=== PATIENT | male | born 1950 | race Two or more races ===

== ENCOUNTER 2020-01-14 11:13 | Outpatient (REF) | payer MEDICARE, SELFPAY | END 2020-01-14 11:14 | disposition home or self-care (01) | LOC: HO.LAB 11:13 | PROVIDERS: PCP Family Medicine; Visit Provider Internal Medicine | DX: Z20.828 Contact with and (suspected) exposure to other viral communicable diseases (principal) | CPT/HCPCS: C9803; U0003 ==

== ENCOUNTER 2020-06-24 14:46 | Outpatient (REF) | payer MEDICARE, SELFPAY | END 2020-06-24 14:47 | disposition home or self-care (01) | LOC: HO.LAB 14:46 | PROVIDERS: Visit Provider Internal Medicine | DX: Z20.822 Contact with and (suspected) exposure to COVID-19 (principal) | CPT/HCPCS: C9803; U0003; U0005 ==

== ENCOUNTER 2020-12-11 12:27 | Outpatient (REF) | payer MEDICARE, SELFPAY ==
--- NOTE | 2020-12-11 16:00 | MHC.AU.ANR ---
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 Mr. Ailyn Hernandez reports that he's having more difficulty understanding speech and often asks for repetition. He notes difficulties hearing on the phone and the TV. Does patient feel they have a hearing loss?: Yes If Yes, Which Ear?: Both Ears When Was Hearing Difficulty First Noticed?: ~ 1 year ago Has hearing been tested previously?: No Ear History: Bothersome Tinnitus/Ringing/Noises in Ears: Both Ears History of occupational noise exposure?: Yes Medical History: Medical History: Diabetes, High Blood Pressure, Thyroid Disease Medical History (Other): COPD, renal cyst Medication List: See list Otoscopy: Right Ear: Unremarkable Left Ear: Unremarkable Tympanometry: Tympanometry performed due to: To assess integrity of the middle ear system Right Ear: Negative Middle Ear Pressure (Type C) Left Ear: Reduced Middle Ear Compliance (Type As) Hearing Evaluation: Transducer(s) Used: Insert Earphones, Bone Conduction Method: Conventional Audiometry Stimuli Used: Pure Tones Right Ear: Description of Hearing: Moderate sloping to severe sensorineural hearing loss from 250-8000 Hz. Left Ear: Description of Hearing: Moderate to moderately-severe sensorineural hearing loss from 250-8000 Hz. Speech Recognition Threshold (SRT): Method Used: Recorded Lists Stimuli Used: Serbian Trisyllable Words Right Ear: 65 dBHL Left Ear: 65 dBHL Word Discrimination: Method: Recorded Lists Word Lists Used: Lista Bisil?bica (Serbian) Right Ear: 88% at 90 dBHL Left Ear: 84% at 90 dBHL Recommendations: Audiological re-evaluation in one year. Trial with amplification is recommended. Based on degree of hearing loss, binaural amplification use is highly recommended. Briefly discussed hearing aids with Mr. Ailyn Hernandez. He will contact his health insurance company to find out about any hearing aid benefits. He was welcomed to return for a hearing aid consultation if he decides he would like to pursue hearing aids through our clinic. Diagnosis: Primary Diagnosis: H90.3 Bilateral Sensorineural Hearing Loss Secondary Diagnosis: H69.93 Unspecified Eustachian Tube Dysfunction, Bilateral Services Performed: Services Performed: Comprehensive Audiological Evaluation (CPT 30707) Tympanometry (CPT 28070) Signature: Provider: Zion Brown, CCC-A
== END 2020-12-11 12:28 | disposition home or self-care (01) ==
LOC: HO.SH 12:27
PROVIDERS: Visit Provider Family Medicine
DX: H90.3 Sensorineural hearing loss, bilateral (principal); H69.93 Unspecified Eustachian tube disorder, bilateral
CPT/HCPCS: 92557; 92567

== ENCOUNTER → 2021-01-05 13:02 | Outpatient (BNVA) | payer MEDICARE, SELFPAY | PROVIDERS: PCP Family Medicine; Referring Provider Family Medicine; Visit Provider Internal Medicine Cardiovascular Disease | DX: R07.9 Chest pain, unspecified (principal); Z87.891 Personal history of nicotine dependence | CPT/HCPCS: 93005; 99202 ==

== ENCOUNTER 2021-07-12 06:30 | Emergency (ER) | payer OTHER, MEDICAID, SELFPAY ==
--- NOTE | ~2021-07-12 | XR_ITS ---
EXAMINATION: XR CHEST CLINICAL INFORMATION: Chest congestion. COMPARISON: CT chest from 09/14/2018 TECHNIQUE: 2 views of the chest were obtained. FINDINGS: Lungs are well expanded. Chronic linear opacity of focal scar in the lingula. No consolidation or pleural effusion. Cardiac silhouette is normal in size. The hilar contours are normal. Pulmonary vascular pattern is normal. No pulmonary edema. No acute skeletal abnormality. The visualized upper abdomen is normal. XR/XR chest 2V IMPRESSION: No acute pulmonary disease.
--- NOTE | ~2021-07-12 | CT_ITS ---
EXAMINATION: CT CHEST WITHOUT CONTRAST CLINICAL INFORMATION: Difficulty breathing. COMPARISON: Chest radiograph done earlier the same day and CT chest dated 09/14/2018. TECHNIQUE: Multidetector volumetric CT imaging of the chest was done. Axial MIP volume rendering provided. Sagittal and coronal reformatted images were obtained. This CT examination was performed using dose optimization techniques as appropriate, variously including the following: *Automated exposure control *Adjustment of mA and/or kV according to patient size (this includes techniques or standardized protocols for targeted exams where dose is matched to indication/reason for exam; i.e. 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 LUNGS: Linear scarring versus atelectasis redemonstrated within the lingula. Mild dependent atelectasis. No large, confluent airspace consolidation. The central airways are patent. Stable 0.4 cm right lower lobe subpleural nodule (axial image 281/498). The additional previously seen nodule is not appreciated on the current examination due to respiratory motion. No new pulmonary nodule or large mass. MEDIASTINUM: No cardiomegaly. No pericardial effusion. No thoracic aortic dilatation or dissection. No superior mediastinal lymphadenopathy. Unremarkable thyroid. PLEURA: There is no pleural effusion. No pleural mass or thickening. AXILLA: No lymphadenopathy. UPPER ABDOMEN: Stable bilateral renal cysts. Otherwise, the visualized upper abdominal structures are unremarkable. OSSEOUS STRUCTURES: Unremarkable. CT/CT chest wo con IMPRESSION: 1. No new airspace consolidation or evidence of acute cardiopulmonary findings. 2. Stable right lower lobe subpleural pulmonary nodule. No new pulmonary nodule. Given stability since 2019, now continued followup imaging is recommended. Fleischner guidelines were followed.
[2021-07-12 07:00] VITALS: BP 175/93; PULSE 81; RESP 24; TEMP 36.9; O2SAT 96; BMI 32.9
[2021-07-12 07:26] LABS: COVID-19 Test Negative (Negative); IDNOW Serial# 16C4AD1C; Influenza A Negative (Negative); Influenza B2 Negative (Negative)
[2021-07-12 08:22] VITALS: BP 176/85; PULSE 70; RESP 18; O2SAT 96
--- NOTE | 2021-07-12 08:25 | ED_ITS ---
HPI - General Adult General Chief complaint: Upper Respiratory Symptoms Stated complaint: wheezing; asthma Time Seen by Provider: 07/12/21 08:25 Source: patient and family () Mode of arrival: ambulatory Limitations: no limitations History of Present Illness HPI narrative: Patient is a 70 year old male presenting to the emergency department today with increased wheezing and shortness of breath. Patient states that for the last few weeks he has had increased wheezing and coughing. Patient states that he has a history of asthma and COPD but does not have a lung specialist. Patient denies any dizziness, lightheadedness, abdominal pain, nausea, vomiting, fever, chills, blurry vision, double vision, loss of vision, chest pain, back pain, night sweats, pain with urination, increased urinary frequency, increased urinary urgency, blood in his urine or stool, syncope or a near syncopal episode, recent trauma or falls, bowel incontinence, bladder incontinence, bowel retention, bladder retention, or any other complaints at this time. Onset (ago): week(s) Severity: mild Severity scale (1-10): 3 Relieving factors: none Exacerbating factors: none Associated symptoms: cough Treatments prior to arrival: none Related Data Home Medications Medication Instructions Recorded Confirmed aspirin 81 mg tablet,delayed 81 mg PO DAILY 01/05/21 01/05/21 release atorvastatin 40 mg tablet 40 mg PO DAILY 01/05/21 01/05/21 blood sugar diagnostic (SalonBookrTouch #10 ea 01/05/21 01/05/21 Ultra Test) citalopram 40 mg tablet 40 mg PO DAILY 01/05/21 01/05/21 doxazosin 8 mg tablet 8 mg PO DAILY 01/05/21 01/05/21 ergocalciferol (vitamin D2) 1,250 1,250 mcg PO QWEEK 01/05/21 01/05/21 mcg (50,000 unit) capsule lancets 33 gauge (SalonBookrTouch Delica #100 ea 01/05/21 01/05/21 Plus Lancet) levothyroxine 88 mcg tablet 88 mcg PO DAILY 01/05/21 01/05/21 lisinopril 40 mg tablet 40 mg PO BEDTIME 01/05/21 01/05/21 loratadine 10 mg tablet 10 mg PO DAILY 01/05/21 01/05/21 montelukast 10 mg tablet 10 mg PO DAILY 01/05/21 01/05/21 omeprazole 20 mg capsule,delayed 20 mg PO BID 01/05/21 01/05/21 release tamsulosin 0.4 mg capsule 0.4 mg PO DAILY 01/05/21 01/05/21 tiotropium bromide 18 mcg capsule 1 cap INHALATION DAILY 01/05/21 01/05/21 with inhalation device (Spiriva with HandiHaler) trazodone 50 mg tablet 50 mg PO BEDTIME 01/05/21 01/05/21 Previous Rx's Medication Instructions Recorded azithromycin 250 mg tablet See Rx Instructions .ROUTE 07/12/21 .COMPLEX #6 tab prednisone 20 mg tablet 20 mg PO DAILY 12 Days #26 tab 07/12/21 Allergies Allergy/AdvReac Type Severity Reaction Status Date / Time No Known Allergies Allergy Verified 01/05/21 13:54 Review of Systems Constitutional: Constitutional: Reports no additional constitutional complaints, Denies chills, Denies fever(s) and Denies night sweats Eyes: Eyes: Reports no additional eye complaints, Denies blurry vision, Denies change in vision, Denies diplopia, Denies eye discharge, Denies loss of vision and Denies eye pain ENT: Denies dizziness Cardiovascular: Cardiovascular: Reports no additional cardiovascular complaints, Denies chest pain, Denies lightheadedness, Denies Loss of Consciousness and Denies dyspnea Respiratory: Respiratory: Reports no additional respiratory complaints, Reports cough, Denies dyspnea and Reports wheezing Gastrointestinal: Gastrointestinal: Reports no additional gastrointestinal complaints, Denies abdominal pain, Denies melena, Denies hematochezia, Denies change in bowel habits and Denies change in stool character Genitourinary: Genitourinary: Reports no additional male genitourinary complaints, Denies hematuria, Denies oliguria, Denies difficulty urinating, Denies dysuria, Denies urinary frequency, Denies urinary hesitancy, Denies urinary incontinence and Denies urinary urgency Musculoskeletal: Musculoskeletal: Reports no additional musculoskeletal complaints, Denies numbness and Denies tingling Neurologic: Denies dizziness, Denies loss of vision, Denies numbness and Denies tingling Psychiatric: Psychiatric: Reports no additional psychiatric complaints Endocrine: Endocrine: Reports no additional endocrine complaints Hematologic/Lymphatic: Hematologic/Lymphatic: Reports no additional hematologic/lymphatic complaints Allergic/Immunologic: Allergic/Immunologic: Reports no additional allergic/immunologic complaints and Reports wheezing PMFSH Past Medical History Attestation statement: The following information was validated with the patient. Source: old records reviewed Medical History History of stent insertion of renal artery Surgical History History of nasal surgery Family History Family History Mother Diabetes Breast cancer Father Pacemaker HTN (hypertension) CAD (coronary artery disease) Social History Social History Alcohol intake: former Year quit: 2005 Patient Tobacco Use Status: Former Tobacco user Quit Date: 2005 Years Smoked: 40 +/- Advance Directives: Yes Advance Directives Information Provided: Yes Advance Directives on File: No Physical Exam ED Vital Signs: Vital Signs - 24 hr 07/12/21 07:00 07/12/21 08:22 07/12/21 08:44 Temperature 98.4 F Pulse Rate 81 70 76 Respiratory Rate 24 H 18 19 Blood Pressure 175/93 H 176/85 H Pulse Oximetry 96 96 BMI result Body Mass Index 32.9 Const General: cooperative, no acute distress, alert and awake Nutritional Appearance: well nourished Orientation/consciousness: patient oriented x3 Limitations: no limitations HENMT Head: Yes normal to inspection and Yes atraumatic Ears: hearing grossly normal bilaterally and external ears normal General nose exam: Normal external nose present, no nasal discharge noted and no epistaxis Face and sinus: Yes normal facial exam, No abrasion and No laceration Mouth: Normal oral and palatal mucosa present, no drooling and no muffled voice Eyes General: appearance normal, both eyes and all related structures Periorbital: periorbital findings normal Eyelids: Yes eyelids normal Conjunctivae: conjunctivae normal Pupils: Equal, round and reactive pupils present EOM: EOMs intact bilaterally Neck Neck: Yes normal visual inspection, Yes full ROM and Yes no lymphadenopathy Chest Chest palpation & inspection: normal inspection of the chest Resp Effort & Inspection: normal respiratory effort and able to speak in complete sentences Auscultation: wheezes scattered wheezes and throughout Cardio Rate: regular rate Rhythm: regular rhythm GI Inspection: Yes normal to inspection Neuro General: patient oriented x3 and moves all extremities Cranial nerves: Yes Equal, round and reactive pupils present Cognition (Neuro): normal cognition Motor exam (neuro): 5/5 motor strength present throughout Sensory Exam: Normal double simultaneous stimulation for sensation Coordination: [id number] test normal Extrem General: Yes normal to inspection, Yes full ROM and Yes capillary refill normal Psych Appearance: grossly normal Mental Status: mental status grossly normal Affect: normal affect Attitude: cooperative Thought process: Normal thought process present Thought content: Normal thought content present Insight: Good insight present (Psych) Medical Decision Making MDM Narrative Medical decision making narrative: Patient is a 70 year old male presenting to the emergency department today with a cough and wheezing. Patient's physical exam showed diffuse wheezing throughout all lung olivas but was otherwise unremarkable. Patient's blood work showed a slightly elevated lactic acid of 2.2 but was otherwise unremarkable. Patient's EKG was unremarkable. Patient's chest x-ray showed no acute process. Patient's chest CT showed a stable, chronic, lung nodule but was otherwise unremarkable. I explained my physical exam findings as well as all test results to the patient and the patient's . I answered all questions asked by the patient and the patient's . Patient received a duoneb and IV decadron which helped his wheezing significantly. I stressed the importance of the patient taking his medication as prescribed. I stressed the importance of the patient following up with his primary care provider and establishing with a construction trench digger. I stressed the importance of the patient returning to the emergency department immediately if his symptoms were to worsen or if he were to develop any dizziness, shortness of breath, difficulty breathing, chest pain, blurry vision, loss of vision, nausea, vomiting, abdominal pain, fever, chills, back pain, or any other complaints. Patient and the patient's verbalized agreement and unders tanding with this treatment plan and discharge. Differential Diagnosis Differential Diagnosis: COPD exacerbation, asthma exacerbation, wheezing Medical Records Medical records reviewed: Yes I reviewed the patient's medical records. Lab Data Lab results reviewed: Yes I reviewed the patient's lab results. Result diagrams: 07/12/21 09:02 07/12/21 09:02 Labs: Lab Results 07/12/21 07/12/21 07/12/21 Range/Units 07:03 07:03 09:02 WBC 10.5 (4.8-10.8) X10*3/uL RBC 5.14 (4.60-5.80) X10*6/uL Hgb 14.0 (14.0-18.0) g/dl Hct 44.4 (42.0-52.0) % MCV 86.4 (80.0-98.0) fL MCH 27.2 (27.0-33.0) pg MCHC 31.5 (31.0-36.0) g/dl RDW 13.8 (11.0-16.0) % Plt Count 385 (160-400) X10*3/uL MPV 8.7 L (9.4-12.4) fL Immature Gran % (Auto) 0.5 H (0.0-0.4) % Neut % (Auto) 90.7 H (45-73) % Lymph % (Auto) 7.3 L (20-40) % Ogle % (Auto) 1.0 L (2-11) % Eos % (Auto) 0.2 (0-4) % Baso % (Auto) 0.3 (0-2) % Lymph # (Auto) 0.8 L (1.2-4.9) X10*3/uL Ogle # (Auto) 0.1 (0.1-1.2) X10*3/uL Eos # (Auto) 0.0 (0.0-0.4) X10*3/uL Baso # (Auto) 0.0 (0.0-0.2) X10*3/uL Abs Immat Gran (auto) 0.05 H (0.00-0.03) X10*3/uL Absolute Neuts (auto) 9.5 H (2.0-8.3) x10*3/uL Absolute Nucleated RBC 0.000 (0.0-0.012) X10*3/uL Nucleated RBC % (auto) 0.0 (0.0-0.2) /100WBC Smear Tech's Comments VERIFIED ESR (0-15) MM/HR VBG pH (7.32-7.43) VBG pCO2 mmHg VBG pO2 mmHg VBG HCO3 (22-26) mmol/L VBG O2 Saturation % VBG Base Excess mmol/L Sodium (135-145) mmol/L Potassium (3.3-5.1) mmol/L Chloride (96-108) mmol/L Carbon Dioxide (22-29) mmol/L Anion Gap (12-20) BUN (9-16) mg/dL Creatinine (0.5-1.4) mg/dL Estim Creat Clear Calc Estimated GFR Random Glucose (60-115) mg/dL Lactic Acid (0.5-2.0) mmol/L Calcium (8.4-10.2) mg/dL Total Bilirubin (0.0-1.0) mg/dL AST (5-37) U/L ALT (0-40) U/L Alkaline Phosphatase (39-117) U/L Troponin I High Sens (<3.5-35.0) ng/L C-Reactive Protein (< or = 0.50) mg/dL B-Natriuretic Peptide (<100) pg/mL Total Protein (6.5-8.0) g/dL Albumin (3.5-5.0) g/dL COVID-19 (VICKIE) Negative (Negative) COVID-19 Clin Com See Note Influenza Type A (DOMINGA) Negative (Negative) Influenza Type B (DOMINGA) Negative (Negative) Influenza A & B Note See Note 07/12/21 07/12/21 07/12/21 Range/Units 09:02 09:02 09:02 WBC (4.8-10.8) X10*3/uL RBC (4.60-5.80) X10*6/uL Hgb (14.0-18.0) g/dl Hct (42.0-52.0) % MCV (80.0-98.0) fL MCH (27.0-33.0) pg MCHC (31.0-36.0) g/dl RDW (11.0-16.0) % Plt Count (160-400) X10*3/uL MPV (9.4-12.4) fL Immature Gran % (Auto) (0.0-0.4) % Neut % (Auto) (45-73) % Lymph % (Auto) (20-40) % Ogle % (Auto) (2-11) % Eos % (Auto) (0-4) % Baso % (Auto) (0-2) % Lymph # (Auto) (1.2-4.9) X10*3/uL Ogle # (Auto) (0.1-1.2) X10*3/uL Eos # (Auto) (0.0-0.4) X10*3/uL Baso # (Auto) (0.0-0.2) X10*3/uL Abs Immat Gran (auto) (0.00-0.03) X10*3/uL Absolute Neuts (auto) (2.0-8.3) x10*3/uL Absolute Nucleated RBC (0.0-0.012) X10*3/uL Nucleated RBC % (auto) (0.0-0.2) /100WBC Smear Tech's Comments ESR (0-15) MM/HR VBG pH (7.32-7.43) VBG pCO2 mmHg VBG pO2 mmHg VBG HCO3 (22-26) mmol/L VBG O2 Saturation % VBG Base Excess mmol/L Sodium 139 (135-145) mmol/L Potassium 4.6 (3.3-5.1) mmol/L Chloride 105 (96-108) mmol/L Carbon Dioxide 25 (22-29) mmol/L Anion Gap 14 (12-20) BUN 24 H (9-16) mg/dL Creatinine 1.18 (0.5-1.4) mg/dL Estim Creat Clear Calc 51.1 Estimated GFR > 60 Random Glucose 197 H (60-115) mg/dL Lactic Acid 2.2 H* (0.5-2.0) mmol/L Calcium 9.7 (8.4-10.2) mg/dL Total Bilirubin 0.4 (0.0-1.0) mg/dL AST 13 (5-37) U/L ALT 24 (0-40) U/L Alkaline Phosphatase 97 (39-117) U/L Troponin I High Sens < 3.5 (<3.5-35.0) ng/L C-Reactive Protein 0.25 (< or = 0.50) mg/dL B-Natriuretic Peptide 27 (<100) pg/mL Total Protein 7.3 (6.5-8.0) g/dL Albumin 4.1 (3.5-5.0) g/dL COVID-19 (VICKIE) (Negative) COVID-19 Clin Com Influenza Type A (DOMINGA) (Negative) Influenza Type B (DOMINGA) (Negative) Influenza A & B Note 07/12/21 07/12/21 Range/Units 09:02 09:05 WBC (4.8-10.8) X10*3/uL RBC (4.60-5.80) X10*6/uL Hgb (14.0-18.0) g/dl Hct (42.0-52.0) % MCV (80.0-98.0) fL MCH (27.0-33.0) pg MCHC (31.0-36.0) g/dl RDW (11.0-16.0) % Plt Count (160-400) X10*3/uL MPV (9.4-12.4) fL Immature Gran % (Auto) (0.0-0.4) % Neut % (Auto) (45-73) % Lymph % (Auto) (20-40) % Ogle % (Auto) (2-11) % Eos % (Auto) (0-4) % Baso % (Auto) (0-2) % Lymph # (Auto) (1.2-4.9) X10*3/uL Ogle # (Auto) (0.1-1.2) X10*3/uL Eos # (Auto) (0.0-0.4) X10*3/uL Baso # (Auto) (0.0-0.2) X10*3/uL Abs Immat Gran (auto) (0.00-0.03) X10*3/uL Absolute Neuts (auto) (2.0-8.3) x10*3/uL Absolute Nucleated RBC (0.0-0.012) X10*3/uL Nucleated RBC % (auto) (0.0-0.2) /100WBC Smear Tech's Comments ESR 9 (0-15) MM/HR VBG pH 7.38 (7.32-7.43) VBG pCO2 38 mmHg VBG pO2 62 mmHg VBG HCO3 23 (22-26) mmol/L VBG O2 Saturation 87.0 % VBG Base Excess -1.7 mmol/L Sodium (135-145) mmol/L Potassium (3.3-5.1) mmol/L Chloride (96-108) mmol/L Carbon Dioxide (22-29) mmol/L Anion Gap (12-20) BUN (9-16) mg/dL Creatinine (0.5-1.4) mg/dL Estim Creat Clear Calc Estimated GFR Random Glucose (60-115) mg/dL Lactic Acid (0.5-2.0) mmol/L Calcium (8.4-10.2) mg/dL Total Bilirubin (0.0-1.0) mg/dL AST (5-37) U/L ALT (0-40) U/L Alkaline Phosphatase (39-117) U/L Troponin I High Sens (<3.5-35.0) ng/L C-Reactive Protein (< or = 0.50) mg/dL B-Natriuretic Peptide (<100) pg/mL Total Protein (6.5-8.0) g/dL Albumin (3.5-5.0) g/dL COVID-19 (VICKIE) (Negative) COVID-19 Clin Com Influenza Type A (DOMINGA) (Negative) Influenza Type B (DOMINGA) (Negative) Influenza A & B Note Imaging Data Chest x-ray: Attestation: I personally reviewed and interpreted this imaging study as follows: My impression: No acute process. Radiologist's impression: EXAMINATION: XR CHEST CLINICAL INFORMATION: Chest congestion. COMPARISON: CT chest from 09/14/2018 TECHNIQUE: 2 views of the chest were obtained. FINDINGS: Lungs are well expanded. Chronic linear opacity of focal scar in the lingula. No consolidation or pleural effusion. Cardiac silhouette is normal in size. The hilar contours are normal. Pulmonary vascular pattern is normal. No pulmonary edema. No acute skeletal abnormality. The visualized upper abdomen is normal. XR/XR chest 2V IMPRESSION: No acute pulmonary disease. Dictated By: Danilo Riley MD Signed By: Electronically signed by Danilo Riley MD 07/12/[address] scan - chest: Attestation: I personally reviewed and interpreted this imaging study as follows: My impression: No acute process. Radiologist's impression: EXAMINATION: CT CHEST WITHOUT CONTRAST CLINICAL INFORMATION: Difficulty breathing.? COMPARISON: Chest radiograph done earlier the same day and CT chest dated 09/14/2018.? TECHNIQUE: Multidetector volumetric CT imaging of the chest was done. Axial MIP volume rendering provided. Sagittal and coronal reformatted images were obtained.? This CT examination was performed using dose optimization techniques as appropriate, variously including the following: *Automated exposure control *Adjustment of mA and/or kV according to patient size (this includes techniques or standardized protocols for targeted exams where dose is matched to indication/reason for exam; i.e. extremities or head) *Use of iterative reconstruction technique DLP: 289 mGy-cm FINDINGS: VISUAL AND STOCK ASSOCIATE: Unremarkable. LUNGS: Linear scarring versus atelectasis redemonstrated within the lingula. Mild dependent atelectasis. No large, confluent airspace consolidation. The central airways are patent. Stable 0.4 cm right lower lobe subpleural nodule (axial image 281/498). The additional previously seen nodule is not appreciated on the current examination due to respiratory motion. No new pulmonary nodule or large mass.? MEDIASTINUM: No cardiomegaly. No pericardial effusion. No thoracic aortic dilatation or dissection. No superior mediastinal lymphadenopathy. Unremarkable thyroid.? PLEURA: There is no pleural effusion. No pleural mass or thickening.? AXILLA: No lymphadenopathy.? UPPER ABDOMEN: Stable bilateral renal cysts. Otherwise, the visualized upper abdominal structures are unremarkable.? OSSEOUS STRUCTURES: Unremarkable.? CT/CT chest wo con IMPRESSION: 1. No new airspace consolidation or evidence of acute cardiopulmonary findings. ? 2. Stable right lower lobe subpleural pulmonary nodule. No new pulmonary nodule. Given stability since 2019, now continued followup imaging is recommended.? ? Fleischner guidelines were followed. Dictated By: Bhaskar Sarmiento MD Signed By: Electronically signed by Bhaskar Sarmiento MD 07/12/21 1012 ECG Data Attestation: I personally reviewed and interpreted this ECG as follows: Prior ECG tracings: available for review Interpretation: Vent. Rate: 074 BPM ? ? Atrial Rate: 074 BPM P-R Int: 148 ms? QRS Dur: 086 ms QT Int: 424 ms ? ? ? P-R-T Axes: 064 -22 037 degrees QTc Int: 470 ms ? Normal sinus rhythm Possible inferior infarct, age undetermined When compared with ECG of 05-JAN-2021 13:02, No significant change was found Important note: This EKG did not cross over into the computer system and was manually entered here by myself, Marcelle Kelly PA-C. Patient's signed EKG was attached to his paper chart and should be scanned into the system. Discharge Plan Discharge Clinical Impression: Diffuse wheezing, COPD with asthma Patient Disposition: Home, Self-Care Instructions: COPD (Chronic Obstructive Pulmonary Disease) (DC), Wheezing (ED) Additional Instructions: Follow up with your primary care provider. Return to the emergency department immediately if your symptoms worsen or if you develop any dizziness, shortness of breath, difficulty breathing, chest pain, blurry vision, loss of vision, nausea, vomiting, abdominal pain, fever, chills, back pain, or any other complaints. Prescriptions: New azithromycin 250 mg tablet See Rx Instructions .ROUTE .COMPLEX Qty: 6 0RF Rx Instructions: For 250 mg dose pack: take 500 mg today (day 1), then 250 mg for 4 days (days 2-5) prednisone 20 mg tablet 20 mg PO DAILY 12 Days Qty: 26 0RF Rx Instructions: Take 3 tablets by mouth for 5 days THEN; Take 2 tablets by mouth for 4 days THEN; Take 1 tablet by mouth for 3 days No Action loratadine 10 mg tablet 10 mg PO DAILY 0RF omeprazole 20 mg capsule,delayed release(DR/EC) 20 mg PO BID 0RF citalopram 40 mg tablet 40 mg PO DAILY 0RF Spiriva with HandiHaler 18 mcg capsule, w/inhalation device 1 cap inhalation DAILY 0RF lisinopril 40 mg tablet 40 mg PO BEDTIME 0RF doxazosin 8 mg tablet 8 mg PO DAILY 0RF levothyroxine 88 mcg tablet 88 mcg PO DAILY 0RF (DME) OneTouch Ultra Test Strip See Rx Instructions ea Not Applicable DAILY Qty: 10 0RF Rx Instructions: As directed (DME) lancets [OneTouch Delica Plus Lancet] 33 gauge [facility] [place] See Rx Instructions lancet topical DAILY Qty: 100 0RF Rx Instructions: As directed aspirin 81 mg tablet,delayed release (DR/EC) 81 mg PO DAILY 0RF tamsulosin 0.4 mg capsule 0.4 mg PO DAILY 0RF montelukast 10 mg tablet 10 mg PO DAILY 0RF trazodone 50 mg tablet 50 mg PO BEDTIME 0RF ergocalciferol (vitamin D2) 1,250 mcg (50,000 unit) capsule 1,250 mcg PO QWEEK 0RF atorvastatin 40 mg tablet 40 mg PO DAILY 0RF Referrals: [facility] [place]Provider Group] Laura Cohen MD [Primary Care Provider] - Print Language: Faroese
--- NOTE | 2021-07-12 08:33 | ECG_ITS ---
Test Reason : DIFF BREATHING Blood Pressure : / mmHG Vent. Rate : 074 BPM Atrial Rate : 074 BPM P-R Int : 148 ms QRS Dur : 086 ms QT Int : 424 ms P-R-T Axes : 064 -22 037 degrees QTc Int : 470 ms Normal sinus rhythm Normal ECG When compared to the previous EKG of No significant changes seen Referred By: Marcelle Kelly Electronically Signed By:Adam Dasilva
[2021-07-12 08:44] VITALS: PULSE 76; RESP 19; O2SAT 97
[2021-07-12] MEDS: Albuterol/Iprat 2.5/0.5MG 3 ML AMPUL.NEB INHALE (08:44)
[2021-07-12] MEDS: dexAMETHasone sod phosphate 10 MG/ML VIAL IVPUSH (09:07)
[2021-07-12 09:10] LABS: Basophils Percent Auto 0.3 % (0-2); Eosinophils Percent Auto 0.2 % (0-4); Hematocrit 44.4 % (42.0-52.0); Imm Gran Abs Auto 0.05 X10*3/uL (0.00-0.03); Imm Gran Pct Auto 0.5 % (0.0-0.4); Lymphocytes Absolute Auto 0.8 X10*3/uL (1.2-4.9); Lymphocytes Percent Auto 7.3 % (20-40); MANUAL DIFF FLAG SCAN; Mean Corpuscular HGB Conc 31.5 g/dl (31.0-36.0); Mean Corpuscular Hemoglobin 27.2 pg (27.0-33.0); Mean Corpuscular Volume 86.4 fL (80.0-98.0); Mean Platelet Volume 8.7 fL (9.4-12.4); Monocytes Absolute Auto 0.1 X10*3/uL (0.1-1.2); Neutrophils Absolute Auto 9.5 x10*3/uL (2.0-8.3); Neutrophils Percent Auto 90.7 % (45-73); Platelet Count 385 X10*3/uL (160-400); Red Blood Count 5.14 X10*6/uL (4.60-5.80); Red Cell Distribution Width 13.8 % (11.0-16.0); SCAN SMEAR FLAG 1; White Blood Count 10.5 X10*3/uL (4.8-10.8)
[2021-07-12 09:12] LABS: Venous Blood Gas Refer to POC result
[2021-07-12 09:13] LABS: VBG Base Excess -1.7 mmol/L; VBG HCO3 23 mmol/L (22-26); VBG pCO2 38 mmHg; VBG pH 7.38 (7.32-7.43); VBG pO2 62 mmHg
[2021-07-12 09:21] LABS: Lactic Acid 2.2 mmol/L (0.5-2.0)
[2021-07-12 09:25] LABS: Alanine Aminotransferase 24 U/L (0-40); Albumin Level 4.1 g/dL (3.5-5.0); Alkaline Phosphatase 97 U/L (39-117); Anion Gap 14 (12-20); Aspartate Amino Transferase 13 U/L (5-37); Bilirubin Total 0.4 mg/dL (0.0-1.0); Blood Urea Nitrogen 24 mg/dL (9-16); C Reactive Protein 0.25 mg/dL (< or = 0.50); Calcium 9.7 mg/dL (8.4-10.2); Carbon Dioxide 25 mmol/L (22-29); Chloride 105 mmol/L (96-108); Creatinine Clr Calc Pharmacy 51.1; Estimated Glomerular Filt Rate > 60; Glucose Random 197 mg/dL (60-115); Potassium 4.6 mmol/L (3.3-5.1); Sodium 139 mmol/L (135-145); Total Protein 7.3 g/dL (6.5-8.0)
[2021-07-12 09:27] LABS: SLIDE REVIEW VERIFIED
[2021-07-12 09:29] LABS: B Type Natriuretic Peptide 27 pg/mL (<100); Troponin-I High Sensitivity < 3.5 ng/L (<3.5-35.0)
[2021-07-12] MEDS: 0.9 % Sodium Chloride 1,000 ML 200 ML IVCONT (09:54)
[2021-07-12 09:58] LABS: Erythrocyte Sedimentation Rate 9 MM/HR (0-15)
[2021-07-12 11:05] LABS: Reflex Lactate? Lactic Acid Added
== END 2021-07-12 10:58 | disposition home or self-care (01) ==
PROVIDERS: Physician Assistant Medical; Emergency Provider Emergency Medicine; PCP Family Medicine
DX: J44.9 Chronic obstructive pulmonary disease, unspecified (principal); R09.89 Other specified symptoms and signs involving the circulatory and respiratory systems; J45.909 Unspecified asthma, uncomplicated; R05.9 Cough, unspecified; Z20.822 Contact with and (suspected) exposure to COVID-19; Z79.899 Other long term (current) drug therapy; Z87.891 Personal history of nicotine dependence
CPT/HCPCS: 36415; 71046; 71250; 80053; 82803; 83605; 83880; 84484; 85025; 85652; 86140; 87040; 87502; 87635; 93005; 94640; 96361; 96374; 99282; 99284; J1100

== ENCOUNTER → 2021-08-26 14:46 | Outpatient (BNVA) | payer OTHER, SELFPAY | PROVIDERS: PCP Family Medicine; Visit Provider Internal Medicine | DX: J44.9 Chronic obstructive pulmonary disease, unspecified (principal); J30.9 Allergic rhinitis, unspecified; E66.9 Obesity, unspecified; Z68.32 Body mass index [BMI] 32.0-32.9, adult; G47.33 Obstructive sleep apnea (adult) (pediatric); Z79.899 Other long term (current) drug therapy; Z99.89 Dependence on other enabling machines and devices | CPT/HCPCS: 99202 ==

== ENCOUNTER 2021-12-28 14:51 | Outpatient (REF) | payer OTHER, SELFPAY ==
--- NOTE | 2021-12-28 16:58 | PFT_ITS ---
FLOWS: FEV1 74% of predicted at 1.60 L. FVC 72% of predicted at 2.13 L. FEV1 to FVC ratio of 0.75. Bronchodilator testing was not performed. LUNG VOLUMES: The patient was unable to perform lung volume maneuver. Diffusion capacity is normal. IMPRESSION: No obstructive ventilatory defect. Suggestion of underlying restrictive ventilatory defect. The patient was unable to perform lung volume maneuvers. Bronchodilator testing was not performed. MD VALERI Farmer/ERIKA / [phone]
== END 2021-12-28 14:52 | disposition home or self-care (01) ==
LOC: HO.RESP 14:51
PROVIDERS: PCP Internal Medicine Geriatric Medicine; Visit Provider Internal Medicine
DX: J44.9 Chronic obstructive pulmonary disease, unspecified (principal)
CPT/HCPCS: 94010; 94729

== ENCOUNTER → 2021-12-30 14:37 | Outpatient (BNVA) | payer OTHER, SELFPAY | PROVIDERS: PCP Family Medicine; Visit Provider Internal Medicine | DX: J45.909 Unspecified asthma, uncomplicated (principal); G47.33 Obstructive sleep apnea (adult) (pediatric); E66.9 Obesity, unspecified; Z99.89 Dependence on other enabling machines and devices; Z68.33 Body mass index [BMI] 33.0-33.9, adult | CPT/HCPCS: 99212 ==

== ENCOUNTER → 2022-04-14 15:08 | Outpatient (BNVA) | payer OTHER, SELFPAY | PROVIDERS: PCP Family Medicine; Visit Provider Nurse Practitioner Family | DX: G47.33 Obstructive sleep apnea (adult) (pediatric) (principal); R07.9 Chest pain, unspecified; J44.9 Chronic obstructive pulmonary disease, unspecified; J45.909 Unspecified asthma, uncomplicated; E66.9 Obesity, unspecified; Z68.34 Body mass index [BMI] 34.0-34.9, adult; Z99.89 Dependence on other enabling machines and devices | CPT/HCPCS: 99202 ==

== ENCOUNTER → 2022-05-13 15:08 | Outpatient (BNVA) | payer OTHER, SELFPAY | PROVIDERS: PCP Family Medicine; Visit Provider Internal Medicine | DX: J45.909 Unspecified asthma, uncomplicated (principal); G47.33 Obstructive sleep apnea (adult) (pediatric); Z99.89 Dependence on other enabling machines and devices | CPT/HCPCS: 99212 ==

== ENCOUNTER 2022-06-30 12:02 | Outpatient (REF) | payer OTHER, SELFPAY ==
--- NOTE | ~2022-06-30 | XR_ITS ---
Examination: Bilateral knee. Clinical indications: Pain. TECHNIQUE: 4 views each knee. FINDINGS: Right knee: There is severe loss of medial and patellofemoral compartment joint space with moderate periarticular spurring. No loose bodies, bony erosive changes, acute fracture or dislocation seen. There is minimal suprapatellar joint effusion. Left knee: There is severe loss of medial and patellofemoral compartment joint space with periarticular spurring. No loose bodies, bony erosive changes or joint effusion seen. The soft tissues are normal. No joint effusion seen. XR/XR knee LT 4V IMPRESSION: Severe degenerative arthritic changes medial and patellofemoral compartment both knees with periarticular spurring. No visible acute fracture or dislocation seen.
--- NOTE | ~2022-06-30 | XR_ITS ---
Examination: Bilateral knee. Clinical indications: Pain. TECHNIQUE: 4 views each knee. FINDINGS: Right knee: There is severe loss of medial and patellofemoral compartment joint space with moderate periarticular spurring. No loose bodies, bony erosive changes, acute fracture or dislocation seen. There is minimal suprapatellar joint effusion. Left knee: There is severe loss of medial and patellofemoral compartment joint space with periarticular spurring. No loose bodies, bony erosive changes or joint effusion seen. The soft tissues are normal. No joint effusion seen. XR/XR knee RT 4V IMPRESSION: Severe degenerative arthritic changes medial and patellofemoral compartment both knees with periarticular spurring. No visible acute fracture or dislocation seen.
== END 2022-06-30 12:03 | disposition home or self-care (01) ==
LOC: HO.XRAY 12:02
PROVIDERS: PCP Family Medicine; Visit Provider Family Medicine
DX: M25.561 Pain in right knee (principal); M25.562 Pain in left knee
CPT/HCPCS: 73564

== ENCOUNTER 2022-09-16 13:03 | Outpatient (AMB) | payer OTHER, SELFPAY ==
--- NOTE | 2022-09-16 13:31 | MHC.OFFVIS ---
Intake Vital Signs 09/16/22 13:35 Height 5 ft 1 in Weight 185 lb BMI 35.0 Intake Visit Reasons: [employer]-Chronic b/L knee pain Intake Note: Jt 71 yr old male presents today with his son Babatunde for a new patient visit for an evaluation of bilateral knee pain. States he is aware he has O.A in knees and has had an increase of pain in the last few months. States he feels grinding in his knees when he walks, instability and swelling on and off. States he had tried using a knee brace but doesn't relief much pain. At time he feels like his knee will give out with prolong walking. Denies numbness or tingling in toes. He has tried Tylenol and anti-inflammatory medicines which gave him minimal relief. He would like to hold off on surgery for as long as possible. Allergies No Known Allergies Allergy (Verified 09/16/22 13:35) Medication List - Last Reconciled 09/17/22 by Justin Melendez MD albuterol sulfate 90 mcg/actuation 2 puffs PO Q4-6H PRN 30 days aspirin 81 mg PO DAILY atorvastatin 40 mg PO DAILY blood sugar diagnostic ([employer] Ultra Test strips) As directed citalopram 40 mg PO DAILY doxazosin 8 mg PO DAILY ipratropium-albuterol 0.5 mg-3 mg(2.5 mg base)/3 mL mL inhalation Q6H PRN lancets ([employer] Delica Plus Lancet) As directed levothyroxine 100 mcg PO DAILY lisinopril 40 mg PO BEDTIME loratadine 10 mg PO DAILY montelukast 10 mg PO DAILY omeprazole 20 mg PO BID tamsulosin 0.4 mg PO DAILY trazodone 50 mg PO BEDTIME [facility] Medical History Allergic rhinitis Bronchial asthma COPD (chronic obstructive pulmonary disease) History of stent insertion of renal artery Obesity (BMI 30-39.9) SHORTY on CPAP Surgical History History of nasal surgery Family History Mother Diabetes Breast cancer Father Pacemaker HTN (hypertension) CAD (coronary artery disease) Social History Alcohol intake: former Year quit: 2005 Patient Tobacco Use Status: Former Tobacco user Quit Date: 2005 Years Smoked: 40 +/- Physical Exam Vital Signs: BMI result Body Mass Index 35.0 Const Other: Well-nourished well-developed very friendly male awake alert and oriented x3 in no acute distress Extrem Other: Bilateral lower extremity examination shows good capillary refill, no skin lesions noted, normal sensation light touch Bilateral knee examination shows minimal effusions, palpable crepitus with range of motion, pain with range of motion, range of motion from -3 degrees to 115 degrees, no instability Office Procedures Joint Injection/Drain Joint Injection/Drain Primary Site: left knee Prep: site was prepped using aseptic technique Injected: 40 mg of, Kenalog and 1% plain lidocaine Procedure: The patient tolerated the procedure well Coding 88746 - Large joint Procedure code (CPT) selection complete Joint Injection/Drain Joint Injection/Drain Primary Site: right knee Prep: site was prepped using aseptic technique Injected: 40 mg of, Kenalog and 1% plain lidocaine Procedure: The patient tolerated the procedure well Coding 76016 - Large joint Procedure code (CPT) selection complete Results Reviewed Results Reviewed: 09/16/22 13:43 Lidocaine HCl 2 % MPF [Xylocaine 2 % MPF] 5 ml .ROUTE .STK-MED ONE Triamcinolone Acetonide [Kenalog-40] 40 mg .ROUTE .STK-MED ONE X-rays of the patient's bilateral knee show severe joint space narrowing, subchondral sclerosis, osteophyte formation, no acute bony abnormalities Assessment & Plan Assessment & Plan (1) Arthritis of left knee: Code(s): M17.12 - Unilateral primary osteoarthritis, left knee (2) Arthritis of right knee: Code(s): M17.11 - Unilateral primary osteoarthritis, right knee Plan Mr. Ailyn Hernandez presents with bilateral knee pains due to degenerative joint disease. I had a lengthy discussion with the patient and his son regarding the treatment options. The patient wishes to hold off on surgery for as long as possible. I agree with this plan. The risks and benefits of bilateral knee cortisone injections were discussed at length with the patient. The patient wished to proceed. He tolerated the injections well. He will continue with his home exercise program. He will follow up with me on an as-needed basis should his symptoms not plateau at an unacceptable level over the next few months. If he fails continued non operative treatments we will further discuss the risks and benefits of total knee replacement surgery. Feel free to call me at any time should questions regarding his orthopedic management arise. Thank you very much for asking me to see this very friendly gentleman. I spent 22 minutes in reviewing the patient's records and imaging studies, seeing the patient and documenting in the medical record. Orders: Orders AMB Joint Injection/Aspiration 09/16/22 M17.12 - Unilateral primary osteoarthritis, left knee AMB Joint Injection/Aspiration 09/16/22 M17.11 - Unilateral primary osteoarthritis, right knee, M17.12 - Unilateral primary osteoarthritis, left knee Coding Level of Care Code New Pt Level 2 (30039) Diagnoses Arthritis of left knee M17.12 Arthritis of right knee M17.11 CPT Codes Coding - 52444 Large joint: 04280 - Large joint ([id number]) Coding - 78572 Large joint: 78361 - Large joint ([id number])
[2022-09-16 13:35] VITALS: BMI 35.0
== END 2022-09-16 14:02 | disposition home or self-care (01) ==
PROVIDERS: PCP Family Medicine; Visit Provider Orthopaedic Surgery
DX: M17.0 Bilateral primary osteoarthritis of knee (principal)
CPT/HCPCS: 20610; 99202

== ENCOUNTER → 2022-09-16 13:03 | Outpatient (BNVA) | payer OTHER, SELFPAY | PROVIDERS: PCP Family Medicine; Visit Provider Orthopaedic Surgery | DX: M17.12 Unilateral primary osteoarthritis, left knee (principal); M17.11 Unilateral primary osteoarthritis, right knee | CPT/HCPCS: 20610; 99202; J3301 ==

== ENCOUNTER 2022-11-29 15:48 | Outpatient (REF) | payer OTHER, SELFPAY ==
[2022-11-29 18:09] LABS: Free T4 (Free Thyroxine) 0.92 ng/dL (0.71-1.85); Thyroid Stimulating Hormone 6.05 uIU/mL (0.32-4.0)
== END 2022-11-29 15:49 | disposition home or self-care (01) ==
LOC: HO.HHCL 15:48
PROVIDERS: Visit Provider Family Medicine
DX: E03.9 Hypothyroidism, unspecified (principal)
CPT/HCPCS: 36415; 84439; 84443

== ENCOUNTER 2023-01-04 14:01 | Outpatient (AMB) | payer OTHER, SELFPAY ==
--- NOTE | 2023-01-04 14:05 | MHC.OFFVIS ---
Intake Vital Signs 01/04/23 14:08 Height 5 ft 1 in Weight 185 lb BMI 35.0 Intake Visit Reasons: ov- Chronic b/L knee pain Intake Note: Jt a 72 year old male presents today for a follow up of bilateral knee, last injection 09/16/22. Patient reports last injection provided him some relief. He describes his bilateral knee pains as sharp nature. This point his right knee pain is more bothersome than is his left. He denies any fevers or chills. He has done physical therapy exercises which aggravated the. He has also tried Tylenol and anti-inflammatory medicines which gave minimal relief. He would like to hold off on total knee replacement surgery for as long as possible. Allergies No Known Allergies Allergy (Verified 01/04/23 14:18) Medication List - Last Reconciled 01/04/23 by Jusitn Melendez MD albuterol sulfate 90 mcg/actuation 2 puffs PO Q4-6H PRN 30 days aspirin 81 mg PO DAILY atorvastatin 40 mg PO DAILY blood sugar diagnostic ([employer] Ultra Test strips) As directed citalopram 40 mg PO DAILY doxazosin 8 mg PO DAILY ipratropium-albuterol 0.5 mg-3 mg(2.5 mg base)/3 mL mL inhalation Q6H PRN lancets ([employer] Delica Plus Lancet) As directed levothyroxine 100 mcg PO DAILY lisinopril 40 mg PO BEDTIME loratadine 10 mg PO DAILY montelukast 10 mg PO DAILY omeprazole 20 mg PO BID tamsulosin 0.4 mg PO DAILY trazodone 50 mg PO BEDTIME PFSH Medical History Allergic rhinitis Bronchial asthma COPD (chronic obstructive pulmonary disease) History of stent insertion of renal artery Obesity (BMI 30-39.9) SHORTY on CPAP Surgical History History of nasal surgery Family History Mother Diabetes Breast cancer Father Pacemaker HTN (hypertension) CAD (coronary artery disease) Alcohol intake: former Year quit: 2005 Patient Tobacco Use Status: Former Tobacco user Quit Date: 2005 Years Smoked: 40 +/- Physical Exam Vital Signs: BMI result Body Mass Index 35.0 Const Other: Well-nourished well-developed very friendly male awake alert and oriented x3 in no acute distress Extrem Other: Bilateral lower extremity examination shows good capillary refill, no skin lesions noted, normal sensation light touch Bilateral knee examination shows minimal effusions, palpable crepitus with range of motion, pain with range of motion, range of motion from -3 degrees to 115 degrees, no instability Office Procedures Joint Injection/Drain Joint Injection/Drain Primary Site: right knee Prep: site was prepped using aseptic technique Injected: 40 mg of, Kenalog and 1% plain lidocaine Procedure: The patient tolerated the procedure well Coding 55058 - Large joint Procedure code (CPT) selection complete Joint Injection/Drain Joint Injection/Drain Primary Site: left knee Prep: site was prepped using aseptic technique Injected: 40 mg of, Kenalog and 1% plain lidocaine Procedure: The patient tolerated the procedure well Coding 37460 - Large joint Procedure code (CPT) selection complete Results Reviewed Results Reviewed: X-rays of the patient's bilateral knees show joint space narrowing, subchondral sclerosis, no acute bony abnormalities with Assessment & Plan Assessment & Plan (1) Arthritis of left knee: Code(s): M17.12 - Unilateral primary osteoarthritis, left knee Plan: Mr. Ailyn Hernandez presents with bilateral knee pains due to degenerative joint disease. I had a lengthy discussion with the patient regarding the treatment options. He wishes to hold off on total knee replacement surgery for as long as possible. I agree with this plan. The risks and benefits of bilateral knee cortisone injections were discussed at length with the patient. The patient wished to proceed. He tolerated the injections well. He will continue with his home exercise program. He will follow up with me on an as-needed basis should his symptoms not plateau at an unacceptable level over the next few months. If he fails continued non operative treatments we will further discuss the risks and benefits of right total knee replacement surgery. Feel free to call me at any time should questions regarding his orthopedic management arise. I spent 22 minutes in reviewing the patient's records and imaging studies, seeing the patient and documenting in the medical record. (2) Arthritis of right knee: Code(s): M17.11 - Unilateral primary osteoarthritis, right knee Orders: Orders AMB Joint Injection/Aspiration Today M17.12 - Unilateral primary osteoarthritis, left knee AMB Joint Injection/Aspiration Today M17.11 - Unilateral primary osteoarthritis, right knee Coding Level of Care Code Est Pt Level 2 (61109) Diagnoses Arthritis of left knee M17.12 Arthritis of right knee M17.11 CPT Codes Coding - 45929 Large joint: 90248 - Large joint ([id number]) Coding - 07334 Large joint: 92470 - Large joint ([id number])
[2023-01-04 14:08] VITALS: BMI 35.0
== END 2023-01-04 14:34 | disposition home or self-care (01) ==
PROVIDERS: PCP Family Medicine; Visit Provider Orthopaedic Surgery
DX: M17.0 Bilateral primary osteoarthritis of knee (principal)
CPT/HCPCS: 20610; 99213

== ENCOUNTER → 2023-01-04 14:01 | Outpatient (BNVA) | payer OTHER, SELFPAY | PROVIDERS: PCP Family Medicine; Visit Provider Orthopaedic Surgery | DX: M17.12 Unilateral primary osteoarthritis, left knee (principal); M17.11 Unilateral primary osteoarthritis, right knee | CPT/HCPCS: 20610; 99212; J3301 ==

== ENCOUNTER 2023-04-26 14:49 | Outpatient (AMB) | payer OTHER, SELFPAY ==
[2023-04-26 14:53] VITALS: BMI 35.0
--- NOTE | 2023-04-26 14:53 | A.OFFVIS_ITS ---
Intake Vital Signs 04/26/23 14:53 Height 5 ft 1 in Weight 185 lb BMI 35.0 Intake Visit Reasons: ov- Chronic b/L knee pain Intake Note: Jt is a 72 year old male who presents with bilateral knee pain. He reports he had bilateral knee injections on 01/04/2023 and they gave him good relief. He would like to repeat the bilateral knee injections. He has done physical therapy exercises which aggravated his pain. He has also tried Tylenol and anti-inflammatory medicines which gave him minimal relief. He wishes to hold off on surgery for as long as possible. Allergies No Known Allergies Allergy (Verified 04/26/23 14:54) Medication List - Last Reconciled 04/27/23 by Justin Melendez MD albuterol sulfate 90 mcg/actuation 2 puffs PO Q4-6H PRN 30 days aspirin 81 mg PO DAILY atorvastatin 40 mg PO DAILY blood sugar diagnostic ([employer] Ultra Test strips) As directed citalopram 40 mg PO DAILY doxazosin 8 mg PO DAILY ipratropium-albuterol 0.5 mg-3 mg(2.5 mg base)/3 mL mL inhalation Q6H PRN lancets ([employer] Delica Plus Lancet) As directed levothyroxine 100 mcg PO DAILY lisinopril 40 mg PO BEDTIME loratadine 10 mg PO DAILY montelukast 10 mg PO DAILY omeprazole 20 mg PO BID tamsulosin 0.4 mg PO DAILY trazodone 50 mg PO BEDTIME PFSH Medical History Bronchial asthma COPD (chronic obstructive pulmonary disease) Allergic rhinitis SHORTY on CPAP Obesity (BMI 30-39.9) History of stent insertion of renal artery Surgical History History of nasal surgery Family History Mother Diabetes Breast cancer Father Pacemaker HTN (hypertension) CAD (coronary artery disease) Social History Alcohol intake: former Year quit: 2005 Patient Tobacco Use Status: Former Tobacco user Quit Date: 2005 Years Smoked: 40 +/- Physical Exam Vital Signs: BMI result Body Mass Index 35.0 Const Other: Well-nourished well-developed very friendly male awake alert and oriented x3 in no acute distress Extrem Other: Bilateral lower extremity examination shows good capillary refill, no skin lesions noted, normal sensation light touch Bilateral knee examination shows minimal effusions, palpable crepitus with range of motion, pain with range of motion, no instability Office Procedures Joint Injection/Drain Joint Injection/Drain Primary Site: left knee Prep: site was prepped using aseptic technique Injected: 40 mg of, DepoMedrol and 1% plain lidocaine Procedure: The patient tolerated the procedure well Coding 34397 - Large joint Procedure code (CPT) selection complete Joint Injection/Drain Joint Injection/Drain Primary Site: right knee Prep: site was prepped using aseptic technique Injected: 40 mg of, DepoMedrol and 1% plain lidocaine Procedure: The patient tolerated the procedure well Coding 87917 - Large joint Procedure code (CPT) selection complete Results Reviewed Results Reviewed: X-rays of the patient's bilateral knee show joint space narrowing, subchondral sclerosis, no acute bony abnormalities Assessment & Plan Assessment & Plan (1) Arthritis of left knee: Code(s): M17.12 - Unilateral primary osteoarthritis, left knee (2) Arthritis of right knee: Code(s): M17.11 - Unilateral primary osteoarthritis, right knee Plan Mr. Ailyn Hernandez presents with bilateral knee pains due to degenerative joint disease. I had a lengthy discussion with the patient regarding the treatment options. The patient wishes to hold off on surgery for as long as possible. I agree with this plan. The risks and benefits of bilateral knee cortisone injections were discussed at length with the patient. The patient wished to proceed with the injections. He tolerated the injections well. Will continue with his home exercise program. He will follow up with me on an as-needed basis should his symptoms not plateau at an unacceptable level over the next few months. Feel free to call me at any time should questions regarding his orthopedic management arise. I spent 22 minutes in reviewing the patient's records and imaging studies, seeing the patient and documenting in the medical record. Orders: Orders AMB Joint Injection/Aspiration 04/26/23 M17.12 - Unilateral primary osteoarthritis, left knee AMB Joint Injection/Aspiration 04/26/23 M17.11 - Unilateral primary osteoarthritis, right knee Coding Level of Care Code Est Pt Level 2 (49688) Diagnoses Arthritis of left knee M17.12 Arthritis of right knee M17.11 CPT Codes Coding - Large joint: 32614 - Large joint ([id number]) Coding - 75978 Large joint: 03395 - Large joint ([id number])
== END 2023-04-26 15:13 | disposition home or self-care (01) ==
PROVIDERS: PCP Family Medicine; Visit Provider Orthopaedic Surgery
DX: M17.0 Bilateral primary osteoarthritis of knee (principal)
CPT/HCPCS: 20610; 99213

== ENCOUNTER → 2023-04-26 14:49 | Outpatient (BNVA) | payer OTHER, SELFPAY | PROVIDERS: PCP Family Medicine; Visit Provider Orthopaedic Surgery | DX: M17.0 Bilateral primary osteoarthritis of knee (principal) | CPT/HCPCS: 20610; 99212; J1020 ==

== ENCOUNTER 2023-05-29 20:18 | Inpatient (IN) | payer OTHER, SELFPAY ==
--- NOTE | 2023-05-29 | ECG_ITS ---
Test Reason : cp Blood Pressure : / mmHG Vent. 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
--- NOTE | ~2023-05-29 | XR_ITS ---
EXAMINATION: XR CHEST CLINICAL INFORMATION: Dyspnea. COMPARISON: Chest radiograph dated 07/12/2021. TECHNIQUE: Frontal view of the chest was obtained. FINDINGS: The trachea is in normal anatomic position. Heart size remains normal. There is no consolidation in either lung. No pleural effusion or pneumothorax. No acute osseous abnormality. XR/XR chest 1V IMPRESSION: Stable appearance of the heart and lungs. No acute disease.
[2023-05-29 20:30] VITALS: BP 175/73; PULSE 91; RESP 22; TEMP 36.7; O2SAT 96; BMI 34.0
[2023-05-29 20:37] LABS: MANUAL DIFF FLAG NO
[2023-05-29 20:40] LABS: Basophils Percent Auto 0.1 % (0-2); Eosinophils Percent Auto 0.1 % (0-4); Hematocrit 43.5 % (42.0-52.0); Hemoglobin 14.3 g/dl (14.0-18.0); Imm Gran Abs Auto 0.11 X10*3/uL (0.00-0.03); Imm Gran Pct Auto 1.3 % (0.0-0.4); Lymphocytes Absolute Auto 0.7 X10*3/uL (1.2-4.9); Lymphocytes Percent Auto 8.5 % (20-40); Mean Corpuscular HGB Conc 32.9 g/dl (31.0-36.0); Mean Corpuscular Hemoglobin 28.3 pg (27.0-33.0); Mean Corpuscular Volume 86.1 fL (80.0-98.0); Mean Platelet Volume 9.1 fL (9.4-12.4); Monocytes Absolute Auto 0.1 X10*3/uL (0.1-1.2); Monocytes Percent Auto 1.3 % (2-11); Neutrophils Absolute Auto 7.6 x10*3/uL (2.0-8.3); Neutrophils Percent Auto 88.7 % (45-73); Platelet Count 332 X10*3/uL (160-400); Red Blood Count 5.05 X10*6/uL (4.60-5.80); Red Cell Distribution Width 13.2 % (11.0-16.0); White Blood Count 8.6 X10*3/uL (4.8-10.8)
--- NOTE | 2023-05-29 20:47 | ED_ITS ---
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 The patient states that he has a cough which is productive of thick, clear phlegm. He complains of left-sided chest pain which she describes as sharp pain which is worse with breathing and coughing. Disease feeling dizzy and lightheaded. He feels short of breath at rest and with exertion. He denied fever but did have chills arthralgias. He was seen by his PCP on 05/23/2023 (6 days prior to evaluation) and was treated with the Zithromax Z-Kevin and prednisone 40 mg once a day x5 days, he states that despite taking his medications he has not feeling better and actually feels worse. His family was concerned that he looked short of breath and brought him to the emergency department for evaluation. Related Data Home Medications ?Medication ?Instructions ?Recorded ?Confirmed aspirin 81 mg tablet,delayed 81 mg PO DAILY 01/05/21 04/27/23 release atorvastatin 40 mg tablet 40 mg PO DAILY 01/05/21 04/27/23 blood sugar diagnostic ([facility] #10 ea 01/05/21 04/27/23 Ultra Test strips) citalopram 40 mg tablet 40 mg PO DAILY 01/05/21 04/27/23 doxazosin 8 mg tablet 8 mg PO DAILY 01/05/21 04/27/23 [facility] 01/05/21 04/27/23 Plus Lancet) lisinopril 40 mg tablet 40 mg PO BEDTIME 01/05/21 04/27/23 loratadine 10 mg tablet 10 mg PO DAILY 01/05/21 04/27/23 montelukast 10 mg tablet 10 mg PO DAILY 01/05/21 04/27/23 omeprazole 20 mg capsule,delayed 20 mg PO BID 01/05/21 04/27/23 release tamsulosin 0.4 mg capsule 0.4 mg PO DAILY 01/05/21 04/27/23 trazodone 50 mg tablet 50 mg PO BEDTIME 01/05/21 04/27/23 ipratropium 0.5 mg-albuterol 3 mg ml inhalation Q6H PRN dyspnea 05/13/22 04/27/23 (2.5 mg base)/3 mL nebulization soln levothyroxine 88 mcg tablet 100 mcg PO DAILY 05/13/22 04/27/23 Previous Rx's ?Medication ?Instructions ?Recorded albuterol sulfate 90 mcg/actuation 2 puff PO Q4-6H PRN shortness of 05/13/22 aerosol inhaler breath or wheezing 30 days #8.5 grams Allergies Allergy/AdvReac Type Severity Reaction Status Date / Time No Known Allergies Allergy Verified 05/29/23 20:43 Review of Systems 2 Review of Systems: Yes all other systems are reviewed and are negative [facility] Past Medical History [facility] Narrative: Social history: He is and his who and sent her here in the emergency department with him. He is a former smoker but states he stop smoking 30 years prior. He denies alcohol or drug use. Medical History Bronchial asthma COPD (chronic obstructive pulmonary disease) Allergic rhinitis SHORTY on CPAP Obesity (BMI 30-39.9) History of stent insertion of renal artery Surgical History History of nasal surgery Family History Family History Mother Diabetes Breast cancer Father Pacemaker HTN (hypertension) CAD (coronary artery disease) Social History Social History Alcohol intake: former Year quit: 2005 Patient Tobacco Use Status: Former Tobacco user Quit Date: 2005 Years Smoked: 40 +/- Smoked in Last 30 Days: No Use of substances other than those prescribed or required for medical reasons: No Advance Directives: No Advance Directives Information Provided: No Physical Exam 2 Vital Signs: Vital Signs: Last Vital Signs Temp 97.3 F 05/29/23 22:45 Pulse 88 05/29/23 22:45 Resp 20 05/29/23 22:45 BP 125/60 05/29/23 22:45 Pulse Ox 96 05/29/23 22:45 O2 Del Method Nasal Cannula 05/29/23 22:45 O2 Flow Rate 2 05/29/23 22:45 BMI result Body Mass Index 34.0 175/73 and elevated respiratory rate of 22, otherwise unremarkable. Exam: General: Awake, alert, appears dyspneic and tachypneic Head: Normocephalic, atraumatic EENT: PERRL, Lids normal, sclera normal, conjunctiva normal, nose normal , ears normal, throat without erythema or exudates Neck: Supple, no adenopathy Lung: Diffuse rhonchi and wheezing, breath sounds symmetric bilaterally, rales at the left base greater than the right base Chest: symmetric movement, nontender Heart: regular rate and rhythm, normal S1, S2 no murmurs or rubs Abdomen: soft, non-tender, nondistended, normal bowel sounds Back: no vertebral tenderness, no CVAT Extremities: no deformities, moves all extremities symmetrically Neuro: Awake, alert, oriented, normal speech, cranial nerves intact, moves all extremities symmetrically Psych: Pleasant, cooperative Medications Administered Discontinued Medications Generic Name Dose Route Start Last Admin Trade Name Freq PRN Reason Stop Dose Admin Albuterol Sulfate 7.5 mg/ 10 mg 05/29/23 21:03 05/29/23 21:08 Albuterol Sulfate 2.5 mg INHALE 05/29/23 21:04 10 mg ONCE ONE Administration Piperacillin Sod/Tazobactam 100 mls @ 200 mls/hr 05/29/23 21:01 05/29/23 21:29 Sod 4.5 gm/ Sodium Chloride IV 05/29/23 21:30 200 mls/hr ONCE ONE Administration Methylprednisolone Sodium Succinate 125 mg 05/29/23 21:01 05/29/23 21:29 Methylprednisolone Sod Succ 125 Mg/2 Ml Vial IVPUSH 05/29/23 21:02 125 mg ONCE ONE Administration Medical Decision Making Medical Decision Making MDM Narrative: 72-year-old male with history of COPD, select asleep apnea, osteoarthritis who presents emergency department for evaluation of the days of productive cough, shortness of breath, dyspnea on exertion, left-sided pleuritic chest pain and goals. Patient was seen 8 days prior by his PCP and started on Zithromax Z-Kevin and prednisone 40 mg once a day for 5 days. Symptoms have not improved enough gotten worse therefore his family brought him to the emergency department for evaluation. Elevated blood pressure of 175/73 elevated respiratory rate of 22 with an O2 saturation of 96% on room air. Patient did drop to 88 was of oxygen via nasal cannula. Lung exam revealed diffuse rhonchi and wheezing with rales at the bases right greater than left. 21:09 Differential diagnosis: ?Includes but is not limited to exacerbation of chronic lung disease, pneumonia, acute bronchitis, congestive heart failure, myocardial infarction, myocardial Following evaluation was ordered: CBC, CMP, BNP, troponin, blood cultures x2, lactic acid, COVID-19, influenza, RSV Patient was initially treated with the following: Solu-Medrol 125 mg IV, albuterol nebulizer 10 mg, Zosyn 4.5 g IV Course: 23:05 WBC normal 8600 with a left shift of 88 neutrophils. Glucose elevated 256. Bicarb low 19. Lactic acid elevated 2.4. Troponin was below. BNP was 50 hospital. Patient's influenza, RSV and COVID were negative. On my interpretation the patient's chest x-ray I believe he has a right lower lobe infiltrate compared to his previous x-ray Patient did get improvement after the above albuterol treatment. Given his chronic lung disease and his pneumonia for further management. I did discuss the patient's presentation over tiger text with the covering hospitalist, Dr. Godoy. Admission/Observation Consideration of admission/observation: Escalation of care including admission/observation considered Consult Healthcare Provider Management of the patient was discussed with: Hospitalist Lab Data [facility] Lab Attestation statement: I reviewed the patient's lab results. 05/29/23 20:33 05/29/23 20:33 Labs: Lab Results 05/29/23 05/29/23 Range/Units 20:33 21:20 WBC 8.6 (4.8-10.8) X10*3/uL RBC 5.05 (4.60-5.80) X10*6/uL Hgb 14.3 (14.0-18.0) g/dl Hct 43.5 (42.0-52.0) % MCV 86.1 (80.0-98.0) fL MCH 28.3 (27.0-33.0) pg MCHC 32.9 (31.0-36.0) g/dl RDW 13.2 (11.0-16.0) % Plt Count 332 (160-400) X10*3/uL MPV 9.1 L (9.4-12.4) fL Immature Gran % (Auto) 1.3 H (0.0-0.4) % Neut % (Auto) 88.7 H (45-73) % Lymph % (Auto) 8.5 L (20-40) % [place] % (Auto) 1.3 L (2-11) % Eos % (Auto) 0.1 (0-4) % Baso % (Auto) 0.1 (0-2) % Lymph # (Auto) 0.7 L (1.2-4.9) X10*3/uL [place] # (Auto) 0.1 (0.1-1.2) X10*3/uL Eos # (Auto) 0.0 (0.0-0.4) X10*3/uL Baso # (Auto) 0.0 (0.0-0.2) X10*3/uL Abs Immat Gran (auto) 0.11 H (0.00-0.03) X10*3/uL Absolute Neuts (auto) 7.6 (2.0-8.3) x10*3/uL Absolute Nucleated RBC 0.000 (0.0-0.012) X10*3/uL Nucleated RBC % (auto) 0.0 (0.0-0.2) /100WBC Sodium 137 (135-145) mmol/L Potassium 4.1 (3.3-5.1) mmol/L Chloride 107 (96-108) mmol/L Carbon Dioxide 19 L (22-29) mmol/L Anion Gap 15 (12-20) BUN 19 H (9-16) mg/dL Creatinine 0.91 (0.5-1.4) mg/dL Estim Creat Clear Calc 65.4 Estimated GFR > 60 Random Glucose 256 H (60-115) mg/dL Lactic Acid 2.4 H* (0.5-2.0) mmol/L Calcium 8.9 D (8.4-10.2) mg/dL Total Bilirubin 0.2 (0.0-1.0) mg/dL AST 15 (5-37) U/L ALT 30 (0-40) U/L Alkaline Phosphatase 91 (39-117) U/L Troponin I High Sens < 2.7 (<3.5-35.0) ng/L B-Natriuretic Peptide Cancelled 50 Total Protein 7.2 (6.5-8.0) g/dL Albumin 4.0 (3.5-5.0) g/dL Influenza Type A (PCR) NEGATIVE (Negative) Influenza Type B (PCR) NEGATIVE (Negative) RSV RNA Qual (PCR) NEGATIVE (Negative) SARS-CoV-2 RNA (RT-PCR) NEGATIVE (Negative) Independent Interpretation I performed an independent interpretation of an: EKG and Plain X-Ray Interpretation: My interpretation of the patient's one-view chest x-ray is as follows: Right lower lobe infiltrate, new compared to chest x-ray on 07/12/2021 My independent interpretation patient's 12 lead EKG done at 20:24 hours is as follows: Normal sinus rhythm with a rate of 90, normal MA interval, QRS duration QTC interval, no ST segment elevation, no ST segment depression, no T- wave abnormalities. Critical Care Time Critical Care Time Critical Care Time: Yes Total Critical Care Time: 40 Attestation: Critical Care: The patient was critically ill with a high probability of imminent or life threatening deterioration. I spent greater than 30 minutes of discontinuous time evaluating the patient,delivering critical care at the bedside, discussing and evaluating pertinent data with consultants. Critical care time does not include time spent performing separately billable procedures or teaching. Total time spent performing critical care was 40 minutes. Discharge Plan Discharge Patient Disposition: Admitted As Inpatient Prescriptions: No Action loratadine 10 mg tablet 10 mg PO DAILY omeprazole 20 mg capsule,delayed release(DR/EC) 20 mg PO BID citalopram 40 mg tablet 40 mg PO DAILY lisinopril 40 mg tablet 40 mg PO BEDTIME doxazosin 8 mg tablet 8 mg PO DAILY (DME) OneTouch Ultra Test Strip See Rx Instructions Not Applicable DAILY Qty: 10 Rx Instructions: As directed (DME) lancets [OneTouch Delica Plus Lancet] 33 gauge misc See Rx Instructions topical DAILY Qty: 100 Rx Instructions: As directed aspirin 81 mg tablet,delayed release (DR/EC) 81 mg PO DAILY tamsulosin 0.4 mg capsule 0.4 mg PO DAILY montelukast 10 mg tablet 10 mg PO DAILY trazodone 50 mg tablet 50 mg PO BEDTIME atorvastatin 40 mg tablet 40 mg PO DAILY levothyroxine 88 mcg tablet 100 mcg PO DAILY ipratropium-albuterol 0.5 mg-3 mg(2.5 mg base)/3 mL solution for nebulization inhalation Q6H PRN (Reason: dyspnea) albuterol sulfate 90 mcg/actuation HFA aerosol inhaler 2 puff PO Q4-6H PRN (Reason: shortness of breath or wheezing) 30 Days Qty: 8.5 4RF Print Language: [place]
--- NOTE | 2023-05-29 20:47 | PC.NURSE ---
this rn assumed care of pt, pt a&ox4, respirations even and unlabored, knitting tester at bedside. pt reporting x1 week of SOB, cough and phlegm, pt reports chest pain when coughing. pt reports hx of copd/asthma. pt lung sounds noted to be wheezing bilaterally. pt normal sinus on tele 90-93bpm, pt 96-98% on room air. 20G placed in left ac.
[2023-05-29 21:00] LABS: Alanine Aminotransferase 30 U/L (0-40); Alkaline Phosphatase 91 U/L (39-117); Anion Gap 15 (12-20); Aspartate Amino Transferase 15 U/L (5-37); Bilirubin Total 0.2 mg/dL (0.0-1.0); Blood Urea Nitrogen 19 mg/dL (9-16); Calcium 8.9 mg/dL (8.4-10.2); Carbon Dioxide 19 mmol/L (22-29); Chloride 107 mmol/L (96-108); Creatinine Clr Calc Pharmacy 65.4; Estimated Glomerular Filt Rate > 60; Glucose Random 256 mg/dL (60-115); Potassium 4.1 mmol/L (3.3-5.1); Sodium 137 mmol/L (135-145); Total Protein 7.2 g/dL (6.5-8.0)
[2023-05-29] MEDS: Albuterol Sulfate 7.5 MG, Albuterol Sulfate (0.083%) 2.5 MG 10 MG INHALE (21:08)
[2023-05-29 21:17] LABS: Troponin-I High Sensitivity < 2.7 ng/L (<3.5-35.0)
[2023-05-29] MEDS: methylPREDNISolone Sod Succ 125 MG/2 ML VIAL IVPUSH (21:29)
[2023-05-29] MEDS: Piperacillin Sodium/Tazobactam 4.5 GM in 0.9 % Sodium Chloride 100 ML IV (21:29)
[2023-05-29 21:46] LABS: B Type Natriuretic Peptide 50 pg/mL (<100)
[2023-05-29 21:58] LABS: Lactic Acid 2.4 mmol/L (0.5-2.0)
[2023-05-29 22:03] LABS: Influenza A PCR NEGATIVE (Negative); Influenza B PCR NEGATIVE (Negative); Resp Syncy Virus RNA Qual PCR NEGATIVE (Negative); SARS COV2 PCR INHOUSE NEGATIVE (Negative)
[2023-05-29 22:45] VITALS: BP 125/60; PULSE 88; RESP 20; TEMP 36.3; O2SAT 96
[2023-05-29 23:24] LABS: Reflex Lactate? Lactic Acid Added
[2023-05-30] VITALS (9 sets, daily range): BP systolic 106–159; BP diastolic 52–82; PULSE 71–101; RESP 14–20; TEMP 36.1–36.5; O2SAT 94–100; BMI 34.0
[2023-05-30 00:05] LABS: ~Lactic Acid-LAB USE ONLY 3.4 mmol/L (0.5-2.0)
--- NOTE | 2023-05-30 00:06 | PC.NURSE ---
critical lactic acid result received, notified.
--- NOTE | 2023-05-30 00:16 | PM.IMHP ---
History of Present Illness Date of Service: 05/30/23 Chief Complaint: Dyspnea This is a 72-year-old male with pertinent history of COPD not on home oxygen, mood disorder, hypothyroidism, SHORTY on CPAP, essential hypertension, BPH, mixed hyperlipidemia who presents to the emergency department for evaluation of dyspnea. Patient states his symptoms started about a week prior to presentation. He went to his PCP's office about 5 days ago and was ordered p.o. azithromycin and p.o. steroids. Patient denies any improvement in symptoms with p.o. medications. He continues to have dyspnea which is worse with exertion. Also has been having wheezing and nonproductive cough. No fever, chills, chest discomfort, palpitations, abdominal pain, nausea, vomiting, changes in urinary or bowel habits. Denies orthopnea or paroxysmal nocturnal dyspnea In the emergency department, patient requiring 2 L supplemental oxygen and continued to have wheezing despite multiple DuoNeb treatments. Review of Systems Constitutional: Constitutional: Reports no additional constitutional complaints Cardiovascular: Cardiovascular: Reports dyspnea on exertion Respiratory: Respiratory: Reports cough, Reports dyspnea on exertion and Reports wheezing Gastrointestinal: Gastrointestinal: Reports no additional gastrointestinal complaints Genitourinary: Genitourinary: Reports no additional male genitourinary complaints Allergic/Immunologic: Allergic/Immunologic: Reports wheezing COUNTS INCLUDE 234 BEDS AT THE [facility] Medical History Bronchial asthma COPD (chronic obstructive pulmonary disease) Allergic rhinitis SHORTY on CPAP Obesity (BMI 30-39.9) History of stent insertion of renal artery Family History Mother Diabetes Breast cancer Father Pacemaker HTN (hypertension) CAD (coronary artery disease) Surgical History History of nasal surgery Social History Alcohol intake: former Year quit: 2005 Patient Tobacco Use Status: Former Tobacco user Quit Date: 2005 Years Smoked: 40 +/- Smoked in Last 30 Days: No Use of substances other than those prescribed or required for medical reasons: No Advance Directives: No Advance Directives Information Provided: No Meds Allergies Allergy/AdvReac Type Severity Reaction Status Date / Time No Known Allergies Allergy Verified 05/29/23 20:43 Home Medications ?Medication ?Instructions ?Recorded ?Confirmed ?Last Taken ?Type aspirin 81 mg tablet,delayed 81 mg PO DAILY 01/05/21 04/27/23 Unknown History release atorvastatin 40 mg tablet 40 mg PO DAILY 01/05/21 04/27/23 Unknown History blood sugar diagnostic ([facility] #10 ea 01/05/21 04/27/23 Unknown History Ultra Test strips) citalopram 40 mg tablet 40 mg PO DAILY 01/05/21 04/27/23 Unknown History doxazosin 8 mg tablet 8 mg PO DAILY 01/05/21 04/27/23 Unknown History lancets 33 gauge (One[facility] #100 ea 01/05/21 04/27/23 Unknown History Plus Lancet) lisinopril 40 mg tablet 40 mg PO BEDTIME 01/05/21 04/27/23 Unknown History loratadine 10 mg tablet 10 mg PO DAILY 01/05/21 04/27/23 Unknown History montelukast 10 mg tablet 10 mg PO DAILY 01/05/21 04/27/23 Unknown History omeprazole 20 mg capsule,delayed 20 mg PO BID 01/05/21 04/27/23 Unknown History release tamsulosin 0.4 mg capsule 0.4 mg PO DAILY 01/05/21 04/27/23 Unknown History trazodone 50 mg tablet 50 mg PO BEDTIME 01/05/21 04/27/23 Unknown History ipratropium 0.5 mg-albuterol 3 mg ml inhalation Q6H PRN dyspnea 05/13/22 04/27/23 Unknown History (2.5 mg base)/3 mL nebulization soln levothyroxine 88 mcg tablet 100 mcg PO DAILY 05/13/22 04/27/23 Unknown History Physical Exam Vital Signs and Narrative: Vital Signs: Last Vital Signs Temp 97.3 F 05/29/23 22:45 Pulse 88 05/29/23 22:45 Resp 20 05/29/23 22:45 BP 125/60 05/29/23 22:45 Pulse Ox 96 05/29/23 22:45 O2 Del Method Nasal Cannula 05/29/23 22:45 O2 Flow Rate 2 05/29/23 22:45 BMI result Body Mass Index 34.0 Elderly male lying in bed in mild distress on supplemental oxygen Neck supple, no JVD Regular rate and rhythm, S1-S2 heard Bilateral wheezing present Abdomen soft nontender, no guarding, no rigidity Patient is awake, alert and oriented to self, place, time and person ; no focal motor deficit Psych: Normal mood No pedal edema Results Labs 05/29/23 20:33 05/29/23 20:33 Labs: Laboratory Results - last 24 hr 05/29/23 05/29/23 05/29/23 20:33 21:20 23:40 MCV 86.1 MCH 28.3 MCHC 32.9 RDW 13.2 Plt Count 332 MPV 9.1 L Immature Gran % (Auto) 1.3 H Neut % (Auto) 88.7 H Lymph % (Auto) 8.5 L [place] % (Auto) 1.3 L Eos % (Auto) 0.1 Baso % (Auto) 0.1 Lymph # (Auto) 0.7 L [place] # (Auto) 0.1 Eos # (Auto) 0.0 Baso # (Auto) 0.0 Abs Immat Gran (auto) 0.11 H Absolute Neuts (auto) 7.6 Absolute Nucleated RBC 0.000 Nucleated RBC % (auto) 0.0 Anion Gap 15 Estim Creat Clear Calc 65.4 Estimated GFR > 60 Random Glucose 256 H Lactic Acid 2.4 H* Lactic Acid F/U @ 2Hr 3.4 H* Calcium 8.9 D Total Bilirubin 0.2 AST 15 ALT 30 Alkaline Phosphatase 91 Troponin I High Sens < 2.7 B-Natriuretic Peptide Cancelled 50 Total Protein 7.2 Albumin 4.0 Influenza Type A (PCR) NEGATIVE Influenza Type B (PCR) NEGATIVE RSV RNA Qual (PCR) NEGATIVE SARS-CoV-2 RNA (RT-PCR) NEGATIVE Imaging Radiologist's Impressions: Impressions Chest X-Ray 05/29/23 20:53 IMPRESSION: Stable appearance of the heart and lungs. No acute disease. Assessment and Plan (1) Hypoxia: Status: Acute (2) COPD (chronic obstructive pulmonary disease): Status: Acute Plan This is a 72-year-old male with pertinent history of COPD not on home oxygen, mood disorder, hypothyroidism, SHORTY on CPAP, essential hypertension, BPH, mixed hyperlipidemia who presents to the emergency department for evaluation of dyspnea. #. Acute hypoxemic respiratory failure due to acute exacerbation of COPD: Will admit patient with supplemental oxygen. Initiating IV steroids. Scheduled and p.r.nHelen Tolentino. Continue home inhaler. Also initiating IV doxycycline #. Acute lactic acidosis due to hypoxia and albuterol use #. Hyperglycemia: Due to steroid use. Obtain A1c #. Mood disorder: Continue home mood stabilizers #. SHORTY: Continue CPAP at bedtime #. Essential hypertension: Continue home antihypertensives #. BPH: On Flomax #. Mixed hyperlipidemia: On high-intensity statin Med rec pending DVT prophylaxis: Lovenox Full code Admit as inpatient and will require two night minimum hospital stay for supplemental oxygen, IV steroids (as above), which is not possible in a lesser acute setting. Quality Stroke Does the patient have a stroke diagnosis?: No VTE Prior VTE?: No VTE Risk Level:: Medical - moderate - high VTE Device Contraindication: Treatment Not Indicated VTE Drug Contraindication: N/A - Med Ordered
[2023-05-30] MEDS: Doxycycline Hyclate 100 MG in 0.9 % Sodium Chloride 250 ML 166.67 MG IV ×3 (00:38→21:06)
[2023-05-30] MEDS: Enoxaparin Sodium 40 MG/0.4 ML SYRINGE SUBCUT ×2 (00:39→19:42)
[2023-05-30 01:42] LABS: Reflex Lactate? 2 Y
[2023-05-30 02:11] LABS: ~Lactic Acid-LAB USE ONLY 3.9 mmol/L (0.5-2.0)
[2023-05-30 05:55] LABS: MANUAL DIFF FLAG NO
[2023-05-30 06:01] LABS: Basophils Percent Auto 0.1 % (0-2); Hematocrit 42.9 % (42.0-52.0); Hemoglobin 13.9 g/dl (14.0-18.0); Imm Gran Abs Auto 0.12 X10*3/uL (0.00-0.03); Imm Gran Pct Auto 1.4 % (0.0-0.4); Lymphocytes Absolute Auto 0.9 X10*3/uL (1.2-4.9); Lymphocytes Percent Auto 10.5 % (20-40); Mean Corpuscular HGB Conc 32.4 g/dl (31.0-36.0); Mean Corpuscular Hemoglobin 28.6 pg (27.0-33.0); Mean Corpuscular Volume 88.3 fL (80.0-98.0); Mean Platelet Volume 9.2 fL (9.4-12.4); Monocytes Absolute Auto 0.1 X10*3/uL (0.1-1.2); Monocytes Percent Auto 0.6 % (2-11); Neutrophils Absolute Auto 7.3 x10*3/uL (2.0-8.3); Neutrophils Percent Auto 87.4 % (45-73); Platelet Count 302 X10*3/uL (160-400); Red Blood Count 4.86 X10*6/uL (4.60-5.80); Red Cell Distribution Width 13.3 % (11.0-16.0); White Blood Count 8.4 X10*3/uL (4.8-10.8)
[2023-05-30 06:19] LABS: Anion Gap 13 (12-20); Blood Urea Nitrogen 20 mg/dL (9-16); Calcium 8.9 mg/dL (8.4-10.2); Carbon Dioxide 22 mmol/L (22-29); Chloride 105 mmol/L (96-108); Creatinine Clr Calc Pharmacy 57.8; Estimated Glomerular Filt Rate > 60; Glucose Random 240 mg/dL (60-115); Potassium 4.1 mmol/L (3.3-5.1); Sodium 136 mmol/L (135-145)
[2023-05-30 07:22] LABS: Estimated Average Glucose 148 mg/dL; Hemoglobin A1c % 6.8 % (<6.0)
[2023-05-30] MEDS: Albuterol/Iprat 2.5/0.5MG 3 ML AMPUL.NEB INHALE ×5 (07:30→23:14)
[2023-05-30] MEDS: 0.9 % Sodium Chloride 500 ML IV (08:52)
[2023-05-30] MEDS: 0.9 % Sodium Chloride Flush 3 ML SYRINGE IVFLUSH ×3 (08:53→23:43)
[2023-05-30] MEDS: methylPREDNISolone Sod Succ 40 MG/ML VIAL IVPUSH ×2 (09:46→19:43)
--- NOTE | 2023-05-30 10:48 | PHA.MEDREC ---
Pharmacy Consult ? Medication Reconciliation Pharmacy has completed the medication reconciliation. PT HAD LIST FROM PHARMACY AND IS MED BOX PATIENT.
--- NOTE | 2023-05-30 12:00 | P.PNIM_ITS ---
Subjective Subjective Date of Service: 05/30/23 Interval History: Patient continues to have wheezing and dyspnea. States minimal improvement since admission. Is on 2 L supplemental oxygen Cardiovascular Cardiovascular: Reports dyspnea Respiratory Respiratory: Reports cough, Reports dyspnea and Reports wheezing Allergic/Immunologic Allergic/Immunologic: Reports wheezing Physical Exam 2 Vital Signs: Vital Signs: Last Vital Signs Temp 97.0 F 05/30/23 10:46 Pulse 101 H 05/30/23 11:40 Resp 18 05/30/23 11:40 BP 145/68 H 05/30/23 10:46 Pulse Ox 98 05/30/23 10:46 O2 Del Method Room Air 05/30/23 10:46 O2 Flow Rate 3 05/30/23 00:44 BMI result Body Mass Index 34.0 Elderly male lying in bed in mild distress on supplemental oxygen Neck supple, no JVD Regular rate and rhythm, S1-S2 heard Bilateral wheezing present Abdomen soft nontender, no guarding, no rigidity Patient is awake, alert and oriented to self, place, time and person ; no focal motor deficit Psych: Normal mood No pedal edema Objective Data Active Medications Acetaminophen (Acetaminophen 325 Mg Tablet) 650 mg PO Q6H PRN PRN Reason: Pain, Mild (Pain Scale 1-3) Albuterol/Ipratropium (Albuterol/Iprat 2.5/0.5mg 3 Ml Ampul.Neb) 3 ml INHALE RQ4H WHILE AWAKE [facility] Last Admin: 05/30/23 11:38 Dose: 3 ml Documented By: SUSY Albuterol/Ipratropium (Albuterol/Iprat 2.5/0.5mg 3 Ml Ampul.Neb) 3 ml INHALE Q4H PRN PRN Reason: Wheezing Amlodipine Besylate (Amlodipine Besylate 5 Mg Tablet) 5 mg PO DAILY [facility]; Protocol Aspirin (Aspirin Enteric Coated 81 Mg Tablet.) 81 mg PO DAILY [facility] Atorvastatin Calcium (Atorvastatin Calcium 40 Mg Tablet) 40 mg PO BEDTIME [facility] Celecoxib (Celecoxib 200 Mg Capsule) 200 mg PO Q12H [facility] Doxazosin Mesylate (Doxazosin Mesylate 2 Mg Tablet) 8 mg PO BEDTIME [facility]; Protocol Enoxaparin Sodium (Enoxaparin Sodium 40 Mg/0.4 Ml Syringe) 40 mg SUBCUT BEDTIME [facility] Last Admin: 05/30/23 00:39 Dose: 40 mg Documented By: HELLEN Escitalopram Oxalate (Escitalopram Oxalate 20 Mg Tablet) 20 mg PO DAILY [facility] Fluticasone/Vilanterol (Fluticasone/Vilanterol 200/25 Blst.W.Dev) 1 puff INHALE RDAILY [facility] Doxycycline Hyclate 100 mg/ (Sodium Chloride) 250 mls @ 166.67 mls/hr IV BID [facility] Last Infusion: 05/30/23 11:35 Dose: Infused Documented By: COTEMA Levothyroxine Sodium (Levothyroxine Sodium 125 Mcg Tablet) 125 mcg PO DAILY@0600 [facility] Lisinopril (Lisinopril 40 Mg Tablet) 40 mg PO BEDTIME [facility]; Protocol Loratadine (Loratadine 10 Mg Tablet) 10 mg PO DAILY@1200 [facility] Melatonin (Melatonin 3 Mg Tablet) 6 mg PO BEDTIME PRN PRN Reason: Insomnia Methylprednisolone Sodium Succinate (Methylprednisolone Sod Succ 40 Mg/Ml Vial) 40 mg IVPUSH Q12H [facility] Last Admin: 05/30/23 09:46 Dose: 40 mg Documented By: CHUCK Montelukast Sodium (Montelukast Sodium 10 Mg Tablet) 10 mg PO BEDTIME [facility] Omeprazole (Omeprazole 20 Mg Capsule.Dr) 20 mg PO BID@0630,1630 [facility] Ondansetron HCl (Ondansetron Hcl 4 Mg/2 Ml Vial) 4 mg IVPUSH Q8H PRN PRN Reason: Nausea and Vomiting Sodium Chloride (0.9 % Sodium Chloride Flush 3 Ml Syringe) 3 ml IVFLUSH QSHIFT [facility] Last Admin: 05/30/23 08:53 Dose: 3 ml Documented By: CHUCK Tamsulosin HCl (Tamsulosin Hcl 0.4 Mg Capsule) 0.4 mg PO BEDTIME [facility] Tiotropium [place] (Tiotropium [place] 2.5 Mcg 1 Puff/2.5 Mcg Mist.Inhal) 2 puff INHALE RDAILY [facility] Trazodone HCl (Trazodone Hcl 50 Mg Tablet) 50 mg PO BEDTIME [facility] Labs 05/30/23 05:03 05/30/23 05:03 Labs: Laboratory Results - last 24 hr 05/29/23 05/29/23 05/29/23 20:33 21:20 23:40 MCV 86.1 MCH 28.3 MCHC 32.9 RDW 13.2 Plt Count 332 MPV 9.1 L Immature Gran % (Auto) 1.3 H Neut % (Auto) 88.7 H Lymph % (Auto) 8.5 L [place] % (Auto) 1.3 L Eos % (Auto) 0.1 Baso % (Auto) 0.1 Lymph # (Auto) 0.7 L [place] # (Auto) 0.1 Eos # (Auto) 0.0 Baso # (Auto) 0.0 Abs Immat Gran (auto) 0.11 H Absolute Neuts (auto) 7.6 Absolute Nucleated RBC 0.000 Nucleated RBC % (auto) 0.0 Anion Gap 15 Estim Creat Clear Calc 65.4 Estimated GFR > 60 Random Glucose 256 H Estimat Average Glucose Hemoglobin A1c % Lactic Acid 2.4 H* Lactic Acid F/U @ 2Hr 3.4 H* Lactic Acid F/U @ 4Hr Calcium 8.9 D Total Bilirubin 0.2 AST 15 ALT 30 Alkaline Phosphatase 91 Troponin I High Sens < 2.7 B-Natriuretic Peptide Cancelled 50 Total Protein 7.2 Albumin 4.0 Influenza Type A (PCR) NEGATIVE Influenza Type B (PCR) NEGATIVE RSV RNA Qual (PCR) NEGATIVE SARS-CoV-2 RNA (RT-PCR) NEGATIVE 05/30/23 05/30/23 01:48 05:03 MCV 88.3 MCH 28.6 MCHC 32.4 RDW 13.3 Plt Count 302 MPV 9.2 L Immature Gran % (Auto) 1.4 H Neut % (Auto) 87.4 H Lymph % (Auto) 10.5 L [place] % (Auto) 0.6 L Eos % (Auto) 0.0 Baso % (Auto) 0.1 Lymph # (Auto) 0.9 L [place] # (Auto) 0.1 Eos # (Auto) 0.0 Baso # (Auto) 0.0 Abs Immat Gran (auto) 0.12 H Absolute Neuts (auto) 7.3 Absolute Nucleated RBC 0.000 Nucleated RBC % (auto) 0.0 Anion Gap 13 Estim Creat Clear Calc 57.8 Estimated GFR > 60 Random Glucose 240 H Estimat Average Glucose 148 Hemoglobin A1c % 6.8 H Lactic Acid Lactic Acid F/U @ 2Hr Lactic Acid F/U @ 4Hr 3.9 H* Calcium 8.9 Total Bilirubin AST ALT Alkaline Phosphatase Troponin I High Sens B-Natriuretic Peptide Total Protein Albumin Influenza Type A (PCR) Influenza Type B (PCR) RSV RNA Qual (PCR) SARS-CoV-2 RNA (RT-PCR) Assessment and Plan (1) Hypoxia: Status: Acute (2) COPD (chronic obstructive pulmonary disease): Status: Acute Plan This is a 72-year-old male with pertinent history of COPD not on home oxygen, mood disorder, hypothyroidism, SHORTY on CPAP, essential hypertension, BPH, mixed hyperlipidemia who presents to the emergency department for evaluation of dyspnea. #. Acute hypoxemic respiratory failure due to acute exacerbation of COPD: Will admit patient with supplemental oxygen. Initiating IV steroids. Scheduled and p.r.n. DuoNebs. Continue home inhaler. Also initiating IV doxycycline #. Acute lactic acidosis due to hypoxia and albuterol use. Hold metformin #. [id number]-hybomzrww diabetes mellitus: Initiating Accu-Cheks with sliding scale insulin #. Mood disorder: Continue home citalopram #. SHORTY: Continue CPAP at bedtime #. Essential hypertension: Continue home lisinopril #. BPH: On Flomax #. Mixed hyperlipidemia: On high-intensity statin DVT prophylaxis: Lovenox Full code Admit as inpatient and will require two night minimum hospital stay for supplemental oxygen, IV steroids (as above), which is not possible in a lesser acute setting. Quality Stroke Does the patient have a stroke diagnosis?: No VTE Prior VTE?: No VTE Risk Level:: Medical - moderate - high VTE Device Contraindication: Treatment Not Indicated VTE Drug Contraindication: N/A - Med Ordered
[2023-05-30] MEDS: amLODIPine Besylate 5 MG TABLET PO (12:09)
[2023-05-30] MEDS: Omeprazole 20 MG CAPSULE.DR PO ×2 (12:09→17:01)
[2023-05-30] MEDS: Aspirin Enteric Coated 81 MG TABLET.DR PO (12:09)
[2023-05-30] MEDS: Levothyroxine Sodium 125 MCG TABLET PO (12:10)
[2023-05-30] MEDS: Loratadine 10 MG TABLET PO (12:10)
[2023-05-30] MEDS: Celecoxib 200 MG CAPSULE PO ×2 (12:10→23:43)
[2023-05-30 16:25] LABS: Glucose, Whole Blood 238 mg/dL (60-115)
[2023-05-30] MEDS: Insulin Lispro 100 UNIT/ML 3 ML VIAL SUBCUT ×2 (17:01→21:07)
[2023-05-30] MEDS: Doxazosin Mesylate 2 MG TABLET 8 MG PO (19:42)
[2023-05-30] MEDS: lisinopriL 40 MG TABLET PO (19:42)
[2023-05-30] MEDS: traZODone HCL 50 MG TABLET PO (19:42)
[2023-05-30] MEDS: Tamsulosin HCL 0.4 MG CAPSULE PO (19:42)
[2023-05-30] MEDS: Montelukast Sodium 10 MG TABLET PO (19:42)
[2023-05-30] MEDS: Atorvastatin Calcium 40 MG TABLET PO (19:42)
--- NOTE | 2023-05-30 19:56 | PC.RT ---
Pt refuses CPAP, wears O2 instead at home, does not wear CPAP
[2023-05-30 20:14] LABS: Glucose, Whole Blood 190 mg/dL (60-115)
[2023-05-31] VITALS (10 sets, daily range): BP systolic 118–133; BP diastolic 56–68; PULSE 71–107; RESP 16–20; TEMP 36.2–36.7; O2SAT 95–98
[2023-05-31] MEDS: Omeprazole 20 MG CAPSULE.DR PO ×2 (05:42→16:31)
[2023-05-31] MEDS: Levothyroxine Sodium 125 MCG TABLET PO (05:42)
[2023-05-31 05:54] LABS: MANUAL DIFF FLAG NO
[2023-05-31 06:13] LABS: Basophils Percent Auto 0.2 % (0-2); Hematocrit 40.3 % (42.0-52.0); Imm Gran Abs Auto 0.24 X10*3/uL (0.00-0.03); Imm Gran Pct Auto 1.7 % (0.0-0.4); Lymphocytes Absolute Auto 1.8 X10*3/uL (1.2-4.9); Lymphocytes Percent Auto 12.3 % (20-40); Mean Corpuscular HGB Conc 32.3 g/dl (31.0-36.0); Mean Corpuscular Hemoglobin 28.7 pg (27.0-33.0); Mean Platelet Volume 9.2 fL (9.4-12.4); Monocytes Absolute Auto 0.6 X10*3/uL (0.1-1.2); Monocytes Percent Auto 4.2 % (2-11); Neutrophils Absolute Auto 11.7 x10*3/uL (2.0-8.3); Neutrophils Percent Auto 81.6 % (45-73); Platelet Count 301 X10*3/uL (160-400); Red Blood Count 4.53 X10*6/uL (4.60-5.80); Red Cell Distribution Width 13.5 % (11.0-16.0); White Blood Count 14.4 X10*3/uL (4.8-10.8)
[2023-05-31 06:23] LABS: Anion Gap 12 (12-20); Blood Urea Nitrogen 28 mg/dL (9-16); Calcium 9.2 mg/dL (8.4-10.2); Carbon Dioxide 23 mmol/L (22-29); Chloride 107 mmol/L (96-108); Creatinine Clr Calc Pharmacy 39.7; Estimated Glomerular Filt Rate 46; Glucose Random 166 mg/dL (60-115); Potassium 4.1 mmol/L (3.3-5.1); Sodium 138 mmol/L (135-145)
[2023-05-31 07:56] LABS: Glucose, Whole Blood 155 mg/dL (60-115)
[2023-05-31] MEDS: Albuterol/Iprat 2.5/0.5MG 3 ML AMPUL.NEB INHALE ×4 (08:25→20:02)
[2023-05-31] MEDS: Tiotropium Bromide 2.5 mcg 1 PUFF/2.5 MCG MIST.INHAL 2 PUFF INHALE (08:25)
[2023-05-31] MEDS: Fluticasone/Vilanterol 200/25 BLST.W.DEV 1 PUFF INHALE (08:25)
[2023-05-31] MEDS: Aspirin Enteric Coated 81 MG TABLET.DR PO (09:00)
[2023-05-31] MEDS: Doxycycline Hyclate 100 MG in 0.9 % Sodium Chloride 250 ML 166.67 MG IV (09:01)
[2023-05-31] MEDS: methylPREDNISolone Sod Succ 40 MG/ML VIAL IVPUSH ×2 (09:01→23:52)
[2023-05-31] MEDS: amLODIPine Besylate 5 MG TABLET PO (09:01)
[2023-05-31] MEDS: Escitalopram Oxalate 20 MG TABLET PO (09:01)
[2023-05-31] MEDS: Insulin Lispro 100 UNIT/ML 3 ML VIAL SUBCUT ×4 (09:02→23:53)
[2023-05-31] MEDS: 0.9 % Sodium Chloride Flush 3 ML SYRINGE IVFLUSH ×3 (09:02→23:56)
[2023-05-31] MEDS: 0.9 % Sodium Chloride 500 ML IV (10:35)
--- NOTE | 2023-05-31 10:39 | P.PNIM_ITS ---
Subjective Subjective Date of Service: 05/31/23 Interval History: Patient continues to have wheezing and dyspnea. No significant nursing events overnight Constitutional Constitutional: Reports no additional constitutional complaints Cardiovascular Cardiovascular: Reports dyspnea and Reports dyspnea on exertion Respiratory Respiratory: Reports cough, Reports dyspnea, Reports dyspnea on exertion and Reports wheezing Gastrointestinal Gastrointestinal: Reports no additional gastrointestinal complaints Genitourinary Genitourinary: Reports no additional male genitourinary complaints Allergic/Immunologic Allergic/Immunologic: Reports wheezing Physical Exam 2 Vital Signs: Vital Signs: Last Vital Signs Temp 98.1 F 05/31/23 07:50 Pulse 71 05/31/23 08:28 Resp 18 05/31/23 08:28 BP 131/66 05/31/23 07:50 Pulse Ox 97 05/31/23 07:50 O2 Del Method Room Air 05/31/23 07:50 O2 Flow Rate 3 05/30/23 00:44 BMI result Body Mass Index 34.0 Elderly male lying in bed in mild distress on supplemental oxygen Neck supple, no JVD Regular rate and rhythm, S1-S2 heard Bilateral wheezing present Abdomen soft nontender, no guarding, no rigidity Patient is awake, alert and oriented to self, place, time and person ; no focal motor deficit Psych: Normal mood No pedal edema Objective Data Active Medications Acetaminophen (Acetaminophen 325 Mg Tablet) 650 mg PO Q6H PRN PRN Reason: Pain, Mild (Pain Scale 1-3) Albuterol/Ipratropium (Albuterol/Iprat 2.5/0.5mg 3 Ml Ampul.Neb) 3 ml INHALE RQ4H WHILE AWAKE [facility] Last Admin: 05/31/23 08:25 Dose: 3 ml Documented By: SUSY Albuterol/Ipratropium (Albuterol/Iprat 2.5/0.5mg 3 Ml Ampul.Neb) 3 ml INHALE Q4H PRN PRN Reason: Wheezing Last Admin: 05/30/23 23:14 Dose: 3 ml Documented By: SRINI Amlodipine Besylate (Amlodipine Besylate 5 Mg Tablet) 5 mg PO DAILY [facility]; Protocol Last Admin: 05/31/23 09:01 Dose: 5 mg Documented By: NEO Aspirin (Aspirin Enteric Coated 81 Mg Tablet.) 81 mg PO DAILY [facility] Last Admin: 05/31/23 09:00 Dose: 81 mg Documented By: NEO Atorvastatin Calcium (Atorvastatin Calcium 40 Mg Tablet) 40 mg PO BEDTIME [facility] Last Admin: 05/30/23 19:42 Dose: 40 mg Documented By: XIOMY Doxazosin Mesylate (Doxazosin Mesylate 2 Mg Tablet) 8 mg PO BEDTIME [facility]; Protocol Last Admin: 05/30/23 19:42 Dose: 8 mg Documented By: XIOMY Enoxaparin Sodium (Enoxaparin Sodium 40 Mg/0.4 Ml Syringe) 40 mg SUBCUT BEDTIME [facility] Last Admin: 05/30/23 19:42 Dose: 40 mg Documented By: XIOMY Escitalopram Oxalate (Escitalopram Oxalate 20 Mg Tablet) 20 mg PO DAILY [facility] Last Admin: 05/31/23 09:01 Dose: 20 mg Documented By: NEO Fluticasone/Vilanterol (Fluticasone/Vilanterol 200/25 Blst.W.Dev) 1 puff INHALE RDAILY [facility] Last Admin: 05/31/23 08:25 Dose: 1 puff Documented By: SUSY Glucose (Glucose Gel 15 Gm Gel..Gram.) 15 gm PO Q15M PRN; Protocol PRN Reason: per Hypoglycemia Standing Ord. Doxycycline Hyclate 100 mg/ (Sodium Chloride) 250 mls @ 166.67 mls/hr IV BID [facility] Last Infusion: 05/31/23 10:33 Dose: Infused Documented By: NEO Dextrose (D10) 250 mls @ 750 mls/hr IV Q15M PRN; Protocol PRN Reason: per Hypoglycemia Standing Ord. Insulin Human Lispro (Insulin Lispro 100 Unit/Ml 3 Ml Vial) 0 unit SUBCUT QIDACHS [facility]; Protocol Last Admin: 05/31/23 09:02 Dose: 2 unit Documented By: NEO Levothyroxine Sodium (Levothyroxine Sodium 125 Mcg Tablet) 125 mcg PO DAILY@0600 [facility] Last Admin: 05/31/23 05:42 Dose: 125 mcg Documented By: ANTOIC Loratadine (Loratadine 10 Mg Tablet) 10 mg PO DAILY@1200 [facility] Last Admin: 05/30/23 12:10 Dose: 10 mg Documented By: DANIEL Melatonin (Melatonin 3 Mg Tablet) 6 mg PO BEDTIME PRN PRN Reason: Insomnia Methylprednisolone Sodium Succinate (Methylprednisolone Sod Succ 40 Mg/Ml Vial) 40 mg IVPUSH Q12H [facility] Last Admin: 05/31/23 09:01 Dose: 40 mg Documented By: NEO Montelukast Sodium (Montelukast Sodium 10 Mg Tablet) 10 mg PO BEDTIME [facility] Last Admin: 05/30/23 19:42 Dose: 10 mg Documented By: XIOMY Omeprazole (Omeprazole 20 Mg Capsule.Dr) 20 mg PO BID@0630,1630 [facility] Last Admin: 05/31/23 05:42 Dose: 20 mg Documented By: ANTOIC Ondansetron HCl (Ondansetron Hcl 4 Mg/2 Ml Vial) 4 mg IVPUSH Q8H PRN PRN Reason: Nausea and Vomiting Sodium Chloride (0.9 % Sodium Chloride Flush 3 Ml Syringe) 3 ml IVFLUSH QSHIFT [facility] Last Admin: 05/31/23 09:02 Dose: 3 ml Documented By: NEO Tamsulosin HCl (Tamsulosin Hcl 0.4 Mg Capsule) 0.4 mg PO BEDTIME [facility] Last Admin: 05/30/23 19:42 Dose: 0.4 mg Documented By: XIOMY Tiotropium [place] (Tiotropium [place] 2.5 Mcg 1 Puff/2.5 Mcg Mist.Inhal) 2 puff INHALE RDAILY [facility] Last Admin: 05/31/23 08:25 Dose: 2 puff Documented By: SUSY Trazodone HCl (Trazodone Hcl 50 Mg Tablet) 50 mg PO BEDTIME [facility] Last Admin: 05/30/23 19:42 Dose: 50 mg Documented By: XIOMY Labs 05/31/23 05:44 05/31/23 05:44 Labs: Laboratory Results - last 24 hr 05/30/23 05/30/23 05/31/23 16:21 20:10 05:44 MCV 89.0 MCH 28.7 MCHC 32.3 RDW 13.5 Plt Count 301 MPV 9.2 L Immature Gran % (Auto) 1.7 H Neut % (Auto) 81.6 H Lymph % (Auto) 12.3 L [place] % (Auto) 4.2 Eos % (Auto) 0.0 Baso % (Auto) 0.2 Lymph # (Auto) 1.8 [place] # (Auto) 0.6 Eos # (Auto) 0.0 Baso # (Auto) 0.0 Abs Immat Gran (auto) 0.24 H Absolute Neuts (auto) 11.7 H Absolute Nucleated RBC 0.000 Nucleated RBC % (auto) 0.0 Anion Gap 12 Estim Creat Clear Calc 39.7 Estimated GFR 46 POC Glucose 238 H 190 H Random Glucose 166 H Calcium 9.2 05/31/23 07:49 MCV MCH MCHC RDW Plt Count MPV Immature Gran % (Auto) Neut % (Auto) Lymph % (Auto) [place] % (Auto) Eos % (Auto) Baso % (Auto) Lymph # (Auto) [place] # (Auto) Eos # (Auto) Baso # (Auto) Abs Immat Gran (auto) Absolute Neuts (auto) Absolute Nucleated RBC Nucleated RBC % (auto) Anion Gap Estim Creat Clear Calc Estimated GFR POC Glucose 155 H Random Glucose Calcium Microbiology Microbiology Results: Microbiology 05/29/23 21:20 Blood Culture - Preliminary Blood - Venous No growth after 24 hours. 05/29/23 21:20 Blood Culture - Preliminary Blood - Venous No growth after 24 hours. Assessment and Plan (1) ALECIA (acute kidney injury): Status: Acute (2) COPD (chronic obstructive pulmonary disease): Status: Acute Plan This is a 72-year-old male with pertinent history of COPD not on home oxygen, mood disorder, hypothyroidism, SHORTY on CPAP, essential hypertension, BPH, mixed hyperlipidemia who presents to the emergency department for evaluation of dyspnea. #. Acute hypoxemic respiratory failure due to acute exacerbation of COPD: Resolved. Off oxygen. Continue IV steroids. Scheduled and p.r.n. DuoNebs. Continue home inhaler. On IV doxycycline #. ALECIA Stage I, non oliguric: Hold NSAIDs and lisinopril. Resuscitating with fluids. Repeat in am. UA pending #. Acute lactic acidosis due to hypoxia and albuterol use. Hold metformin #. Lho-[id number] diabetes mellitus: Initiating Accu-Cheks with sliding scale insulin #. Mood disorder: Continue home citalopram #. SHORTY: Continue CPAP at bedtime #. Essential hypertension: Continue home lisinopril #. BPH: On Flomax #. Mixed hyperlipidemia: On high-intensity statin DVT prophylaxis: Lovenox Full code Reason for continued hospitalization: ALECAI with monitoring of kidney function. IV steroids, scheduled DuoNebs for COPD exacerbation Quality Stroke Does the patient have a stroke diagnosis?: No VTE Prior VTE?: No VTE Risk Level:: Medical - moderate - high VTE Device Contraindication: Treatment Not Indicated VTE Drug Contraindication: N/A - Med Ordered
[2023-05-31 11:28] LABS: Glucose, Whole Blood 174 mg/dL (60-115)
[2023-05-31] MEDS: Loratadine 10 MG TABLET PO (11:38)
[2023-05-31 12:08] LABS: Appearance Urine Clear; Color Urine Yellow; Glucose Urine UA Negative (Negative); Leukocyte Esterase Urine Negative (Negative); Nitrite Urine Negative (Negative); PH 5.5 (5.0-9.0); Urine Blood Negative (Negative); Urine Ketones Negative (Negative); Urine Protein Negative (Neg-Trace)
[2023-05-31 12:16] LABS: Bacteria Urine None Seen (None Seen); Hyaline Casts Urine 0-2 /LPF (0-2); RBC Urine 0-2 /HPF (0-2); Squamous Epithelial Cell Urine 0-2 /HPF (0-2); WBC Urine 0-5 /HPF (0-5)
--- NOTE | 2023-05-31 12:59 | MHC.CM.PN ---
IMM 05/31/23 via a quality systems manager. 75yrs admitted Dyspnea. Patient uses a walker. 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 He states that he does not use a CPAP or home oxygen. 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 Patient will arrange for transportation home. Patient experience officer met with patient today.
[2023-05-31] MEDS: hydrOXYzine HCL 25 MG TABLET PO (14:55)
--- NOTE | 2023-05-31 16:03 | PC.NURSE ---
Pt became agitated, got dressed and removed IV, Pt wanted to leave AMA. Doctor Walt at bedside with steam and power supervisor Lina and educated on the importance of staying another day, pt agreed along with and daughter at bedside. Pt agreeable to stay until tomorrow. IV restarted, pt medicated with hydroxyzoine see APR. Pt resting calmly in chair, will continue to monitor.
[2023-05-31 16:20] LABS: Glucose, Whole Blood 231 mg/dL (60-115)
[2023-05-31 20:18] LABS: Glucose, Whole Blood 225 mg/dL (60-115)
[2023-05-31] MEDS: traZODone HCL 50 MG TABLET PO (23:51)
[2023-05-31] MEDS: Zolpidem Tartrate 5 MG TABLET PO (23:52)
[2023-05-31] MEDS: Tamsulosin HCL 0.4 MG CAPSULE PO (23:52)
[2023-05-31] MEDS: Atorvastatin Calcium 40 MG TABLET PO (23:52)
[2023-05-31] MEDS: Montelukast Sodium 10 MG TABLET PO (23:52)
[2023-05-31] MEDS: Doxazosin Mesylate 2 MG TABLET 8 MG PO (23:54)
[2023-05-31] MEDS: Enoxaparin Sodium 40 MG/0.4 ML SYRINGE SUBCUT (23:54)
[2023-06-01] MEDS: Doxycycline Hyclate 100 MG in 0.9 % Sodium Chloride 250 ML 166.67 MG IV ×2 (00:02→08:28)
[2023-06-01 03:19] VITALS: BP 142/67; PULSE 88; RESP 18; TEMP 36.1; O2SAT 96
--- NOTE | 2023-06-01 05:54 | PC.RT ---
Patient refused CPAP tonight as well as last night. Pt is on Room Air with no current distress w/ SPO2 above 95%.
[2023-06-01] MEDS: Omeprazole 20 MG CAPSULE.DR PO (06:03)
[2023-06-01] MEDS: Levothyroxine Sodium 125 MCG TABLET PO (06:03)
[2023-06-01 06:27] LABS: MANUAL DIFF FLAG NO
[2023-06-01 06:44] LABS: Basophils Percent Auto 0.3 % (0-2); Hematocrit 40.7 % (42.0-52.0); Hemoglobin 13.1 g/dl (14.0-18.0); Imm Gran Abs Auto 0.56 X10*3/uL (0.00-0.03); Imm Gran Pct Auto 4.7 % (0.0-0.4); Lymphocytes Absolute Auto 0.8 X10*3/uL (1.2-4.9); Mean Corpuscular HGB Conc 32.2 g/dl (31.0-36.0); Mean Corpuscular Hemoglobin 28.6 pg (27.0-33.0); Mean Corpuscular Volume 88.9 fL (80.0-98.0); Mean Platelet Volume 9.2 fL (9.4-12.4); Monocytes Absolute Auto 0.2 X10*3/uL (0.1-1.2); Monocytes Percent Auto 1.5 % (2-11); Neutrophils Absolute Auto 10.2 x10*3/uL (2.0-8.3); Neutrophils Percent Auto 86.5 % (45-73); Platelet Count 293 X10*3/uL (160-400); Red Blood Count 4.58 X10*6/uL (4.60-5.80); Red Cell Distribution Width 13.6 % (11.0-16.0); White Blood Count 11.9 X10*3/uL (4.8-10.8)
[2023-06-01 06:50] LABS: Anion Gap 13 (12-20); Blood Urea Nitrogen 25 mg/dL (9-16); Calcium 9.1 mg/dL (8.4-10.2); Carbon Dioxide 23 mmol/L (22-29); Chloride 108 mmol/L (96-108); Estimated Glomerular Filt Rate > 60; Glucose Random 183 mg/dL (60-115); Potassium 4.5 mmol/L (3.3-5.1); Sodium 139 mmol/L (135-145)
[2023-06-01 06:59] LABS: B Type Natriuretic Peptide 82 pg/mL (<100)
[2023-06-01 07:04] VITALS: BP 144/66; PULSE 89; RESP 14; TEMP 36; O2SAT 96
[2023-06-01 07:21] LABS: Glucose, Whole Blood 202 mg/dL (60-115)
[2023-06-01] MEDS: 0.9 % Sodium Chloride Flush 3 ML SYRINGE IVFLUSH (08:26)
[2023-06-01] MEDS: Insulin Lispro 100 UNIT/ML 3 ML VIAL SUBCUT ×2 (08:26→11:59)
[2023-06-01 08:27] VITALS: BP 146/72
[2023-06-01] MEDS: amLODIPine Besylate 5 MG TABLET PO (08:27)
[2023-06-01] MEDS: Escitalopram Oxalate 20 MG TABLET PO (08:27)
[2023-06-01] MEDS: Aspirin Enteric Coated 81 MG TABLET.DR PO (08:27)
[2023-06-01] MEDS: methylPREDNISolone Sod Succ 40 MG/ML VIAL IVPUSH (08:29)
[2023-06-01] MEDS: guaiFENesin DM 200/20/10 ML 10 ML SYRUP PO (08:35)
[2023-06-01 11:37] LABS: Glucose, Whole Blood 191 mg/dL (60-115)
[2023-06-01 11:47] VITALS: PULSE 89; RESP 14; O2SAT 95
[2023-06-01] MEDS: Albuterol/Iprat 2.5/0.5MG 3 ML AMPUL.NEB INHALE (11:47)
[2023-06-01] MEDS: Loratadine 10 MG TABLET PO (11:59)
--- NOTE | 2023-06-01 12:12 | PM.DS ---
DS: Providers Provider Date of Service: 06/01/23 Date of admission: 05/30/23 00:13 Date of discharge: 06/01/23 Primary care physician: Laura Cohen MD DS: Diagnosis Discharge Diagnosis (1) ALECIA (acute kidney injury): Status: Acute (2) COPD (chronic obstructive pulmonary disease): Status: Acute DS: Summary Hospital Course Hospital Course: 72-year-old male with pertinent history of COPD not on home oxygen, mood disorder, hypothyroidism, SHORTY on CPAP, essential hypertension, BPH, mixed hyperlipidemia who presents to the emergency department for evaluation of dyspnea. Patient states his symptoms started about a week prior to presentation. He went to his PCP's office about 5 days ago and was ordered p.o. azithromycin and p.o. steroids. Patient denies any improvement in symptoms with p.o. medications. He continues to have dyspnea which is worse with exertion. Also has been having wheezing and nonproductive cough. No fever, chills, chest discomfort, palpitations, abdominal pain, nausea, vomiting, changes in urinary or bowel habits. Denies orthopnea or paroxysmal nocturnal dyspnea Hospital course Patient admitted to the hospital and started on IV doxycycline as well as steroid pulse dosing. Over the course of the next 48 hours, the patient improved to the point where he can ambulate without significant shortness of breath. At the present time he is medically acceptable to be discharged to complete oral course of doxycycline and prednisone taper. VNA to visit him to monitor his oxygen levels Time Attestation Discharge Coordination Time (in mins): 35 Quality: Safe Use of Opioids Does Pt have an Active Cancer Diagnosis on the Problem List?: No Quality: Stroke Does the patient have a stroke diagnosis?: No Physical Exam Vital Signs: Vital Signs: Last Vital Signs Temp 96.8 F 06/01/23 07:04 Pulse 89 06/01/23 11:47 Resp 14 06/01/23 11:47 BP 146/72 H 06/01/23 08:27 Pulse Ox 96 06/01/23 07:04 O2 Del Method Room Air 06/01/23 07:04 O2 Flow Rate 3 05/30/23 00:44 BMI result Body Mass Index 34.0 Const: Other: Awake alert no acute distress Resp: Other: Clear to auscultation bilaterally no rales rhonchi or wheezes Cardio: Other: No S4; positive S1-S2; no S3 murmurs rubs or gallops GI: Other: Soft nontender nondistended normoactive bowel sounds Extrem: Other: No edema bilaterally DS: Data Data Completed and Pending Labs on day of discharge: Laboratory Results - last 24 hr 05/31/23 05/31/23 05/31/23 11:46 16:16 20:10 WBC RBC Hgb Hct MCV MCH MCHC RDW Plt Count MPV Immature Gran % (Auto) Neut % (Auto) Lymph % (Auto) [place] % (Auto) Eos % (Auto) Baso % (Auto) Lymph # (Auto) [place] # (Auto) Eos # (Auto) Baso # (Auto) Abs Immat Gran (auto) Absolute Neuts (auto) Absolute Nucleated RBC Nucleated RBC % (auto) Sodium Potassium Chloride Carbon Dioxide Anion Gap BUN Creatinine Estim Creat Clear Calc Estimated GFR POC Glucose 231 H 225 H Random Glucose Calcium B-Natriuretic Peptide Urine RBC 0-2 Urine WBC 0-5 Ur Squamous Epith Cells 0-2 Urine Bacteria None Seen Hyaline Casts 0-2 06/01/23 06/01/23 06/01/23 05:55 07:07 11:24 WBC 11.9 H RBC 4.58 L Hgb 13.1 L Hct 40.7 L MCV 88.9 MCH 28.6 MCHC 32.2 RDW 13.6 Plt Count 293 MPV 9.2 L Immature Gran % (Auto) 4.7 H Neut % (Auto) 86.5 H Lymph % (Auto) 7.0 L [place] % (Auto) 1.5 L Eos % (Auto) 0.0 Baso % (Auto) 0.3 Lymph # (Auto) 0.8 L [place] # (Auto) 0.2 Eos # (Auto) 0.0 Baso # (Auto) 0.0 Abs Immat Gran (auto) 0.56 H Absolute Neuts (auto) 10.2 H Absolute Nucleated RBC 0.000 Nucleated RBC % (auto) 0.0 Sodium 139 Potassium 4.5 Chloride 108 Carbon Dioxide 23 Anion Gap 13 BUN 25 H Creatinine 0.96 Estim Creat Clear Calc 62.0 Estimated GFR > 60 POC Glucose 202 H 191 H Random Glucose 183 H Calcium 9.1 B-Natriuretic Peptide 82 Urine RBC Urine WBC Ur Squamous Epith Cells Urine Bacteria Hyaline Casts Preliminary micro results at discharge 05/29/23 21:20 Blood Culture - Preliminary Blood - Venous No growth after 48 hours. 05/29/23 21:20 Blood Culture - Preliminary Blood - Venous No growth after 48 hours. Discharge Plan Discharge Anticipated Discharge Date/Time: 06/01/23 12:06 Patient Disposition: Home Health Service Discharge Diagnosis: COPD exacerbation Referrals: Laura Cohen MD [Primary Care Provider] - 1 Week Discharge Medications: New doxycycline hyclate 100 mg tablet 100 mg PO BID Qty: 14 0RF prednisone 20 mg tablet See Rx Instructions .Route .COMPLEX Qty: 18 0RF Rx Instructions: 20 mg orally; 3 tabs daily for 3 days, 2 tabs daily for 3 days, 1 tab daily for 3 days Continued prednisone 20 mg tablet 20 mg PO BID Rx Instructions: TREATMENT IS TO FINISH ON 05/31/23 metformin 500 mg tablet extended release 24 hr 500 mg PO DAILY@1700 Incruse Ellipta 62.5 mcg/actuation blister with device 1 inh INHALATION DAILY budesonide-formoterol 160-4.5 mcg/actuation HFA aerosol inhaler 1 puff INHALATION BID Rx Instructions: RINSE MOUTH AFTER USING celecoxib 200 mg capsule 200 mg PO Q12H levothyroxine 125 mcg tablet 125 mcg PO DAILY@0600 amlodipine 5 mg tablet 5 mg PO DAILY acetaminophen 500 mg Tablet 1,000 mg PO Q8H PRN (Reason: Pain (Scale Score 1-3)) loratadine 10 mg tablet 10 mg PO DAILY@1200 omeprazole 20 mg capsule,delayed release(DR/EC) 20 mg PO BID@0630,1630 citalopram 40 mg tablet 40 mg PO DAILY lisinopril 40 mg tablet 40 mg PO BEDTIME doxazosin 8 mg tablet 8 mg PO BEDTIME (DME) OneTouch Ultra Test Strip See Rx Instructions Not Applicable DAILY Qty: 10 Rx Instructions: As directed (DME) lancets [OneTouch Delica Plus Lancet] 33 gauge misc See Rx Instructions topical DAILY Qty: 100 Rx Instructions: As directed aspirin 81 mg tablet,delayed release (DR/EC) 81 mg PO DAILY tamsulosin 0.4 mg capsule 0.4 mg PO BEDTIME montelukast 10 mg tablet 10 mg PO BEDTIME trazodone 50 mg tablet 50 mg PO BEDTIME atorvastatin 40 mg tablet 40 mg PO BEDTIME albuterol sulfate 90 mcg/actuation HFA aerosol inhaler 2 puff PO Q4-6H PRN (Reason: shortness of breath or wheezing) 30 Days Qty: 8.5 4RF Discontinued azithromycin 250 mg Tablet 250 mg PO DAILY Rx Instructions: TREATMENT TO FINISH ON 05/31/23 Discharge Orders: Discharge Order (Routine); Ordered 06/01/23 Ordered By: Brad Pineda Diet: Advance to usual diet Activity on Discharge: As tolerated Stand Alone Forms: Patient Portal Discharge page Print Language: Korean Care Plan Goals: Complete course of doxycycline 100 mg twice daily for 7 days. Prednisone taper as ordered Health Concerns: Follow-up with your PCP next available Plan of Treatment: [facility]NA will follow-up to monitor your oxygen levels at home Assessment: See discharge summary
--- NOTE | 2023-06-01 12:25 | MHC.CM.PN ---
DP: PT HAS BEEN MEDICALLY CLEARED FOR DC HOME WITH NEW [facility] , FIRST CHOICE FOR HC. FAMILY WILL TRANSPORT.
--- NOTE | 2023-06-02 14:11 | W.MHC.F2F ---
Service Date Service Date: 06/02/23 Encounter Date of encounter: 06/01/23 Encounter: Acute hospitalization Reasons for Services Signs and symptoms assessed: Assess respiratory status and O2 saturation Reason for penitentiary: medication management and other (Oxygen saturation) Homebound: Leaving the home is medically contraindicated at this time without the asist of a device and/or another person due th the listed conditions above and below. Reason homebound: unsteady gait / fall risk and shortness of breath at rest Certification: Based on the above findings, I certify that this patient is confined to the home and needs intermittent penitentiary care, physical therapy and/or speech therapy, or continues to need occupational therapy. The patient is under my care, and I have initiated the establishment of the plan of care. The patient will be followed by a physician who will periodically review the plan of care. Time Spent With Patient Time: Total time managing care of this patient today ____ minutes.
== END 2023-06-01 14:09 | disposition home health service (06) | DRG 190 ==
LOC: HO.ED 23:20 → HO.EDOVER 05-30 00:23 → HO.S3 05-30 07:43
PROVIDERS: Admitting Provider Student in an Organized Health Care Education/Training Program; Emergency Provider Emergency Medicine Emergency Medical Services; PCP Family Medicine; Visit Provider Hospitalist
DX: J44.1 Chronic obstructive pulmonary disease with (acute) exacerbation (principal); J96.01 Acute respiratory failure with hypoxia; E87.21 Acute metabolic acidosis; N17.9 Acute kidney failure, unspecified; E11.65 Type 2 diabetes mellitus with hyperglycemia; G47.33 Obstructive sleep apnea (adult) (pediatric); E78.2 Mixed hyperlipidemia; E03.9 Hypothyroidism, unspecified; I10 Essential (primary) hypertension; N40.0 Benign prostatic hyperplasia without lower urinary tract symptoms; F39 Unspecified mood [affective] disorder; E66.9 Obesity, unspecified; Z68.34 Body mass index [BMI] 34.0-34.9, adult; Z20.822 Contact with and (suspected) exposure to COVID-19; Z79.52 Long term (current) use of systemic steroids; Z79.82 Long term (current) use of aspirin; Z79.890 Hormone replacement therapy; Z79.84 Long term (current) use of oral hypoglycemic drugs; Z79.899 Other long term (current) drug therapy
CPT/HCPCS: 0241U; 36415; 71045; 80048; 80053; 81001; 82947; 83036; 83605; 83880; 84484; 85025; 87040; 93005; 99285; J1650; J2543; J2919; J2920; J2930

== ENCOUNTER → 2023-05-29 20:24 | Outpatient (BNV) | payer OTHER, SELFPAY | PROVIDERS: Admitting Provider Student in an Organized Health Care Education/Training Program; Emergency Provider Emergency Medicine Emergency Medical Services; PCP Family Medicine; Visit Provider Internal Medicine | DX: R07.9 Chest pain, unspecified (principal) | CPT/HCPCS: 93010 ==

== ENCOUNTER → 2023-05-30 00:13 | Outpatient (BNV) | payer OTHER, SELFPAY | PROVIDERS: Admitting Provider Student in an Organized Health Care Education/Training Program; Emergency Provider Emergency Medicine Emergency Medical Services; PCP Family Medicine; Visit Provider Student in an Organized Health Care Education/Training Program | DX: J44.9 Chronic obstructive pulmonary disease, unspecified (principal) | CPT/HCPCS: 99222; 99233; 99239; G0180 ==

== ENCOUNTER 2023-06-10 16:21 | Outpatient (REF) | payer OTHER, SELFPAY ==
[2023-06-10 18:39] LABS: Free T4 (Free Thyroxine) 1.23 ng/dL (0.71-1.85); TSH reflex Free T4 1.18 uIU/mL (0.32-4.0)
== END 2023-06-10 16:22 | disposition home or self-care (01) ==
LOC: HO.HHCL 16:21
PROVIDERS: Visit Provider Family Medicine
DX: E03.9 Hypothyroidism, unspecified (principal)
CPT/HCPCS: 36415; 84439; 84443

== ENCOUNTER 2023-06-14 01:05 | Emergency (ER) | payer OTHER, SELFPAY ==
--- NOTE | ~2023-06-14 | XR_ITS ---
EXAMINATION: XR CHEST CLINICAL INFORMATION: Cough COMPARISON: 05/29/2023 TECHNIQUE: 2 views of the chest were obtained. FINDINGS: Redemonstrated left hemidiaphragm elevation. No focal consolidation is seen bilaterally. Minimal bibasilar atelectasis is suspected. No evidence of pneumothorax, pleural effusion, or pulmonary edema. The cardiomediastinal silhouette is stable. No acute osseous findings are seen. XR/XR chest 2V IMPRESSION: Minimal bibasilar atelectasis without additional acute findings.
[2023-06-14 01:16] VITALS: BP 156/77; PULSE 74; RESP 19; TEMP 37.1; O2SAT 97; BMI 33.7
--- NOTE | 2023-06-14 01:54 | ED.URI ---
HPI - URI/Sore Throat General Chief Complaint: Upper Respiratory Symptoms Stated Complaint: Cough/Congested Time Seen by Provider: 06/14/23 01:53 Source: patient and old records reviewed Mode of arrival: ambulatory Limitations: no limitations History of Present Illness HPI Narrative: 72 yo male with PMH of bronchitis, arthritis, HTN, hypothyroidism here with c/o asthma symptoms cough and wheezing difficulty sleeping mucous production for 1 week MD elicited complaint: cough Pertinent past history: asthma Onset (ago): week(s) (1) Consistency: intermittent Severity: moderate Description of mucous: clear Able to tolerate fluids by mouth: Yes Exacerbating factors: other (coughing, sleeping) Relieving factors: nothing Associated symptoms: cough and shortness of breath Treatments prior to arrival: none Related Data Home Medications ?Medication ?Instructions ?Recorded ?Confirmed aspirin 81 mg tablet,delayed 81 mg PO DAILY 01/05/21 05/30/23 release atorvastatin 40 mg tablet 40 mg PO BEDTIME 01/05/21 05/30/23 [facility] 01/05/21 05/30/23 Ultra Test strips) citalopram 40 mg tablet 40 mg PO DAILY 01/05/21 05/30/23 doxazosin 8 mg tablet 8 mg PO BEDTIME 01/05/21 05/30/23 lancets 33 gauge [facility] 01/05/21 05/30/23 Plus Lancet) lisinopril 40 mg tablet 40 mg PO BEDTIME 01/05/21 05/30/23 loratadine 10 mg tablet 10 mg PO DAILY@1200 01/05/21 05/30/23 montelukast 10 mg tablet 10 mg PO BEDTIME 01/05/21 05/30/23 omeprazole 20 mg capsule,delayed 20 mg PO BID@0630,1630 01/05/21 05/30/23 release tamsulosin 0.4 mg capsule 0.4 mg PO BEDTIME 01/05/21 05/30/23 trazodone 50 mg tablet 50 mg PO BEDTIME 01/05/21 05/30/23 acetaminophen 500 mg tablet 1,000 mg PO Q8H PRN Pain (Scale 05/30/23 05/30/23 Score 1-3) amlodipine 5 mg tablet 5 mg PO DAILY 05/30/23 05/30/23 budesonide-formoterol HFA 160 1 puff inhalation BID 05/30/23 05/30/23 mcg-4.5 mcg/actuation aerosol inhaler celecoxib 200 mg capsule 200 mg PO Q12H pain 05/30/23 05/30/23 levothyroxine 125 mcg tablet 125 mcg PO DAILY@0600 05/30/23 05/30/23 metformin 500 mg tablet,extended 500 mg PO DAILY@1700 05/30/23 05/30/23 release 24 hr prednisone 20 mg tablet 20 mg PO BID 05/30/23 05/30/23 umeclidinium 62.5 mcg/actuation 1 inh inhalation DAILY 05/30/23 05/30/23 blister powder for inhalation (Incruse Ellipta) Previous Rx's ?Medication ?Instructions ?Recorded albuterol sulfate 90 mcg/actuation 2 puff PO Q4-6H PRN shortness of 05/13/22 aerosol inhaler breath or wheezing 30 days #8.5 grams doxycycline hyclate 100 mg tablet 100 mg PO BID #14 tabs 06/01/23 prednisone 20 mg tablet See Rx Instructions .Route 06/01/23 .COMPLEX #18 tabs azithromycin 250 mg tablet See Rx Instructions PO .COMPLEX #6 06/14/23 tabs prednisone 20 mg tablet 40 mg (2 x 20 mg) PO DAILY 5 days 06/14/23 #10 tabs Allergies Allergy/AdvReac Type Severity Reaction Status Date / Time No Known Allergies Allergy Verified 06/14/23 01:19 Review of Systems Review of Systems: Constitutional : No Fever, No Chills ENT/Mouth : No Hoarseness, No sore throat, No Rhinorrhea Eyes: No Redness, No Discharge, No Vision Changes Cardiovascular : No Chest Pain, positive SOB, positive Dyspnea on Exertion, No Edema Respiratory : positive Cough, pos Sputum, positive Wheezing, Gastrointestinal : No Nausea, No Vomiting, No Diarrhea, No abdominal Pain Genitourinary : No Dysuria, No Hematuria Musculoskeletal : No joint pain, No Myalgias Skin : No rash Neuro : No Weakness, No Numbness, No Headache Psych : No anxiety, depression Heme/Lymph: No Bruising, No Bleeding Endocrine : No Polyuria, No Polydipsia All other systems reviewed and are negative PMFSH Past Medical History Attestation statement: The following information was validated with the patient. Source: old records reviewed Medical History Chronic lung disease Bronchial asthma COPD (chronic obstructive pulmonary disease) Allergic rhinitis SHORTY on CPAP Obesity (BMI 30-39.9) History of stent insertion of renal artery Surgical History History of nasal surgery Family History Family History Mother Diabetes Breast cancer Father Pacemaker HTN (hypertension) CAD (coronary artery disease) Social History Social History Household Members: None Housing: Apartment Do you presently have visiting nurse or other home services: No Alcohol intake: former Year quit: 2005 Patient Tobacco Use Status: Never used Tobacco Years Smoked: 40 +/- Advance Directives: No Advance Directives Information Provided: Yes Do you have a plan to hurt others: No Plan service: No Physical Exam Vital Signs: Vital Signs: Last Vital Signs Temp 98.0 F 06/14/23 02:44 Pulse 73 06/14/23 03:02 Resp 8 L 06/14/23 03:02 BP 127/66 06/14/23 02:44 Pulse Ox 98 06/14/23 02:44 O2 Del Method Room Air 06/14/23 02:44 BMI result Body Mass Index 33.7 Appearance: Alert. Oriented X3. No acute distress. Eyes: Pupils equal, round and reactive to light. ENT: Pharynx normal. Neck: Normal inspection. Neck supple. CVS: Normal heart rate and rhythm. Pulses normal. Respiratory: No respiratory distress. Breath sounds rhonchi and wheezes noted Abdomen: Soft and nontender. Skin: Skin warm and dry. Normal skin color. Normal skin turgor. Extremities: No lower extremity edema. No calf ttp Neuro: Oriented X 3. No motor deficit. No sensory deficit. Medications Administered Discontinued Medications Generic Name Dose Route Start Last Admin Trade Name Freq PRN Reason Stop Dose Admin Albuterol Sulfate 7.5 mg/ 10 mg 06/14/23 02:38 06/14/23 03:00 Albuterol Sulfate 2.5 mg INHALE 06/14/23 02:39 10 mg ONCE ONE Administration Prednisone 40 mg 06/14/23 02:29 06/14/23 03:16 Prednisone 20 Mg Tablet PO 06/14/23 02:30 40 mg ONCE ONE Administration Medical Decision Making Medical Decision Making [facility] Narrative: 72 yo male with PMH of bronchitis, arthritis, HTN, hypothyroidism here with c/o cough, wheezing difficulty sleeping at this time swab, CXR nebs and steroids ordered. He is not hypoxic has no chest pain and no leg edema. Differential Diagnosis Differential Diagnoses: The differential diagnosis associated with the presentation includes asthma, URI, bronchitis Admission/Observation Consideration of admission/observation: Escalation of care including admission/observation considered no hypoxia walking around without issue stable for DC Lab Data [facility] Lab Attestation statement: I reviewed the patient's lab results. Labs: Lab Results 06/14/23 Range/Units 01:59 Influenza Type A (PCR) NEGATIVE (Negative) Influenza Type B (PCR) NEGATIVE (Negative) RSV RNA Qual (PCR) NEGATIVE (Negative) SARS-CoV-2 RNA (RT-PCR) NEGATIVE (Negative) Independent Interpretation I performed an independent interpretation of an: Plain X-Ray (no pneumonia) Radiology Impression Discussion of test interpretation with radiology: I have reviewed the radiologist's reading. External Record Review External record reviewed: Inpatient record Prescription Management I considered prescription management with: Antibiotic and Other Discharge Plan Discharge Clinical Impression: Bronchitis Patient Disposition: Home, Self-Care Instructions: Acute Bronchitis (ED) Additional Instructions: return for worsening symptoms, difficulty breathing or any other concerns. Prescriptions: New azithromycin 250 mg tablet See Rx Instructions .ROUTE .COMPLEX Qty: 6 0RF Rx Instructions: For 250 mg dose pack: take 500 mg today (day 1), then 250 mg for 4 days (days 2-5) prednisone 20 mg tablet 40 mg PO DAILY 5 Days Qty: 10 0RF No Action prednisone 20 mg tablet 20 mg PO BID Rx Instructions: TREATMENT IS TO FINISH ON 05/31/23 metformin 500 mg tablet extended release 24 hr 500 mg PO DAILY@1700 Incruse Ellipta 62.5 mcg/actuation blister with device 1 inh INHALATION DAILY budesonide-formoterol 160-4.5 mcg/actuation HFA aerosol inhaler 1 puff INHALATION BID Rx Instructions: RINSE MOUTH AFTER USING celecoxib 200 mg capsule 200 mg PO Q12H levothyroxine 125 mcg tablet 125 mcg PO DAILY@0600 amlodipine 5 mg tablet 5 mg PO DAILY acetaminophen 500 mg Tablet 1,000 mg PO Q8H PRN (Reason: Pain (Scale Score 1-3)) doxycycline hyclate 100 mg tablet 100 mg PO BID Qty: 14 0RF prednisone 20 mg tablet See Rx Instructions .Route .COMPLEX Qty: 18 0RF Rx Instructions: 20 mg orally; 3 tabs daily for 3 days, 2 tabs daily for 3 days, 1 tab daily for 3 days loratadine 10 mg tablet 10 mg PO DAILY@1200 omeprazole 20 mg capsule,delayed release(DR/EC) 20 mg PO BID@0630,1630 citalopram 40 mg tablet 40 mg PO DAILY lisinopril 40 mg tablet 40 mg PO BEDTIME doxazosin 8 mg tablet 8 mg PO BEDTIME (DME) OneTouch Ultra Test Strip See Rx Instructions Not Applicable DAILY Qty: 10 Rx Instructions: As directed (DME) lancets [OneTouch Delica Plus Lancet] 33 gauge misc See Rx Instructions topical DAILY Qty: 100 Rx Instructions: As directed aspirin 81 mg tablet,delayed release (DR/EC) 81 mg PO DAILY tamsulosin 0.4 mg capsule 0.4 mg PO BEDTIME montelukast 10 mg tablet 10 mg PO BEDTIME trazodone 50 mg tablet 50 mg PO BEDTIME atorvastatin 40 mg tablet 40 mg PO BEDTIME albuterol sulfate 90 mcg/actuation HFA aerosol inhaler 2 puff PO Q4-6H PRN (Reason: shortness of breath or wheezing) 30 Days Qty: 8.5 4RF Print Language: [place] African
[2023-06-14 02:44] VITALS: BP 127/66; PULSE 78; RESP 20; TEMP 36.7; O2SAT 98
[2023-06-14 02:52] LABS: Influenza A PCR NEGATIVE (Negative); Influenza B PCR NEGATIVE (Negative); Resp Syncy Virus RNA Qual PCR NEGATIVE (Negative); SARS COV2 PCR INHOUSE NEGATIVE (Negative)
[2023-06-14] MEDS: Albuterol Sulfate 7.5 MG, Albuterol Sulfate (0.083%) 2.5 MG 10 MG INHALE (03:00)
[2023-06-14 03:02] VITALS: PULSE 73; RESP 8; O2SAT 97
--- NOTE | 2023-06-14 03:12 | PC.NURSE ---
assumed care of pt at 0230. PT continuing nebu treatment. at bedside.
[2023-06-14] MEDS: predniSONE 20 MG TABLET 40 MG PO (03:16)
[2023-06-14 04:34] VITALS: BP 144/82; PULSE 97; RESP 18; TEMP 37.1; O2SAT 95
[2023-06-14 04:36] VITALS: O2SAT 95
== END 2023-06-14 04:38 | disposition home or self-care (01) ==
PROVIDERS: Emergency Provider Emergency Medicine; PCP Family Medicine
DX: J40 Bronchitis, not specified as acute or chronic (principal); I10 Essential (primary) hypertension; Z03.818 Encounter for observation for suspected exposure to other biological agents ruled out
CPT/HCPCS: 0241U; 71046; 94640; 99284; 99285

== ENCOUNTER 2023-06-24 12:26 | Outpatient (REF) | payer OTHER, SELFPAY ==
[2023-06-24 13:57] LABS: Anion Gap 13 (12-20); Blood Urea Nitrogen 13 mg/dL (9-16); Calcium 9.3 mg/dL (8.4-10.2); Carbon Dioxide 25 mmol/L (22-29); Chloride 106 mmol/L (96-108); Estimated Glomerular Filt Rate > 60; Glucose Random 176 mg/dL (60-115); Sodium 140 mmol/L (135-145)
== END 2023-06-24 12:27 | disposition home or self-care (01) ==
LOC: HO.HHCL 12:26
PROVIDERS: Visit Provider Nurse Practitioner Family
DX: J44.1 Chronic obstructive pulmonary disease with (acute) exacerbation (principal)
CPT/HCPCS: 36415; 80048

== ENCOUNTER 2023-08-31 11:27 | Outpatient (REF) | payer OTHER, SELFPAY ==
[2023-08-31 13:42] LABS: Alanine Aminotransferase 21 U/L (0-40); Albumin Level 4.1 g/dL (3.5-5.0); Alkaline Phosphatase 95 U/L (39-117); Anion Gap 14 (12-20); Aspartate Amino Transferase 14 U/L (5-37); Bilirubin Total 0.4 mg/dL (0.0-1.0); Blood Urea Nitrogen 17 mg/dL (9-16); Calcium 9.5 mg/dL (8.4-10.2); Carbon Dioxide 26 mmol/L (22-29); Chloride 103 mmol/L (96-108); Cholesterol 176 mg/dL (<200); Estimated Glomerular Filt Rate > 60; Glucose Random 100 mg/dL (60-115); HDL Cholesterol 41 mg/dL (>40); LDL Cholesterol Calculated 115 mg/dL (<100); Potassium 3.7 mmol/L (3.3-5.1); Sodium 139 mmol/L (135-145); Triglycerides 100 mg/dL (<150)
[2023-08-31 13:49] LABS: Reflex LDLD? No
[2023-08-31 14:00] LABS: TSH reflex Free T4 7.62 uIU/mL (0.32-4.0)
[2023-08-31 14:17] LABS: Folate 13.6 ng/mL (> or = 4.0); Vitamin B12 278 pg/mL (200-900)
[2023-08-31 14:41] LABS: Creatinine Urine 93.53 mg/dL; Microalbum/Creatinine Ratio Ur 8.5 ug/mg cr (<30)
[2023-08-31 15:02] LABS: Free T4 (Free Thyroxine) 0.76 ng/dL (0.71-1.85)
== END 2023-08-31 11:28 | disposition home or self-care (01) ==
LOC: HO.HHCL 11:27
PROVIDERS: Visit Provider Family Medicine
DX: E11.9 Type 2 diabetes mellitus without complications (principal); E03.9 Hypothyroidism, unspecified
CPT/HCPCS: 36415; 80053; 80061; 82043; 82570; 82607; 82746; 84439; 84443

== ENCOUNTER 2023-10-25 15:25 | Outpatient (AMB) | payer OTHER, SELFPAY ==
[2023-10-25 15:35] VITALS: BP 140/70; PULSE 74; O2SAT 95; BMI 32.9
--- NOTE | 2023-10-25 15:35 | A.OFFVIS_ITS ---
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: No Allergies No Known Allergies Allergy (Verified 10/25/23 15:42) Medication List - Last Reconciled 10/25/23 by Jaquelin Miguel MD acetaminophen 1,000 mg PO Q8H PRN albuterol sulfate 90 mcg/actuation 2 puffs PO Q4-6H PRN 30 days amlodipine 5 mg PO DAILY aspirin 81 mg PO DAILY atorvastatin 40 mg PO BEDTIME blood sugar diagnostic ([employer] Ultra Test strips) As directed budesonide-formoterol 160-4.5 mcg/actuation 1 puff inhalation BID celecoxib 200 mg PO Q12H citalopram 40 mg PO DAILY doxazosin 8 mg PO BEDTIME lancets ([employer] Delica Plus Lancet) As directed levothyroxine 125 mcg PO DAILY@0600 lisinopril 40 mg PO BEDTIME loratadine 10 mg PO DAILY@1200 metformin ER 500 mg PO DAILY@1700 montelukast 10 mg PO BEDTIME omeprazole 20 mg PO BID@0630,1630 tamsulosin 0.4 mg PO BEDTIME trazodone 50 mg PO BEDTIME umeclidinium 62.5 mcg/actuation (Incruse Ellipta) 1 inh inhalation DAILY Do you need a note to return to daycare/school/sports/work: No HPI HPI COPD: Details: This 72 years old Japanese-speaking, very pleasant gentleman comes for follow- up,. After 6 months He has not been able to use the CPAP. Because every time he puts the mask on he keeps on waking during the night. He is doing well without the mask and claims that he is sleeping okay. He is here today for follow-up mainly for his COPD. Claims that he is doing well, using Symbicort 160-4.5 2 puffs b.i.d., this is what he uses regularly. He does have Incruse Ellipta but he does not like the taste show has not been using it. He has Ventolin on hand and uses it only once in a while for acute episodes of wheezing. He claims that his breathing is fairly stable at this time. Denies getting short of breath when he walks around in the house or short distances out of the house . [facility] Medical History Chronic lung disease Bronchial asthma COPD (chronic obstructive pulmonary disease) Allergic rhinitis SHORTY on CPAP Obesity (BMI 30-39.9) History of stent insertion of renal artery Surgical History History of nasal surgery Family History Mother Diabetes Breast cancer Father Pacemaker HTN (hypertension) CAD (coronary artery disease) Social History Household Members: None Housing: Apartment Do you presently have visiting nurse or other home services: No Alcohol intake: former Year quit: 2005 Patient Tobacco Use Status: Never used Tobacco Years Smoked: 40 +/- service: No Review of Systems Const All systems reviewed & are unremarkable except as noted in HPI and below Eyes Reports no additional complaints ENT Reports no additional complaints Card Denies chest pain, Denies irregular heart rhythm and Denies leg edema Resp Reports as per HPI GI Reports heartburn (GERD symptoms being treated with omeprazole) Reports no additional complaints Musc Reports no additional complaints Skin/Breast Reports system reviewed and no additional complaints, except as documented Neuro Reports no additional complaints Psych Reports depression (Controlled with med) Steve/Lymph Reports no additional complaints Aller/Immun Reports no additional complaints Physical Exam Vital Signs: Last Vital Signs Pulse 74 10/25/23 15:35 BP 140/70 H 10/25/23 15:35 Pulse Ox 95 10/25/23 15:35 Oxygen Delivery Method Room Air 10/25/23 15:35 BMI result Body Mass Index 32.9 Const General: healthy appearing (Except for being overweight), comfortable, no acute distress, alert and awake Orientation/consciousness: patient oriented x3 HEENT Head: Yes normal to inspection General nose exam: No nasal polyps present and No nasal discharge present Face and sinus: Yes sinuses nontender Mouth: oropharynx normal (Narrow and crowded, Mallampati class 4) Throat: Yes posterior oropharynx normal Eyes General: appearance normal, both eyes and all related structures Neck Neck: Yes normal visual inspection, Yes no lymphadenopathy, Yes trachea midline, Yes no JVD and Yes other (Neck size 17 in) Thyroid: Thyroid normal Chest Chest palpation & inspection: normal inspection of the chest, normal palpation of entire chest wall and no tenderness Resp Other: Percussion note resonant, breath sounds are distant especially over the basilar areas. No wheezes or rhonchi are heard. Cardio Palpation: normal PMI Rate: regular rate Rhythm: regular rhythm Heart sounds: no gallops and no murmurs Peripheral pulses: Peripheral pulses 2+ throughout GI Palpation (GI): Soft to palpation, nontender, No hepatosplenomegaly present, no masses and Other GI palpation findings present (Abdomen moderately obese and protuberant) Auscultation: normal bowel sounds Back/Spine/Pelvis Thoracic/Lumbar Spine: thoracic and lumbar spine normal to inspection Skin General skin exam: no rashes or lesions noted Neuro General: patient oriented x3 and no focal motor deficits Cranial nerves: Yes CN's II-XII intact bilaterally Extrem General: Yes normal to inspection, Yes no clubbing, cyanosis or edema and Yes no calf tenderness Psych Appearance: grossly normal and well kempt Speech and movement: Normal speech and movement present Assessment & Plan Assessment & Plan (1) Bronchial asthma: Comment: His pulmonary function test does not indicate presence of COPD, I think he has bronchial asthma or reactive airways. On his last visit I had advised him to use albuterol p.r.n.. No need to use long-acting or maintenance inhalers. However he has continue to use Symbicort 160-4.5 2 puffs b.i.d.. And uses Ventolin 2 puffs Q 4-6 hours only as needed. Code(s): J45.909 - Unspecified asthma, uncomplicated Category: Medical Plan: I advised him to use Symbicort 2 puffs b.i.d. and if his symptoms are under control he may go to only once a day. DOES NOT NEED TO USE INCRUSE ELLIPTA. USE ALBUTEROL HFA 2 PUFFS Q 6 HOURS ONLY P.R.N.. (2) Allergic rhinitis: Comment: Has chronic symptoms of nasal congestion and postnasal discharge which are controlled with, Montelukast 10 mg daily Claritin 10 mg once a day p.r.n. Code(s): J30.9 - Allergic rhinitis, unspecified Category: Medical Plan: CONTINUE MONTELUKAST 10 MG DAILY. USE LORATADINE 10 MG ONCE A DAY P.R.N. REVISIT Q 6 MONTHS. (3) SHORTY on CPAP: Comment: Known case of obstructive sleep apnea since 2008. He had been a regular user of CPAP. But has not been using it since last year. He claims that if he puts on the CPAP mask nasal or full face, he just can not go to sleep. Now without the mask he is sleeping fairly well and denies any issues with the sleep. Code(s): G47.33 - Obstructive sleep apnea (adult) (pediatric); Z99.89 - Dependence on other enabling machines and devices Category: Medical Plan: Advise that he should focus more on losing weight. Try to sleep in lateral position. Coding Level of Care Code Est Pt Level 3 (57272) Diagnoses Bronchial asthma J45.909 Allergic rhinitis J30.9 SHORTY on CPAP G47.33; Z99.89
== END 2023-10-25 15:48 | disposition home or self-care (01) ==
PROVIDERS: PCP Family Medicine; Visit Provider Internal Medicine
DX: J45.909 Unspecified asthma, uncomplicated (principal); J30.9 Allergic rhinitis, unspecified; G47.33 Obstructive sleep apnea (adult) (pediatric); Z99.89 Dependence on other enabling machines and devices
CPT/HCPCS: 99213

== ENCOUNTER → 2023-10-25 15:25 | Outpatient (BNVA) | payer OTHER, SELFPAY | PROVIDERS: PCP Family Medicine; Visit Provider Internal Medicine | DX: J45.909 Unspecified asthma, uncomplicated (principal); G47.33 Obstructive sleep apnea (adult) (pediatric); Z99.89 Dependence on other enabling machines and devices | CPT/HCPCS: 99212 ==

== ENCOUNTER 2024-01-16 15:19 | Outpatient (REF) | payer OTHER, SELFPAY ==
--- NOTE | ~2024-01-16 | XR_ITS ---
EXAMINATION: XR CHEST CLINICAL INFORMATION: COVID x 1w, wheezing/cough, rule out pneumonia. COMPARISON: 06/14/2023 chest x-ray. TECHNIQUE: 2 views of the chest were obtained. FINDINGS: Lung volumes are low. No gross pneumothorax. Heart size normal. Stable cardiomediastinal silhouette. Approximately 3.5 cm crescentic mass-like opacity in the right retrocardiac region, possibly related to vasculature, hernia, mass or other etiology. CT scan of the chest recommended for further evaluation. Persistent asymmetric elevation of the left lung base. Degenerative changes in the thoracic spine. No significant pleural effusions. XR/XR chest 2V IMPRESSION: Approximately 3.5 cm crescentic mass-like opacity in the right retrocardiac region, possibly related to vasculature, hernia, mass or other etiology. CT scan of the chest recommended for further evaluation. This study was presented today January 17, 2024 for interpretation. Stat results provided at this time as requested by referring provider. Electronically signed by: Ann-Marie Chen MD 01/17/2024 09:13 AM ESTELLA FLORES
== END 2024-01-16 15:20 | disposition home or self-care (01) ==
LOC: HO.HHCX 15:19
PROVIDERS: Visit Provider Internal Medicine
DX: U07.1 COVID-19 (principal); J40 Bronchitis, not specified as acute or chronic
CPT/HCPCS: 71046

== ENCOUNTER 2024-04-16 15:21 | Outpatient (AMB) | payer OTHER, SELFPAY ==
[2024-04-16 15:35] VITALS: BP 122/72; PULSE 67; O2SAT 98; BMI 32.3
--- NOTE | 2024-04-16 15:35 | A.OFFVIS_ITS ---
Vital Signs 04/16/24 15:35 Height 5 ft 1 in Weight 171 lb BMI 32.3 BP 122/72 Blood Pressure Location Lt brachial Position Sitting Pulse 67 Pulse Source Pulse Oximeter Pulse Oximetry (%) 98 Oxygen Delivery Method Room Air Intake Visit Reasons: COPD Intake Note: pt is here for follow up and states he is doing okay, but states his blood pressure is going up, he feels warm sensation in his nose. Linoleum Layer Helper Required: No Allergies No Known Allergies Allergy (Verified 04/16/24 16:03) Medication List - Last Reconciled 04/16/24 by Jaquelin Miguel MD acetaminophen 1,000 mg PO Q8H PRN albuterol sulfate 90 mcg/actuation 2 puffs PO Q4-6H PRN 30 days amlodipine 5 mg PO DAILY aspirin 81 mg PO DAILY atorvastatin 40 mg PO BEDTIME blood sugar diagnostic ([employer] Ultra Test strips) As directed budesonide-formoterol 160-4.5 mcg/actuation 1 puff inhalation BID celecoxib 200 mg PO Q12H citalopram 40 mg PO DAILY doxazosin 8 mg PO BEDTIME lancets ([employer] Delica Plus Lancet) As directed levothyroxine 125 mcg PO DAILY@0600 lisinopril 40 mg PO BEDTIME loratadine 10 mg PO DAILY@1200 metformin ER 500 mg PO DAILY@1700 omeprazole 20 mg PO BID@0630,1630 tamsulosin 0.4 mg PO BEDTIME trazodone 50 mg PO BEDTIME Do you need a note to return to daycare/school/sports/work: No HPI HPI COPD: Details: THIS 73 YEARS OLD 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 SINCE LAST VISIT HE HAS BEEN RELATIVELY STABLE. HE DOES NOT HAVE ANY ACUTE EXACERBATIONS OF BRONCHIAL ASTHMA. .NASAL ALLERGY SEEMS TO BE UNDER CONTROL HE STILL HAS DIFFICULTY IN SLEEPING BECAUSE OF HIS SLEEP APNEA AND HE COULD NOT USE THE CPAP. HE HAS LOST ABOUT 10 LB OF WEIGHT. THIS MAY BE DUE TO ADJUSTMENT OF HIS DOES OF LEVOTHYROXINE. [facility] Medical History (Updated 04/16/24 @ 16:27 by Jaquelin Miguel MD) SHORTY (obstructive sleep apnea) Chronic lung disease Bronchial asthma COPD (chronic obstructive pulmonary disease) Allergic rhinitis SHORTY on CPAP Obesity (BMI 30-39.9) History of stent insertion of renal artery Surgical History History of nasal surgery Family History Mother Diabetes Breast cancer Father Pacemaker HTN (hypertension) CAD (coronary artery disease) Social History Household Members: None Housing: Apartment Do you presently have visiting nurse or other home services: No Alcohol intake: former Year quit: 2005 Patient Tobacco Use Status: Never used Tobacco Years Smoked: 40 +/- service: No Review of Systems Const All systems reviewed & are unremarkable except as noted in HPI and below Eyes Reports no additional complaints ENT Reports no additional complaints Card Denies chest pain, Denies irregular heart rhythm and Denies leg edema Resp Reports as per HPI GI Reports heartburn (GERD symptoms being treated with omeprazole) Reports no additional complaints Musc Reports no additional complaints Skin/Breast Reports system reviewed and no additional complaints, except as documented Neuro Reports no additional complaints Psych Reports depression (Controlled with med) Steve/Lymph Reports no additional complaints Aller/Immun Reports no additional complaints Physical Exam Vital Signs: Last Vital Signs Pulse 67 04/16/24 15:35 BP 122/72 04/16/24 15:35 Pulse Ox 98 04/16/24 15:35 Oxygen Delivery Method Room Air 04/16/24 15:35 BMI result Body Mass Index 32.3 Const General: healthy appearing (Except for being overweight), comfortable, no acute distress, alert and awake Orientation/consciousness: patient oriented x3 HEENT Head: Yes normal to inspection General nose exam: No nasal polyps present and No nasal discharge present Face and sinus: Yes sinuses nontender Mouth: oropharynx normal (Narrow and crowded, Mallampati class 4) Throat: Yes posterior oropharynx normal Eyes General: appearance normal, both eyes and all related structures Neck Neck: Yes normal visual inspection, Yes no lymphadenopathy, Yes trachea midline, Yes no JVD and Yes other (Neck size 17 in) Thyroid: Thyroid normal Chest Chest palpation & inspection: normal inspection of the chest, normal palpation of entire chest wall and no tenderness Resp Other: Percussion note resonant, breath sounds are distant especially over the basilar areas. No wheezes or rhonchi are heard. Cardio Palpation: normal PMI Rate: regular rate Rhythm: regular rhythm Heart sounds: no gallops and no murmurs Peripheral pulses: Peripheral pulses 2+ throughout GI Palpation (GI): Soft to palpation, nontender, No hepatosplenomegaly present, no masses and Other GI palpation findings present (Abdomen moderately obese and protuberant) Auscultation: normal bowel sounds Back/Spine/Pelvis Thoracic/Lumbar Spine: thoracic and lumbar spine normal to inspection Skin General skin exam: no rashes or lesions noted Neuro General: patient oriented x3 and no focal motor deficits Cranial nerves: Yes CN's II-XII intact bilaterally Extrem General: Yes normal to inspection, Yes no clubbing, cyanosis or edema and Yes no calf tenderness Psych Appearance: grossly normal and well kempt Speech and movement: Normal speech and movement present Assessment & Plan Assessment & Plan (1) Bronchial asthma: Comment: His pulmonary function test does not indicate presence of COPD, I think he has bronchial asthma or reactive airways. He has continue to use Symbicort 160-4.5 2 puffs b.i.d.. And uses Ventolin 2 puffs Q 4-6 hours only as needed. Code(s): J45.909 - Unspecified asthma, uncomplicated Category: Medical Plan: HE IS DOING WELL AND LUNGS ARE CLEAR. ADVISED TO CONTINUE THE ABOVE, I HAD ADVISED HIM TO USE SYMBICORT ONLY MAYBE ONCE A DAY BUT HE FEELS SOMEWHAT DEPENDENT ON THIS . AND CONTINUES B.I.D. (2) SHORTY (obstructive sleep apnea): Comment: PATIENT DOES HAVE PAST HISTORY OF SLEEP APNEA. HE COULD NOT USE THE CPAP. WAS ADVISED TO LOSE WEIGHT AND TRY TO SLEEP ON THE SIDE. HE HAS LOST ABOUT 10 LB OF WEIGHT. Code(s): G47.33 - Obstructive sleep apnea (adult) (pediatric) Category: Medical Plan: AGAIN STRESS THAT HE SHOULD KEEP ON LOSING WEIGHT. SLEEP IN LATERAL POSITION (3) Obesity (BMI 30-39.9): Comment: Patient is moderately obese and is encouraged to lose some weight. I told him that by next visit I expect him to lose 10-15 lb of weight. Code(s): E66.9 - Obesity, unspecified Category: Medical Plan: ABOVE Coding Level of Care Code Est Pt Level 3 (08396) Diagnoses Bronchial asthma J45.909 SHORTY (obstructive sleep apnea) G47.33 Obesity (BMI 30-39.9) E66.9
--- OUTSIDE RECORDS SUMMARY | 2024-04-16 18:15 | XMS_ITS | Encounter Summary ---
Author Organization [employer] Address [address] [facility] [address] [place] [address] Care Team Providers Care Cell Tower Climber Name Role Phone Laura Cohen MD Primary Care Provider [phone] Anthony Shen PharmD Unavailable [phone] Encounter Details Date Type Department Care Team (Late st Contact Info) Description 07/20/2022 Orders Only [facility] [address] [place], [place] [phone] Laura Cohen MD [address] [place], [place] [phone] Chronic pain of both knees (Primary Dx); Primary osteoarthritis of both knees Social History Tobacco Use Types Packs/Day Years Used Date Smoking Tobacco: Former Cigarettes Passive Smoke Exposure: Never Smokeless Tobacco: Never Depression Answer Date Recorded Patient Health Questionnaire-2 Score 0 02/25/2022 Sex and Gender Information Value Date Recorded Sex Assigned at Male 12/14/2021 10:16 AM EDT Legal Sex Male 10:16 AM EDT Gender Identity Male 12/14/2021 10:16 AM EDT Sexual Orientation Straight 12/14/2021 10 :16 AM EDT documented as of this encounter Plan of Treatment Not on file documented as of this encounter Visit Diagnoses Diagnosis Chronic pain of both knees- Primary Primary osteoarthritis of both knees documented in this encounter Care Teams Cell Tower Climber Relationship Specialty Start Date End Date Laura Cohen MD [address] [place], [place] [phone] PCP - General Family Medicine 02/14/18 Anthony Shen, PharmD [address] [place] [address] Pharmacist Internal Medicine 11/08/22 documented as of this encounter
--- OUTSIDE RECORDS SUMMARY | 2024-04-16 18:15 | XMS_ITS | Data Portability ---
Author Organization [employer] Address [address] [place] [address] Care Team Providers Care Hedis Analyst Name Role Phone [facility] Referring Provider Assessment Encounter Date Assessment Date Assessment LastModified by Organization Details LastModified Time 08/11/2022 08/11/2022 I have reviewed and agree with the assessment and plan as documented by the station attendant. I provided real-time medical direction for this encounter and was immediately available to provide additional phone-based assistance as needed. 71M, known for HTN, COPD, with 2 weeks of intermittent chest pain. Pt states he last had symptoms 2 days ago, left sided, non radiating, associated with shortness of breath, 8/10 stabbing. Pt was scheduled to see PCP today but missed appointment. BP 148/78, HR 90, RR 20, 98% RA , lung sounds clear. Overall patients symptoms are extremely concerning for acute cardiac event. Recommend patient be evaluated in ED for symptoms. paysola Not available 08/11/2022 15:05:20 Plan of Treatment Reminders Order Date Submit Date Provider Last Modified By Organization Details Last Modified Time Details Appointments None record ed. Lab None record ed. Referral None record ed. Procedures None record ed. Surgeries None record ed. Imaging None record ed. Medication Orders None record ed. Patient TargetsNo targets recorded. Patient InstructionsNo instructions recorded. Reason for Referral None Reported. Medical Equipment None Reported. Medications Name Sig Start Date Stop Date Status Note LastModified by Organization Details LastModified Time medbox status USE DIRECTED active Not Available Not Available No t Available atorvastatin 40 mg tablet TAKE 1 TABLET BY MOUTH EVERY EVENING active Not Available Not Available No t Available ipratropium 0.5 mg-albuterol 3 mg (2.5 mg base)/3 mL nebulization soln USE 1 AMPULE USING A NEBULIZER EVERY 6 HOURS NEEDED FOR DIFFICULTY BREATHING active Not Available Not Available No t Available citalopram 40 mg tablet TAKE 1 TABLET BY MOUTH EVERYDAY AT NOON active Not Available Not Available No t Available trazodone 50 mg tablet TAKE 1 TABLET BY MOUTH AT BEDTIME active Not Available Not Available No t Available aspirin 81 mg tablet,delay ed release TAKE 1 TABLET BY MOUTH EVERY EVENING active Not Available Not Available No t Available acetaminophe n 500 mg tablet TAKE 2 TABLETS BY MOUTH EVERY 8 HOURS NEEDED FOR PAIN (LEVE- MODERATE) active Not Available Not Available No t Available levothyroxin e 100 mcg tablet TAKE 1 TABLET BY MOUTH EVERY MORNING active Not Available Not Available No t Available doxazosin 8 mg tablet TAKE 1 TABLET BY MOUTH AT BEDTIME active Not Available Not Available No t Available tamsulosin 0.4 mg capsule TAKE 1 CAPSULE BY MOUTH EVERY EVENING active Not Available Not Available No t Available OneTouch Ultra Test strips TEST BLOOD SUGAR THREE TIMES DAILY active Not Available Not Available Not Available omeprazole 20 mg capsule,madeline yed release TAKE 1 CAPSULE BY MOUTH TWICE DAILY AT NOON AND IN THE EVENING active Not Available Not Available Not Available montelukast 10 mg tablet TAKE 1 TABLET BY MOUTH EVERY EVENING active Not Available Not Available No t Available albuterol sulfate HFA 90 mcg/actuatio n aerosol inhaler INHALE 2 PUFFS BY MOUTH EVERY 4 TO 6 HOURS NEEDED SHORTNESS OF BREATH OR FOR WHEEZING active Not Available Not Available No t Available lisinopril 40 mg tablet TAKE 1 TABLET BY MOUTH AT BEDTIME active Not Available Not Available No t Available loratadine 10 mg tablet TAKE 1 TABLET BY MOUTH EVERYDAY AT NOON active Not Available Not Available No t Available Alcohol Prep Pads USE TO TEST BLOOD SUGAR THREE TIMES DAILY DIRECTED active Not Available Not Available No t Available Symbicort 160 mcg-4.5 mcg/actuatio n HFA aerosol inhaler INHALE 1 PUFF BY MOUTH TWICE DAILY IN THE MORNING AND IN THE EVENING RINSE MOUTH AFTER USING. active Not Available Not Available No t Available Incruse Ellipta 62.5 mcg/actuatio n powder for inhalation INHALE 1 PUFF EVERY DAY AT THE SAME TIME active Not Available Not Available No t Available OneTouch Delica Plus Lancet 33 gauge TEST BLOOD SUGAR THREE TIMES DAILY active Not Available Not Available Not Available Vitals Date Recorded Respiratory rate Heart rate Body temperature Oxygen saturation Oxygen saturation in Arterial blood by Pulse oximetry Systolic blood pressure Diastolic blood pressure Provider Name and Address Organization Details Last Updated DateTime 3 20 /min 90 /min 98.3 [degF] 98 % 98 % 147 mm[Hg] 79 mm[Hg] Not Available [employer] - production 3 15:48:36 Social History None recorded. Functional Status None recorded. Mental Status None recorded. Family History Nothing Reported. Medical History No medical history recorded. Past Encounters Encounter ID Performer Location Encounter Start Date Encounter Closed Date Diagnosis/Indication Diagnosis SNOMED-CT Code Diagnosis ICD10 Code Diagnosis Note [id number] Elle Ocampo MD Main - [address] [address] 08/11/2022 15:00:03 08/12/2022 11:25:04 Chest pain 82151520 R07.9 Health Concerns Section Related Observation LastModified by Organization Detai ls LastModified Time None Recorded Concern Status LastModified by Organization Details LastModified Time None Recorded Advance Directives Directive None Recorded Payers Encounter Date Sequence Insurance Name Policy Number Policy Rojas Covered Member ID Rojas Member ID Guarantor Name 08/11/2022 1 [facility] - DOS ON OR AFTER 2022 - DUAL ELIGIBLE - [facility] OPTIONS AND ONE CARE (MEDICARE REPLACEMENT/ADV ANTAGE - HMO) Jt Hernandez [id number] Jt Hernandez Notes Date Note Type Note Provider Name and Address Organization Details Recorded Time 08/11/2022 text/html HPI: Patient with history of Asthma, HTN, DM,GERD. Has been triaged for complaints of non radiating chest discomfort. No arm or jaw pain. Patient unsure of GERD . Has declined previous dispositions. Cancelled appt. today per Son Babatunde (HIPPA +) that he had a bad night and is very tired . Spoke with Son only. Son reports no pain or nausea this morning and agrees for home visit for evaluation. Patient contacted on three way call. Sleeping. Agrees to home evaluation later today. .................. .................. .................. .................. .................. .................. .................. ............... CRC Nursing Assessment: Comments: CRC RN did not require any additional information to process this visit. .................. .................. .................. .................. .................. .................. .................. ............... Assembler Crimper Note From Amado Ortiz: [facility] dispatched to location for PT with chest pain. U/A to location PT 71 y.o. male found ambulatory presents awake CAOx4 with pink/warm/dry skin speaking full sentences. PT is [place] speaking only son is on scene to translate. Son translates that PT has been experiencing intermittent chest pains for approx 3 weeks acute onset described as left sided feels like stabbing 8/10 pain non radiating. Son states that PT sometimes experiences SOB with the chest pain. Per son translating PT is not currently experiencing the pain PT last experienced the pain two days ago. Per son PT was supposed to have an appointment with PCP this morning but PT did not sleep well and skipped the appointment. [facility] contacted and verbal report of PT present illness given. [facility] recommends PT be seen at ER for symptoms. PT agrees to go to [facility] ER via his Son driving him. [facility] clears scene. *All times are approximate* .................. .................. .................. .................. .................. .................. .................. ............... Disposition: Fulfilled Elle Ocampo MD [address] [place] [address],[address], [place], [address], JOHNNY GATES 08/18/2022 16:50:49
--- OUTSIDE RECORDS SUMMARY | 2024-04-16 18:15 | XMS_ITS | Encounter Summary ---
Author Organization [employer] Address [address] [facility] [address] [place] [address] Care Team Providers Care Cord Tire Builder Name Role Phone Laura Cohen MD Primary Care Provider [phone] Anthony Shen PharmD Unavailable [phone] Reason for Visit * Reason Onset Date Comments Med Refill 08/20/2022 Encounter Details Date Type Department Care Team (Late st Contact Info) Description 08/20/2022 Telephone [facility] [address] [place], [place] [phone] Laura Cohen MD [address] [place], [place] [phone] Med Refill Social History Tobacco Use Types Packs/Day Years [...] Orientation Straight 12/14/2021 10 :16 AM EDT COVID-19 Exposure Response Date Recorded In the last 10 days, have yo u been in contact with someone who was confirmed or suspected to have Coronavirus/COVID-19? No / Unsure 08/16/2022 12:58 PM EDT documented as of this encounter Miscellaneous Notes * Telephone Encounter - Elizabeth Zaman LPN - 08/20/2022 3:51 PM EDT Medication was given for short term. * Telephone Encounter - Heidi Rivas - 08/20/2022 3:43 PM EDT Tc from pt requesting medication refill on predniSONE 20 mg tablet documented in this encounter Plan of Treatment Not on file documented as of this encounter Visit Diagnoses Not on filedocumented in this encounter Care Teams Cord Tire Builder Relationship Specialty Start Date End Date Laura Cohen MD [address] [place] [address] PCP - General Family Medicine 02/14/18 Anthony Shen PharmD [address] [place] [address] Pharmacist Internal Medicine 11/08/22 documented as of this encounter
--- OUTSIDE RECORDS SUMMARY | 2024-04-16 18:15 | XMS_ITS | Encounter Summary ---
Author Organization [employer] Address [address] [place] [address] Care Team Providers Care Head Transfer Clerk Name Role Phone Laura Cohen MD Primary Care Provider [phone] Anthony Shen PharmD Unavailable [phone] Encounter Details Date Type Department Care Team (Late st Contact Info) Description 09/01/2023 Orders Only [facility] [address] [place], [place] [phone] Laura Cohen MD [address] [place], [place] [phone] Acquired hypothyroidism (Primary Dx); Dyslipidemia Social History Tobacco Use Types Packs/Day Years Used Date Smoking Tobacco: Former Cigarettes Passive Smoke Exposure: Never Smokeless Tobacco: Never Housing Stability Answer Date Recorded What is your housing situation today? I have gwyn vicki 06/02/[address] you li ve. Do you have problems with any of the following? None of the above 06/02/2023 Food Insecurity Answer Date Recorded Within the past 12 months, y ou worried that your food would run out before you got money to buy more: Never True 06/02/2023 Within the past 12 months,th e food you bought just didn't last and you didn't have enough money to get more: Never True Transportation Answer Date Recorded In the past 12 months, has l ack of transportation kept you from medical appts, meetings, work or from getting things needed for daily living? No 06/02/2023 Utilities Answer Date Recorded In the past 12 months, has t he electric, gas, oil or water [employer] threatened to shut off services in your home? No 06/02/2023 Depression Answer Date Recorded Patient Health Questionnaire-2 Score 0 02/25/2022 Sex and Gender Information Value Date Recorded Sex Assigned at Male 12/14/2021 10:16 AM EDT Legal Sex Male 10:16 AM EDT Gender Identity Male 12/14/2021 10:16 AM EDT Sexual Orientation Straight 12/14/2021 10 :16 AM EDT documented as of this encounter Plan of Treatment Scheduled Orders Name Type Priority Associated Diagnoses Orde r Schedule Lipid Panel with Reflex to Direct LDL Lab Routine Dyslipidemia Expected: 10/02/2023 (Approximate), Expires: 08/31/2024 TSH with Reflex to Free T4 Lab Routine Acquired hypothyroidism Expected: 10/02/2023 (Approximate), Expires: 08/31/2024 Hepatic Function Panel Lab Routine Dyslipidemia Expected: 10/02/2023 (Approximate), Expires: 08/31/2024 documented as of this encounter Goals Goal Patient Goal Type Associated Problems Recent Progress Patient-Stated? Author Blood Pressure < 140/90 Blood Pressure 160/81( 025 3:47 PM EST) No Anthony Shen, Gypsy documented as of this encounter Visit Diagnoses Diagnosis Acquired hypothyroidism- Primary Unspecified hypothyroidism Dyslipidemia Other and unspecified hyperlipidemia documented in this encounter Care Teams Head Transfer Clerk Relationship Specialty Start Date End Date Laura Cohen MD [address] [place] [address] PCP - General Family Medicine 02/14/18 Anthony Shen, PharmD [address] [place] [address] Pharmacist Internal Medicine 11/08/22 documented as of this encounter
--- OUTSIDE RECORDS SUMMARY | 2024-04-16 18:15 | XMS_ITS | Encounter Summary ---
Author Organization [employer] Address [address] [place] [address] [address] [place] [address] Care Team Providers Care Barrel Washer Machine Name Role Phone Laura Cohen MD Primary Care Provider [phone] Anthony Shen PharmD Unavailable [phone] Encounter Details Date Type Department Care Team (Late st Contact Info) Description 04/09/2022 Telephone [facility] [address] [place], [place] [phone] Laura Cohen MD [address] [place] [address] Social History Tobacco Use Types Packs/Day Years Used Date Smoking Tobacco: Never Passive Smoke Exposure: Never Smokeless Tobacco: Never [...] on filedocumented in this encounter Care Teams Barrel Washer Machine Relationship Specialty Start Date End Date Laura Cohen MD [address] [place] [phone] PCP - General Family Medicine 02/14/18 Anthony Shen, PharmD [address] [place] [address], [place] [address] Pharmacist Internal Medicine 11/08/22 documented as of this encounter
--- OUTSIDE RECORDS SUMMARY | 2024-04-16 18:15 | XMS_ITS | Clinical Summary ---
Author Organization [employer] Address [address] [facility] [address] [place] [address] Care Team Providers Care Senior Telecommunications Engineer Name Role Phone Laura Cohen MD Primary Care Provider [phone] Anthony Shen PharmD Unavailable [phone] Allergies No known active allergies Medications Alcohol Swabs (Alcohol Prep) 70 % pads USE TO TEST BLOOD SUGAR THREE TIMES DAILY DIRECTED 022 Active acetaminophen (Tylenol Extra Strength) 500 MG tablet Take 2 tablets (1,000 mg) by mouth every 8 (eight) hours if needed for mild pain or moderate pain. 60 tablet 023 Active albuterol (2.5 MG/3ML) 0.083% nebulizer solution INHALE 1 AMPULE USING A NEBULIZER EVERY 4 HOURS NEEDED DIFFICULTY BREATHING. NO MORE THAN 4 DOSES DAILY. 90 mL 1 023 Active tamsulosin (Flomax) 0.4 MG 24 hr capsuleIndication s:Benign prostatic hyperplasia, unspecified whether lower urinary tract symptoms present TAKE 1 CAPSULE BY MOUTH EVERY EVENING 90 capsule 3 024 Active traZODone (Desyrel) 50 MG tabletIndications :Chronic depression TAKE 1 TABLET BY MOUTH AT BEDTIME 90 tablet 3 024 Active OneTouch Ultra Test test strip TEST BLOOD SUGAR THREE TIMES DAILY 100 strip 11 024 Active lisinopril 40 MG tablet TAKE 1 TABLET BY MOUTH AT BEDTIME 90 tablet 3 024 Active montelukast (Singulair) 10 MG tablet TAKE 1 TABLET BY MOUTH EVERY EVENING 90 tablet 3 05/29/2 024 Active Aspirin Adult Low Strength 81 MG EC tablet TAKE 1 TABLET BY MOUTH EVERY EVENING 90 tablet 3 Active budesonide-formot funmi (Symbicort) 160-4.5 MCG/ACT inhalerIndication s:COPD exacerbation (CMS/HCC) INHALE 1 PUFF BY MOUTH TWICE DAILY IN THE MORNING AND IN THE EVENING RINSE MOUTH AFTER USING. 18 g 3 Active Incruse Ellipta 62.5 MCG/ACT aerosol powder INHALE 1 PUFF BY MOUTH EVERY MORNING AT THE SAME TIME 1 each Active furosemide (Lasix) 20 MG tablet Take 1 tablet (20 mg) by mouth Once per day. 30 tablet 2024 Active levothyroxine (Synthroid, Levoxyl) 137 MCG tabletIndications :Acquired hypothyroidism Take 137 mcg by mouth before breakfast. 30 tablet 2024 Active atorvastatin (Lipitor) 80 MG tabletIndications :Lipid screening Take 1 tablet (80 mg) by mouth Once per day. 30 tablet 2024 Active metFORMIN XR (Glucophage-XR) 500 MG 24 hr tablet TAKE 1 TABLET BY MOUTH EVERY EVENING WITH DINNER. DO NOT BREAK, CRUSH, DISSOLVE OR CHEW 90 tablet 3 Active doxazosin (Cardura) 8 MG tablet TAKE 1 TABLET BY MOUTH AT BEDTIME 30 tablet Active amLODIPine (Norvasc) 5 MG tablet TAKE 1 TABLET BY MOUTH EVERYDAY AT NOON 90 tablet 3 Active Ventolin HFA 108 (90 Base) MCG/ACT inhalerIndication s:Chronic obstructive pulmonary disease, unspecified COPD type (CMS/HCC) INHALE 2 PUFFS BY MOUTH EVERY 4 HOURS NEEDED FOR WHEEZING OR SHORTNESS OF BREATH NO MORE THAN 4 PUFFS DAILY 18 g 1 Active citalopram (CeleXA) 40 MG tablet TAKE 1 TABLET BY MOUTH EVERYDAY AT NOON 90 tablet Active loratadine (Claritin) 10 MG tablet TAKE 1 TABLET BY MOUTH EVERYDAY AT NOON 90 tablet Active omeprazole (PriLOSEC) [address] capsule TAKE 1 CAPSULE BY MOUTH TWICE DAILY AT NOON AND IN THE EVENING 180 capsule 024 Active Lancets (OneTouch Delica Plus [id number]) miscIndications:T ype 2 diabetes mellitus without complication, without long-term current use of insulin ([facility]) TEST BLOOD SUGAR THREE TIMES DAILY 100 each 11 025 Active Diclofenac Sodium 1 % gel Apply to affected areas once or twice daily as needed for pain 150 g 3 023 2024 Discontinued(M ed list cleanup (will not trigger notification to Pharmacy)) levothyroxine (Synthroid) 125 MCG tablet Take 1 tablet (125 mcg) by mouth before breakfast. 90 tablet 3 023 2024 Discontinued ipratropium-albut funmi (Duo-Neb) 0.5-2.5 mg/3 mL nebulizer solutionIndicatio ns:Chronic obstructive pulmonary disease, unspecified COPD type ([facility]) INHALE 1 AMPULE USING A NEBULIZER EVERY 6 HOURS NEEDED FOR DIFFICULTY BREATHING 180 mL 023 2024 Discontinued(M ed list cleanup (will not trigger notification to Pharmacy)) celecoxib (CeleBREX) 200 MG capsule TAKE 1 CAPSULE BY MOUTH EVERY DAY NEEDED FOR PAIN. MAY TAKE ADDITIONAL CAPSULE IN 12 HOURS NEEDED 60 capsule 1 024 2024 Discontinued(M ed list cleanup (will not trigger notification to Pharmacy)) LORazepam (Ativan) 0.5 MG tabletIndications :Panic Take 1 tablet (0.5 mg) by mouth if needed at bedtime for anxiety for up to 5 doses. 5 tablet 024 2024 Discontinued(M ed list cleanup (will not trigger notification to Pharmacy)) melatonin 5 MG tabletIndications :Primary insomnia Take 1 tablet by oral route every evening 2-3 hours before bed 90 tablet 024 2024 Discontinued(M ed list cleanup (will not trigger notification to Pharmacy)) azithromycin (Zithromax) 250 MG tablet Take 2 tabs PO daily x 1d then 1 tab PO daily on D2 to D5 6 tablet 024 2024 Discontinued(M ed list cleanup (will not trigger notification to Pharmacy)) guaiFENesin (Mucinex) 600 MG 12 hr tabletIndications :COPD exacerbation (CMS/HCC) Take 2 tablets (1,200 mg) by mouth 2 times daily. Do not crush, chew, or split. 120 tablet 11 025 2024 Discontinued(M ed list cleanup (will not trigger notification to Pharmacy)) Active Problems Problem Noted Date Diagnosed Date Bronchitis 01/16/2024 Assessment & Plan (01/16/2024 4:53 PM EST): Complication from Covid Rx z-pack + Medrol pack Continue albuterol inh q4h prn Get CXR to ro pneumonia Will call back in 2d for status check Lower extremity edema 06/10/2023 Assessment & Plan (07/10/2023 2:08 PM EDT): Responding to elevation, encouraged daily weights, Resume lisinopril Panic 06/10/2023 Assessment & Plan (07/10/2023 2:08 PM EDT): Pt reports insomnia with breathlessness and panic feeling , reports trazodone no longer effective, reviewed option of temporary ativan in setting of prednisone but this is not to become a daily medication, Rtc in 2 weeks Sensorineural hearing loss (SNHL) of both ears 0 08/16/2022 Assessment & Plan (11/29/2022 6:19 PM EDT): - He has hearing aids Assessment & Plan (08/16/2022 1:45 PM EDT): Patient is waiting for new hearing aids Asthma 05/24/2022 Assessment & Plan (08/30/2023 5:09 PM EDT): Following with Photographer [employer] Picture, last seen 05/03/22 -Photographer Motion Picture impression: pt has asthma only and not COPD. -Advised to continue Albuterol -no need for any other inhalers -recommended to contact pulmonology office for next appointment Assessment & Plan (11/29/2022 6:10 PM EDT): Following with Photographer [employer], last seen 05/03/22 -Photographer Motion Picture impression: pt has asthma only and not COPD. -Advised to continue Albuterol -no need for any other inhalers Assessment & Plan (08/16/2022 1:10 PM EDT): Following with Photographer [employer], last seen 05/03/22 -Photographer Motion Picture impression: pt has asthma only and not COPD. -Advised to continue Albuterol -no need for any other inhalers Assessment & Plan (05/24/2022 2:10 PM EDT): Following with Photographer [employer], last seen 05/03/22 -Photographer Motion Picture impression: pt has asthma only and not COPD. -Advised to continue Albuterol -no need for any other inhalers Macular drusen, left 05/06/2022 BPH (benign prostatic hyperplasia) 02/28/2022 Assessment & Plan (08/30/2023 8:20 AM EDT): - previously evaluated by urologist, last seen in 2019 - continue Flomax Assessment & Plan (06/07/2022 5:56 AM EDT): - previously evaluated by urologist, last seen in 2019 - continue Flomax Assessment & Plan (02/28/2022 7:31 AM EST): - previously evaluated by urologist, last seen in 2019 - continue Flomax GERD (gastroesophageal reflux disease) Assessment & Plan (11/29/2022 6:12 PM EDT): - continue omeprazole - consider changing to prn then off Assessment & Plan (02/28/2022 7:32 AM EST): - continue omeprazole Chronic pain of both knees 02/25/2022 Assessment & Plan (08/30/2023 8:21 AM EDT): - 06/30/22 X-ray showed severe degenerative arthritic changes medial and patellofemoral compartment both knees with periarticular spurring. - Seen by orthopedist on 09/16/22, received steroid injection which was effective. However, pt's glycemic and BP control have worsened - Upcoming appt with orthopedist in Dec 2022, and anticipating another steroid injection. - Intensify management of DM and HTN Assessment & Plan (11/29/2022 6:14 PM EDT): - 06/30/22 X-ray showed severe degenerative arthritic changes medial and patellofemoral compartment both knees with periarticular spurring. - Seen by orthopedist on 09/16/22, received steroid injection which was effective. However, pt's glycemic and BP control have worsened - Upcoming appt with orthopedist in Dec 2022, and anticipating another steroid injection. - Intensify management of DM and HTN Assessment & Plan (08/16/2022 1:44 PM EDT): 06/30/22 X-ray showed severe degenerative arthritic changes medial and patellofemoral compartment both knees with periarticular spurring. Referred to orthopedist. -Pt has an appointment on 09/10/22 with the Orthopedist. -Tylenol is ineffective; will prescribe Diclofenac Gel ; if his labs show normal renal function will prescribe Celebrex, if renal function is abnormal, will prescribe Tramadol -follow-up in 3 months Assessment & Plan (06/07/2022 5:57 AM EDT): - advised to complete X-ray - continue APAP prn - recommended PT, but pt is hesitant Assessment & Plan (02/28/2022 7:28 AM EST): - advised to complete X-ray - continue APAP prn - recommended PT, but pt is hesitant Cyst of left kidney 02/16/2018 Insomnia 02/16/2018 Assessment & Plan (06/24/2023 1:16 PM EDT): Sleep hygiene advise done I will start him on melatonin 5mg at bed time f/u with PCP Complex renal cyst 02/08/2018 Shoulder pain 01/30/2018 Chronic depression 06/16/2015 Assessment & Plan (08/30/2023 8:22 AM EDT): - continue citalopram and trazodone Assessment & Plan (11/29/2022 6:20 PM EDT): - continue citalopram and trazodone Assessment & Plan (02/28/2022 7:32 AM EST): - continue citalopram and trazodone Allergic rhinitis 06/07/2012 Assessment & Plan (08/16/2022 1:09 PM EDT): - continue montelukast and loratadine Assessment & Plan (06/07/2022 5:57 AM EDT): - continue montelukast and loratadine Assessment & Plan (02/28/2022 7:30 AM EST): - continue montelukast and loratadine Diabetes mellitus, type 2 12/22/2011 Assessment & Plan (08/30/2023 4:26 PM EDT): - A1C 6.7% on 08/30/23 - Continue working on lifestyle modifications - Start metformin ER 500 mg once daily - Treatment Hx: Tried metformin in 2009, unable to tolerate and pt declined pharmacological treatment. Pt lost weight and was able to maintain good glycemic control since then until now. DM Maintenance: - Last eye exam: 04/22/22, no diabetic retinopathy. Severe cataract. Scheduled for surgery for cataract removal. - Last foot exam: 08/30/23 - Last microalbumin test: 08/16/22 UACR 5 - Last lipid profile 08/16/22 TC 198; TG 260; hdl 36; LDL 122 - Last dental exam: ? Follow-up in 3-4 mo or sooner prn Assessment & Plan (06/24/2023 1:21 PM EDT): F/u with PCP Assessment & Plan (11/29/2022 6:18 PM EDT): - A1C 6.9% on 11/29/22, increased from 6.5%, trending up, received steroid injection to b/l knees in Sep 2022 - Continue working on lifestyle modifications - Start metformin ER 500 mg once daily - Treatment Hx: Tried metformin in 2009, unable to tolerate and pt declined pharmacological treatment. Pt lost weight and was able to maintain good glycemic control since then until now. DM Maintenance: - Last eye exam: 04/22/22, no diabetic retinopathy. Severe cataract. Scheduled for surgery for cataract removal. - Last foot exam: 02/25/22 - Last microalbumin test: 08/16/22 UACR 5 - Last lipid profile 08/16/22 TC 198; TG 260; hdl 36; LDL 122 - Last dental exam: ? Follow-up in 3-4 mo or sooner prn Assessment & Plan (08/17/2022 12:15 PM EDT): - A1C 6.5%, slight increase from 6.2% 02/25/22 - Continue working on lifestyle modifications - Treatment Hx: Tried metformin in 2009, unable to tolerate and pt declined pharmacological treatment. Pt lost weight and was able to maintain good glycemic control since then. DM Maintenance: - Last eye exam: 04/22/22, no diabetic retinopathy. Severe cataract. Scheduled for surgery for cataract removal. - Last foot exam: 02/25/22 - Last microalbumin test: 07/24/19 UACR 3 - Last FLP: 08/25/21 TC 198; TG 162; HDL 40; LDL 130 - Last dental exam: ? Follow-up in 4-6 mo or sooner prn Assessment & Plan (05/24/2022 2:06 PM EDT): - A1C 6.2% 02/25/22 stable - Continue working on lifestyle modifications - Treatment Hx: Tried metformin in 2009, unable to tolerate and pt declined pharmacological treatment. Pt lost weight and was able to maintain good glycemic control since then. DM Maintenance: - Last eye exam: 04/22/22, no diabetic retinopathy. Severe cataract. Scheduled for surgery for cataract removal. - Last foot exam: 02/25/22 - Last microalbumin test: 07/24/19 UACR 3 - Last FLP: 08/25/21 TC 198; TG 162; HDL 40; LDL 130 - Last dental exam: ? Follow-up in 4-6 mo or sooner prn Assessment & Plan (02/28/2022 7:33 AM EST): - A1C 6.2% 02/25/22 stable - Continue working on lifestyle modifications - Treatment Hx: Tried metformin in 2009, unable to tolerate and pt declined pharmacological treatment. Pt lost weight and was able to maintain good glycemic control since then. DM Maintenance: - Last eye exam: June 2017. No diabetic retinopathy. Pt missed another eye appt. Emphasized the importance of keeping appt. Will refer to [facility] Eye care. - Last foot exam: 02/25/22 - Last microalbumin test: 07/24/19 UACR 3 - Last FLP: 08/25/21 TC 198; TG 162; HDL 40; LDL 130 - Last dental exam: ? Follow-up in 4-6 mo or sooner prn Hypertension 12/22/2011 Assessment & Plan (08/30/2023 5:10 PM EDT): -Goal BP < 140/90 (or 150/90 since his DM has been diet-controlled) per JNC-8 and < 130/80 per ACC/AHA guideline (Treatment threshold >= 130 ) - BP not at goal today - Encourage self-monitoring BP. - Continue working on lifestyle modifications. - Start furosemide 20 mg daily - Continue lisinopril 40 mg daily. - Continue doxazosin to 8 mg daily. - Continue Amlodipine to 5 mg daily - Improve adherence to CPAP. Or optimize Tx SHORTY in other modalities. - Upcoming appointment with [facility] - Follow up in 3-4 mo, sooner if any problem arises Assessment & Plan (06/24/2023 1:21 PM EDT): Not controlled I advise low Na diet and to take his medications every day RTC 2 week with nurse and then 6 weeks with PCP if BP not at goal plan is to increase amlodipine to 10mg Assessment & Plan (07/10/2023 2:07 PM EDT): Above goal today, Resume lisinopril Trend renal function Future bmp ordered Assessment & Plan (11/29/2022 6:11 PM EDT): -Goal BP < 140/90 (or 150/90 since his DM has been diet-controlled) per JNC-8 and < 130/80 per ACC/AHA guideline (Treatment threshold >= 130 ) - BP not at goal today - Encourage self-monitoring BP. - Continue working on lifestyle modifications. - Continue lisinopril 40 mg daily. - Continue doxazosin to 8 mg daily. - Increase Amlodipine to 5 mg daily - Improve adherence to CPAP. Or optimize Tx SHORTY in other modalities. - Upcoming appointment with [facility] clinic - Follow up in 3-4 mo, sooner if any problem arises Assessment & Plan (08/16/2022 1:46 PM EDT): -Goal BP < 140/90 (or 150/90 since his DM has been diet-controlled) per JNC-8 and < 130/80 per ACC/AHA guideline (Treatment threshold >= 130 ) - BP not at goal today - Encourage self-monitoring BP. - Continue working on lifestyle modifications. - Continue lisinopril 40 mg daily. - Continue doxazosin to 8 mg daily. - Add Amlodipine 2.5 mg daily - Improve adherence to CPAP. Or optimize Tx SHORTY in other modalities. - pt was advised to contact [facility] to complete stress test. - Upcoming appointment with [facility] clinic - Follow up in 3-4 mo, sooner if any problem arises Assessment & Plan (05/24/2022 2:02 PM EDT): -Goal BP < 140/90 (or 150/90 since his DM has been diet-controlled) per JNC-8 and < 130/80 per ACC/AHA guideline (Treatment threshold >= 130 ) - BP not at goal today - Encourage self-monitoring BP. - Continue working on lifestyle modifications. - Continue lisinopril 40 mg daily. - Continue doxazosin to 8 mg daily. - Improve adherence to CPAP. Or optimize Tx SHORTY in other modalities. - pt was advised to contact his [facility] to complete stress test. - Refer to [facility] - Follow up in 3-6 mo, sooner if any problem arises Assessment & Plan (02/28/2022 7:16 AM EST): -Goal BP < 140/90 (or 150/90 since his DM has been diet-controlled) per JNC-8 and < 130/80 per ACC/AHA guideline (Treatment threshold >= 130 ) - BP not at goal today - Encourage self-monitoring BP. - Continue working on lifestyle modifications. - Continue lisinopril 40 mg daily. - Continue doxazosin to 8 mg daily. - Improve adherence to CPAP. Or optimize Tx SHORTY in other modalities. - pt was advised to contact his [facility] to complete stress test. - Refer to [facility] - Follow up in 3-6 mo, sooner if any problem arises Obesity 12/22/2011 Assessment & Plan (08/16/2022 1:10 PM EDT): - SHORTY, HTN, DM2 - continue working on lifestyle modifications Assessment & Plan (02/28/2022 7:29 AM EST): - SHORTY, HTN, DM2 - continue working on lifestyle modifications Obstructive sleep apnea syndrome 12/22/2011 Assessment & Plan (08/30/2023 8:19 AM EDT): - seen by business process associate, Dr. Miguel, last seen on 05/13/22. - Still not using CPAP and specialist suggested a nasal pillow so pt can use it at home. - His current CPAP mask may have been uncomfortable/suffocating him and he did not use it. - pt was recommended to discuss with business process associate and CPAP supplier in regards to mask - discussed about the importance of CPAP adherence for his cardiopumonary condition Assessment & Plan (11/29/2022 5:23 PM EDT): - seen by business process associate, Dr. Miguel, last seen on 05/13/22. - Still not using CPAP and specialist suggested a nasal pillow so pt can use it at home. - His current CPAP mask may have been uncomfortable/suffocating him and he did not use it. - pt was recommended to discuss with business process associate and CPAP supplier in regards to mask - discussed about the importance of CPAP adherence for his cardiopumonary condition Assessment & Plan (08/16/2022 1:10 PM EDT): - seen by business process associate, Dr. Miguel, last seen on 05/13/22. Still not using CPAP and specialist suggested a nasal pillow so pt can use it at home. -His current CPAP mask may have been uncomfortable/suffocating him and he did not use it. -Photographer Motion Picture impression states not COPD but only asthma. -Advised to continue Albuterol and no need for any other inhalers. Assessment & Plan (05/24/2022 2:08 PM EDT): - seen by business process associate, Dr. Miguel, last seen on 05/13/22. Still not using CPAP and specialist suggested a nasal pillow so pt can use it at home. -His current CPAP mask may have been uncomfortable/suffocating him and he did not use it. -Photographer Motion Picture impression states not COPD but only asthma. -Advised to continue Albuterol and no need for any other inhalers. Assessment & Plan (02/28/2022 7:35 AM EST): - seen by business process associate, Dr. Miguel - pt was supposed to exchange his CPAP machine to a new one, but prefers nasal cannula to CPAP - will refer to sleep medicine specialist if his nasal canula is adequate for treating SHORTY and nocturnal hypoxemia Dyslipidemia 10/01/2011 Assessment & Plan (08/30/2023 8:22 AM EDT): - Current medication: atorvastatin 40 mg qhs - Last lipid profile: 08/16/22 TC 198; TG 260; hdl 36; LDL 122 - According to ACC/AHA guideline, high-intensity statin therapy is recommended. Consider incrasing to 80 mg qhs. - Continue working on lifestyle modificcations. Assessment & Plan (11/29/2022 6:20 PM EDT): - Current medication: atorvastatin 40 mg qhs - Last lipid profile: 08/16/22 TC 198; TG 260; hdl 36; LDL 122 - According to ACC/AHA guideline, high-intensity statin therapy is recommended. Consider incrasing to 80 mg qhs. - Continue working on lifestyle modificcations. Assessment & Plan (08/16/2022 1:09 PM EDT): - Current medication: atorvastatin 40 mg qhs - Last lipid profile: 08/25/21 TC 198; TG 162; HDL 40; LDL 130 - According to ACC/AHA guideline, high-intensity statin therapy is recommended. Consider incrasing to 80 mg qhs. - Continue working on lifestyle modificcations. Assessment & Plan (02/28/2022 7:21 AM EST): - Current medication: atorvastatin 40 mg qhs - Last lipid profile: 08/25/21 TC 198; TG 162; HDL 40; LDL 130 - According to ACC/AHA guideline, high-intensity statin therapy is recommended. Consider incrasing to 80 mg qhs. - Continue working on lifestyle modificcations. Hypothyroidism 10/01/2011 Assessment & Plan (08/30/2023 8:21 AM EDT): - Current replacement: levothyroxine 112 mcg daily, increased due to subtherapeutic TSH on 08/16/22 - 08/16/22 TSH 10.75 - Recheck thyroid function test Assessment & Plan (11/29/2022 6:21 PM EDT): - Current replacement: levothyroxine 112 mcg daily, increased due to subtherapeutic TSH on 08/16/22 - 08/16/22 TSH 10.75 - Recheck thyroid function test Assessment & Plan (06/07/2022 5:57 AM EDT): - Current replacement: levothyroxine 88 mcg daily, increased due to subtherapeutic TSH on 08/25/21 - 08/25/21 TSH 11.39 - Will check thyroid fxn test - Adjust replacement dose accordingly Assessment & Plan (02/28/2022 7:23 AM EST): - Current replacement: levothyroxine 88 mcg daily, increased due to subtherapeutic TSH on 08/25/21 - 08/25/21 TSH 11.39 - Will check thyroid fxn test - Adjust replacement dose accordingly Resolved Problems Problem Noted Date Diagnosed Date Resolved Date COVID-19 01/16/2024 03/18/2024 Assessment & Plan (01/16/2024 4:52 PM EST): Patient is out of the window period for Paxlovid, he's clinically stable, seems to have bronchitis now. Can be out of isolation now, wearing a mask until 01/18 if sxs are resolved without other meds for at least 24h. Counseled to let close contacts within the past week, know about dx so they can be tested if needed. Rest (sleep at least 8 hours a night). Wash hands frequently Hydrate with plenty of water. Use saline nose drops Take Acetaminophen or Ibuprofen as Prn fever or discomfort Gargle with salt water and use throat sprays/lozenges prn Use heated, humidified air or take hot showers. Get CXR and labs today, will callback in 2d for status check and lab results. Generalized edema 06/10/2023 06/10/2023 Right upper quadrant pain 01/30/2018 COPD exacerbation 10/01/2011 08/30/2023 Assessment & Plan (06/24/2023 1:19 PM EDT): Now resolved C/w current medication regimen Assessment & Plan (07/10/2023 2:06 PM EDT): Resume symbicort, rinse mouth after usage, rtc in 2 weeks sooner prn Report any increased sob, sputum production or wheezing Assessment & Plan (02/28/2022 7:12 AM EST): - following with Dr. Miguel, business process associate, last seen on 12/30/21. - Last COPD exacerbation in June 2021. Treated with azithromycin and prednisone in ED. Extended prednisone due to persistent symptoms. - Current maintenance medications: Symbicort; Incurse,and Singulair - Rescue medication: albuterol HFA prn and nebulizer prn - 05/22/18 PFT mild restrictive pulmonary disorder. No obstructive airway d/o. - Dr. Miguel suggests pt to keep using bronchodilator as needed only - Pt is still having dyspnea, which may be due to inadequate treatment for SHORTY - Smoking > 30+ pack year, Quit smoking 20 years ago - Chest CT 09/14/18. Pulmonary nodules - largest 4 mm. Low-risk no follow-up. High risk optional f/u in 1 yr. Currently at low risk. Encounters Date Type Department Care Team Description 03/15/[address] [id number] Shonda Rivas MA chart prep 03/14/[address] [address] Laura Cohen MD Type 2 diabetes mellitus without complication, without long-term current use of insulin ([facility]) 02/27/2024 4:00 PM EST Office Visit [facility] [facility] [address] [address] Nely Hartley MD COPD exacerbation ([facility]) (Primary Dx) 02/17/2024 Orders Only [address] [address] Laura Cohen MD Dyspnea, unspecified type (Primary Dx); Abnormal CXR 02/14/2024 Telephone [facility] [address] [place] [address] [address] CHEST ORDER 01/19/2024 Telephone [facility] [address] [address] Angelica Cornejo RN Follow-up 01/19/2024 Telephone [facility] [address] [address] Angelica Cornejo RN Follow-up 01/18/[address] [address] Pamela Maloney RN Results 01/18/2024 Orders Only [address] [address] Laura Cohen MD Mass, chest (Primary Dx); Abnormal chest x-ray; Acquired hypothyroidism; Primary hypertension from Last 3 Months Immunizations Name Administration Dates Next Due Hep B, adult 11/27/2013,05/07/2013,02/05/2013 Influenza injectable quadriv alent IIV4 with preservative 11/03/2017 Influenza injectable quadriv alent preservative free 12/16/2015,11/15/2014 Influenza, IIV3, injectable 11/27/2013,0 10/12/2010,11/26/2009,10/23,11/29/2007 Influenza, Split (incl. rasta fied surface antigen) 10/30/2012,11/04/2011 Moderna Covid-19 Vaccine 12+ 01/26/2021,07/10/19 21,06/11/2020 Pneumococcal Conjugate PCV 13 01/21/2015 Pneumococcal Conjugate PCV 20 11/03/2022 Pneumococcal Polysaccharide PPSV23 02/05/2013, TD (adult), 2 Lf tetanus tox oid, preservative free, adsorbed 02/18/2010,09/21/1999 Tdap 10/30/2012 Zoster, Recombinant 11/03/2022 Zoster, live 01/21/2015 Family History Medical History Relation Name Comments Diabetes Father Cancer Mother Diabetes Mother Diabetes Sister Stroke Sister Relation Name Status Comments Father Mother Sister Social History Tobacco Use Types Packs/Day Years Used Date Smoking Tobacco: Former Cigarettes Passive Smoke Exposure: Never Smokeless Tobacco: Never Tobacco Cessation:Counseling Given: Not Answered Housing Stability Answer Date Recorded What is your housing situation today? I have gwyn cohen 06/02/[address] you li [...] t he electric, gas, oil or water company threatened to shut off services in your home? No 06/02/2023 Depression Answer Date Recorded Patient Health Questionnaire-2 Score 0 02/25/2022 Sex and Gender Information Value Date Recorded Sex Assigned at Male 12/14/2021 10:16 AM EDT Legal Sex Male 10:16 AM EDT Gender Identity Male 12/14/2021 10:16 AM EDT Sexual Orientation Straight 12/14/2021 10 :16 AM EDT Last Filed Vital Signs Vital Sign Reading Time Taken Comments Blood Pressure 160/81 02/27/2024 3:47 PM EST Pulse 74 02/27/2024 3:47 PM EST Temperature 37.2 ??C (99 ??F) 02/27/2024 3:47 PM EST Respiratory Rate 18 02/27/2024 3:47 PM EST Oxygen Saturation 95% 02/27/2024 3:47 PM EST Inhaled Oxygen Concentration - - Weight 80.6 kg (177 lb 12.8 oz) 02/27/2024 3:47 PM EST Height 154.9 cm (5' 1 ) 02/27/2024 3:47 PM EST Body Mass Index 33.6 02/27/2024 3:47 PM EST Plan of Treatment Health Maintenance Due Date Last Done Comments CT Colonography 1949 FIT DNA/Cologuard 1949 FIT 1949 FOBT 1950 Sigmoidoscopy 1949 Alcohol/Substance Use Screening 1961 RSV Patients and Patients Aged 60 years or older (1 - Risk 60-74 years 1-dose series) 2009 DTaP/Tdap/Td Vaccines (2 - Td or Tdap) 10/30/2022 10/30/2012, 02/18/2010, 09/21/1999 Zoster Vaccines (3 of 3) 12/29/2022 11/03/2022, 1209/2014 Depression Screening 02/25/2023 02/25/2022, 02/25/19 23 Diabetes: Foot Exam 02/25/2023 02/25/2022, 02/25/2022, 02/25/2022, Additional history exists COVID-19 Vaccine ( season) 2023 01/26/2021, 07/09/2020, 06/11/2020 Influenza Vaccine (#1) 2023 8, 12/16/2015, 11/15/2014, Additional history exists Diabetes: Hemoglobin A1C 03/01/2024 024, 06/10/2023, 08/16/2022, Additional history exists Eye Exam 04/22/2024 04/22/2022, 03/0 10/2022, 04/22/2022, Additional history exists SDOH Screening 06/01/2024 06/02/2023 Diabetes: Urine Protein Screening 08/30/2024 08/31/2023, 08/16/2022, 08/25/2021, Additional history exists Lipid Panel 08/30/2024 08/31/2023, 07/0 04/2022, 08/25/2021, Additional history exists Tobacco Screening 02/26/2025 02/27/2024 Colonoscopy 09/29/2028 09/29/2018 Colorectal Cancer Screening 09/29/2028 Hepatitis B Vaccines Completed 11/27/2013, 05/07/2013, 02/05/2013 Hepatitis C Screening Completed 11/02/2018 Pneumococcal Vaccine: 50+ Years Completed 11/03/2022, 01/21/2015, 02/05/2013, Additional history exists HIB Vaccines Aged Out No longer eligi ble based on patient's age to complete this topic HPV Vaccines Aged Out No longer eligi ble based on patient's age to complete this topic Hepatitis A Vaccines Aged Out No long er eligible based on patient's age to complete this topic IPV Vaccines Aged Out No longer eligi ble based on patient's age to complete this topic Meningococcal Vaccine Aged Out No mike valarie eligible based on patient's age to complete this topic RSV under 20 months Aged Out No longe r eligible based on patient's age to complete this topic Rotavirus Vaccines Aged Out No longer eligible based on patient's age to complete this topic Goals Goal Patient Goal Type Associated Problems Recent Progress Patient-Stated? Author Blood Pressure < 140/90 Blood Pressure 160/81( 025 3:47 PM EST) No Anthony Shen, ShelliD Procedures Procedure Name Priority Date/Time Associated Diagnosis Comments POCT INFLUENZA B (ID NOW RAPID MOLECULAR) Routine 02/27/2024 4:04 PM EST COPD exacerbation (CMS/HCC) POCT INFLUENZA A (ID NOW RAPID MOLECULAR) Routine 02/27/2024 4:04 PM EST COPD exacerbation (CMS/HCC) POCT COVID-19 AG MERCADO ID NOW Routine 02/27/2024 4:04 PM EST COPD exacerbation (CMS/HCC) ALBUMIN, RANDOM URINE W/CREATININE Routine 08/31/2023 11:35 AM EDT Type 2 diabetes mellitus without complication, without long-term current use of insulin (CMS/HCC) LIPID PANEL WITH REFLEX TO DIRECT LDL Routine 08/31/2023 11:30 AM EDT Type 2 diabetes mellitus without complication, without long-term current use of insulin (CMS/HCC) POCT GLYCATED HEMOGLOBIN, TOTAL Routine 08/30/2023 3:51 PM EDT Type 2 diabetes mellitus without complication, without long-term current use of insulin (CMS/HCC) HEPATITIS C ANTIBODY (EXTERNAL RESULTS ONLY) Routine 11/02/2018 5:19 AM EDT HM COLONOSCOPY Routine 09/29/2018 from Last 3 Months or Most Recently Relevant to Health Maintenance Results * POCT Rapid Influenza B MERCADO ID NOW (02/27/2024 4:04 PM EST) [facility] Influenza B Negative Negative, Indeterminate [facility] Swab 02/27/2024 4:04 PM EST us Nely Hartley MD POINT OF CARE TEST ENTER/ED IT ORDERABLES Final Result [facility] [address] [place] [phone] * POCT Rapid Influenza A MERCADO ID NOW (02/27/2024 4:04 PM EST) [facility] Influenza A Negative Negative, Indeterminate [facility] Swab 02/27/2024 4:04 PM EST us Nely Hartley MD POINT OF CARE TEST ENTER/ED IT ORDERABLES Final Result Performing Organization Address [facility] [[email or web address]] Co de Phone Number [facility] [address] [place] [phone] * POCT Rapid Covid-19 MERCADO ID NOW (02/27/2024 4:04 PM EST) Coronavirus Antigen PCR Negative Negative, Indeterminate, None Detected, Invalid, Specimen unsatisfactory for evaluation, Weakly Positive [facility] Swab 02/27/2024 4:04 PM EST us Nely Hartley MD POINT OF CARE TEST ENTER/ED IT ORDERABLES Final Result Performing Organization Address [facility] Phone Number [facility] [address] [place] [phone] * Albumin, Random Urine W/Creatinine (08/31/2023 11:35 AM EDT) Creatinine, Urine 93.53 mg/dL [facility] Microalbumin Urine 8.0 mg/L [facility] Microalbum Creatinine Ratio Ur 8.5 <30 ug/mg cr [facility] Comment:Albumin/Creatinine R atio Reference Ranges: Normal: < 30 ug/mg creatinine Microalbuminuria: 30 - 300 ug/mg creatinineClinical Albuminuria: > 300 ug/mg creatinine Urine 08/31/2023 11:3 5 AM EDT 08/31/2023 1:15 PM EDT us Laura Cohen MD LAB URINE ORDERABLES Final Resul t Performing Organization Address [facility] [[email or web address]] Co de Phone Number [facility] [address] [place] [phone] * (ABNORMAL) Lipid Panel with Reflex to Direct LDL (08/31/2023 11:30 AM EDT) Triglycerides 100 <150 mg/dL [facility] Comment:Desirable Triglyceri de: less than 150 mg/dLBorderline High Triglyceride 150-199 mg/dLHigh Triglyceride: 200-499 mg/dLVery High Triglyceride: greater than or equal to 5OO mg/dL Cholesterol 176 <200 mg/dL [facility] Comment:Desirable Cholestero l: less than 200 mg/dLBorderline High Cholesterol: 200-239 mg/dLHigh Cholesterol: greater than 239 mg/dL LDL Cholesterol Calculated 115(H) <100 mg/dL [facility] Comment:Desirable LDL: less than 100 mg/dLNear Optimal/Above Optimal LDL: 110- 129 mg/dLBorderline High LDL: 130-159 mg/dLHigh LDL: 160-189 mg/dLVery High LDL: greater than or equal to 190 mg/dL HDL Cholesterol 41 >40 mg/dL [facility] Comment:Desirable HDL: great er than 40 mg/dL Note: This HDL assay may give artificially low results in patients with liver disease. Blood 08/31/2023 11:3 0 AM EDT 08/31/2023 12:51 PM EDT Laura Cohen MD LAB BLOOD ORDERABLES Final Resul t [facility] [address] [place] [phone] * (ABNORMAL) POCT HGB A1C (08/30/2023 3:51 PM EDT) Hemoglobin A1C 6.7(A) 4.0 - 6.0 % QC Media Lot # [id number] 1 Lot# Expiration Date [id number] Blood 08/30/2023 3:51 PM EDT Laura Cohen MD POINT OF CARE TEST ENTER/EDIT OR DERABLES Final Result * Hepatitis C Antibody (11/02/2018 5:19 AM EDT) Hepatitis C Antibody Nonreactive Blood 11/02/2018 5:19 AM EDT Historical Provider POINT OF CARE TEST ENTER/ EDIT ORDERABLES Final Result * Hm Colonoscopy (09/29/2018) Colonoscopy Normal Normal 09/29/2018 Historical Provider HEALTH MAINTENANCE Edited Result - Final from Last 3 Months or Most Recently Relevant to Health Maintenance Insurance [facility] Care Teams Senior Telecommunications Engineer Relationship Specialty Start Date End Date Laura Cohen MD [address] [place] [address] PCP - General Family Medicine 02/14/18 Anthony Shen, PharmD [address] [place] [phone] Pharmacist Internal Medicine 11/08/22
--- OUTSIDE RECORDS SUMMARY | 2024-04-16 18:15 | XMS_ITS | Encounter Summary ---
Author Organization [employer] [facility] Address [address] [place] [address] 7t [place] [address] Care Team Providers Care Warehouse Helper Name Role Phone Laura Cohen MD Primary Care Provider [phone] Anthony Shen PharmD Unavailable [phone] Encounter Details Date Type Department Care Team (Late st Contact Info) Description 02/02/2022 Orders Only [facility] [address] [place], [place] [phone] Leanna Gordon LPN Social History Tobacco Use Types Packs/Day Years Used Date Smoking Tobacco: Never Assessed Sex and Gender Information Value Date Recorded Sex Assigned at Male 12/14/2021 10:16 AM EDT Legal Sex Male 10:16 AM EDT Gender Identity Male 12/14/2021 10:16 AM EDT Sexual Orientation Straight 12/14/2021 10 :16 AM EDT documented as of this encounter Plan of Treatment Not on file documented as of this encounter Visit Diagnoses Not on filedocumented in this encounter Care Teams Warehouse Helper Relationship Specialty Start Date End Date Laura Cohen MD [address] [place], [place] [phone] PCP - General Family Medicine 02/14/18 Anthony Shen, PharmD [address] [place], [place] [phone] Pharmacist Internal Medicine 11/08/22 documented as of this encounter
--- OUTSIDE RECORDS SUMMARY | 2024-04-16 18:15 | XMS_ITS | Encounter Summary ---
Author Organization [employer] Address [address] [place] [address] 7t [place] [address] Care Team Providers Care Generator Man Name Role Phone Laura Cohen MD Primary Care Provider [phone] Anthony Shen PharmD Unavailable [phone] Reason for Referral * Imaging (Urgent) - Closed Specialty Diagnoses / Procedures Referred By Contac t Referred To Contact Radiology Diagnoses Dyspnea, unspecified type Abnormal CXR Procedures CT CHEST W CONTRAST Laura Cohen MD [address] [place] [address] Phone: tel: fax: [address] Phone: tel: fax: Referral ID Status Reason Start Date Expiration Date Visits Re quested Visits Authorized [id number] Closed 02/17/2024 02/16/2025 1 1 Encounter Details Date Type Department Care Team (Late st Contact Info) Description 02/17/2024 Orders Only [facility] [address] [place], [place] [phone] Laura Cohen MD [address] [place], [place] [phone] Dyspnea, unspecified type (Primary Dx); Abnormal CXR Social History Tobacco Use Types Packs/Day Years [...] Type Priority Associated Diagnoses Orde r Schedule CT CHEST W CONTRAST Imaging Urgent Dyspnea, unspecified type Abnormal CXR Expected: 02/17/2024, Expires: 02/16/2025 documented as of this encounter Goals Goal Patient Goal Type Associated Problems Recent Progress Patient-Stated? Author Blood Pressure < 140/90 Blood Pressure 160/81( 025 3:47 PM EST) No Anthony Shen, Gypsy documented as of this encounter Visit Diagnoses Diagnosis Dyspnea, unspecified type- Primary Abnormal CXR Nonspecific (abnormal) findings on radiological and other examination of lung field documented in this encounter Care Teams Generator Man Relationship Specialty Start Date End Date Laura Cohen MD [address] [place] [phone] PCP - General Family Medicine 02/14/18 Anthony Shen, PharmD [address] [place] [address] Pharmacist Internal Medicine 11/08/22 documented as of this encounter
--- OUTSIDE RECORDS SUMMARY | 2024-04-16 18:15 | XMS_ITS | Encounter Summary ---
Author Organization [employer] Address [address] [facility] 7t [place] [address] Care Team Providers Care Steel Die Press Set Up Operator Name Role Phone Laura Cohen MD Primary Care Provider [phone] Anthony Shen PharmD Unavailable [phone] Reason for Referral * Imaging (Routine) - Canceled Specialty Diagnoses / Procedures Referred By Contac t Referred To Contact Radiology Diagnoses Mass, chest Abnormal chest x-ray Procedures CT Chest w/o Contrast Laura Cohen MD [address] [place] [address] Phone: tel: fax: [address] Phone: tel: fax: Referral ID Status Reason Start Date Expiration Date V isits Requested Visits Authorized [id number] Canceled 01/18/2024 01/17/2025 1 1 Encounter Details Date Type Department Care Team (Late st Contact Info) Description 01/18/2024 Orders Only [facility] [address] [place] [address] [phone] Laura Cohen MD [address] [place] [address] [phone] Mass, chest (Primary Dx); Abnormal chest x-ray; Acquired hypothyroidism; Primary hypertension Social History Tobacco Use Types Packs/Day Years [...] Priority Associated Diagnoses Orde r Schedule CT Chest w/o Contrast Imaging Routine Mass, chest Abnormal chest x-ray Expected: 01/18/2024, Expires: 01/17/2025 Comprehensive Metabolic Panel Lab Routine Primary hypertension Expected: 01/18/2024 (Approximate), Expires: 01/17/2025 TSH with Reflex to Free T4 Lab Routine Acquired hypothyroidism Expected: 01/18/2024 (Approximate), Expires: 01/17/2025 Albumin, Random Urine W/Creatinine Lab Routine Primary hypertension Expected: 01/18/2024 (Approximate), Expires: 01/17/2025 documented as of this encounter Goals Goal Patient Goal Type Associated Problems Recent Progress Patient-Stated? Author Blood Pressure < 140/90 Blood Pressure 160/81( 025 3:47 PM EST) No Anthony Shen, PharmD documented as of this encounter Visit Diagnoses Diagnosis Mass, chest- Primary Swelling, mass, or lump in chest Abnormal chest x-ray Nonspecific (abnormal) findings on radiological and other examination of lung field Acquired hypothyroidism Unspecified hypothyroidism Primary hypertension Unspecified essential hypertension documented in this encounter Care Teams Steel Die Press Set Up Operator Relationship Specialty Start Date End Date Laura Cohen MD [address] [place] [address] PCP - General Family Medicine 02/14/18 Anthony Shen, ShelliD [address] [place] [address] Pharmacist Internal Medicine 11/08/22 documented as of this encounter
--- OUTSIDE RECORDS SUMMARY | 2024-04-16 18:15 | XMS_ITS | Encounter Summary ---
Author Organization [facility] Address [address] [facility] [address] 7[address] [place] [address] Care Team Providers Care Mold Designer Name Role Phone Laura Cohen MD Primary Care Provider [phone] Anthony Shne PharmD Unavailable [phone] Encounter Details Date Type Department Care Team ([facility] st Contact Info) Description 11/30/2022 Orders Only [facility] [address] [place], [place] [phone] Laura Cohen MD [address] [place], [place] [phone] Acquired hypothyroidism (Primary Dx) Social History Tobacco Use Types Packs/Day Years Used Date Smoking Tobacco: Former Cigarettes Passive Smoke Exposure: Never Smokeless Tobacco: Never Housing Stability Answer Date Recorded What is your housing situation today? I have gwyn cohen 11/28/[address] you li ve. Do you have problems with any of the following? None of the above 11/28/2022 Food Insecurity Answer Date Recorded Within the past 12 months, y ou worried that your food would run out before you got money to buy more: Never True 11/28/2022 Within the past 12 months,th e food you bought just didn't last and you didn't have enough money to get more: Never True Transportation Answer Date Recorded In the past 12 months, has l ack of transportation kept you from medical appts, meetings, work or from getting things needed for daily living? No 11/28/2022 Utilities Answer Date Recorded In the past 12 months, has t he [employer], oil or water company threatened to shut off services in your home? No 11/28/2022 Depression Answer Date Recorded Patient Health Questionnaire-2 [...] Type Priority Associated Diagnoses Orde r Schedule TSH Lab Routine Acquired hypothyroidism Expected: 01/11/2023, Expires: 12/01/2023 T4, Free Lab Routine Acquired hypothyroidism Expected: 01/11/2023, Expires: 12/01/2023 documented as of this encounter Goals Goal Patient Goal Type Associated Problems Recent Progress Patient-Stated? Author Blood Pressure < 140/90 Blood Pressure 160/81( 025 3:47 PM EST) No Anthony Shen, PharmAngela documented as of this encounter Visit Diagnoses Diagnosis Acquired hypothyroidism- Primary Unspecified hypothyroidism documented in this encounter Care Teams Mold Designer Relationship Specialty Start Date End Date Laura Cohen MD [address] [place] [address] PCP - General Family Medicine 02/14/18 Anthony Shen, PharmD [address] [place] [address] Pharmacist Internal Medicine 11/08/22 documented as of this encounter
--- OUTSIDE RECORDS SUMMARY | 2024-04-16 18:15 | XMS_ITS | Encounter Summary ---
Author Organization [employer] Address [address] [facility] [address] 7[address] [place] [address] Care Team Providers Care Chuck Splitter Name Role Phone Laura Cohen MD Primary Care Provider [phone] Anthony Shen PharmD Unavailable [phone] Reason for Visit * Reason Onset Date Comments Error 06/02/2023 Encounter Details Date Type Department Care Team (Late st Contact Info) Description 06/02/2023 Telephone [facility] [address] [place] [address] Laura Cohen MD [address] [place], [place] [phone] Error Social History Tobacco Use Types Packs/Day Years Used Date Smoking Tobacco: Former Cigarettes Passive Smoke Exposure: Never Smokeless Tobacco: Never Housing Stability Answer Date Recorded What is your housing situation today? I have gwynfarooq cohen 06/02/[address] you [...] on file documented as of this encounter Goals Goal Patient Goal Type Associated Problems Recent Progress Patient-Stated? Author Blood Pressure < 140/90 Blood Pressure 160/81( 025 3:47 PM EST) No Anthony Shen, PharmAngela documented as of this encounter Visit Diagnoses Not on filedocumented in this encounter Care Teams Chuck Splitter Relationship Specialty Start Date End Date Laura Cohen MD [address] [place] [address] PCP - General Family Medicine 02/14/18 Anthony Shen, PharmD [address] [place] [address] Pharmacist Internal Medicine 11/08/22 documented as of this encounter
--- OUTSIDE RECORDS SUMMARY | 2024-04-16 18:15 | XMS_ITS | Encounter Summary ---
Author Organization [employer] [facility] Address [address] [place] [address] 7t [place] [address] Care Team Providers Care Audiovisual Lead Technician Name Role Phone Laura Cohen MD Primary Care Provider [phone] Anthony Shen PharmD Unavailable [phone] Reason for Visit * Reason Comments Med Refill Encounter Details Date Type Department Care Team (Late st Contact Info) Description 11/09/2022 Refill [facility] [address] [place] [address] Lucien Moise MD [address] [place] [address] Social History Tobacco Use Types Packs/Day Years [...] on filedocumented in this encounter Care Teams Audiovisual Lead Technician Relationship Specialty Start Date End Date Laura Cohen MD [address] [place] [address] PCP - General Family Medicine 02/14/18 Anthony Shen, PharmD [address] [place] [phone] Pharmacist Internal Medicine 11/08/22 documented as of this encounter
--- OUTSIDE RECORDS SUMMARY | 2024-04-16 18:15 | XMS_ITS | Encounter Summary ---
Author Organization [employer] Address [address] [facility] 7t [place] [address] Care Team Providers Care Oil Well Shooter Name Role Phone Laura Cohen MD Primary Care Provider Anthony Shen PharmD Unavailable [phone] Encounter Details Date Type Department Care Team (Late st Contact Info) Description 04/26/2022 Telephone [facility] [address] [place], [place] [phone] Laura Cohen MD [address] [place] [address] Social History Tobacco Use Types Packs/Day Years [...] suspected to have Coronavirus/COVID-19? No / Unsure 04/22/2022 1:18 PM EST documented as of this encounter Plan of Treatment Not on file documented as of this encounter Visit Diagnoses Not on filedocumented in this encounter Care Teams Oil Well Shooter Relationship Specialty Start Date End Date Laura Cohen MD [address] [place] [phone] PCP - General Family Medicine 02/14/18 Anthony Shen, ShelliD [address] [place] [address] Pharmacist Internal Medicine 11/08/22 documented as of this encounter
--- OUTSIDE RECORDS SUMMARY | 2024-04-16 18:15 | XMS_ITS | Encounter Summary ---
Author Organization [employer] Address [address] [facility] 7t [place] [address] Care Team Providers Care Almond Sorter Name Role Phone Laura Cohen MD Primary Care Provider [phone] Anthony Shen PharmD Unavailable [phone] Reason for Visit * Reason Comments Med Refill Encounter Details Date Type Department Care Team ([facility] st Contact Info) Description 10/03/2023 Refill [facility] [address] [place], [place] [phone] Laura Cohen MD [address] [place], [place] [phone] Social History Tobacco Use Types Packs/Day Years [...] on filedocumented in this encounter Care Teams Almond Sorter Relationship Specialty Start Date End Date Laura Cohen MD [address] [place] [address] PCP - General Family Medicine 02/14/18 Anthony Shen, PharmD [address] [place] [address] Pharmacist Internal Medicine 11/08/22 documented as of this encounter
--- OUTSIDE RECORDS SUMMARY | 2024-04-16 18:15 | XMS_ITS | Encounter Summary ---
Author Organization [employer] Address [address] [facility] 7t [place] [address] Care Team Providers Care Contour Grinder Name Role Phone Laura Cohen MD Primary Care Provider [phone] Anthony Shen PharmD Unavailable [phone] Encounter Details Date Type Department Care Team (Late st Contact Info) Description 03/21/2022 Orders Only [facility] MEDICINE [address] [place] [address] Laura Cohen MD [address] [place], [place] [phone] Bilateral sensorineural hearing loss (Primary Dx) Social History Tobacco Use Types [...] suspected to have Coronavirus/COVID-19? No / Unsure 02/25/2022 10:12 AM EST documented as of this encounter Plan of Treatment Not on file documented as of this encounter Visit Diagnoses Diagnosis Bilateral sensorineural hearing loss- Primary Sensorineural hearing loss, bilateral documented in this encounter Care Teams Contour Grinder Relationship Specialty Start Date End Date Laura Cohen MD [address] [place] [address] PCP - General Family Medicine 02/14/18 Anthony Shen, ShelliD [address] [place] [address] Pharmacist Internal Medicine 11/08/22 documented as of this encounter
== END 2024-04-16 16:02 | disposition home or self-care (01) ==
PROVIDERS: PCP Family Medicine; Visit Provider Internal Medicine
DX: J45.909 Unspecified asthma, uncomplicated (principal); G47.33 Obstructive sleep apnea (adult) (pediatric); E66.9 Obesity, unspecified
CPT/HCPCS: 99213

== ENCOUNTER → 2024-04-16 15:21 | Outpatient (BNVA) | payer OTHER, SELFPAY | PROVIDERS: PCP Family Medicine; Visit Provider Internal Medicine | DX: J45.909 Unspecified asthma, uncomplicated (principal); E66.9 Obesity, unspecified; G47.33 Obstructive sleep apnea (adult) (pediatric); Z68.32 Body mass index [BMI] 32.0-32.9, adult | CPT/HCPCS: 99212 ==

== ENCOUNTER 2024-04-17 14:28 | Outpatient (AMB) | payer OTHER, SELFPAY ==
--- NOTE | 2024-04-17 14:34 | A.OFFVIS_ITS ---
Vital Signs 04/17/24 14:45 Height 5 ft 1 in Weight 171 lb BMI 32.3 Intake Visit Reasons: Bilateral knee pains Intake Note: Jt is a 73 year old male who presents with complaints of progressively worsening bilateral knee pains. He describes his pains as sharp in nature. He has had cortisone injections in the past which gave him minimal relief. He has not had a viscosupplementation injection. He has failed the last 3 months of conservative treatment. He has tried Tylenol, anti-inflammatory medicines and topical creams. At this point his bilateral knee pains are interfering with his activities of daily living and his ability to sleep well through the night. 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: No Allergies No Known Allergies Allergy (Verified 04/17/24 14:45) Medication List - Last Reconciled 04/17/24 by Justin Melendez MD acetaminophen 1,000 mg PO Q8H PRN albuterol sulfate 90 mcg/actuation 2 puffs PO Q4-6H PRN 30 days amlodipine 5 mg PO DAILY aspirin 81 mg PO DAILY atorvastatin 40 mg PO BEDTIME blood sugar diagnostic (Mindshapesuch Ultra Test strips) As directed budesonide-formoterol 160-4.5 mcg/actuation 1 puff inhalation BID celecoxib 200 mg PO Q12H citalopram 40 mg PO DAILY doxazosin 8 mg PO BEDTIME lancets (ProductivTouch Delica Plus Lancet) As directed levothyroxine 125 mcg PO DAILY@0600 lisinopril 40 mg PO BEDTIME loratadine 10 mg PO DAILY@1200 metformin ER 500 mg PO DAILY@1700 omeprazole 20 mg PO BID@0630,1630 tamsulosin 0.4 mg PO BEDTIME trazodone 50 mg PO BEDTIME [facility] Medical History (Updated 04/17/24 @ 16:30 by Justin Melendez MD) SHORTY (obstructive sleep apnea) Chronic lung disease Bronchial asthma COPD (chronic obstructive pulmonary disease) Allergic rhinitis SHORTY on CPAP Obesity (BMI 30-39.9) History of stent insertion of renal artery Surgical History History of nasal surgery Family History Mother Diabetes Breast cancer Father Pacemaker HTN (hypertension) CAD (coronary artery disease) Social History Household Members: None Housing: Apartment Do you presently have visiting nurse or other home services: No Alcohol intake: former Year quit: 2005 Patient Tobacco Use Status: Never used Tobacco Years Smoked: 40 +/- service: No Physical Exam Vital Signs: BMI result Body Mass Index 32.3 Const Other: Well-nourished well-developed very friendly male awake alert and oriented x3 in no acute distress Extrem Other: Bilateral lower extremity examination shows good capillary refill, no skin lesions noted, normal sensation light touch Bilateral knee examination shows minimal effusions, palpable crepitus with range of motion, pain with range of motion, no instability Office Procedures AMB Joint Injection/Aspiration Joint Injection/Aspiration Primary Site: left knee Prep: site was prepped using aseptic technique Injected: 40 mg of, DepoMedrol and 1% plain lidocaine Procedure: The patient tolerated the procedure well Coding 79124 - Large joint Procedure code (CPT) selection complete AMB Joint Injection/Aspiration Joint Injection/Aspiration Primary Site: right knee Prep: site was prepped using aseptic technique Injected: 40 mg of, DepoMedrol and 1% plain lidocaine Procedure: The patient tolerated the procedure well Coding 69493 - Large joint Procedure code (CPT) selection complete Results Reviewed Results Reviewed: X-rays of the patient's bilateral knees taken previously show joint space narrowing, subchondral sclerosis, no acute bony abnormalities Assessment & Plan Assessment & Plan (1) Osteoarthritis of left knee: Code(s): M17.12 - Unilateral primary osteoarthritis, left knee Category: Medical (2) Osteoarthritis of right knee: Code(s): M17.11 - Unilateral primary osteoarthritis, right knee Category: Medical Plan Mr. Ailyn Hernandez presents with bilateral knee pains due to osteoarthritis. The risks and benefits of bilateral knee cortisone injections were discussed at length with the patient. The patient wished to proceed. He tolerated the injections well. He will continue with his home exercise program. I will see whether or not the patient's insurance company will cover a viscosupplementation injection, such as Durolane, for both of his knees. I will see him back in 3 months' time. Feel free to call me at any time should questions regarding his orthopedic management arise. I spent 21 minutes in reviewing the patient's records and imaging studies, seeing the patient and documenting in the medical record. Orders: Orders AMB Joint Injection/Aspiration Today M17.12 - Unilateral primary osteoarthritis, left knee AMB Joint Injection/Aspiration Today M17.11 - Unilateral primary osteoarthritis, right knee Coding Level of Care Code Est Pt Level 3 (06142) Complex EM visit Add On G2211 Diagnoses Osteoarthritis of left knee M17.12 Osteoarthritis of right knee M17.11 CPT Codes Coding - 59499 Large joint: 66405 - Large joint ([id number]) Coding - 13063 Large joint: 36547 - Large joint ([id number])
[2024-04-17 14:45] VITALS: BMI 32.3
--- OUTSIDE RECORDS SUMMARY | 2024-04-17 18:18 | XMS_ITS | Encounter Summary ---
Author Organization [employer] Address 75 [facility] 7t [place] [address] Care Team Providers Care Spring Coverer Name Role Phone Laura Cohen MD Primary Care Provider [phone] Anthony Shen PharmD Unavailable [phone] Encounter Details Date Type Department Care Team (Late st Contact Info) Description 07/20/2022 Orders Only [facility] MEDICINE [address] [place], [place] [phone] Laura Cohen MD [address] [place], [place] [phone] Chronic pain of both knees (Primary Dx); [...] knees documented in this encounter Care Teams Spring Coverer Relationship Specialty Start Date End Date Laura Cohen MD [address] [place], [place] [phone] PCP - General Family Medicine 02/14/18 Anthony Shen, PharmD [address] [place] [address] Pharmacist Internal Medicine 11/08/22 documented as of this encounter
--- OUTSIDE RECORDS SUMMARY | 2024-04-17 18:18 | XMS_ITS | Encounter Summary ---
Author Organization [employer] Address 75 [facility] 7t [place] [address] Care Team Providers Care Motion Picture Photographer Name Role Phone Laura Cohen MD Primary Care Provider [phone] Anthony Shen PharmD Unavailable [phone] Reason for Visit * Reason Comments Med Refill Encounter Details Date Type Department Care Team ([facility] st Contact Info) Description 10/03/2023 Refill [facility] MEDICINE [address] [place], [place] [phone] Laura Cohen MD [address] [place], [place] [phone] Social History Tobacco Use Types Packs/Day Years [...] on filedocumented in this encounter Care Teams Motion Picture Photographer Relationship Specialty Start Date End Date Laura Cohen MD [address] [place] [address] PCP - General Family Medicine 02/14/18 Anthony Shen, PharmD [address] [place] [address] Pharmacist Internal Medicine 11/08/22 documented as of this encounter
--- OUTSIDE RECORDS SUMMARY | 2024-04-17 18:18 | XMS_ITS | Data Portability ---
Author Organization [employer] Address [address] [place] [address] Care Team Providers Care Barrel Lathe Operator Inside Name Role Phone [facility] Referring Provider Assessment Encounter Date Assessment Date Assessment LastModified by Organization Details LastModified Time 08/11/2022 08/11/2022 I have reviewed and agree with the assessment and plan as documented by the high school teacher. I provided real-time medical direction for this [...] SNOMED-CT Code Diagnosis ICD10 Code Diagnosis Note [id number] Elle Ocampo MD Main - [address] [address] 08/11/2022 15:00:03 08/12/2022 11:25:04 Chest pain [id number] R07.9 Health Concerns Section Related Observation LastModified by Organization Detai ls LastModified Time None Recorded Concern Status LastModified by Organization Details LastModified Time None Recorded Advance Directives Directive None Recorded Payers Encounter Date Sequence Insurance Name Policy Number Policy Rojas Covered Member ID Rojas Member ID Guarantor Name 08/11/2022 1 [facility] - DOS ON OR AFTER 2022 - DUAL ELIGIBLE - FPC OPTIONS AND ONE CARE (MEDICARE REPLACEMENT/ADV ANTAGE - HMO) Jt Hernandez [id number] Jt Hernandez Notes Date Note Type Note [...] .................. .................. .................. .................. .................. .................. ............... Production Coordinator Note From Amado Ortiz: [facility] dispatched to location for PT with chest pain. U/A to location PT 71 y.o. male found ambulatory presents awake CAOx4 with pink/warm/dry skin speaking full sentences. PT is [place] speaking only son is on scene to [...] not sleep well and skipped the appointment. [facility] contacted and verbal report of PT present illness given. [facility] recommends PT be seen at ER for symptoms. PT agrees to go to [facility] ER via his Son driving him. [facility] clears scene. *All times are approximate* .................. .................. .................. .................. .................. .................. .................. ............... Disposition: Fulfilled Elle Ocampo MD [address] [place] [address],[address], [place], [address], JOHNNY GATES 08/18/2022 16:50:49
--- OUTSIDE RECORDS SUMMARY | 2024-04-17 18:18 | XMS_ITS | Encounter Summary ---
Author Organization [employer] Address [address] 7t [place] [address] Care Team Providers Care Director Revenue Name Role Phone Laura Cohen MD Primary Care Provider [phone] Anthony Shen PharmD Unavailable [phone] Encounter Details Date Type Department Care Team ([facility] st Contact Info) Description 11/30/[address] [facility] MEDICINE [address] [place], [place] [phone] Laura Cohen MD [address] [place], [place] [phone] Acquired hypothyroidism (Primary Dx) Social History Tobacco [...] the past 12 months, has t he [employer], [employer], oil or water company threatened to shut [...] hypothyroidism documented in this encounter Care Teams Director Revenue Relationship Specialty Start Date End Date Laura Cohen MD [address] [place] [address] PCP - General Family Medicine 02/14/18 Anthony Shen, PharmD [address] [place] [address] Pharmacist Internal Medicine 11/08/22 documented as of this encounter
--- OUTSIDE RECORDS SUMMARY | 2024-04-17 18:18 | XMS_ITS | Encounter Summary ---
Author Organization [employer] Address 75 [facility] 7t [place] [address] Care Team Providers Care Pharmacovigilance Specialist Name Role Phone Laura Cohen MD Primary Care Provider [phone] Anthony Shen PharmD Unavailable [phone] Reason for Referral * Imaging (Routine) - Canceled Specialty Diagnoses / Procedures Referred By Contac t Referred To Contact Radiology Diagnoses Mass, chest Abnormal chest x-ray Procedures CT Chest w/o Contrast Laura Cohen MD [address] [place] [address] Phone: tel: fax: [address] Phone: tel: fax: Referral ID Status Reason Start Date Expiration Date V isits Requested Visits Authorized [id number] Canceled 01/18/2024 01/17/2025 1 1 Encounter Details Date Type Department Care Team (Late st Contact Info) Description 01/18/2024 Orders Only [facility] MEDICINE [address] [place] [address] [phone] Laura Cohen MD [address] [place] [phone] Mass, chest (Primary Dx); Abnormal chest x-ray; [...] hypertension documented in this encounter Care Teams Pharmacovigilance Specialist Relationship Specialty Start Date End Date Laura Cohen MD [address] [place] [address] PCP - General Family Medicine 02/14/18 Anthony Shen, ShelliD [address] [place] [address] Pharmacist Internal Medicine 11/08/22 documented as of this encounter
--- OUTSIDE RECORDS SUMMARY | 2024-04-17 18:18 | XMS_ITS | Encounter Summary ---
Author Organization [employer] Address [address] 7t [place] [address] Care Team Providers Care Svp Digital Sales Food & Cooking Name Role Phone Laura Cohen MD Primary Care Provider Anthony Shen PharmD Unavailable [phone] Encounter Details Date Type Department Care Team (Late st Contact Info) Description 09/01/2023 Orders Only [facility] MEDICINE 230 [place], [place] [phone] Laura Cohen MD [address] [place], [place] [phone] Acquired hypothyroidism (Primary Dx); Dyslipidemia Social History [...] t he electric, gas, oil or water [employer] threatened to shut off services in your [...] hyperlipidemia documented in this encounter Care Teams Svp Digital Sales Food & Cooking Relationship Specialty Start Date End Date Laura Cohen MD [address] [place] [address] PCP - General Family Medicine 02/14/18 Anthony Shen, PharmD [address] [place] [address] Pharmacist Internal Medicine 11/08/22 documented as of this encounter
--- OUTSIDE RECORDS SUMMARY | 2024-04-17 18:18 | XMS_ITS | Encounter Summary ---
Author Organization [employer] Address 75 [facility] 7t [place] [address] Care Team Providers Care Solderer Dipper Name Role Phone Laura Cohen MD Primary Care Provider [phone] Anthony Shen PharmD Unavailable [phone] Encounter Details Date Type Department Care Team (Late st Contact Info) Description 03/21/2022 Orders Only [facility] MEDICINE [address] [place] [address] Laura Cohen MD 230 [place], [place] [phone] Bilateral sensorineural hearing loss (Primary Dx) Social [...] bilateral documented in this encounter Care Teams Solderer Dipper Relationship Specialty Start Date End Date Laura Cohen MD [address] [place] [address] PCP - General Family Medicine 02/14/18 Anthony Shen, ShelliD [address] [place] [address] Pharmacist Internal Medicine 11/08/22 documented as of this encounter
--- OUTSIDE RECORDS SUMMARY | 2024-04-17 18:18 | XMS_ITS | Encounter Summary ---
Author Organization [employer] [facility] Address [address] [place] [address] 7t [place] [address] Care Team Providers Care Mining Engineering Technologist Name Role Phone Laura Cohen MD Primary Care Provider [phone] Anthony Shen PharmD Unavailable [phone] Encounter Details Date Type Department Care Team (Late st Contact Info) Description 02/02/2022 Orders Only [facility] [address] [place], [place] [phone] Leanna Gordon LPN Social History Tobacco Use [...] on filedocumented in this encounter Care Teams Mining Engineering Technologist Relationship Specialty Start Date End Date Laura Cohen MD [address] [place], [place] [phone] PCP - General Family Medicine 02/14/18 Anthony Shen, PharmD [address] [place], [place] [phone] Pharmacist Internal Medicine 11/08/22 documented as of this encounter
--- OUTSIDE RECORDS SUMMARY | 2024-04-17 18:18 | XMS_ITS | Encounter Summary ---
Author Organization [employer] Address 75 [facility] 7t [place] [address] Care Team Providers Care Brass Burnisher Name Role Phone Laura Cohen MD Primary Care Provider [phone] Anthony Shen PharmD Unavailable [phone] Encounter Details Date Type Department Care Team (Late st Contact Info) Description 04/26/2022 Telephone [facility] MEDICINE [address] [place], [place] [phone] Laura Cohen MD [address] [place] [address] Social History Tobacco Use Types Packs/Day Years [...] on filedocumented in this encounter Care Teams Brass Burnisher Relationship Specialty Start Date End Date Laura Cohen MD [address] [place] [address] PCP - General Family Medicine 02/14/18 Anthony Shen, ShelliD [address] [place] [address] Pharmacist Internal Medicine 11/08/22 documented as of this encounter
--- OUTSIDE RECORDS SUMMARY | 2024-04-17 18:18 | XMS_ITS | Encounter Summary ---
Author Organization [employer] Address [address] [place] [address] 7t [place] [address] Care Team Providers Care Sr. Payroll Processor Name Role Phone Laura Cohen MD Primary Care Provider [phone] Anthony Shen PharmD Unavailable [phone] Reason for Referral * Imaging (Urgent) - Closed Specialty Diagnoses / Procedures Referred By Contac t Referred To Contact Radiology Diagnoses Dyspnea, unspecified type Abnormal CXR Procedures CT CHEST W CONTRAST Laura Cohen MD [address] [place] [address] Phone: tel: fax: [address] Phone: tel: fax: Referral ID Status Reason Start Date Expiration Date Visits Re quested Visits Authorized [id number] Closed 02/17/2024 02/16/2025 1 1 Encounter Details Date Type Department Care Team (Late st Contact Info) Description 02/17/2024 Orders Only [facility] MEDICINE 230 [place], [place] [phone] Laura Cohen MD [address] [place], [place] [phone] Dyspnea, unspecified type (Primary Dx); Abnormal CXR [...] field documented in this encounter Care Teams Sr. Payroll Processor Relationship Specialty Start Date End Date Laura Cohen MD [address] [place] [address] PCP - General Family Medicine 02/14/18 Anthony Shen, PharmD [address] [place] [address] Pharmacist Internal Medicine 11/08/22 documented as of this encounter
--- OUTSIDE RECORDS SUMMARY | 2024-04-17 18:18 | XMS_ITS | Encounter Summary ---
Author Organization [employer] Address 75 [facility] 7t [place] [address] Care Team Providers Care Folder Gluer Operator Name Role Phone Laura Cohen MD Primary Care Provider [phone] Anthony Shen PharmD Unavailable [phone] Reason for Visit * Reason Onset Date Comments Med Refill 08/20/2022 Encounter Details Date Type Department Care Team (Late st Contact Info) Description 08/20/2022 Telephone [facility] MEDICINE 230 [place], [place] [phone] Laura Cohen MD [address] [place], [place] [phone] Med Refill Social History Tobacco Use Types [...] on filedocumented in this encounter Care Teams Folder Gluer Operator Relationship Specialty Start Date End Date Laura Cohen MD [address] [place] [address] PCP - General Family Medicine 02/14/18 Anthony Shen PharmD [address] [place] [address] Pharmacist Internal Medicine 11/08/22 documented as of this encounter
--- OUTSIDE RECORDS SUMMARY | 2024-04-17 18:18 | XMS_ITS | Encounter Summary ---
Author Organization [employer] Address [address] [facility] [address] 7t [place] [address] Care Team Providers Care Beef Cattle Farm Manager Name Role Phone Laura Cohen MD Primary Care Provider [phone] Anthony Shen PharmD Unavailable [phone] Reason for Visit * Reason Onset Date Comments Error 06/02/2023 Encounter Details Date Type Department Care Team (Late st Contact Info) Description 06/02/2023 Telephone [facility] MEDICINE [address] [place] [address] Laura Cohen MD [address] [place], [place] [phone] Error Social History Tobacco Use Types Packs/Day [...] on filedocumented in this encounter Care Teams Beef Cattle Farm Manager Relationship Specialty Start Date End Date Laura Cohen MD [address] [place] [address] PCP - General Family Medicine 02/14/18 Anthony Shen, PharmD [address] [place] [address] Pharmacist Internal Medicine 11/08/22 documented as of this encounter
--- OUTSIDE RECORDS SUMMARY | 2024-04-17 18:18 | XMS_ITS | Encounter Summary ---
Author Organization [employer] [facility] Address [address] [place] [address] 7t [place] [address] Care Team Providers Care Derrick Man Name Role Phone Laura Cohen MD Primary Care Provider [phone] Anthony Shen PharmD Unavailable [phone] Reason for Visit * Reason Comments Med Refill Encounter Details Date Type Department Care Team (Late st Contact Info) Description 11/09/2022 Refill [facility] MEDICINE 230 [place] [address] Lucien Moise MD [address] [place] [address] Social History Tobacco Use Types Packs/Day Years [...] on filedocumented in this encounter Care Teams Derrick Man Relationship Specialty Start Date End Date Laura Cohen MD [address] [place] [address] PCP - General Family Medicine 02/14/18 Atnhony Shen, PharmD [address] [place] [address] Pharmacist Internal Medicine 11/08/22 documented as of this encounter
--- OUTSIDE RECORDS SUMMARY | 2024-04-17 18:18 | XMS_ITS | Clinical Summary ---
Author Organization [employer] Address [address] [facility] [address] [place] [address] Care Team Providers Care Flaking Roll Operator Name Role Phone Laura Cohen MD Primary Care Provider [phone] Anthony Shen PharmD Unavailable [phone] Allergies No known active allergies Medications Alcohol [...] capsule 024 Active Lancets (OneTouch Delica Plus Njsatd59L) miscIndications:T ype 2 diabetes mellitus without complication, without long-term current use of insulin ([facility]) TEST BLOOD SUGAR THREE TIMES DAILY 100 [...] ns:Chronic obstructive pulmonary disease, unspecified COPD type ([facility]) INHALE 1 AMPULE USING A NEBULIZER EVERY [...] Plan (08/30/2023 5:09 PM EDT): Following with [employer], last seen 05/03/22 -[employer] impression: pt has asthma only and not COPD. -Advised to continue Albuterol -no need for any other inhalers -recommended to contact pulmonology office for next appointment Assessment & Plan (11/29/2022 6:10 PM EDT): Following with [employer], last seen 05/03/22 -[employer] impression: pt has asthma only and not COPD. -Advised to continue Albuterol -no need for any other inhalers Assessment & Plan (08/16/2022 1:10 PM EDT): Following with [employer], last seen 05/03/22 -[employer] impression: pt has asthma only and not COPD. -Advised to continue Albuterol -no need for any other inhalers Assessment & Plan (05/24/2022 2:10 PM EDT): Following with [employer], last seen 05/03/22 -[employer] impression: pt has asthma only and not [...] importance of keeping appt. Will refer to [facility] care. - Last foot exam: 02/25/22 [...] in other modalities. - Upcoming appointment with [facility] clinic - Follow up in 3-4 mo, [...] - pt was advised to contact his ride operator to complete stress test. - Upcoming appointment with [facility] clinic - Follow up in 3-4 mo, [...] - pt was advised to contact his ride operator to complete stress test. - Refer to [...] - pt was advised to contact his ride operator to complete stress test. - Refer to [...] (08/30/2023 8:19 AM EDT): - seen by calculation reviewer, Dr. Miguel, last seen on 05/13/22. - Still not using CPAP and specialist suggested a nasal pillow so pt can use it at home. - His current CPAP mask may have been uncomfortable/suffocating him and he did not use it. - pt was recommended to discuss with calculation reviewer and CPAP supplier in regards to mask - discussed about the importance of CPAP adherence for his cardiopumonary condition Assessment & Plan (11/29/2022 5:23 PM EDT): - seen by calculation reviewer, Dr. Miguel, last seen on 05/13/22. - Still not using CPAP and specialist suggested a nasal pillow so pt can use it at home. - His current CPAP mask may have been uncomfortable/suffocating him and he did not use it. - pt was recommended to discuss with calculation reviewer and CPAP supplier in regards to mask - discussed about the importance of CPAP adherence for his cardiopumonary condition Assessment & Plan (08/16/2022 1:10 PM EDT): - seen by calculation reviewer, Dr. Miguel, last seen on 05/13/22. Still not using CPAP and specialist suggested a nasal pillow so pt can use it at home. -His current CPAP mask may have been uncomfortable/suffocating him and he did not use it. -[employer] impression states not COPD but only asthma. -Advised to continue Albuterol and no need for any other inhalers. Assessment & Plan (05/24/2022 2:08 PM EDT): - seen by calculation reviewer, Dr. Miguel, last seen on 05/13/22. Still not using CPAP and specialist suggested a nasal pillow so pt can use it at home. -His current CPAP mask may have been uncomfortable/suffocating him and he did not use it. -[employer] impression states not COPD but only asthma. -Advised to continue Albuterol and no need for any other inhalers. Assessment & Plan (02/28/2022 7:35 AM EST): - seen by calculation reviewer, Dr. Miguel - pt was supposed to [...] AM EST): - following with Dr. Miguel, calculation reviewer, last seen on 12/30/21. - Last COPD [...] Type Department Care Team Description 03/15/[address] [address] Shonda Rivas [place] chart prep 03/14/[address] [address] Laura Cohen MD Type 2 diabetes mellitus without complication, without long-term current use of insulin ([facility]) 02/27/2024 4:00 PM EST Office Visit [facility] [address] [address] Nely Hartley MD COPD exacerbation ([facility]) (Primary Dx) 02/17/2024 Orders Only [address] [address] Laura Cohen MD Dyspnea, unspecified type (Primary Dx); Abnormal CXR 02/14/2024 Telephone [facility] [address] [place] [address] [phone] CHEST ORDER 01/19/2024 Telephone [facility] [address] [address] Angelica Cornejo RN Follow-up 01/19/2024 Telephone [facility]ALK[facility] [address] [address] Angelica Cornejo RN Follow-up 01/18/[address] [address] Pamela Maloney RN Results 01/18/2024 Orders Only [address] [address] Laura Cohen MD Mass, chest (Primary Dx); [...] MERCADO ID NOW (02/27/2024 4:04 PM EST) [facility] Influenza B Negative Negative, Indeterminate [facility] Swab 02/27/2024 4:04 PM EST us Nely Hartley MD POINT OF CARE TEST ENTER/ED IT ORDERABLES Final Result [facility] [address] [place] [phone] * POCT Rapid Influenza A MERCADO ID NOW (02/27/2024 4:04 PM EST) [facility] Influenza A Negative Negative, Indeterminate [facility] Swab 02/27/2024 4:04 PM EST us Nely Hartley MD POINT OF CARE TEST ENTER/ED IT ORDERABLES Final Result Performing Organization Address [facility] Co de Phone Number [facility] [address] [place] [phone] * POCT Rapid Covid-19 MERCADO ID NOW (02/27/2024 4:04 PM EST) Coronavirus Antigen PCR Negative Negative, Indeterminate, None Detected, Invalid, Specimen unsatisfactory for evaluation, Weakly Positive [facility] Swab 02/27/2024 4:04 PM EST us Nely Hartley MD POINT OF CARE TEST ENTER/ED IT ORDERABLES Final Result Performing Organization Address [facility] Phone Number [facility] [address] [place] [phone] * Albumin, Random Urine W/Creatinine (08/31/2023 11:35 AM EDT) Creatinine, Urine 93.53 mg/dL [facility] Microalbumin Urine 8.0 mg/L [facility] Microalbum Creatinine Ratio Ur 8.5 <30 ug/mg cr [facility] Comment:Albumin/Creatinine R atio Reference Ranges: Normal: < 30 ug/mg creatinine Microalbuminuria: 30 - 300 ug/mg creatinineClinical Albuminuria: > 300 ug/mg creatinine Urine 08/31/2023 11:3 5 AM EDT 08/31/2023 1:15 PM EDT us Laura Cohen MD LAB URINE ORDERABLES Final Resul t Performing Organization Address [facility] Co de Phone Number [facility] [address] [place] [phone] * (ABNORMAL) Lipid Panel with Reflex to Direct LDL (08/31/2023 11:30 AM EDT) Triglycerides 100 <150 mg/dL [facility] Comment:Desirable Triglyceri de: less than 150 mg/dLBorderline High Triglyceride 150-199 mg/dLHigh Triglyceride: 200-499 mg/dLVery High Triglyceride: greater than or equal to 5OO mg/dL Cholesterol 176 <200 mg/dL [facility] Comment:Desirable Cholestero l: less than 200 mg/dLBorderline High Cholesterol: 200-239 mg/dLHigh Cholesterol: greater than 239 mg/dL LDL Cholesterol Calculated 115(H) <100 mg/dL [facility] Comment:Desirable LDL: less than 100 mg/dLNear Optimal/Above Optimal LDL: 110- 129 mg/dLBorderline High LDL: 130-159 mg/dLHigh LDL: 160-189 mg/dLVery High LDL: greater than or equal to 190 mg/dL HDL Cholesterol 41 >40 mg/dL [facility] Comment:Desirable HDL: great er than 40 mg/dL Note: This HDL assay may give artificially low results in patients with liver disease. Blood 08/31/2023 11:3 0 AM EDT 08/31/2023 12:51 PM EDT Laura Cohen MD LAB BLOOD ORDERABLES Final Resul t [facility] [address] [place] [address] [phone] * (ABNORMAL) POCT HGB A1C (08/30/2023 [...] Most Recently Relevant to Health Maintenance Insurance [facility] Care Teams Flaking Roll Operator Relationship Specialty Start Date End Date Laura Cohen MD [address] [place] [address] PCP - General Family Medicine 02/14/18 Anthony Shen, PharmD [address] [place] [phone] Pharmacist Internal Medicine 11/08/22
--- OUTSIDE RECORDS SUMMARY | 2024-04-17 18:18 | XMS_ITS | Encounter Summary ---
Author Organization [employer] Address [address] [place] [address] 7t [place] [address] Care Team Providers Care Guidance Counselor Name Role Phone Laura Cohen MD Primary Care Provider [phone] Anthony Shen PharmD Unavailable [phone] Encounter Details Date Type Department Care Team (Late st Contact Info) Description 04/09/2022 Telephone [facility] [address] [place], [place] [phone] Laura Cohen MD [address] [place] [address] Social History Tobacco Use Types Packs/Day Years [...] on filedocumented in this encounter Care Teams Guidance Counselor Relationship Specialty Start Date End Date Laura Cohen MD [address] [place] [address] [phone] PCP - General Family Medicine 02/14/18 Anthony Shen, PharmD [address] [place] [address], [place] [address] Pharmacist Internal Medicine 11/08/22 documented as of this encounter
== END 2024-04-17 15:06 | disposition home or self-care (01) ==
PROVIDERS: PCP Family Medicine; Visit Provider Orthopaedic Surgery
DX: M17.0 Bilateral primary osteoarthritis of knee (principal)
CPT/HCPCS: 20610; 99213

== ENCOUNTER → 2024-04-17 14:28 | Outpatient (BNVA) | payer OTHER, SELFPAY | PROVIDERS: PCP Family Medicine; Visit Provider Orthopaedic Surgery | DX: M17.0 Bilateral primary osteoarthritis of knee (principal) | CPT/HCPCS: 20610; 99212; J1010; J2003 ==

== ENCOUNTER 2024-08-14 14:12 | Outpatient (AMB) | payer OTHER, SELFPAY ==
[2024-08-14 14:26] VITALS: BMI 32.3
--- NOTE | 2024-08-14 14:26 | A.OFFVIS_ITS ---
Vital Signs 08/14/24 14:26 Height 5 ft 1 in Weight 171 lb BMI 32.3 Intake Visit Reasons: Inj-B/L knee Durolane Intake Note: Jt is a 73 year old male who presents today for bilateral knee Durolane injections. The patient describes his knee pains as sharp in nature. He has had cortisone injections which gave him minimal relief. He wishes to hold off on surgery for as long as possible. He has tried Tylenol and anti-inflammatory medicines which gave him minimal relief. Color Printer Operator Services: Color Printer Operator Present (Tamara ([phone])) Allergies No Known Allergies Allergy (Verified 08/14/24 14:31) Medication List - Last Reconciled 08/14/24 by Justin Melendez MD acetaminophen 1,000 mg PO Q8H PRN albuterol sulfate 90 mcg/actuation 2 puffs PO Q4-6H PRN 30 days amlodipine 5 mg PO DAILY aspirin 81 mg PO DAILY atorvastatin 40 mg PO BEDTIME blood sugar diagnostic ([employer] Ultra Test strips) As directed budesonide-formoterol 160-4.5 mcg/actuation 1 puff inhalation BID celecoxib 200 mg PO Q12H citalopram 40 mg PO DAILY doxazosin 8 mg PO BEDTIME lancets (in3DepthTouch Delica Plus Lancet) As directed levothyroxine 125 mcg PO DAILY@0600 lisinopril 40 mg PO BEDTIME loratadine 10 mg PO DAILY@1200 metformin ER 500 mg PO DAILY@1700 omeprazole 20 mg PO BID@0630,1630 tamsulosin 0.4 mg PO BEDTIME trazodone 50 mg PO BEDTIME PFSH Medical History (Updated 04/17/24 @ 16:30 by Justin Melendez MD) SHORTY (obstructive sleep apnea) Chronic lung disease Bronchial asthma COPD (chronic obstructive pulmonary disease) Allergic rhinitis SHORTY on CPAP Obesity (BMI 30-39.9) History of stent insertion of renal artery Surgical History History of nasal surgery Family History Mother Diabetes Breast cancer Father Pacemaker HTN (hypertension) CAD (coronary artery disease) Social History Household Members: None Housing: Apartment Do you presently have visiting nurse or other home services: No Alcohol intake: former Year quit: 2006 Patient Tobacco Use Status: Never used Tobacco Years Smoked: 40 +/- service: No Physical Exam Vital Signs: BMI result Body Mass Index 32.3 Const Other: Well-nourished well-developed very friendly male awake alert and oriented x3 in no acute distress Extrem Other: Bilateral lower extremity examination shows good capillary refill, no skin lesions noted, normal sensation light touch Bilateral knee examination shows minimal effusions, palpable crepitus with range of motion, pain with range of motion, no instability Office Procedures AMB Joint Injection/Aspiration Joint Injection/Aspiration Primary Site: left knee Prep: site was prepped using aseptic technique Injected: 60 mg of (Durolane viscosupplementation) and 1% plain lidocaine Procedure: The patient tolerated the procedure well Coding 72371 - Large joint Procedure code (CPT) selection complete AMB Joint Injection/Aspiration Joint Injection/Aspiration Primary Site: right knee Prep: site was prepped using aseptic technique Injected: 60 mg of (Durolane viscosupplementation) and 1% plain lidocaine Coding 53633 - Large joint Procedure code (CPT) selection complete Results Reviewed Results Reviewed: X-rays of the patient's bilateral knee show joint space narrowing, subchondral sclerosis, no acute bony abnormalities Assessment & Plan Assessment & Plan (1) Osteoarthritis of left knee: Code(s): M17.12 - Unilateral primary osteoarthritis, left knee Category: Medical (2) Osteoarthritis of right knee: Code(s): M17.11 - Unilateral primary osteoarthritis, right knee Category: Medical Plan Mr. Ailyn Hernandez presents with bilateral knee pains due to osteoarthritis. The risks and benefits of bilateral knee Durolane viscosupplementation injections were discussed at length with the patient. The patient wished to proceed. He tolerated the injections well. He will continue with his home exercise program. He will contact me prior to his follow-up appointment in 3 months should any questions or concerns arise. Feel free to call me at any time should questions regarding his orthopedic management arise. I spent 21 minutes in reviewing the patient's records and imaging studies, seeing the patient and documenting in the medical record. Orders: Orders AMB Joint Injection/Aspiration 08/14/24 M17.11 - Unilateral primary osteoarthritis, right knee AMB Joint Injection/Aspiration 08/14/24 M17.12 - Unilateral primary osteoarthritis, left knee Coding Level of Care Code Est Pt Level 3 (16431) Complex EM visit Add On G2211 Diagnoses Osteoarthritis of left knee M17.12 Osteoarthritis of right knee M17.11 CPT Codes Coding - 28099 Large joint: 79043 - Large joint ([id number]) Coding - 12805 Large joint: 52161 - Large joint ([id number])
--- OUTSIDE RECORDS SUMMARY | 2024-08-14 15:24 | XMS_ITS | Patient Health Record ---
Author Organization [facility] [facility] Address [address] [place] [address] Care Team Providers Care Education Manager Name Role Phone Tavo Pedroza Unavailable [phone] Reason For Referral No Information Plan Of Treatment No Information
--- OUTSIDE RECORDS SUMMARY | 2024-08-14 15:24 | XMS_ITS | Encounter Summary ---
Author Organization [employer] Address [address] [facility] 7t [place] [address] Care Team Providers Care Dirt Contractor Name Role Phone Laura Cohen MD Primary Care Provider [phone] Anthony Shen PharmD Unavailable [phone] Encounter Details Date Type Department Care Team (Late st Contact Info) Description 02/02/2022 Orders Only [facility] [address] [place] [address] Leanna Gordon LPN Social History Tobacco Use Types Packs/Day Years Used Date Smoking Tobacco: Never Assessed Sex and Gender Information Value Date Recorded Sex Assigned at Male 12/14/2021 10:16 AM EDT Legal Sex Male 10:16 AM EDT Gender Identity Male 12/14/2021 10:16 AM EDT Sexual Orientation Straight 12/14/2021 10 :16 AM EDT documented as of this encounter Plan of Treatment Upcoming Encounters Date Type Department Care Team (Late st Contact Info) Description 09/17/2024 11:30 AM EDT Office Visit [facility] [address] [place] [address] Laura Cohen MD [address] [place], [place] [phone] documented as of this encounter Visit Diagnoses Not on filedocumented in this encounter Care Teams Dirt Contractor Relationship Specialty Start Date End Date Laura Cohen MD [address] [place], [place] [phone] PCP - General Family Medicine 02/14/18 Anthony Shen, PharmD [address] [place] [address] Pharmacist Internal Medicine 11/08/22 documented as of this encounter
--- OUTSIDE RECORDS SUMMARY | 2024-08-14 15:24 | XMS_ITS | Data Portability ---
Author Organization [email or web address] [facility] Address [address] [place] [address] Care Team Providers Care Director Translational Name Role Phone [facility] Referring Provider Assessment Encounter Date Assessment Date Assessment LastModified by Organization Details LastModified Time 08/11/2022 08/11/2022 I have reviewed and agree with the assessment and plan as documented by the abrasive grader helper. I provided real-time medical direction for this [...] SNOMED-CT Code Diagnosis ICD10 Code Diagnosis Note [phone] Elle Ocampo MD Main - [facility] [address] [place] [phone] 08/11/2022 15:00:03 08/12/2022 11:25:04 Chest pain [id number] R07.9 Health Concerns Section Related Observation LastModified by Organization Detai ls LastModified Time None Recorded Concern Status LastModified by Organization Details LastModified Time None Recorded Advance Directives Directive None Recorded Payers Insurance Date Sequence Insurance Name Policy Number Policy Rojas Covered Member ID Rojas Member ID Guarantor Name 06/04/2023 1 [facility] - DOS ON OR AFTER 2022 - DUAL ELIGIBLE - PRISON OPTIONS AND ONE CARE (MEDICARE REPLACEMENT/ADV ANTAGE - HMO) Jt Hernandez [id number] Jt Hernandez Notes Date Note Type Note [...] .................. .................. .................. .................. .................. .................. ............... Senior Mobile Application Developer Note From Amado Ortiz: [facility] dispatched to location for PT with chest pain. U/A to location PT 71 y.o. male found ambulatory presents awake CAOx4 with pink/warm/dry skin speaking full sentences. PT is Latvian speaking only son is on scene to [...] not sleep well and skipped the appointment. [facility] contacted and verbal report of PT present illness given. [facility] recommends PT be seen at ER for symptoms. PT agrees to go to [facility] ER via his Son driving him. [facility] clears scene. *All times are approximate* .................. .................. .................. .................. .................. .................. .................. ............... Disposition: Fulfilled Elle Ocampo MD [address] [place] [address],[address], [place], [phone], JOHNNY GATES 08/18/2022 16:50:49
== END 2024-08-14 14:57 | disposition home or self-care (01) ==
LOC: HO.HOS 14:12
PROVIDERS: PCP Family Medicine; Visit Provider Orthopaedic Surgery
DX: M17.0 Bilateral primary osteoarthritis of knee (principal)
CPT/HCPCS: 20610

== ENCOUNTER → 2024-08-14 14:12 | Outpatient (BNVA) | payer OTHER, SELFPAY | PROVIDERS: PCP Family Medicine; Visit Provider Orthopaedic Surgery | DX: M17.0 Bilateral primary osteoarthritis of knee (principal); G47.33 Obstructive sleep apnea (adult) (pediatric); J44.9 Chronic obstructive pulmonary disease, unspecified; E66.9 Obesity, unspecified; Z79.82 Long term (current) use of aspirin; Z79.51 Long term (current) use of inhaled steroids; Z79.890 Hormone replacement therapy; Z79.84 Long term (current) use of oral hypoglycemic drugs | CPT/HCPCS: 20610; J2003; J7318 ==

== ENCOUNTER 2024-09-18 10:19 | Outpatient (REF) | payer OTHER, SELFPAY ==
--- OUTSIDE RECORDS SUMMARY | 2024-09-18 10:56 | XMS_ITS | Encounter Summary ---
Author Organization [employer] Address [address] [facility] [address] [place] [address] Care Team Providers Care Stand Up Comedian Name Role Phone Laura Cohen MD Primary Care Provider [phone] Anthony Shen PharmD Unavailable [phone] Encounter Details Date Type Department Care Team (Late st Contact Info) Description 02/02/2022 Orders Only [facility] [address] [place] [address] Leanna Gordon LPN Social History Tobacco Use [...] Care Team (Late st Contact Info) Description 10/01/2024 2:30 PM EDT Clinical Support [facility] [address] [place] [address] documented as of this encounter Visit Diagnoses Not on filedocumented in this encounter Care Teams Stand Up Comedian Relationship Specialty Start Date End Date Laura Cohen MD [address] [place] [address] PCP - General Family Medicine 02/14/18 Anthony Shen, PharmD [address] [place] [phone] Pharmacist Internal Medicine 11/08/22 documented as of this encounter
--- OUTSIDE RECORDS SUMMARY | 2024-09-18 10:57 | XMS_ITS | Patient Health Record ---
Author Organization [facility] Address [address] [place] [address] Care Team Providers Care Rn Building Name Role Phone Tavo Pedroza Unavailable [phone] Reason For Referral No Information Plan Of Treatment No Information
[2024-09-18 11:16] LABS: MANUAL DIFF FLAG NO
[2024-09-18 11:31] LABS: Hematocrit 45.1 % (42.0-52.0); Hemoglobin 14.9 g/dl (14.0-18.0); Imm Gran Abs Auto 0.05 X10*3/uL (0.00-0.03); Imm Gran Pct Auto 0.6 % (0.0-0.4); Lymphocytes Absolute Auto 1.6 X10*3/uL (1.2-4.9); Mean Corpuscular HGB Conc 33.0 g/dl (31.0-36.0); Mean Corpuscular Hemoglobin 28.6 pg (27.0-33.0); Mean Corpuscular Volume 86.6 fL (80.0-98.0); NRBC Abs Auto 0.000 X10*3/uL (0.0-0.012); NRBC Pct Auto 0.0 /100WBC (0.0-0.2); Platelet Count 357 X10*3/uL (160-400); Red Blood Count 5.21 X10*6/uL (4.60-5.80); White Blood Count 8.9 X10*3/uL (4.8-10.8)
[2024-09-18 11:58] LABS: Alanine Aminotransferase 18 U/L (0-40); Albumin Level 4.5 g/dL (3.5-5.0); Alkaline Phosphatase 107 U/L (39-117); Anion Gap 8 (12-20); Aspartate Amino Transferase 21 U/L (5-37); Blood Urea Nitrogen 14 mg/dL (9-16); Calcium 9.4 mg/dL (8.4-10.2); Carbon Dioxide 27 mmol/L (22-29); Chloride 105 mmol/L (96-108); Cholesterol 189 mg/dL (<200); Estimated Glomerular Filt Rate > 60; HDL Cholesterol 41 mg/dL (>40); Potassium 4.1 mmol/L (3.3-5.1); Sodium 136 mmol/L (135-145); Total Protein 7.4 g/dL (6.5-8.0); Triglycerides 103 mg/dL (<150)
[2024-09-18 12:45] LABS: Microalbum/Creatinine Ratio Ur 9.3 ug/mg cr (<30)
[2024-09-18 13:44] LABS: Free T4 (Free Thyroxine) 0.98 ng/dL (0.71-1.85)
[2024-09-18 14:16] LABS: Reflex LDLD? No
== END 2024-09-18 10:20 | disposition home or self-care (01) ==
LOC: HO.HHCL 10:19
PROVIDERS: Internal Medicine; PCP Family Medicine; Visit Provider Family Medicine
DX: E11.9 Type 2 diabetes mellitus without complications (principal); J40 Bronchitis, not specified as acute or chronic; E78.5 Hyperlipidemia, unspecified; I10 Essential (primary) hypertension; E03.9 Hypothyroidism, unspecified
CPT/HCPCS: 36415; 80053; 80061; 82043; 82248; 82570; 84439; 84443; 85025

== ENCOUNTER 2024-11-20 13:23 | Outpatient (AMB) | payer OTHER, SELFPAY ==
--- NOTE | 2024-11-20 13:29 | MHC.OFFVIS ---
Vital Signs 11/20/24 13:32 Height 5 ft 1 in Weight 171 lb BMI 32.3 Intake Visit Reasons: Bilateral knee pain Intake Note: Jt is a 73 year old male who presents with complaints of bilateral knee pains. He describes his pains as sharp in nature. He has had viscosupplementation injections which gave him very good relief. He has also had cortisone injections which gave him mild relief. He wishes to hold off on total knee replacement surgery for as long as possible. He has done physical therapy which aggravated his pain. He has also tried Tylenol and anti-inflammatory medicines which gave him minimal relief. At this point his bilateral knee pains are interfering with his activities of daily living and his ability to sleep well through the night. Occupational Therapy Specialist Required: Yes Occupational Therapy Specialist Services: Occupational Therapy Specialist Present Occupational Therapy Specialist Name: Jessica [phone] Allergies No Known Allergies Allergy (Verified 11/20/24 13:33) Medication List - Last Reconciled 11/20/24 by Justin Melendez MD acetaminophen 1,000 mg PO Q8H PRN albuterol sulfate 90 mcg/actuation 2 puffs PO Q4-6H PRN 30 days amlodipine 5 mg PO DAILY aspirin 81 mg PO DAILY atorvastatin 40 mg PO BEDTIME blood sugar diagnostic ([employer] Ultra Test strips) As directed budesonide-formoterol 160-4.5 mcg/actuation 1 puff inhalation BID celecoxib 200 mg PO Q12H citalopram 40 mg PO DAILY doxazosin 8 mg PO BEDTIME lancets (OneTouch Delica Plus Lancet) As directed levothyroxine 125 mcg PO DAILY@0600 lisinopril 40 mg PO BEDTIME loratadine 10 mg PO DAILY@1200 metformin ER 500 mg PO DAILY@1700 omeprazole 20 mg PO BID@0630,1630 tamsulosin 0.4 mg PO BEDTIME trazodone 50 mg PO BEDTIME [facility] Medical History (Updated 04/17/24 @ 16:30 by Justin Melendez MD) SHORTY (obstructive sleep apnea) Chronic lung disease Bronchial asthma COPD (chronic obstructive pulmonary disease) Allergic rhinitis SHORTY on CPAP Obesity (BMI 30-39.9) History of stent insertion of renal artery Surgical History History of nasal surgery Family History Mother Diabetes Breast cancer Father Pacemaker HTN (hypertension) CAD (coronary artery disease) Social History Household Members: None Housing: Apartment Do you presently have visiting nurse or other home services: No Alcohol intake: former Year quit: 2005 Patient Tobacco Use Status: Never used Tobacco Years Smoked: 40 +/- service: No Physical Exam Vital Signs: BMI result Body Mass Index 32.3 Const Other: Well-nourished well-developed very friendly male awake alert and oriented x3 in no acute distress Extrem Other: Bilateral knee examination shows minimal effusions, palpable crepitus with range of motion, pain with range of motion, no instability Office Procedures AMB Joint Injection/Aspiration Joint Injection/Aspiration Primary Site: right knee Prep: site was prepped using aseptic technique Injected: 40 mg of, DepoMedrol and 1% plain lidocaine Procedure: The patient tolerated the procedure well Coding 03299 - Large joint Procedure code (CPT) selection complete AMB Joint Injection/Aspiration Joint Injection/Aspiration Primary Site: left knee Prep: site was prepped using aseptic technique Injected: 40 mg of, DepoMedrol and 1% plain lidocaine Procedure: The patient tolerated the procedure well Coding 09482 - Large joint Procedure code (CPT) selection complete Results Reviewed Results Reviewed: X-rays of the patient's bilateral knees taken previously show joint space narrowing, subchondral sclerosis, no acute bony abnormalities Assessment & Plan Assessment & Plan (1) Osteoarthritis of left knee: Code(s): M17.12 - Unilateral primary osteoarthritis, left knee Category: Medical (2) Osteoarthritis of right knee: Code(s): M17.11 - Unilateral primary osteoarthritis, right knee Category: Medical (3) Pain in both knees: Code(s): M25.561 - Pain in right knee; M25.562 - Pain in left knee Plan Jt presents with bilateral knee pains due to osteoarthritis. The risks and benefits of bilateral knee cortisone injections were discussed at length with the patient. The patient wished to proceed. He tolerated the injections well. If he does not get lasting relief from the cortisone injection therapy I will see if the patient's insurance company will cover another viscosupplementation injection, such as Durolane, for both of his knees. I will see him back at that time. Feel free to call me at any time should questions regarding his orthopedic management arise. I spent 20 minutes in reviewing the patient's records and imaging studies, seeing the patient and documenting in the medical record. Orders: Orders AMB Joint Injection/Aspiration Today M17.11 - Unilateral primary osteoarthritis, right knee AMB Joint Injection/Aspiration Today M17.12 - Unilateral primary osteoarthritis, left knee Coding Level of Care Code Est Pt Level 3 (61589) Complex EM visit Add On G2211 Diagnoses Osteoarthritis of left knee M17.12 Osteoarthritis of right knee M17.11 Pain in both knees M25.561; M25.562 CPT Codes Coding - 91168 Large joint: 18518 - Large joint ([id number]) Coding - 84787 Large joint: 02801 - Large joint ([id number])
[2024-11-20 13:32] VITALS: BMI 32.3
--- OUTSIDE RECORDS SUMMARY | 2024-11-20 16:26 | XMS_ITS | Encounter Summary ---
Author Organization [employer] Address [address] [place] [address] Care Team Providers Care Car Repairer Pullman Name Role Phone Laura Cohen MD Primary Care Provider [phone] Anthony Shen PharmD Unavailable [phone] Encounter Details Date Type Department Care Team ([facility] st Contact Info) Description 09/01/2023 Orders Only [facility] [address] [place], [place] [phone] Laura Cohen MD [address] [place], [place] [phone] Acquired hypothyroidism (Primary Dx); Dyslipidemia Social History [...] the past 12 months, has t he [employer], gas, oil or water company threatened to [...] Care Team (Late st Contact Info) Description 12/18/2024 3:15 PM EST Office Visit [facility] [address] [place] [address] Laura Cohen MD [address] [place] [address] 01/21/2025 2:30 PM EST Office Visit [facility] [address] [place] [address] Daniella Marie, OD [address] [place] [address] documented as of this encounter Goals Goal Patient Goal Type Associated Problems Recent Progress Patient-Stated? Author Blood Pressure < 140/90 Blood Pressure 134/78( 025 2:32 PM EDT) No Anthony Shen, Gypsy documented as of this encounter Procedures Procedure Name Priority Date/Time Associated Diagnosis Comments TSH W/REFLEX TO FT4 Routine 09/18/2024 10:24 AM EDT Acquired hypothyroidism LIPID PANEL WITH REFLEX TO DIRECT LDL Routine 09/18/2024 10:24 AM EDT Dyslipidemia HEPATIC FUNCTION PANEL Routine 09/18/2024 10:24 AM EDT Dyslipidemia documented in this encounter Results * Hepatic Function Panel (09/18/2024 10:24 AM EDT) Bilirubin, Direct 0.2 0.0 - 0.5 mg/dL [facility] Blood Venous blood specimen / Unknown 09/18/2024 10:24 AM EDT 09/18/2024 11:13 AM EDT Laura Cohen MD LAB BLOOD ORDERABLES Final Resul t Performing Organization Address [facility] Co de Phone Number [facility] [address] [place] [phone] * (ABNORMAL) TSH with Reflex to Free T4 (09/18/2024 10:24 AM EDT) TSH reflex Free T4 7.54(H) 0.32 - 4.0 uIU/mL [facility] Blood 09/18/2024 10:2 4 AM EDT 09/18/2024 11:13 AM EDT us Laura Cohen MD LAB BLOOD ORDERABLES Final Resul t Performing Organization Address [facility] Co de Phone Number [facility] [address] [place] [phone] * (ABNORMAL) Lipid Panel with Reflex to Direct LDL (09/18/2024 10:24 AM EDT) Triglycerides 103 <150 mg/dL [facility] Comment:Desirable Triglyceri de: less than 150 mg/dLBorderline High Triglyceride 150-199 mg/dLHigh Triglyceride: 200-499 mg/dLVery High Triglyceride: greater than or equal to 5OO mg/dL Cholesterol 189 <200 mg/dL [facility] Comment:Desirable Cholestero l: less than 200 mg/dLBorderline High Cholesterol: 200-239 mg/dLHigh Cholesterol: greater than 239 mg/dL LDL Cholesterol Calculated 128(H) <100 mg/dL [facility] Comment:Desirable LDL: less than 100 mg/dLNear Optimal/Above Optimal LDL: 110- 129 mg/dLBorderline High LDL: 130-159 mg/dLHigh LDL: 160-189 mg/dLVery High LDL: greater than or equal to 190 mg/dL HDL Cholesterol 41 >40 mg/dL [facility] Comment:Desirable HDL: great er than 40 mg/dL Note: This HDL assay may give artificially low results in patients with liver disease. Blood 09/18/2024 10:2 4 AM EDT 09/18/2024 11:13 AM EDT us Laura Cohen MD LAB BLOOD ORDERABLES Final Resul t [facility] [address] [place] [phone] documented in this encounter Visit Diagnoses Diagnosis Acquired hypothyroidism- Primary Unspecified hypothyroidism Dyslipidemia Other and unspecified hyperlipidemia documented in this encounter Care Teams Car Repairer Pullman Relationship Specialty Start Date End Date Laura Cohen MD [address] [place] [phone] PCP - General Family Medicine 02/14/18 Anthony Shen, PharmD [address] [place] [phone] Pharmacist Internal Medicine 11/08/22 documented as of this encounter
--- OUTSIDE RECORDS SUMMARY | 2024-11-20 16:26 | XMS_ITS | Encounter Summary ---
Author Organization [employer] Address [address] [place] [address] Care Team Providers Care Cougar Hunter Name Role Phone Laura Cohen MD Primary Care Provider [phone] Anthony Shen PharmD Unavailable [phone] Reason for Visit * Reason Onset Date Comments Med Refill 08/20/2022 Encounter Details Date Type Department Care Team (Late st Contact Info) Description 08/20/2022 Telephone [facility] [address] [place] [address] aLura Cohen MD [address] [place], [place] [phone] Med Refill Social History Tobacco Use Types [...] short term. * Telephone Encounter - Heidi Rob - 08/20/2022 3:43 PM EDT Tc from pt requesting medication refill on predniSONE 20 mg tablet documented in this encounter Plan of Treatment Upcoming Encounters Date Type Department Care Team (Late st Contact Info) Description 12/18/2024 3:15 PM EST Office Visit [facility] [address] [place] [address] Laura Cohen MD [address] [place] [address] 01/21/2025 2:30 PM EST Office Visit [facility] [address] [place] [address] Daniella Marie, OD [address] [place] [address] documented as of this encounter Visit Diagnoses Not on filedocumented in this encounter Care Teams Cougar Hunter Relationship Specialty Start Date End Date Laura Cohen MD [address] [place] [phone] PCP - General Family Medicine 02/14/18 Anthony Shen, ShelliD [address] [place] [phone] Pharmacist Internal Medicine 11/08/22 documented as of this encounter
--- OUTSIDE RECORDS SUMMARY | 2024-11-20 16:26 | XMS_ITS | Encounter Summary ---
Author Organization [employer] Address [address] [place] [address] Care Team Providers Care Gardening Instructor Name Role Phone Laura Cohen MD Primary Care Provider [phone] Anthony Shen PharmD Unavailable [phone] Encounter Details Date Type Department Care Team (Late st Contact Info) Description 07/20/2022 Orders Only [facility] [address] [place] [phone] Laura Cohen MD [address] [place] [address] [phone] Chronic pain of both knees (Primary Dx); [...] Description 12/18/2024 3:15 PM EST Office Visit [facility] [address] [place] [phone] Laura Cohen MD [address] [place] [address] [phone] 01/21/2025 2:30 PM EST Office Visit [facility] [address] [place] [address] Daniella Marie, OD [address] [place] [address] documented as of this encounter Visit Diagnoses Diagnosis Chronic pain of both knees- Primary Primary osteoarthritis of both knees documented in this encounter Care Teams Gardening Instructor Relationship Specialty Start Date End Date Laura Cohen MD [address] [place] [phone] PCP - General Family Medicine 02/14/18 Anthony Shen, ShelliD [address] [place] [address] [phone] Pharmacist Internal Medicine 11/08/22 documented as of this encounter
--- OUTSIDE RECORDS SUMMARY | 2024-11-20 16:26 | XMS_ITS | Encounter Summary ---
Author Organization [employer] Address [address] [place] [address] Care Team Providers Care Director Building Name Role Phone Laura Cohen MD Primary Care Provider [phone] Anthony Shen PharmD Unavailable [phone] Reason for Visit * Reason Onset Date Comments Error 06/02/2023 Encounter Details Date Type Department Care Team ([facility] st Contact Info) Description 06/02/2023 Telephone [facility] [address] [place] [address] Laura Cohen MD [address] [place], [place] [phone] Error Social History Tobacco Use Types Packs/Day [...] Description 12/18/2024 3:15 PM EST Office Visit [facility] [address] [place] [address] Laura Cohen MD [address] [place] [address] 01/21/2025 2:30 PM EST Office Visit [facility] [address] [place] [address] Daniella Marie, OD [address] [place] [address] documented as of this encounter Goals Goal Patient Goal Type Associated Problems Recent Progress Patient-Stated? Author Blood Pressure < 140/90 Blood Pressure 134/78( 025 2:32 PM EDT) No Anthony Shen, Gypsy documented as of this encounter Visit Diagnoses Not on filedocumented in this encounter Care Teams Director Building Relationship Specialty Start Date End Date Laura Cohen MD [address] [place] [address] [phone] PCP - General Family Medicine 02/14/18 Anthony Shen PharmD [address] [place] [address] [phone] Pharmacist Internal Medicine 11/08/22 documented as of this encounter
--- OUTSIDE RECORDS SUMMARY | 2024-11-20 16:26 | XMS_ITS | Clinical Summary ---
Author Organization [employer] Address [address] [facility] [address] [place] [address] Care Team Providers [address] Glassware Replacer Name Role Phone Laura Cohen MD Primary Care Provider [phone] Anthony Shen PharmD Unavailable [phone] Allergies No known active allergies Medications Alcohol [...] DOSES DAILY. 90 mL 1 023 Active metFORMIN XR (Glucophage-XR) 500 MG 24 hr tablet TAKE 1 TABLET BY MOUTH EVERY EVENING WITH DINNER. DO NOT BREAK, CRUSH, DISSOLVE OR CHEW 90 tablet 3 024 Active amLODIPine (Norvasc) 5 MG tablet TAKE 1 TABLET BY MOUTH EVERYDAY AT NOON 90 tablet 3 024 Active Ventolin HFA 108 (90 Base) MCG/ACT inhalerIndication s:Chronic obstructive pulmonary disease, unspecified COPD type (CMS/HCC) (HCC) INHALE 2 PUFFS BY MOUTH EVERY 4 HOURS NEEDED FOR WHEEZING OR SHORTNESS OF BREATH NO MORE THAN 4 PUFFS DAILY 18 g 1 024 Active Lancets (OneTouch Delica Plus [id number]) miscIndications:T ype 2 diabetes mellitus without complication, without long-term current use of insulin ([facility]) TEST BLOOD SUGAR THREE TIMES DAILY 100 each 11 025 Active tamsulosin (Flomax) 0.4 MG 24 hr capsuleIndication s:Benign prostatic hyperplasia, unspecified whether lower urinary tract symptoms present TAKE 1 CAPSULE BY MOUTH EVERY EVENING 90 capsule 3 025 Active traZODone (Desyrel) 50 MG tabletIndications :Chronic depression Take 1 tablet (50 mg) by mouth at bedtime. 90 tablet 3 025 Active OneTouch Ultra Test test strip TEST BLOOD SUGAR THREE TIMES DAILY 100 strip 11 025 Active hydrOXYzine pamoate (Vistaril) 25 MG capsuleIndication s:Hypnagogic jerks TAKE 1 CAPSULE BY MOUTH AT BEDTIME NEEDED (FOR SLEEP / FOR ANXIETY) 30 capsule 1 025 Active lisinopril 40 MG tablet Take 1 tablet (40 mg) by mouth at bedtime. 90 tablet 3 025 Active budesonide-formot funmi (Symbicort) 160-4.5 MCG/ACT inhalerIndication s:COPD exacerbation (CMS/HCC) ([facility]) INHALE 1 PUFF BY MOUTH TWICE DAILY IN THE MORNING AND IN THE EVENING RINSE MOUTH AFTER USING. 18 g 025 Active Aspirin EC Adult Low Dose 81 MG EC tablet TAKE 1 TABLET BY MOUTH EVERY EVENING 90 tablet 025 Active montelukast (Singulair) 10 MG tablet TAKE 1 TABLET BY MOUTH EVERY EVENING 90 tablet 025 Active Umeclidinium [place] (Incruse Ellipta) 62.5 MCG/ACT aerosol powder Inhale 1 Act (62.5 mcg) Once per day. INHALE 1 PUFF BY MOUTH EVERY DAY AT THE SAME TIME RINSE MOUTH AFTER USING RINSE MOUTH AFTER USING. 1 each 025 Active furosemide (Lasix) 20 MG tablet TAKE 1 TABLET BY MOUTH EVERYDAY AT NOON 30 tablet 025 Active atorvastatin (Lipitor) 80 MG tabletIndications :Lipid screening TAKE 1 TABLET BY MOUTH AT BEDTIME 30 tablet 025 Active levothyroxine (Synthroid, Levoxyl) 137 MCG tabletIndications :Acquired hypothyroidism TAKE 1 TABLET BY MOUTH EVERY MORNING BEFORE BREAKFAST 30 tablet 11 025 Active Blood Pressure kitIndications:Pr imary hypertension 1 each Once per day. Use to check blood pressure 1x daily. *kyrgyz speaking, medbox pt* 1 kit Active doxazosin (Cardura) 8 MG tablet Take 1 tablet (8 mg) by mouth at bedtime. 30 tablet 11 Active citalopram (CeleXA) 40 MG tablet Take 1 tablet (40 mg) by mouth Once per day. 90 tablet Active loratadine (Claritin) 10 MG tablet Take 1 tablet (10 mg) by mouth Once per day. 90 tablet Active omeprazole (PriLOSEC) [address] capsule Take 1 capsule (20 mg) by mouth before breakfast and before evening meal. Do not crush or chew. 180 capsule Active doxazosin (Cardura) 8 MG tablet TAKE 1 TABLET BY MOUTH AT BEDTIME 30 tablet 11 024 2024 Discontinued(R eorder (will not trigger notification to Pharmacy)) citalopram (CeleXA) 40 MG tablet TAKE 1 TABLET BY MOUTH EVERYDAY AT NOON 90 tablet 025 2024 Discontinued(R eorder (will not trigger notification to Pharmacy)) omeprazole (PriLOSEC) [address] capsule TAKE 1 CAPSULE BY MOUTH TWICE DAILY AT NOON AND IN THE EVENING 180 capsule 025 2024 Discontinued(R eorder (will not trigger notification to Pharmacy)) loratadine (Claritin) 10 MG tablet TAKE 1 TABLET BY MOUTH EVERYDAY AT NOON 90 tablet 025 2024 Discontinued(R eorder (will not trigger notification to Pharmacy)) Active Problems Problem Noted Date Diagnosed Date Lower extremity edema 06/10/2023 Assessment & Plan [...] both ears 0 08/16/2022 Assessment & Plan (09/17/2024 1:09 PM EDT): - He has hearing aids Assessment & Plan (11/29/2022 6:19 PM EDT): - He has hearing aids Assessment & Plan (08/16/2022 1:45 PM EDT): Patient is waiting for new hearing aids Asthma 05/24/2022 Assessment & Plan (09/17/2024 1:13 PM EDT): Following with Professor Of Industrial Technology, last seen 05/03/22 -Professor Of Industrial Technology impression: pt has asthma only and not COPD. -Advised to continue Albuterol -no need for any other inhalers -recommended to contact pulmonology office for next appointment Assessment & Plan (08/30/2023 5:09 PM EDT): Following with Professor Of Industrial Technology, last seen 05/03/22 -Professor Of Industrial Technology impression: pt has asthma only and not COPD. -Advised to continue Albuterol -no need for any other inhalers -recommended to contact pulmonology office for next appointment Assessment & Plan (11/29/2022 6:10 PM EDT): Following with Professor Of Industrial Technology, last seen 05/03/22 -Professor Of Industrial Technology impression: pt has asthma only and not COPD. -Advised to continue Albuterol -no need for any other inhalers Assessment & Plan (08/16/2022 1:10 PM EDT): Following with Professor Of Industrial Technology, last seen 05/03/22 -Professor Of Industrial Technology impression: pt has asthma only and not COPD. -Advised to continue Albuterol -no need for any other inhalers Assessment & Plan (05/24/2022 2:10 PM EDT): Following with Professor Of Industrial Technology, last seen 05/03/22 -Professor Of Industrial Technology impression: pt has asthma only and not COPD. -Advised to continue Albuterol -no need for any other inhalers Macular drusen, left 05/06/2022 BPH (benign prostatic hyperplasia) 02/28/2022 Assessment & Plan (09/17/2024 1:12 PM EDT): - previously evaluated by urologist, last seen in 2019 - continue Flomax Assessment & Plan (08/30/2023 8:20 AM EDT): - previously evaluated by urologist, last seen in 2018 - continue Flomax Assessment & Plan (06/07/2022 5:56 AM EDT): - previously evaluated by urologist, last seen in 2018 - continue Flomax Assessment & Plan (02/28/2022 7:31 AM EST): - previously evaluated by urologist, last seen in 2018 - continue Flomax GERD (gastroesophageal reflux disease) Assessment & Plan (11/29/2022 6:12 PM EDT): - continue omeprazole - consider changing to prn then off Assessment & Plan (02/28/2022 7:32 AM EST): - continue omeprazole Chronic pain of both knees 02/25/2022 Assessment & Plan (09/19/2024 9:20 AM EDT): - 06/30/22 X-ray showed severe degenerative arthritic changes medial and patellofemoral compartment both knees with periarticular spurring. - Following with orthopedist and has received a steroid injection several times - Started hyaluronic acid derivative injection, first dose on 08/14/2024 - Consider topical NSAID or capsaicin - Continue staying physically active Assessment & Plan (08/30/2023 8:21 AM EDT): [...] 01/30/2018 Chronic depression 06/16/2015 Assessment & Plan (09/19/2024 9:16 AM EDT): - PHQ-9 score 0 on 09/17/2024 - continue citalopram and trazodone Assessment & Plan (08/30/2023 8:22 AM EDT): - continue citalopram and trazodone Assessment & Plan (11/29/2022 6:20 PM EDT): - continue citalopram and trazodone Assessment & Plan (02/28/2022 7:32 AM EST): - continue citalopram and trazodone Allergic rhinitis 06/07/2012 Assessment & Plan (09/17/2024 1:09 PM EDT): - continue montelukast and loratadine Assessment & Plan (08/16/2022 1:09 PM EDT): - continue montelukast and loratadine Assessment & Plan (06/07/2022 5:57 AM EDT): - continue montelukast and loratadine Assessment & Plan (02/28/2022 7:30 AM EST): - continue montelukast and loratadine Diabetes mellitus, type 2 12/22/2011 Assessment & Plan (09/19/2024 9:16 AM EDT): - A1C 6.2% on 09/17/24, improved from 6.7% on 08/30/23 - Continue working on lifestyle modifications - Continue metformin ER 500 mg once daily - Treatment Hx: Patient had been managed with dietary modification until August 2023 after failed trial of metformin. Started metformin again in August 2023. Tolerating well. DM Maintenance: - Last eye exam: 04/22/22, no diabetic retinopathy. Severe cataract. Scheduled for surgery for cataract removal. - Last foot exam: 09/17/24 - Last microalbumin test: 08/16/22 UACR 5 - Last lipid profile: 09/18/24 TC 189; TG 103; HDL 41; LDL 128 - Last dental exam: ? Follow-up in 3-4 mo or sooner prn Assessment & Plan (08/30/2023 4:26 PM EDT): [...] importance of keeping appt. Will refer to [facility] Eye care. - Last foot exam: 02/25/22 - Last microalbumin test: 07/24/19 UACR 3 - Last FLP: 08/25/21 TC 198; TG 162; HDL 40; LDL 130 - Last dental exam: ? Follow-up in 4-6 mo or sooner prn Hypertension 12/22/2011 Assessment & Plan (09/19/2024 9:22 AM EDT): -Goal BP < 130/80 per ACC/AHA guideline (Treatment threshold >= 130 ) - BP not at goal today, questionable medication adherence. Self-adjusting antihypertensive and high sodium diet - Encourage self-monitoring BP. - Continue working on lifestyle modifications. - Continue flurosemide 20 mg daily - Decrease lisinopril from 40 mg daily to 20 mg daily. - Continue doxazosin to 8 mg daily. - Continue Amlodipine to 5 mg daily - Improve adherence to CPAP. Or optimize Tx SHORTY in other modalities. - Previously referred to [facility] clinic. Patient cannot commit to the program -Return for BP check in 2 weeks with home BP log. If home BP is persistently elevated, consider changing lisinopril to olmesartan 20 mg daily. Also, consider discontinuing furosemide if he complains of urinary frequency. Assessment & Plan (08/30/2023 5:10 PM EDT): [...] in other modalities. - Upcoming appointment with [facility] clinic - Follow up in 3-4 mo, [...] in other modalities. 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 - Refer to [...] - pt was advised to contact his supervisor gear repair to complete stress test. - Refer to [facility] - Follow up in 3-6 mo, sooner if any problem arises Obesity 12/22/2011 Assessment & Plan (08/16/2022 1:10 PM EDT): - SHORTY, HTN, DM2 - continue working on lifestyle modifications Assessment & Plan (02/28/2022 7:29 AM EST): - SHORTY, HTN, DM2 - continue working on lifestyle modifications Obstructive sleep apnea syndrome 12/22/2011 Assessment & Plan (09/17/2024 1:13 PM EDT): - seen by cam maker, Dr. Miguel, last seen on 05/13/22. - Still not using CPAP and specialist suggested a nasal pillow so pt can use it at home. - His current CPAP mask may have been uncomfortable/suffocating him and he did not use it. - pt was recommended to discuss with cam maker and CPAP supplier in regards to mask - discussed about the importance of CPAP adherence for his cardiopumonary condition Assessment & Plan (08/30/2023 8:19 AM EDT): - seen by cam maker, Dr. Miguel, last seen on 05/13/22. - Still not using CPAP and specialist suggested a nasal pillow so pt can use it at home. - His current CPAP mask may have been uncomfortable/suffocating him and he did not use it. - pt was recommended to discuss with cam maker and CPAP supplier in regards to mask - discussed about the importance of CPAP adherence for his cardiopumonary condition Assessment & Plan (11/29/2022 5:23 PM EDT): - seen by cam maker, Dr. Miguel, last seen on 05/13/22. - Still not using CPAP and specialist suggested a nasal pillow so pt can use it at home. - His current CPAP mask may have been uncomfortable/suffocating him and he did not use it. - pt was recommended to discuss with cam maker and CPAP supplier in regards to mask - discussed about the importance of CPAP adherence for his cardiopumonary condition Assessment & Plan (08/16/2022 1:10 PM EDT): - seen by cam maker, Dr. Miguel, last seen on 05/13/22. Still not using CPAP and specialist suggested a nasal pillow so pt can use it at home. -His current CPAP mask may have been uncomfortable/suffocating him and he did not use it. -Professor Of Industrial Technology impression states not COPD but only asthma. -Advised to continue Albuterol and no need for any other inhalers. Assessment & Plan (05/24/2022 2:08 PM EDT): - seen by cam maker, Dr. Miguel, last seen on 05/13/22. Still not using CPAP and specialist suggested a nasal pillow so pt can use it at home. -His current CPAP mask may have been uncomfortable/suffocating him and he did not use it. -Professor Of Industrial Technology impression states not COPD but only asthma. -Advised to continue Albuterol and no need for any other inhalers. Assessment & Plan (02/28/2022 7:35 AM EST): - seen by cam maker, Dr. Miguel - pt was supposed to exchange his CPAP machine to a new one, but prefers nasal cannula to CPAP - will refer to sleep medicine specialist if his nasal canula is adequate for treating SHORTY and nocturnal hypoxemia Dyslipidemia 10/01/2011 Assessment & Plan (09/18/2024 1:27 PM EDT): - Current medication: atorvastatin 40 mg qhs - Last lipid profile: 09/18/24 TC 189; TG 103; HDL 41; LDL 128 - According to ACC/AHA guideline, high-intensity statin therapy is recommended. Consider incrasing to 80 mg qhs. - Continue working on lifestyle modificcations. Assessment & Plan (08/30/2023 8:22 AM EDT): [...] lifestyle modificcations. Hypothyroidism 10/01/2011 Assessment & Plan (09/19/2024 9:13 AM EDT): - Current replacement: levothyroxine 137 mcg daily, increased due to subtherapeutic TSH on 08/16/22 - 08/16/22 TSH 10.75 - Recheck thyroid function test Assessment & Plan (08/30/2023 8:21 AM EDT): [...] Problem Noted Date Diagnosed Date Resolved Date Bronchitis 01/16/2024 07/30/2024 Assessment & Plan (01/16/2024 4:53 PM EST): Complication from Covid Rx z-pack + Medrol pack Continue albuterol inh q4h prn Get CXR to ro pneumonia Will call back in 2d for status check COVID-19 01/16/2024 03/18/2024 Assessment & Plan (01/16/2024 [...] Right upper quadrant pain 01/30/2018 COPD exacerbation ([facility]) 10/01/2011 08/30/2023 Assessment & Plan (06/24/2023 1:19 PM EDT): Now resolved C/w current medication regimen Assessment & Plan (07/10/2023 2:06 PM EDT): Resume symbicort, rinse mouth after usage, rtc in 2 weeks sooner prn Report any increased sob, sputum production or wheezing Assessment & Plan (02/28/2022 7:12 AM EST): - following with Dr. Miguel, cam maker, last seen on 12/30/21. - Last COPD [...] Encounters Date Type Department Care Team Description 11/16/2024 Refill [facility] [phone] Laura Cohen MD 11/07/2024 Telephone [facility] [phone] Laura Cohen MD 10/18/2024 Orders Only [facility] [phone] Laura Cohen MD Hypertension (Primary Dx) 10/01/2024 2:30 PM EDT Clinical Support [facility] [phone] Stacia Jones RN Primary hypertension 10/01/2024 Refill [facility] [phone] Laura Cohen MD Primary hypertension 10/01/2024 Travel 09/18/2024 Orders Only [facility] [phone] Laura Cohen MD Acquired hypothyroidism (Primary Dx); Dyslipidemia 09/18/2024 Results Follow-Up [facility] [phone] Laura Cohen MD POCT glucose manually resulted, POCT glycosylated hemoglobin (Hgb A1c), Albumin, Random Urine W/Creatinine 09/18/2024 Orders Only [facility] [phone] Laura Coehn MD 09/17/2024 11:30 AM EDT Office Visit [facility] [phone] Laura Cohen MD Primary hypertension (Primary Dx); Dyslipidemia; Acquired hypothyroidism; Type 2 diabetes mellitus without complication, without long-term current use of insulin ([facility]); Sensorineural hearing loss (SNHL) of both ears; Allergic rhinitis, unspecified seasonality, unspecified trigger; Benign prostatic hyperplasia, unspecified whether lower urinary tract symptoms present; Obstructive sleep apnea syndrome; Mild intermittent asthma without complication; Encounter for immunization; Dietary counseling; Exercise counseling; Class 1 obesity due to excess calories with serious comorbidity and body mass index (BMI) of 31.0 to 31.9 in adult; Chronic depression; Chronic pain of both knees 09/17/2024 Travel 09/14/2024 Telephone [facility] [address] [place] [address] Laura Cohen MD chartprep 09/13/2024 Refill [facility] [address] [place] [address] Smita Cuenca MD Lipid screening; Acquired hypothyroidism 09/07/2024 Patient Outreach [facility] [address], [place] [phone] Laura Cohen MD Pre-visit Planning (SDOH Screening negative and Tobacco screening negative) 08/30/2024 Refill [facility] [address], [place] [phone] Laura Cohen MD from Last 3 Months Immunizations Immunization Administration Dates Next Due Hep B, adult [...] tox oid, preservative free, adsorbed 02/18/2010,09/21/1999 Tdap 09/17/2024,10/30/2012 Zoster, Recombinant 11/03/2022 Zoster, live 01/21/2015 Family History Medical History Relation Name Comments Diabetes Father Cancer Mother Diabetes Mother Diabetes Sister Stroke Sister Relation Name Status Comments Father Mother Sister Social History Tobacco Use Types Packs/Day Years Used Date Smoking Tobacco: Former Cigarettes Passive Smoke Exposure: Past Smokeless Tobacco: Never Tobacco Cessation:Counseling Given: Not Answered Depression Answer Date Recorded Patient Health Questionnaire-9 Score 0 09/17/2024 Patient Health Questionnaire-9 Score 0 09/17/2024 Last PHQ-9: Questionnaire Data Not on file 0 09/17/2024 Housing Stability Answer Date Recorded What is your housing situation today? I have gwyn cohen 09/07/[address] you li ve. Do you have problems with any of the following? None of the above 09/07/2024 Food Insecurity Answer Date Recorded Within the past 12 months, y ou worried that your food would run out before you got money to buy more: Never True 09/07/2024 Within the past 12 months,th e food you bought just didn't last and you didn't have enough money to get more: Never True Transportation Answer Date Recorded In the past 12 months, has l ack of transportation kept you from medical appts, meetings, work or from getting things needed for daily living? No 09/07/2024 Utilities Answer Date Recorded In the past 12 months, has t he electric, gas, oil or water company threatened to shut off services in your home? No 09/07/2024 Depression Answer Date Recorded Patient Health Questionnaire-2 Score 0 09/17/2024 Internet Access Answer Date Recorded Internet Access Q1 Yes 09/07/2024 Internet Access Q2 Not on file 09/07/2024 Sex and Gender Information Value Date Recorded Sex Assigned at Male 12/14/2021 10:16 AM EDT Legal Sex Male 10:16 AM EDT Gender Identity Male 12/14/2021 10:16 AM EDT Sexual Orientation Straight 12/14/2021 10 :16 AM EDT Last Filed Vital Signs Vital Sign Reading Time Taken Comments Blood Pressure 134/78 10/01/2024 2:32 PM EDT Pulse 72 10/01/2024 2:20 PM EDT Temperature 36.1 C (96.9 F) 09/17/2024 11:23 AM EDT Respiratory Rate 18 10/01/2024 2:20 PM EDT Oxygen Saturation 99% 10/01/2024 2:20 PM EDT room air Inhaled Oxygen Concentration - - Weight 76.7 kg (169 lb 3.2 oz) 09/17/2024 11:23 AM EDT Height 154.9 cm (5' 1 ) 09/17/2024 11:23 AM EDT Body Mass Index 31.97 09/17/2024 11:23 AM EDT Plan of Treatment Upcoming Encounters Date Type Department Care Team (Late st Contact Info) Description 12/18/2024 3:15 PM EST Office Visit [facility] [address] [place] [address] Laura Cohen MD [address] [place] [address] 01/21/2025 2:30 PM EST Office Visit [facility] [address] [place], [place] [phone] Frank, Daniella, OD [address] [place], [place] [phone] Health Maintenance Due Date Last Done Comments CT Colonography 1949 FIT DNA/Cologuard 1949 FIT 1949 FOBT 1950 Sigmoidoscopy 1949 RSV Patients and Patients Aged 60 years or older (1 - Risk 60-74 years 1-dose series) 2009 Zoster Vaccines (3 of 3) 12/29/2022 11/03/2022, 09/2014 Eye Exam 04/22/2024 04/22/2022, 10/2022, 04/22/2022, Additional history exists COVID-19 Vaccine ( season) 2024 01/26/2021, 07/09/2020, 06/11/2020 Influenza Vaccine (#1) 2024 8, 12/16/2015, 11/15/2014, Additional history exists Diabetes: Hemoglobin A1C 03/20/2025 025, 08/30/2023, 06/10/2023, Additional history exists SDOH Screening 09/07/2025 09/07/2024 Alcohol/Substance Use Screening 09/17/2025 09/17/2024 Depression Screening 09/17/2025 09/17/2024, 09/18/19 Diabetes: Foot Exam 09/17/2025 09/17/2024, 09/17/2024, 09/17/2024, Additional history exists Tobacco Screening 09/17/2025 09/17/2024 Diabetes: Urine Protein Screening 09/18/2025 09/18/2024, 08/31/2023, 08/16/2022, Additional history exists Lipid Panel 09/18/2025 09/18/2024, 08/14, 08/16/2022, Additional history exists Colonoscopy 09/29/2028 09/29/2018 Colorectal Cancer Screening 09/29/2028 DTaP/Tdap/Td Vaccines (3 - Td or Tdap) 09/17/2034 09/17/2024, 10/30/2012, 02/18/2010, Additional history exists Hepatitis B Vaccines Completed 11/27/2013, 05/07/2013, 02/05/2013 [...] patient's age to complete this topic Meningococcal B Vaccine Aged Out No l onger eligible based on patient's age to complete [...] 2:32 PM EDT) No Anthony Shen, Gypsy Procedures Procedure Name Priority Date/Time Associated Diagnosis Comments T4, FREE Routine 09/18/2024 10:24 AM EDT ALBUMIN, RANDOM URINE W/CREATININE Routine 09/18/2024 10:24 AM EDT Type 2 diabetes mellitus without complication, without long-term current use of insulin ([facility]) COMPREHENSIVE METABOLIC PANEL Routine 09/18/2024 10:24 AM EDT Primary hypertension CBC WITH AUTO DIFFERENTIAL Routine 09/18/2024 10:24 AM EDT Bronchitis HEPATIC FUNCTION PANEL Routine 09/18/2024 10:24 AM EDT Dyslipidemia TSH W/REFLEX TO FT4 Routine 09/18/2024 1 0:24 AM EDT Acquired hypothyroidism LIPID PANEL WITH REFLEX TO DIRECT LDL Routine 09/18/2024 10:24 AM EDT Dyslipidemia POCT GLYCOSYLATED HEMOGLOBIN (HGB A1C) Routine 09/17/2024 11:20 AM EDT Type 2 diabetes mellitus without complication, without long-term current use of insulin (CMS/HCC) POCT GLUCOSE Routine 09/17/2024 11:17 AM EDT Type 2 diabetes mellitus without complication, without long-term current use of insulin (CMS/HCC) HEPATITIS C ANTIBODY (EXTERNAL RESULTS ONLY) Routine 11/02/2018 5:19 AM EDT HM COLONOSCOPY Routine 09/29/2018 from Last 3 Months or Most Recently Relevant to Health Maintenance Results * (ABNORMAL) TSH with Reflex to Free T4 (09/18/2024 10:24 AM EDT) TSH reflex Free T4 7.54(H) 0.32 - 4.0 uIU/mL [facility] Blood 09/18/2024 10:2 4 AM EDT 09/18/2024 11:13 AM EDT us Laura Cohen MD LAB BLOOD ORDERABLES Final Resul t [facility] [address] [place] [phone] * (ABNORMAL) Lipid Panel with Reflex to Direct LDL (09/18/2024 10:24 AM EDT) Triglycerides 103 <150 mg/dL [facility] Comment:Desirable Triglyceri de: less than 150 mg/dLBorderline High Triglyceride 150-199 mg/dLHigh Triglyceride: 200-499 mg/dLVery High Triglyceride: greater than or equal to 5OO mg/dL Cholesterol 189 <200 mg/dL [facility] Comment:Desirable Cholestero l: less than 200 mg/dLBorderline High Cholesterol: 200-239 mg/dLHigh Cholesterol: greater than 239 mg/dL LDL Cholesterol Calculated 128(H) <100 mg/dL [facility] Comment:Desirable LDL: less than 100 mg/dLNear Optimal/Above Optimal LDL: 110- 129 mg/dLBorderline High LDL: 130-159 mg/dLHigh LDL: 160-189 mg/dLVery High LDL: greater than or equal to 190 mg/dL HDL Cholesterol 41 >40 mg/dL [facility] Comment:Desirable HDL: great er than 40 mg/dL Note: This HDL assay may give artificially low results in patients with liver disease. Blood 09/18/2024 10:2 4 AM EDT 09/18/2024 11:13 AM EDT us Laura Cohen MD LAB BLOOD ORDERABLES Final Resul t [facility] [address] [place] [phone] * Albumin, Random Urine W/Creatinine (09/18/2024 10:24 AM EDT) Creatinine, Urine 128.34 mg/dL [facility] Microalbumin Urine 12.0 mg/L [facility] Microalbum Creatinine Ratio Ur 9.3 <30 ug/mg cr [facility] Comment:Albumin/Creatinine R atio Reference Ranges: Normal: < 30 ug/mg creatinine Microalbuminuria: 30 - 300 ug/mg creatinineClinical Albuminuria: > 300 ug/mg creatinine Urine 09/18/2024 10:2 4 AM EDT 09/18/2024 11:36 AM EDT us Laura Cohen MD LAB URINE ORDERABLES Final Resul t [facility] [address] [place] [phone] [phone] * (ABNORMAL) CBC auto differential (09/18/2024 10:24 AM EDT) White Blood Count 8.9 4.8 - 10.8 X10*3/uL [facility] Red Blood Count 5.21 4.60 - 5.80 X10*6/uL [facility] Hemoglobin 14.9 14.0 - 18.0 g/dl [facility] Hematocrit 45.1 42.0 - 52.0 % [facility] Mean Corpuscular Volume 86.6 80.0 - 98.0 fL [facility] Mean Corpuscular Hemoglobin 28.6 27.0 - 33.0 pg [facility] Mean Corpuscular HGB Conc 33.0 31.0 - 36.0 g/dl [facility] Red Cell Distribution Width 12.7 11.0 - 16.0 % [facility] Platelet Count 357 160 - 400 X10*3/uL [facility] Mean Platelet Volume 9.7 9.4 - 12.4 fL [facility] Neutrophils Percent Auto 72.9 45 - 73 % [facility] Imm Gran Pct Auto 0.6(H) 0.0 - 0.4 % [facility] Lymphocytes Percent Auto 18.2(L) 20 - 40 % [facility] Monocytes Percent Auto 6.3 2 - 11 % [facility] Eosinophils Percent Auto 1.4 0 - 4 % [facility] Basophils Percent Auto 0.6 0 - 2 % [facility] NRBC Pct Auto 0.0 0.0 - 0.2 /100WBC [facility] Neutrophils Absolute Auto 6.5 2.0 - 8.3 x10*3/uL [facility] Imm Gran Abs Auto 0.05(H) 0.00 - 0.03 X10*3/uL [facility] Lymphocytes Absolute Auto 1.6 1.2 - 4.9 X10*3/uL [facility] Monocytes Absolute Auto 0.6 0.1 - 1.2 X10*3/uL [facility] Eosinophils Absolute Auto 0.1 0.0 - 0.4 X10*3/uL [facility] Basophils Absolute Auto 0.1 0.0 - 0.2 X10*3/uL [facility] NRBC Abs Auto 0.000 0.0 - 0.012 X10*3/uL [facility] Blood Venous blood specimen / Unknown 09/18/2024 10:24 AM EDT 09/18/2024 11:13 AM EDT Dixie Overton MD LAB BLOOD ORDERABLES Fin al Result Performing Organization Address [facility] Co de Phone Number [facility] [address] [place] [phone] * T4, Free (09/18/2024 10:24 AM EDT) Free T4 (Free Thyroxine) 0.98 0.71 - 1.85 ng/dL [facility] 09/18/2024 10:2 4 AM EDT 09/18/2024 11:13 AM EDT us Laura Cohen MD LAB BLOOD ORDERABLES Final Resul t Performing Organization Address [facility] de Phone Number [facility] [address] [place] [phone] * Hepatic Function Panel (09/18/2024 10:24 AM EDT) Bilirubin, Direct 0.2 0.0 - 0.5 mg/dL [facility] Blood Venous blood specimen / Unknown 09/18/2024 10:24 AM EDT 09/18/2024 11:13 AM EDT us Laura Cohen MD LAB BLOOD ORDERABLES Final Resul t Performing Organization Address City/[facility]/ZIP Co de Phone Number [facility] [address] [place] [phone] * (ABNORMAL) Comprehensive Metabolic Panel (09/18/2024 10:24 AM EDT) Sodium 136 135 - 145 mmol/L [facility] Potassium 4.1 3.3 - 5.1 mmol/L [facility] Chloride 105 96 - 108 mmol/L [facility] Carbon Dioxide 27 22 - 29 mmol/L [facility] Anion Gap 8(L) 12 - 20 [facility] Urea Nitrogen (BUN) 14 9 - 16 mg/dL [facility] Creatinine, Serum 1.00 0.5 - 1.4 mg/dL [facility] Estimated Glomerular Filt Rate >60 [facility] Comment:Chronic Kidney Disea se: Estimated GFR < 60 mL/min/1.57x9Pgbibc Kidney Disease: Estimated GFR < 15 mL/min/1.73m2 Glucose 129(H) 60 - 115 mg/dL [facility] Calcium 9.4 8.4 - 10.2 mg/dL [facility] Bilirubin, Total 0.6 0.0 - 1.0 mg/dL [facility] Aspartate Amino Transferase 21 5 - 37 U/L [facility] Alanine Aminotransferase 18 0 - 40 U/L [facility] Total Protein 7.4 6.5 - 8.0 g/dL [facility] Albumin Level 4.5 3.5 - 5.0 g/dL [facility] Alkaline Phosphatase 107 39 - 117 U/L [facility] Blood Venous blood specimen / Unknown 09/18/2024 10:24 AM EDT 09/18/2024 11:13 AM EDT Laura Cohen MD LAB BLOOD ORDERABLES Final Resul t [facility] [address] [place] [phone] * (ABNORMAL) POCT glycosylated hemoglobin (Hgb A1c) (09/17/2024 11:20 AM EDT) Hemoglobin A1C 6.2(A) 4.0 - 5.7 % QC Media Lot # [id number] Lot# Expiration Date 3,027 Blood Capillary blood specimen / Unknown 09/17/2024 11:20 AM EDT Laura Cohen MD POINT OF CARE TEST ENTER/EDIT OR DERABLES Final Result * POCT glucose manually resulted (09/17/2024 11:17 AM EDT) Glucose Blood, POC 113 60 - 200 mg/dL QC Media Lot # [id number] Lot# Expiration Date [id number] Blood Capillary blood specimen / Unknown 09/17/2024 11:17 AM EDT Laura Cohen MD POINT OF CARE TEST ENTER/EDIT OR DERABLES Final Result * Hepatitis C Antibody (11/02/2018 5:19 AM EDT) Hepatitis C Antibody Nonreactive Blood 11/02/2018 5:19 AM EDT Dimple Dumont MD POINT OF CARE TEST ENTER/ EDIT ORDERABLES Final Result * Hm Colonoscopy (09/29/2018) Colonoscopy Normal Normal 09/29/2018 Dimple Dumont MD HEALTH MAINTENANCE Edited Result - Final from Last 3 Months or Most Recently Relevant to Health Maintenance Insurance [facility] [employer] (HMO D-SNP) DIANE ARCE [id number] [place] [address] [address] Glassware Replacer Relationship Specialty Start Date End Date Laura Cohen MD [address] [place] [address] PCP - General Family Medicine 02/14/18 [place] Shen, ShelliD [address] [place] [address] Pharmacist Internal Medicine 11/08/22
--- OUTSIDE RECORDS SUMMARY | 2024-11-20 16:26 | XMS_ITS | Encounter Summary ---
Author Organization [employer] Address [address] [facility] 7t [place] [address] Care Team Providers Care Distribution Warehouse Manager Name Role Phone Laura Cohen MD Primary Care Provider [phone] [place] Shen PharmD Unavailable [phone] Reason for Referral * Consultation (Routine) - Canceled Specialty Diagnoses / Procedures Referred By Contac t Referred To Contact Pharmacy Diagnoses Hypertension Keisha Rouse MD [address] [place], [place] Phone: tel: fax: Referral ID Status Reason Start Date Expiration Date V isits Requested Visits Authorized [id number] Canceled Continuity of Care 10/18/2024 10/18/2025 6 6 Encounter Details Date Type Department Care Team (Late st Contact Info) Description 10/18/[address] [facility] [address] [place] [address] Laura Cohen MD [address] [place], [place] [phone] Hypertension (Primary Dx) Social History Tobacco Use Types Packs/Day Years Used Date Smoking Tobacco: Former Cigarettes Passive Smoke Exposure: Past Smokeless Tobacco: Never Depression Answer Date Recorded Patient Health Questionnaire-9 [...] Description 12/18/2024 3:15 PM EST Office Visit [facility] [address] [place] [address] Laura Cohen MD [address] [place] [address] 01/21/2025 2:30 PM EST Office Visit [facility] [address] [place] [address] Daniella Marie, JUAN RAMON [address] [place] [address] Scheduled Referrals Name Type Priority Associated Diagnoses Orde r Schedule Referral to Pharmacy MTM Outpatient Referral Routine Hypertension Ordered: 10/18/2024 documented as of this encounter Goals Goal Patient Goal Type Associated Problems Recent Progress Patient-Stated? Author Blood Pressure < 140/90 Blood Pressure 134/78( 025 2:32 PM EDT) No [place] Shen, PharmD documented as of this encounter Visit Diagnoses Diagnosis Hypertension- Primary Unspecified essential hypertension documented in this encounter Additional Health Concerns Assessment Noted Time PHQ-9 Depression Total Score: 0 09/18/19 25 11:18 AM EDT documented as of this encounter Care Teams Distribution Warehouse Manager Relationship Specialty Start Date End Date Laura Cohen MD [address] [place] [address] PCP - General Family Medicine 02/14/18 [place] Shen, PharmD [address] [place] [address] Pharmacist Internal Medicine 11/08/22 documented as of this encounter
--- OUTSIDE RECORDS SUMMARY | 2024-11-20 16:26 | XMS_ITS | Encounter Summary ---
Author Organization [employer] Address [address] [facility] 7t [place] [address] Care Team Providers Care Law Enforcement Instructor Name Role Phone Laura Cohen MD Primary Care Provider [phone] [place] Shen PharmD Unavailable [phone] Reason for Visit * Reason Onset Date Comments Results 09/18/2024 Encounter Details Date Type Department Care Team (Latest Contact Info) Description 09/18/2024 Results Follow-Up [facility] [address] [place] [address] Laura Cohen MD [address] [place] [address] POCT glucose manually resulted, POCT glycosylated hemoglobin (Hgb A1c), Albumin, Random Urine W/Creatinine Social History Tobacco Use Types Packs/Day Years [...] AM EDT documented as of this encounter Miscellaneous Notes * Telephone Encounter - Stacia Jones RN - 09/21/2024 8:56 AM EDT Telephone call to pt via [employer] lead installer #[id number]. Reviewed low thyroid level and elevated lipid panel. Initially pt reports not taking his thyroid medication, however when asked if taking medbox meds, pt reports taking his these but states he needs to warehouse picker the next box and hasn't taken this medication in a few days. Educated on importance of taking medications consistently. Pt reports working on his diet and walking more and declines additional cholesterol medication at this point. Educated towork to reduce fatty food, frying in oil, processed foods, red meat, full fat dairy and increase fruits, veggies, and exercise. Reminded of next RN BP check on 10/01/24. Pt verbalized understanding. * Telephone Encounter - Sharee Olivares RN - 09/20/2024 1:06 PM EDT Telephone call x2 placed to pt regarding below messages. No answer, left v/m. * Telephone Encounter - Sharee Olivares RN - 09/19/2024 9:35 AM EDT Telephone call placed to pharmacy. Spoke with Marcio who reports pt picks up medbox and that he usually is 1-2 days late picking it up from when he is due. Last picked up 08/23 so he should have been completely compliant with levothyroxine at time of lab draw yesterday. Telephone call placed to pt. No answer, left v/m. Will retask * Telephone Encounter - Sharee Olivares RN - 09/19/2024 9:33 AM EDT ----- Message from Laura Cohen MD sent at 09/18/2024 3:21 PM EDT ----- Low TSH. Lipid profile not at goal. Please check with our pharmacist if patient has been picking upmedbox on time. If he has been adherent to medbox, then will increase levothyroxine dose to 150 mcg daily and recheck in 6 wks (Please queue). If he has not missed several days recently, then repeat lab in 4-6 wks with > 90% adherence. Please educate patient about diet. Please ask him if he wants to add a new medication or to try working on lifestyle modifications and reassess lipid profile prior to next visit to decide whether he needs an additional medication. If he wants to start a medication now, please queue Zetia 10 mg daily. Thank you. ----- Message ----- From: Shonda Rivas MA Sent: 09/17/2024 11:18 AM EDT To: Laura Cohen MD documented in this encounter Plan of Treatment Upcoming Encounters Date Type Department Care Team (Late st Contact Info) Description 12/18/2024 3:15 PM EST Office Visit [facility] [address] [place], [place] [phone] Laura Cohen MD [address] [place] [address] 01/21/2025 2:30 PM EST Office Visit [facility] [address] [place], [place] [phone] Daniella Marie, OD [address] [place] [address] documented as of this encounter Goals Goal Patient Goal Type Associated Problems Recent Progress Patient-Stated? Author Blood Pressure < 140/90 Blood Pressure 134/78( 025 2:32 PM EDT) No [place] Shen, PharmD documented as of this encounter Visit Diagnoses Not on filedocumented in this encounter Additional Health Concerns Assessment Noted Time PHQ-9 Depression Total Score: 0 09/18/19 25 11:18 AM EDT documented as of this encounter Care Teams Law Enforcement Instructor Relationship Specialty Start Date End Date Laura Cohen MD [address] [place], [place] [phone] PCP - General Family Medicine 02/14/18 [place] Shen, PharmD [address] [place], [place] [phone] Pharmacist Internal Medicine 11/08/22 documented as of this encounter
--- OUTSIDE RECORDS SUMMARY | 2024-11-20 16:26 | XMS_ITS | Encounter Summary ---
Author Organization [employer] Address [address] [facility] 7t [place] [address] Care Team Providers Care Director Health Name Role Phone Laura Cohen MD Primary Care Provider [phone] [place] Shen PharmD Unavailable [phone] Encounter Details Date Type Department Care Team (Late st Contact Info) Description 03/21/2022 Orders Only [facility] [address] [place] [phone] Laura Cohen MD [address] [place] [phone] Bilateral sensorineural hearing loss (Primary Dx) Social [...] Upcoming Encounters Date Type Department Care Team ([facility] Contact Info) Description 12/18/2024 3:15 PM EST Office Visit [facility] [address] [place] [address] [phone] Laura Cohen MD [address] [place] [address] 01/21/2025 2:30 PM EST Office Visit [facility] [address] [place] [address] Frank, Daniella, OD [address] [place] [address] documented as of this encounter Visit Diagnoses Diagnosis Bilateral sensorineural hearing loss- Primary Sensorineural hearing loss, bilateral documented in this encounter Care Teams Director Health Relationship Specialty Start Date End Date Laura Cohen MD [address] [place] [address] [phone] PCP - General Family Medicine 02/14/18 [place] Shen, PharmD [address] [place] [address] [phone] Pharmacist Internal Medicine 11/08/22 documented as of this encounter
--- OUTSIDE RECORDS SUMMARY | 2024-11-20 16:26 | XMS_ITS | Encounter Summary ---
Author Organization [employer] Address [address] [facility] [address] 7[address] [place] [address] Care Team Providers Care Fruit Raiser Name Role Phone Laura Cohen MD Primary Care Provider [place] Shen PharmD Unavailable [phone] Reason for Visit * Reason Comments Med Refill Encounter Details Date Type Department Care Team ([facility] st Contact Info) Description 07/01/2024 Refill [facility] [address] [place], [place] [phone] Laura Cohen MD [address] [place], [place] [phone] Social History Tobacco Use Types Packs/Day Years Used Date Smoking Tobacco: Former Cigarettes Passive Smoke Exposure: Past Smokeless Tobacco: Never Housing Stability Answer Date [...] t he electric, gas, oil or water [employer] threatened to shut off services in your [...] 3:15 PM EST Office Visit [facility] [address] [place] [address] Laura Cohen MD [address] [place] [address] 01/21/2025 2:30 PM EST Office Visit [facility] [address] [place], [place] [phone] Daniella Marie, OD [address] [place] [address] documented as of this encounter Goals Goal Patient Goal Type Associated Problems Recent Progress Patient-Stated? Author Blood Pressure < 140/90 Blood Pressure 134/78( 025 2:32 PM EDT) No [place] Shen PharmD documented as of this encounter Visit Diagnoses Not on filedocumented in this encounter Care Teams Fruit Raiser Relationship Specialty Start Date End Date Laura Cohen MD [address] [place] [address] [phone] PCP - General Family Medicine 02/14/18 [place] Shen, Gypsy [address] [place] [address] [phone] Pharmacist Internal Medicine 11/08/22 documented as of this encounter
--- OUTSIDE RECORDS SUMMARY | 2024-11-20 16:26 | XMS_ITS | Patient Health Record ---
Author Organization [employer] [facility] Address [address] [place] [address] Care Team Providers Care Chief Substation Operator Name Role Phone Tavo Pedroza Unavailable [phone] Reason For Referral No Information Plan Of Treatment No Information
--- OUTSIDE RECORDS SUMMARY | 2024-11-20 16:26 | XMS_ITS | Encounter Summary ---
Author Organization [employer] Address [address] [facility] 7t [place] [address] Care Team Providers Care Concrete Floater Name Role Phone Laura Cohen MD Primary Care Provider [phone] [place] Shen PharmD Unavailable [phone] Reason for Visit * Reason Comments Med Refill Encounter Details Date Type Department Care Team (Late st Contact Info) Description 11/09/[address] [facility] [address] [place] [address] Lucien Moise MD [address] [place] [address] [phone] Social History Tobacco Use Types Packs/Day Years [...] Description 12/18/2024 3:15 PM EST Office Visit [facility] [address] [place], [place] [phone] Laura Cohen MD [address] [place], [place] [phone] 01/21/2025 2:30 PM EST Office Visit [facility] [address] [place] [address] Daniella Marie, OD [address] [place] [address] documented as of this encounter Goals Goal Patient Goal Type Associated Problems Recent Progress Patient-Stated? Author Blood Pressure < 140/90 Blood Pressure 134/78( 025 2:32 PM EDT) No [place] Shen, PharmD documented as of this encounter Visit Diagnoses Not on filedocumented in this encounter Care Teams Concrete Floater Relationship Specialty Start Date End Date Laura Cohen MD [address] [place], [place] [phone] PCP - General Family Medicine 02/14/18 [place] Shen, PharmD [address] [place], [place] [phone] Pharmacist Internal Medicine 11/08/22 documented as of this encounter
--- OUTSIDE RECORDS SUMMARY | 2024-11-20 16:26 | XMS_ITS | Encounter Summary ---
Author Organization [employer] Address [address] [facility] 7t [place] [address] Care Team Providers Care Quarry Extraction Worker Name Role Phone Laura Cohen MD Primary Care Provider [phone] [place] Shen PharmD Unavailable [phone] Encounter Details Date Type Department Care Team (Late st Contact Info) Description 04/09/2022 Telephone [facility] [address] [place], [place] [phone] Laura Cohen MD [address] [place] [address] [phone] Social History Tobacco Use Types Packs/Day Years [...] Description 12/18/2024 3:15 PM EST Office Visit [facility] [address] [place], [place] [phone] Laura Cohen MD [address] [place], [place] [phone] 01/21/2025 2:30 PM EST Office Visit [facility] [address] [place] [address], [place] [phone] Daniella Marie, OD [address] [place] [address] documented as of this encounter Visit Diagnoses Not on filedocumented in this encounter Care Teams Quarry Extraction Worker Relationship Specialty Start Date End Date Laura Cohen MD [address] [place] [address] PCP - General Family Medicine 02/14/18 [place] Shen, ShelliD [address] [place], [place] [phone] Pharmacist Internal Medicine 11/08/22 documented as of this encounter
--- OUTSIDE RECORDS SUMMARY | 2024-11-20 16:26 | XMS_ITS | Encounter Summary ---
Author Organization [employer] Address [address] [facility] 7t [place] [address] Care Team Providers Care Liberal Arts Teacher Name Role Phone Laura Cohen MD Primary Care Provider [phone] Anthony Shen PharmD Unavailable [phone] Reason for Referral * Imaging (Routine) - Canceled Specialty Diagnoses / Procedures Referred By Contac t Referred To Contact Radiology Diagnoses Mass, chest Abnormal chest x-ray Procedures CT Chest w/o Contrast Laura Cohen MD [address] [place] [address] Phone: tel: fax: [address] Phone: tel: fax: Referral ID Status Reason Start Date Expiration Date V isits Requested Visits Authorized [id number] Canceled 01/18/2024 01/17/2025 1 1 Encounter Details Date Type Department Care Team (Late st Contact Info) Description 01/18/2024 Orders Only [facility] [address] [place] [address] Laura Cohen MD [address] [place], [place] [phone] Mass, chest (Primary Dx); Abnormal chest x-ray; [...] Office Visit [facility] [address] [place] [address] Laura Cohen MD [address] [place] [address] 01/21/2025 2:30 PM EST Office Visit [facility] [address] [place] [address] Daniella Marie OD [address] [place] [address] Scheduled Orders Name Type Priority Associated Diagnoses Orde r Schedule CT Chest w/o Contrast Imaging Routine Mass, chest Abnormal chest x-ray Expected: 01/18/2024, Expires: 01/17/2025 documented as of this encounter Goals Goal Patient Goal Type Associated Problems Recent Progress Patient-Stated? Author Blood Pressure < 140/90 Blood Pressure 134/78( 025 2:32 PM EDT) No Anthony Shen, Gypsy documented as of this encounter Procedures Procedure Name Priority Date/Time Associated Diagnosis Comments COMPREHENSIVE METABOLIC PANEL Routine 09/18/2024 10:24 AM EDT Primary hypertension documented in this encounter Results * (ABNORMAL) Comprehensive Metabolic Panel (09/18/2024 10:24 AM EDT) Sodium 136 135 - 145 mmol/L [facility] Potassium 4.1 3.3 - 5.1 mmol/L [facility] Chloride 105 96 - 108 mmol/L [facility] Carbon Dioxide 27 22 - 29 mmol/L [facility] Anion Gap 8(L) 12 - 20 [facility] Urea Nitrogen (BUN) 14 9 - 16 mg/dL [facility] Creatinine, Serum 1.00 0.5 - 1.4 mg/dL [facility] Estimated Glomerular Filt Rate >60 [facility] Comment:Chronic Kidney Disea se: Estimated GFR < 60 mL/min/[id number] Kidney Disease: Estimated GFR < 15 mL/min/1.73m2 Glucose 129(H) 60 - 115 mg/dL [facility] Calcium 9.4 8.4 - 10.2 mg/dL [facility] Bilirubin, Total 0.6 0.0 - 1.0 mg/dL [facility] Aspartate Amino Transferase 21 5 - 37 U/L [facility] Alanine Aminotransferase 18 0 - 40 U/L [facility] Total Protein 7.4 6.5 - 8.0 g/dL [facility] Albumin Level 4.5 3.5 - 5.0 g/dL [facility] Alkaline Phosphatase 107 39 - 117 U/L [facility] Blood Venous blood specimen / Unknown 09/18/2024 10:24 AM EDT 09/18/2024 11:13 AM EDT Laura Cohen MD LAB BLOOD ORDERABLES Final Resul t [facility] [address] [place] [address] [phone] documented in this encounter Visit Diagnoses Diagnosis Mass, chest- Primary Swelling, mass, or lump in chest Abnormal chest x-ray Nonspecific (abnormal) findings on radiological and other examination of lung field Acquired hypothyroidism Unspecified hypothyroidism Primary hypertension Unspecified essential hypertension documented in this encounter Care Teams Liberal Arts Teacher Relationship Specialty Start Date End Date Laura Cohen MD [address] [place] [address] PCP - General Family Medicine 02/14/18 Anthony Shen, ShelliD [address] [place] [address] Pharmacist Internal Medicine 11/08/22 documented as of this encounter
--- OUTSIDE RECORDS SUMMARY | 2024-11-20 16:26 | XMS_ITS | Encounter Summary ---
Author Organization [employer] Address [address] [facility] [address] 7t [place] [address] Care Team Providers Care Head Cd Reactor Operator Name Role Phone Laura Cohen MD Primary Care Provider [phone] Anthony Shen PharmD Unavailable [phone] Encounter Details Date Type Department Care Team ([facility] st Contact Info) Description 09/18/2024 Orders Only [facility] MEDICINE [address] [place], [place] [phone] Laura Cohen MD [address] [place], [place] [phone] Acquired hypothyroidism (Primary Dx); Dyslipidemia Social History [...] Description 12/18/2024 3:15 PM EST Office Visit [facility] [address] [place] [address] Laura Cohen MD [address] [place] [address] 01/21/2025 2:30 PM EST Office Visit [facility] OPTOMETRY [address] [place] [address] Frank, Daniella, OD [address] [place] [address] Scheduled Orders Name Type Priority Associated Diagnoses Orde r Schedule TSH with Reflex to Free T4 Lab Routine Acquired hypothyroidism Expected: 10/16/2024, Expires: 09/18/2025 Lipid Panel with Reflex to Direct LDL Lab Routine Dyslipidemia Expected: 10/16/2024, Expires: 09/18/2025 documented as of this encounter Goals Goal Patient Goal Type Associated Problems Recent Progress Patient-Stated? Author Blood Pressure < 140/90 Blood Pressure 134/78( 025 2:32 PM EDT) Anthony Canseco, PharmD documented as of this encounter Visit Diagnoses Diagnosis Acquired hypothyroidism- Primary Unspecified hypothyroidism Dyslipidemia Other and unspecified hyperlipidemia documented in this encounter Additional Health Concerns Assessment Noted Time PHQ-9 Depression Total Score: 0 09/18/19 25 11:18 AM EDT documented as of this encounter Care Teams Head Cd Reactor Operator Relationship Specialty Start Date End Date Laura Cohen MD [address] [place] [address] PCP - General Family Medicine 02/14/18 Anthony Shen, ShelliD [address] [place] [address] Pharmacist Internal Medicine 11/08/22 documented as of this encounter
--- OUTSIDE RECORDS SUMMARY | 2024-11-20 16:26 | XMS_ITS | Encounter Summary ---
Author Organization [employer] Address [address] [facility] 7t [place] [address] Care Team Providers Care Camp Dishwasher Name Role Phone Laura Cohen MD Primary Care Provider [phone] Anthony Shen PharmD Unavailable [phone] Encounter Details Date Type Department Care Team (Late st Contact Info) Description 02/02/2022 Orders Only [facility] [address] [place] [address] Leanna Gordon LPN Social History Tobacco Use [...] Description 12/18/2024 3:15 PM EST Office Visit [facility] MED[facility] [address] [place] [address] Laura Cohen MD [address] [place] [address] 01/21/2025 2:30 PM EST Office Visit [facility] OPTOMETRY [address] [place] [address] Daniella Marie, OD [address] [place] [address] documented as of this encounter Visit Diagnoses Not on filedocumented in this encounter Care Teams Camp Dishwasher Relationship Specialty Start Date End Date Laura Cohen MD [address] [place] [address] PCP - General Family Medicine 02/14/18 Anthony Shen PharmD [address] [place] [address] Pharmacist Internal Medicine 11/08/22 documented as of this encounter
--- OUTSIDE RECORDS SUMMARY | 2024-11-20 16:26 | XMS_ITS | Encounter Summary ---
Author Organization [employer] Address [address] [facility] [address] 7[address] [place] [address] Care Team Providers Care Toolmaker Name Role Phone Laura Cohen MD Primary Care Provider [phone] Anthony Shen PharmD Unavailable [phone] Encounter Details Date Type Department Care Team ([facility] st Contact Info) Description 11/30/2022 Orders Only [facility] [address] [place], [place] [phone] Laura Cohen MD [address] [place], [place] [phone] Acquired hypothyroidism (Primary Dx) Social History Tobacco [...] the past 12 months, has t he [employer], gas, oil or water [email or web address] threatened to shut off services in your [...] Description 12/18/2024 3:15 PM EST Office Visit [facility] [address] [place] [address] Laura Cohen MD [address] [place] [address] 01/21/2025 2:30 PM EST Office Visit [facility] OPTOMETRY [address] [place] [address] Frank, Daniella, OD [address] [place] [address] Scheduled Orders Name Type Priority Associated Diagnoses Orde r Schedule TSH Lab Routine Acquired hypothyroidism Expected: 01/11/2023, Expires: 12/01/2023 T4, Free Lab Routine Acquired hypothyroidism Expected: 01/11/2023, Expires: 12/01/2023 documented as of this encounter Goals Goal Patient Goal Type Associated Problems Recent Progress Patient-Stated? Author Blood Pressure < 140/90 Blood Pressure 134/78( 025 2:32 PM EDT) No Anthony Shen, ShelliD documented as of this encounter Visit Diagnoses Diagnosis Acquired hypothyroidism- Primary Unspecified hypothyroidism documented in this encounter Care Teams Toolmaker Relationship Specialty Start Date End Date Laura Cohen MD [address] [place] [address] [phone] PCP - General Family Medicine 02/14/18 Anthony Shen, PharmD [address] [place] [address] [phone] Pharmacist Internal Medicine 11/08/22 documented as of this encounter
--- OUTSIDE RECORDS SUMMARY | 2024-11-20 16:26 | XMS_ITS | Encounter Summary ---
Author Organization [employer] Address [address] [facility] [address] [place] [address] Care Team Providers Care Nut Chopper Name Role Phone Laura Cohen MD Primary Care Provider [phone] Anthony Shen PharmD Unavailable [phone] Encounter Details Date Type Department Care Team ([facility] st Contact Info) Description 11/16/2024 Refill [facility] [address] [place], [place] [phone] Laura Cohen MD [address] [place], [place] [phone] Social History Tobacco Use Types Packs/Day Years [...] Description 12/18/2024 3:15 PM EST Office Visit [facility] [address] [place] [address] Laura Cohen MD [address] [place] [address] 01/21/2025 2:30 PM EST Office Visit [facility] OPTOMETRY [address] [place] [address] Daniella Marie, OD [address] [place] [address] documented as of this encounter Goals Goal [...] documented as of this encounter Care Teams Nut Chopper Relationship Specialty Start Date End Date Laura Cohen MD [address] [place] [address] PCP - General Family Medicine 02/14/18 Anthony Shen, PharmD [address] [place] [address] Pharmacist Internal Medicine 11/08/22 documented as of this encounter
--- OUTSIDE RECORDS SUMMARY | 2024-11-20 16:26 | XMS_ITS | Encounter Summary ---
Author Organization [employer] Address [address] 7[address] [place] [address] Care Team Providers Care Special Procedures Tech Name Role Phone Laura Cohen MD Primary Care Provider [phone] Anthony Shen PharmD Unavailable [phone] Reason for Visit * Reason Comments Med Refill Encounter Details Date Type Department Care Team ([facility] st Contact Info) Description 10/03/2023 Refill [facility] MED[facility]INE [address] [place], [place] [phone] Laura Cohen MD [address] [place], [place] [phone] Social History Tobacco Use Types Packs/Day Years [...] t he electric, gas, oil or water [employer] threatened to shut off services in your [...] Description 12/18/2024 3:15 PM EST Office Visit [facility] MED[facility]INE [address] [place] [address] Laura Cohen MD [address] [place] [address] 01/21/2025 2:30 PM EST Office Visit [facility] OPTOMETRY [address] [place], [place] [phone] Daniella Marie, OD [address] [place] [address] documented as of this encounter Goals Goal Patient Goal Type Associated Problems Recent Progress Patient-Stated? Author Blood Pressure < 140/90 Blood Pressure 134/78( 025 2:32 PM EDT) No Anthony Shen PharmD documented as of this encounter Visit Diagnoses Not on filedocumented in this encounter Care Teams Special Procedures Tech Relationship Specialty Start Date End Date Laura Cohen MD [address] [place] [address] [phone] PCP - General Family Medicine 02/14/18 Anthony Shen, Gypsy [address] [place] [address] [phone] Pharmacist Internal Medicine 11/08/22 documented as of this encounter
--- OUTSIDE RECORDS SUMMARY | 2024-11-20 16:26 | XMS_ITS | Encounter Summary ---
Author Organization [employer] Address [address] [facility] 7t [place] [address] Care Team Providers Care Utility Mechanic Supervisor Name Role Phone Laura Cohen MD Primary Care Provider [phone] Anthony Shen PharmD Unavailable [phone] Reason for Referral * Imaging (Urgent) - Closed Specialty Diagnoses / Procedures Referred By Contac t Referred To Contact Radiology Diagnoses Dyspnea, unspecified type Abnormal CXR Procedures CT CHEST W CONTRAST Laura Cohen MD [address] [place] [address] Phone: tel: fax: [address] Phone: tel: fax: Referral ID Status Reason Start Date Expiration Date Visits Re quested Visits Authorized [id number] Closed 02/17/2024 02/16/2025 1 1 Encounter Details Date Type Department Care Team (Late st Contact Info) Description 02/17/2024 Orders Only [facility] MED[facility]INE [address] [place], [place] [phone] Laura Cohen MD [address] [place], [place] [phone] Dyspnea, unspecified type (Primary Dx); Abnormal CXR [...] Description 12/18/2024 3:15 PM EST Office Visit [facility] [address] [place] [address] Laura Cohen MD [address] [place] [address] 01/21/2025 2:30 PM EST Office Visit [facility] OPTOMETRY [address] [place], [place] [phone] Daniella Marie OD [address] [place] [address] Scheduled Orders Name Type Priority Associated Diagnoses [...] field documented in this encounter Care Teams Utility Mechanic Supervisor Relationship Specialty Start Date End Date Laura Cohen MD [address] [place] [address] PCP - General Family Medicine 02/14/18 Anthony Shen, PharmD [address] [place] [address] Pharmacist Internal Medicine 11/08/22 documented as of this encounter
--- OUTSIDE RECORDS SUMMARY | 2024-11-20 16:26 | XMS_ITS | Encounter Summary ---
Author Organization [email or web address] Address [address] [facility] 7t [place] [address] Care Team Providers Care Diesel Service Technician Name Role Phone Laura Cohen MD Primary Care Provider [phone] Anthony Shen PharmD Unavailable [phone] Encounter Details Date Type Department Care Team ([facility] Contact Info) Description 04/26/2022 Telephone [facility] MEDICINE [address] [place], [place] [phone] Laura Cohen MD [address] [place], [place] [phone] Social History Tobacco Use Types Packs/Day Years [...] Encounters Date Type Department Care Team (Late Contact Info) Description 12/18/2024 3:15 PM EST Office Visit [facility] [address] [place] [address] Laura Cohen MD [address] [place], [place] [phone] 01/21/2025 2:30 PM EST Office Visit [facility] OPTOMETRY [address] [place], [place] [phone] Daniella Marie, OD [address] [place], [place] [phone] documented as of this encounter Visit Diagnoses Not on filedocumented in this encounter Care Teams Diesel Service Technician Relationship Specialty Start Date End Date Laura Cohen MD [address] [place] [address] [phone] PCP - General Family Medicine 02/14/18 Anthony Shen, PharmD [address] [place] [phone] Pharmacist Internal Medicine 11/08/22 documented as of this encounter
== END 2024-11-20 13:47 | disposition home or self-care (01) ==
LOC: HO.HOS 13:24
PROVIDERS: PCP Family Medicine; Visit Provider Orthopaedic Surgery
DX: M17.0 Bilateral primary osteoarthritis of knee (principal)
CPT/HCPCS: 20610; 99213

== ENCOUNTER → 2024-11-20 13:23 | Outpatient (BNVA) | payer OTHER, SELFPAY | PROVIDERS: PCP Family Medicine; Visit Provider Orthopaedic Surgery | DX: M17.0 Bilateral primary osteoarthritis of knee (principal); M25.561 Pain in right knee; M25.562 Pain in left knee | CPT/HCPCS: 20610; 99212; J1010; J2003 ==

== ENCOUNTER 2025-02-12 18:10 | Emergency (ER) | payer OTHER, SELFPAY ==
--- NOTE | ~2025-02-12 | XR_ITS ---
CLINICAL HISTORY: Cough, congestion 2 view chest x-ray. Comparison: 01/16/2024 Findings: No consolidation or effusion. Cardiac and mediastinal contours are stable. Bones unremarkable. Impression: 1. No acute pulmonary disease. This document has been electronically signed by: Tom Dan MD on 02/12/2025 19:47:54
--- NOTE | 2025-02-12 18:14 | ECG_ITS ---
Test Reason : HTN Blood Pressure : */* mmHG Vent. Rate : 74 BPM Atrial Rate : 74 BPM P-R Int : 150 ms QRS Dur : 104 ms QT Int : 406 ms P-R-T Axes : 61 -2 21 degrees QTcB Int : 450 ms Sinus rhythm with marked sinus arrhythmia Incomplete right bundle branch block Nonspecific T wave abnormality Abnormal ECG When compared with ECG of 29-May-2023 20:24, Incomplete right bundle branch block is now Present Nonspecific T wave abnormality now evident in Anterolateral leads Referred By: Generic ED Physician Electronically Signed By: NANCY RAZA
[2025-02-12 18:46] VITALS: BP 165/67; PULSE 73; RESP 18; TEMP 37.2; O2SAT 93; BMI 31.9
--- NOTE | 2025-02-12 18:48 | ED.URI ---
HPI - URI/Sore Throat General Chief Complaint: Upper Respiratory Symptoms Stated Complaint: high bp Time Seen by Provider: 02/12/25 22:24 Source: patient, family, RN notes reviewed and old records reviewed Mode of arrival: EMS Limitations: language barrier History of Present Illness ED Provider: Jd HPI Narrative: 74-year-old male presents for evaluation of cough, congestion, phlegm. Denies any sick contacts. Has a history of asthma and COPD, he is not on oxygen. He also has obstructive sleep apnea. Symptoms started 2 weeks ago. Denies any fevers or chills Denies any leg swelling Related Data Home Medications ?Medication ?Instructions ?Recorded ?Confirmed aspirin 81 mg tablet,delayed 81 mg PO DAILY 01/05/21 11/20/24 release atorvastatin 40 mg tablet 40 mg PO BEDTIME 01/05/21 11/20/24 blood sugar diagnostic (Solle Naturalsuch #10 ea 01/05/21 11/20/24 Ultra Test strips) citalopram 40 mg tablet 40 mg PO DAILY 01/05/21 11/20/24 doxazosin 8 mg tablet 8 mg PO BEDTIME 01/05/21 11/20/24 lancets 33 gauge (Solle Naturalsuch Delica #100 ea 01/05/21 11/20/24 Plus Lancet) lisinopril 40 mg tablet 40 mg PO BEDTIME 01/05/21 11/20/24 loratadine 10 mg tablet 10 mg PO DAILY@1200 01/05/21 11/20/24 omeprazole 20 mg capsule,delayed 20 mg PO BID@0630,1630 01/05/21 11/20/24 release tamsulosin 0.4 mg capsule 0.4 mg PO BEDTIME 01/05/21 11/20/24 trazodone 50 mg tablet 50 mg PO BEDTIME 01/05/21 11/20/24 acetaminophen 500 mg tablet 1,000 mg PO Q8H PRN Pain (Scale 05/30/23 11/20/24 Score 1-3) amlodipine 5 mg tablet 5 mg PO DAILY 05/30/23 11/20/24 budesonide-formoterol HFA 160 1 puff inhalation BID 05/30/23 11/20/24 mcg-4.5 mcg/actuation aerosol inhaler celecoxib 200 mg capsule 200 mg PO Q12H pain 05/30/23 11/20/24 levothyroxine 125 mcg tablet 125 mcg PO DAILY@0600 05/30/23 11/20/24 metformin 500 mg tablet,extended 500 mg PO DAILY@1700 05/30/23 11/20/24 release 24 hr Previous Rx's ?Medication ?Instructions ?Recorded albuterol sulfate 90 mcg/actuation 2 puff PO Q4-6H PRN shortness of 05/13/22 aerosol inhaler breath or wheezing 30 days #8.5 grams azithromycin 250 mg tablet See Rx Instructions PO .COMPLEX #6 02/12/25 tabs prednisone 20 mg tablet 40 mg (2 x 20 mg) PO DAILY #10 tabs 02/12/25 Allergies Allergy/AdvReac Type Severity Reaction Status Date / Time No Known Allergies Allergy Verified 02/12/25 18:49 Review of Systems Constitutional: Constitutional: Denies body ache(s), Denies chills, Denies fever(s) and Denies headache(s) Eyes: Eyes: Denies blurry vision ENT: Denies vertigo, Denies dizziness and Denies headache(s) Cardiovascular: Cardiovascular: Denies chest pain, Reports dyspnea and Denies dyspnea on exertion Respiratory: Respiratory: Reports change in phlegm color, Reports chest congestion, Reports cough, Reports dyspnea and Denies dyspnea on exertion Gastrointestinal: Gastrointestinal: Denies abdominal pain, Denies nausea and Denies vomiting Musculoskeletal: Musculoskeletal: Denies back pain Integumentary/Breasts: Skin/Breast: Denies rash Neurologic: Denies vertigo, Denies dizziness and Denies headache(s) Psychiatric: Psychiatric: Denies anxiety [facility] Past Medical History Medical History (Updated 02/12/25 @ 22:35 by Harry Miles) SHORTY (obstructive sleep apnea) Chronic lung disease Bronchial asthma COPD (chronic obstructive pulmonary disease) Allergic rhinitis SHORTY on CPAP Obesity (BMI 30-39.9) History of stent insertion of renal artery Surgical History History of nasal surgery Family History Family History Mother Diabetes Breast cancer Father Pacemaker HTN (hypertension) CAD (coronary artery disease) Social History Social History Household Members: None Housing: Apartment Do you presently have visiting nurse or other home services: No Alcohol intake: former Year quit: 2006 Patient Tobacco Use Status: Never used Tobacco Years Smoked: 40 +/- Advance Directives: No Advance Directives Information Provided: Yes Do you have a plan to hurt others: No Plan service: No Physical Exam Vital Signs: Vital Signs: Last Vital Signs Temp 98.1 F 02/12/25 22:40 Pulse 76 02/12/25 22:40 Resp 81 H 02/12/25 22:40 BP 178/85 H 02/12/25 22:40 Pulse Ox 97 02/12/25 22:40 O2 Del Method Room Air 02/12/25 22:40 BMI result Body Mass Index 31.9 Const: General: healthy appearing, comfortable, no acute distress, alert and awake Nutritional Appearance: well nourished Orientation/consciousness: patient oriented x3 HEENT: Head: Yes normocephalic and Yes atraumatic Eyes: Eyelids: Yes eyelids normal Conjunctivae: conjunctivae normal Sclerae: sclerae normal Corneas: corneas normal Pupils: Equal, round and reactive pupils present EOM: EOMs intact bilaterally Neck: Neck: Yes full ROM Resp: Effort & Inspection: normal respiratory effort, able to speak in complete sentences and not labored Auscultation: not clear to auscultation bilaterally and wheezes Skin: General skin exam: elasticity normal Neuro: General: patient oriented x3 Cranial nerves: Yes Equal, round and reactive pupils present and Yes Bilaterally intact EOM present Cognition (Neuro): normal cognition Course Course Course Narrative: This is a Rapid Medical Exam performed in triage by Ann Marie Yousif PA-C. Full HPI, ROS and PE to be performed by primary ED provider. 74-year-old male with a past medical history of SHORTY on CPAP, COPD, presenting to the ED c/o productive cough, congestion, SOB, HTN x few weeks. Denies taking antihypertensives today. denies CP PE: + dry cough noted. Diffuse expiratory wheeze/rhonchi Plan: EKG, labs, CXR, viral testing, ED bronch protocol Medical Decision Making Medical Decision Making MDM Narrative: 74-year-old male presents for evaluation of upper respiratory symptoms. His exam was quite reassuring, chest x-ray is clear no evidence of pneumonia or CHF, viral swabs negative. However he is quite wheezy on exam. I suspect he has an asthma exacerbation. Plan to treat with azithromycin and prednisone as he has been sick for over 2 weeks. He had he does not meet sepsis criteria he is not hypoxic requiring oxygen supplementation and therefore does not require admission. Differential Diagnosis Differential Diagnoses: The differential diagnosis associated with the presentation includes Acute asthma exacerbation Bronchitis Upper respiratory infection Pneumonia Admission/Observation Consideration of admission/observation: Escalation of care including admission/observation considered Lab Data MDM Lab Attestation statement: I reviewed the patient's lab results. No leukocytosis or anemia. Normal platelet count. No electrolyte abnormalities warranting intervention. Troponin within normal limits 02/12/25 19:45 02/12/25 19:45 Labs: Lab Results 02/12/25 Range/Units 19:45 WBC 8.2 (4.8-10.8) X10*3/uL RBC 4.96 (4.60-5.80) X10*6/uL Hgb 14.1 (14.0-18.0) g/dl Hct 43.7 (42.0-52.0) % MCV 88.1 (80.0-98.0) fL MCH 28.4 (27.0-33.0) pg MCHC 32.3 (31.0-36.0) g/dl RDW 14.1 (11.0-16.0) % Plt Count 270 (160-400) X10*3/uL MPV 9.1 L (9.4-12.4) fL Immature Gran % (Auto) 0.9 H (0.0-0.4) % Neut % (Auto) 65.4 (45-73) % Lymph % (Auto) 22.8 (20-40) % Denali % (Auto) 5.9 (2-11) % Eos % (Auto) 4.3 H (0-4) % Baso % (Auto) 0.7 (0-2) % Lymph # (Auto) 1.9 (1.2-4.9) X10*3/uL Denali # (Auto) 0.5 (0.1-1.2) X10*3/uL Eos # (Auto) 0.4 (0.0-0.4) X10*3/uL Baso # (Auto) 0.1 (0.0-0.2) X10*3/uL Abs Immat Gran (auto) 0.07 H (0.00-0.03) X10*3/uL Absolute Neuts (auto) 5.3 (2.0-8.3) x10*3/uL Absolute Nucleated RBC 0.000 (0.0-0.012) X10*3/uL Nucleated RBC % (auto) 0.0 (0.0-0.2) /100WBC Sodium 143 (135-145) mmol/L Potassium 4.0 (3.3-5.1) mmol/L Chloride 109 H (96-108) mmol/L Carbon Dioxide 26 (22-29) mmol/L Anion Gap 12 (12-20) BUN 21 H (9-16) mg/dL Creatinine 1.03 (0.5-1.4) mg/dL Estim Creat Clear Calc 56.4 Estimated GFR > 60 Random Glucose 147 H (60-115) mg/dL Calcium 9.1 (8.4-10.2) mg/dL Total Bilirubin 0.2 (0.0-1.0) mg/dL Direct Bilirubin < 0.2 (0.0-0.5) mg/dL AST 21 (5-37) U/L ALT 25 (0-40) U/L Alkaline Phosphatase 88 (39-117) U/L Troponin I High Sens 4.1 D (<3.5-35.0) ng/L Total Protein 7.2 (6.5-8.0) g/dL Albumin 4.2 (3.5-5.0) g/dL Influenza Type A (PCR) NEGATIVE (Negative) Influenza Type B (PCR) NEGATIVE (Negative) RSV RNA Qual (PCR) NEGATIVE (Negative) SARS-CoV-2 RNA (RT-PCR) NEGATIVE (Negative) Independent Interpretation I performed an independent interpretation of an: EKG Interpretation: Normal sinus rhythm with a rate of [address] segment elevation [place] Radiology Impression Discussion of test interpretation with radiology: I have reviewed the radiologist's reading. Radiologist Impression: Findings: No consolidation or effusion. Cardiac and mediastinal contours are stable. Bones unremarkable. Impression: 1. No acute pulmonary disease. This document has been electronically signed by: Tom Dan MD on 02/12/2025 19:47:54 Discharge Plan Discharge Clinical Impression: Asthma exacerbation Patient Disposition: Home, Self-Care Instructions: Asthma (ED) Additional Instructions: Your workup in the ER today was reassuring pain I think your symptoms are related to an asthma versus COPD exacerbation. You do not have pneumonia on your x-ray. Your blood pressure improved. Take azithromycin and prednisone as prescribed Follow up with your primary doctor, return for new or worsening symptoms Prescriptions: New azithromycin 250 mg tablet See Rx Instructions .ROUTE .COMPLEX Qty: 6 0RF Rx Instructions: For 250 mg dose pack: take 500 mg today (day 1), then 250 mg for 4 days (days 2-5) prednisone 20 mg tablet 40 mg PO DAILY Qty: 10 0RF No Action metformin 500 mg tablet extended release 24 hr 500 mg PO DAILY@1700 budesonide-formoterol 160-4.5 mcg/actuation HFA aerosol inhaler 1 puff INHALATION BID Rx Instructions: RINSE MOUTH AFTER USING celecoxib 200 mg capsule 200 mg PO Q12H levothyroxine 125 mcg tablet 125 mcg PO DAILY@0600 amlodipine 5 mg tablet 5 mg PO DAILY acetaminophen 500 mg Tablet 1,000 mg PO Q8H PRN (Reason: Pain (Scale Score 1-3)) loratadine 10 mg tablet 10 mg PO DAILY@1200 omeprazole 20 mg capsule,delayed release(DR/EC) 20 mg PO BID@0630,1630 citalopram 40 mg tablet 40 mg PO DAILY lisinopril 40 mg tablet 40 mg PO BEDTIME doxazosin 8 mg tablet 8 mg PO BEDTIME (DME) OneTouch Ultra Test Strip See Rx Instructions Not Applicable DAILY Qty: 10 Rx Instructions: As directed (DME) lancets [OneTouch Delica Plus Lancet] 33 gauge misc See Rx Instructions topical DAILY Qty: 100 Rx Instructions: As directed aspirin 81 mg tablet,delayed release (DR/EC) 81 mg PO DAILY tamsulosin 0.4 mg capsule 0.4 mg PO BEDTIME trazodone 50 mg tablet 50 mg PO BEDTIME atorvastatin 40 mg tablet 40 mg PO BEDTIME albuterol sulfate 90 mcg/actuation HFA aerosol inhaler 2 puff PO Q4-6H PRN (Reason: shortness of breath or wheezing) 30 Days Qty: 8.5 4RF Print Language: Burundian
[2025-02-12 19:57] LABS: MANUAL DIFF FLAG NO
[2025-02-12 20:00] LABS: Hematocrit 43.7 % (42.0-52.0); Hemoglobin 14.1 g/dl (14.0-18.0); Imm Gran Abs Auto 0.07 X10*3/uL (0.00-0.03); Imm Gran Pct Auto 0.9 % (0.0-0.4); Lymphocytes Absolute Auto 1.9 X10*3/uL (1.2-4.9); Mean Corpuscular HGB Conc 32.3 g/dl (31.0-36.0); Mean Corpuscular Hemoglobin 28.4 pg (27.0-33.0); Mean Corpuscular Volume 88.1 fL (80.0-98.0); NRBC Abs Auto 0.000 X10*3/uL (0.0-0.012); NRBC Pct Auto 0.0 /100WBC (0.0-0.2); Platelet Count 270 X10*3/uL (160-400); Red Blood Count 4.96 X10*6/uL (4.60-5.80); White Blood Count 8.2 X10*3/uL (4.8-10.8)
[2025-02-12 20:13] LABS: Alanine Aminotransferase 25 U/L (0-40); Albumin Level 4.2 g/dL (3.5-5.0); Alkaline Phosphatase 88 U/L (39-117); Anion Gap 12 (12-20); Aspartate Amino Transferase 21 U/L (5-37); Blood Urea Nitrogen 21 mg/dL (9-16); Calcium 9.1 mg/dL (8.4-10.2); Carbon Dioxide 26 mmol/L (22-29); Chloride 109 mmol/L (96-108); Creatinine Clr Calc Pharmacy 56.4; Estimated Glomerular Filt Rate > 60; Potassium 4.0 mmol/L (3.3-5.1); Sodium 143 mmol/L (135-145); Total Protein 7.2 g/dL (6.5-8.0)
[2025-02-12 20:20] LABS: Troponin-I High Sensitivity 4.1 ng/L (<3.5-35.0)
[2025-02-12 20:34] LABS: Resp Syncy Virus RNA Qual PCR NEGATIVE (Negative); SARS COV2 PCR INHOUSE NEGATIVE (Negative)
--- OUTSIDE RECORDS SUMMARY | 2025-02-12 22:31 | XMS_ITS | Encounter Summary ---
Author Organization [employer] Address [address] [facility] [address] [place] [address] Care Team Providers Care Senior Java Programmer Analyst Name Role Phone Laura Cohen MD Primary Care Provider [phone] Anthony Shen PharmD Unavailable [phone] Encounter Details Date Type Department Care Team (Late st Contact Info) Description 07/20/[address] [facility] MEDICINE [address] [place], [place] [phone] Laura Cohen MD [address] [place], [place] [phone] Chronic pain of both knees (Primary Dx); [...] knees documented in this encounter Care Teams Senior Java Programmer Analyst Relationship Specialty Start Date End Date Laura Cohen MD [address] [place], [place] [phone] PCP - General Family Medicine 02/14/18 Anthony Shen, PharmD [address] [place] [address] Pharmacist Internal Medicine 11/08/22 documented as of this encounter
--- OUTSIDE RECORDS SUMMARY | 2025-02-12 22:31 | XMS_ITS | Encounter Summary ---
Author Organization [employer] Address [address] [place] [address] Care Team Providers Care Jack Spooler Tender Name Role Phone Laura Cohen MD Primary Care Provider [phone] Anthony Shen PharmD Unavailable [phone] Reason for Visit * Reason Comments Med Refill Encounter Details Date Type Department Care Team ([facility] st Contact Info) Description 10/03/2023 Refill [facility] MEDICINE [address] [place], [place] [phone] Laura Cohen MD [address] [place], [place] [phone] Social History Tobacco Use Types Packs/Day Years [...] t he electric, gas, oil or water [employer] threatened to shut off services in your [...] on filedocumented in this encounter Care Teams Jack Spooler Tender Relationship Specialty Start Date End Date Laura Cohen MD [address] [place] [address] PCP - General Family Medicine 02/14/18 Anthony Shen, PharmD [address] [place] [address] Pharmacist Internal Medicine 11/08/22 documented as of this encounter
--- OUTSIDE RECORDS SUMMARY | 2025-02-12 22:31 | XMS_ITS | Encounter Summary ---
Author Organization [employer] Address [address] [facility] [address] [place] [address] Care Team Providers Care Federal Agent Name Role Phone Laura Cohen MD Primary Care Provider [phone] Anthony Shen PharmD Unavailable [phone] Reason for Referral * Imaging (Routine) - Canceled Specialty Diagnoses / Procedures Referred By Contac t Referred To Contact Radiology Diagnoses Mass, chest Abnormal chest x-ray Procedures CT Chest w/o Contrast Laura Cohen MD [address] [place] [address] Phone: tel: fax: [facility] [address] [place] [id number] Phone: tel: fax: Referral ID Status Reason Start Date Expiration Date V isits Requested Visits Authorized [id number] Canceled 01/18/2024 01/17/2025 1 1 Encounter Details Date Type Department Care Team (Late st Contact Info) Description 01/18/2024 Orders Only [facility] MEDICINE [address] [place] [address] Laura Cohen MD [address] [place] [address] Mass, chest (Primary Dx); Abnormal chest x-ray; [...] Shen, PharmD documented as of this encounter Procedures Procedure Name Priority Date/Time Associated Diagnosis Comments COMPREHENSIVE METABOLIC PANEL Routine 09/18/2024 10:24 AM EDT Primary hypertension documented in this encounter Results * (ABNORMAL) Comprehensive Metabolic Panel (09/18/2024 10:24 AM EDT) Sodium 136 135 - 145 mmol/L [facility] Potassium 4.1 3.3 - 5.1 mmol/L [facility] Chloride 105 96 - 108 mmol/L [facility] Carbon Dioxide 27 22 - 29 mmol/L [facility] Anion Gap 8(L) 12 - 20 [facility] Urea Nitrogen (BUN) 14 9 - 16 mg/dL [facility] Creatinine, Serum 1.00 0.5 - 1.4 mg/dL [facility] Estimated Glomerular Filt Rate >60 [facility] Comment:Chronic Kidney Disea se: Estimated GFR < 60 mL/min/[id number] Kidney Disease: Estimated GFR < 15 mL/min/1.73m2 Glucose 129(H) 60 - 115 mg/dL [facility] Calcium 9.4 8.4 - 10.2 mg/dL [facility] Bilirubin, Total 0.6 0.0 - 1.0 mg/dL [facility] Aspartate Amino Transferase 21 5 - 37 U/L [facility] Alanine Aminotransferase 18 0 - 40 U/L [facility] Total Protein 7.4 6.5 - 8.0 g/dL [facility] Albumin Level 4.5 3.5 - 5.0 g/dL [facility] Alkaline Phosphatase 107 39 - 117 U/L [facility] Blood Venous blood specimen / Unknown 09/18/2024 10:24 AM EDT 09/18/2024 11:13 AM EDT Laura Cohen MD LAB BLOOD ORDERABLES Final Resul t [facility] [address] [place] [address] [phone] documented in this encounter Visit Diagnoses Diagnosis Mass, chest- Primary Swelling, mass, or lump in chest Abnormal chest x-ray Nonspecific (abnormal) findings on radiological and other examination of lung field Acquired hypothyroidism Unspecified hypothyroidism Primary hypertension Unspecified essential hypertension documented in this encounter Care Teams Federal Agent Relationship Specialty Start Date End Date Laura Cohen MD [address] [place] [address] PCP - General Family Medicine 02/14/18 Anthony Shen, ShelliD [address] [place] [address] Pharmacist Internal Medicine 11/08/22 documented as of this encounter
--- OUTSIDE RECORDS SUMMARY | 2025-02-12 22:31 | XMS_ITS | Encounter Summary ---
Author Organization [employer] Address [address] [facility] [address]t [place] [address] Care Team Providers Care Laboratory Sample Carrier Name Role Phone Laura Cohen MD Primary Care Provider [phone] Anthony Shen PharmD Unavailable [phone] Encounter Details Date Type Department Care Team (Late st Contact Info) Description 03/21/2022 Orders Only [facility] MEDICINE [address] [place], [place] [phone] Laura Cohen MD [address] [place], [place] [phone] Bilateral sensorineural hearing loss (Primary Dx) Social [...] bilateral documented in this encounter Care Teams Laboratory Sample Carrier Relationship Specialty Start Date End Date Laura Cohen MD [address] [place] [address] PCP - General Family Medicine 02/14/18 Anthony Shen, PharmD [address] [place] [address] Pharmacist Internal Medicine 11/08/22 documented as of this encounter
--- OUTSIDE RECORDS SUMMARY | 2025-02-12 22:31 | XMS_ITS | Encounter Summary ---
Author Organization [employer] Address [address] [place] [address] Care Team Providers Care Boxing Instructor Name Role Phone Laura Cohen MD Primary Care Provider Anthony Shen PharmD Unavailable [phone] Encounter Details Date Type Department Care Team ([facility] st Contact Info) Description 02/12/2025 Telephone [facility] [address] [place], [place] [phone] Laura Cohen MD [address] [place], [place] [phone] Social History Tobacco Use Types Packs/Day Years [...] encounter Miscellaneous Notes * Telephone Encounter - Smita Coe RN - 02/12/2025 5:44 PM EST Pt and spouse walked into [facility] requesting appointment. Author advised no appointment available and will triage. Pt c/o shortness of breath for multiple weeks and cough with phlegm. Denies chest pain. Has been taking mucinex and robitussin to help with symptoms. Pt also reports has not taken BP medications today. Pt reports last night had episode of chest pain and shortness of breath but resolved. Vitals 97.7 F 75 HR 20 RR 200/98 L arm manual 96% o2 RA at rest 94% o2 RA w/ exert. Lung sound + bilaterally for rhonchi. Denies headache, nausea, vision changes. Advised due to high blood pressure and risk for stroke, advised ED care and 911. Pt initially declined. Author advised of risks of not going including . 911 called. Pt spoke with EMS and ultimately agreed to be seen at [facility]. Verbal report given to EMS along with demographics, med list, problem list, and current vitals. documented in this encounter Plan of Treatment Not on file documented as of this encounter Goals Goal Patient Goal Type Associated Problems Recent Progress Patient-Stated? Author Blood Pressure < 140/90 Blood Pressure 134/78(2024 2:32 PM EDT) No Anthony Shen, PharmD Help patients manage their type 2 diabetes Care Plan Help patients manage their type 2 diabetes No Frank, Daniella, OD Weekly blood pressure task Care Plan Weekly blood pressure task No Frank, Daniella, OD Help patients manage their type 2 diabetes Care Plan Help patients manage their type 2 diabetes No Frank, Daniella, OD Patient has chronic kidney disease Care Plan Patient has chronic kidney disease No Frank, Daniella, OD Weekly blood pressure task Care Plan Weekly blood pressure task No Frank, Daniella, OD Patient has chronic kidney disease Care Plan Patient has chronic kidney disease No Frank, Daniella, OD Weekly blood pressure task Care Plan Weekly blood pressure task No Zainab Bell Weekly blood pressure task Care Plan Weekly blood pressure task No Zainab Bell Patient has chronic kidney disease Care Plan Patient has chronic kidney disease No Zainab Bell Patient has chronic kidney disease Care Plan Patient has chronic kidney disease No Zainab Bell Weekly blood pressure task Care Plan Weekly blood pressure task No Blanquita Mccracken RN Weekly blood pressure task Care Plan Weekly blood pressure task No Blanquita Mccracken RN Patient has chronic kidney disease Care Plan Patient has chronic kidney disease No Blanquita Mccracken RN Patient has chronic kidney disease Care Plan Patient has chronic kidney disease No Blanquita Mccracken RN Weekly blood pressure task Care Plan Weekly blood pressure task No Zainab Bell Weekly blood pressure task Care Plan Weekly blood pressure task No Zainab Bell Patient has chronic kidney disease Care Plan Patient has chronic kidney disease No Zainab Bell Patient has chronic kidney disease Care Plan Patient has chronic kidney disease No Zainab Bell Weekly blood pressure task Care Plan Weekly blood pressure task No Smita Coe RN Weekly blood pressure task Care Plan Weekly blood pressure task No Smita Coe RN Patient has chronic kidney disease Care Plan Patient has chronic kidney disease No Smita Coe RN Patient has chronic kidney disease Care Plan Patient has chronic kidney disease No Smita Coe RN documented as of this encounter Visit Diagnoses Not on filedocumented in this encounter Additional Health Concerns Active Problems Noted Date Diagnosed Date Help patients manage their type 2 diabetes 01/21 Weekly blood pressure task 01/21/2025 Help patients manage their type 2 diabetes 01/21 Patient has chronic kidney disease 01/21/2025 Weekly blood pressure task 01/21/2025 Patient has chronic kidney disease 01/21/2025 Weekly blood pressure task 02/04/2025 Weekly blood pressure task 02/04/2025 Patient has chronic kidney disease 02/04/2025 Patient has chronic kidney disease 02/04/2025 Weekly blood pressure task 02/04/2025 Weekly blood pressure task 02/04/2025 Patient has chronic kidney disease 02/04/2025 Patient has chronic kidney disease 02/04/2025 Weekly blood pressure task 02/12/2025 Weekly blood pressure task 02/12/2025 Patient has chronic kidney disease 02/12/2025 Patient has chronic kidney disease 02/12/2025 Weekly blood pressure task 02/12/2025 Weekly blood pressure task 02/12/2025 Patient has chronic kidney disease 02/12/2025 Patient has chronic kidney disease 02/12/2025 Assessment Noted Time PHQ-9 Depression Total Score: 0 09/18/19 11:18 AM EDT documented as of this encounter Care Teams Boxing Instructor Relationship Specialty Start Date End Date Laura Cohen MD [address] [place] [address] PCP - General Family Medicine 02/14/18 Anthony Shen, Gypsy [address] [place] [address] Pharmacist Internal Medicine 11/08/22 documented as of this encounter
--- OUTSIDE RECORDS SUMMARY | 2025-02-12 22:31 | XMS_ITS | Encounter Summary ---
Author Organization [employer] Address [address] [place] [address] Care Team Providers Care Catalog Library Assistant Name Role Phone Laura Cohen MD Primary Care Provider [phone] Anthony Shen PharmD Unavailable [phone] Reason for Visit * Reason Onset Date Comments Error 06/02/2023 Encounter Details Date Type Department Care Team ([facility] st Contact Info) Description 06/02/2023 Telephone [facility] MEDICINE [address] [place] [address] Laura Cohen MD [address] [place], [place] [phone] Error Social History Tobacco Use Types Packs/Day [...] on filedocumented in this encounter Care Teams Catalog Library Assistant Relationship Specialty Start Date End Date Laura Cohen MD [address] [place] [address] PCP - General Family Medicine 02/14/18 Anthony Shen, PharmD [address] [place] [address] Pharmacist Internal Medicine 11/08/22 documented as of this encounter
--- OUTSIDE RECORDS SUMMARY | 2025-02-12 22:31 | XMS_ITS | Encounter Summary ---
Author Organization [employer] Address [address] [facility] [address] 7[address] [place] [address] Care Team Providers Care Prepleater Name Role Phone Laura Cohen MD Primary Care Provider [phone] Anthony Shen PharmD Unavailable [phone] Reason for Visit * Reason Onset Date Comments Nurse Triage 02/12/2025 Encounter Details Date Type Department Care Team ([facility] st Contact Info) Description 02/12/2025 Telephone [facility] [address] [place] [address] Laura Cohen MD [address] [place] [address] Nurse Triage Social History Tobacco Use Types Packs/Day Years [...] encounter Miscellaneous Notes * Telephone Encounter - Moi Kay RN - 02/12/2025 3:44 PM EST TC x2 placed to patient [phone] regarding below message. RN unable to leave an VM d/t patient mailbox not being set up. PT to F/U PRN. * Telephone Encounter - Zainab Bose - 02/12/2025 3:17 PM EST Symptom: Cough Outcome: Schedule an appointment to be seen within 24 hours Reason: Caller denied all higher acuity questions The caller accepted this outcome. Contact at [phone] (latvian) documented in this encounter Plan of Treatment Not on file documented as of this encounter Goals Goal Patient Goal Type Associated Problems Recent Progress Patient-Stated? Author Blood Pressure < 140/90 Blood Pressure 134/78(2024 2:32 PM EDT) No Anthony Shen, PharmD Help patients manage their type 2 diabetes Care Plan Help patients manage their type 2 diabetes No Daniella Marie, JUAN RAMON Weekly blood pressure task Care Plan Weekly [...] documented as of this encounter Care Teams Prepleater Relationship Specialty Start Date End Date Laura Cohen MD [address] [place] [address] PCP - General Family Medicine 02/14/18 Anthony Shen, ShelliD [address] [place] [address] Pharmacist Internal Medicine 11/08/22 documented as of this encounter
--- OUTSIDE RECORDS SUMMARY | 2025-02-12 22:31 | XMS_ITS | Encounter Summary ---
Author Organization [employer] Address [address] [facility] [address] 7[address] [place] [address] Care Team Providers Care Beef Grinder Name Role Phone Laura Cohen MD Primary Care Provider [phone] Anthony Shen PharmD Unavailable [phone] Reason for Visit * Reason Comments Med Refill Encounter Details Date Type Department Care Team ([facility] st Contact Info) Description 02/07/2025 Refill [facility] [address] [place], [place] [phone] Laura Cohen MD [address] [place], [place] [phone] Social History Tobacco Use Types Packs/Day Years [...] patients manage their type 2 diabetes No Cesar Marien, OD Weekly blood pressure task Care Plan Weekly blood pressure task No Frank Daniella, OD Help patients manage their type 2 diabetes Care Plan Help patients manage their type 2 diabetes No Frank, Daniella, OD Patient has chronic kidney disease Care Plan Patient has chronic kidney disease No Frank Daniella, OD Weekly blood pressure task Care Plan Weekly blood pressure task No Frank Daniella, OD Patient has chronic kidney disease Care Plan Patient has chronic kidney disease No Frank Daniella, OD Weekly blood pressure task Care [...] Care Plan Patient has chronic kidney disease Blanquita Lopes RN Patient has chronic kidney disease Care Plan Patient has chronic kidney disease No Blanquita Mccracken RN documented as of this encounter Visit [...] 02/04/2025 Patient has chronic kidney disease 02/04/2025 Assessment Noted Time PHQ-9 Depression Total Score: 0 09/18/19 11:18 AM EDT documented as of this encounter Care Teams Beef Grinder Relationship Specialty Start Date End Date Laura Cohen MD [address] [place] [address] PCP - General Family Medicine 02/14/18 Anthony Shen, ShelliD [address] [place] [address] Pharmacist Internal Medicine 11/08/22 documented as of this encounter
--- OUTSIDE RECORDS SUMMARY | 2025-02-12 22:31 | XMS_ITS | Encounter Summary ---
Author Organization [employer] Address 75 [facility] 7t [place] [address] Care Team Providers Care Police Pilot Name Role Phone Laura Cohen MD Primary Care Provider [phone] Anthony Shen PharmD Unavailable [phone] Reason for Referral * Consultation (Routine) - Canceled Specialty Diagnoses / Procedures Referred By Contac t Referred To Contact Pharmacy Diagnoses Hypertension Keisha Rouse MD [address] [place], [place] Phone: tel: fax: Referral ID Status Reason Start Date Expiration Date V isits Requested Visits Authorized [id number] Canceled Continuity of Care 10/18/2024 10/18/2025 6 6 Encounter Details Date Type Department Care Team (Late st Contact Info) Description 10/18/2024 Orders Only [facility] [address] [place] [address] Laura Cohen MD [address] [place], [place] [phone] Hypertension (Primary Dx) Social History Tobacco Use [...] of this encounter Plan of Treatment Scheduled Referrals Name Type Priority Associated Diagnoses [...] documented as of this encounter Care Teams Police Pilot Relationship Specialty Start Date End Date Laura Cohen MD [address] [place] [phone] PCP - General Family Medicine 02/14/18 Anthony Shen, ShelliD [address] [place] [phone] Pharmacist Internal Medicine 11/08/22 documented as of this encounter
--- OUTSIDE RECORDS SUMMARY | 2025-02-12 22:31 | XMS_ITS | Encounter Summary ---
Author Organization [employer] Address 75 [facility] 7t [place] [address] Care Team Providers Care Carton Stenciler Name Role Phone Laura Cohen MD Primary Care Provider [phone] Anthony Shen PharmD Unavailable [phone] Encounter Details Date Type Department Care Team (Late st Contact Info) Description 02/02/2022 Orders Only [facility] [address] [place], [place] [phone] Leanna Gordon LPN Social History Tobacco Use [...] on filedocumented in this encounter Care Teams Carton Stenciler Relationship Specialty Start Date End Date Laura Cohen MD [address] [place], [place] [phone] PCP - General Family Medicine 02/14/18 Anthony Shen, PharmD [address] [place], [place] [phone] Pharmacist Internal Medicine 11/08/22 documented as of this encounter
--- OUTSIDE RECORDS SUMMARY | 2025-02-12 22:31 | XMS_ITS | Encounter Summary ---
Author Organization [employer] Address [address] [facility] [address] [place] [address] Care Team Providers Care Associate Professor Of Education Name Role Phone Laura Cohen MD Primary Care Provider [phone] Anthony Shen PharmD Unavailable [phone] Reason for Visit * Reason Comments Med Refill Encounter Details Date Type Department Care Team ([facility] st Contact Info) Description 07/01/2024 Refill [facility] 230 [place], [place] [phone] Laura Cohen MD [address] [place], [place] [phone] Social History Tobacco Use Types Packs/Day Years [...] t he electric, gas, oil or water [place] threatened to shut off services in your [...] on filedocumented in this encounter Care Teams Associate Professor Of Education Relationship Specialty Start Date End Date Laura Cohen MD [address] [place] [address] PCP - General Family Medicine 02/14/18 Anthony Shen, PharmD [address] [place] [address] Pharmacist Internal Medicine 11/08/22 documented as of this encounter
--- OUTSIDE RECORDS SUMMARY | 2025-02-12 22:31 | XMS_ITS | Clinical Summary ---
Author Organization [employer] Address [address] [facility] 7t [place] [address] Care Team Providers Care Director Of Sales Name Role Phone Laura Cohen MD Primary Care Provider [phone] Anthony Shen PharmD Unavailable [phone] Allergies No known active allergies Medications Alcohol Swabs (Alcohol Prep) 70 % pads USE TO TEST BLOOD SUGAR THREE TIMES DAILY DIRECTED 11/04/19 22 Active acetaminophen (Tylenol Extra Strength) 500 MG tablet Take 2 tablets (1,000 mg) by mouth every 8 (eight) hours if needed for mild pain or moderate pain. 60 tablet 05/25/19 23 Active albuterol (2.5 MG/3ML) 0.083% nebulizer solution INHALE 1 AMPULE USING A NEBULIZER EVERY 4 HOURS NEEDED DIFFICULTY BREATHING. NO MORE THAN 4 DOSES DAILY. 90 mL 1 11/11/19 23 Active Lancets (OneTouch Delica Plus Dbodyv18F) miscIndications:T ype 2 diabetes mellitus without complication, without long-term current use of insulin ([facility]) TEST BLOOD SUGAR THREE TIMES DAILY 100 each 11 03/14/19 25 Active tamsulosin (Flomax) 0.4 MG 24 hr capsuleIndication s:Benign prostatic hyperplasia, unspecified whether lower urinary tract symptoms present TAKE 1 CAPSULE BY MOUTH EVERY EVENING 90 capsule 3 04/24/19 25 Active traZODone (Desyrel) 50 MG tabletIndications :Chronic depression Take 1 tablet (50 mg) by mouth at bedtime. 90 tablet 3 04/24/19 25 Active OneTouch Ultra Test test strip TEST BLOOD SUGAR THREE TIMES DAILY 100 strip 11 5 1:02 PM EST 06/20/19 25 Active hydrOXYzine pamoate (Vistaril) 25 MG capsuleIndication s:Hypnagogic jerks TAKE 1 CAPSULE BY MOUTH AT BEDTIME NEEDED (FOR SLEEP / FOR ANXIETY) 30 capsule 1 06/26/19 25 Active lisinopril 40 MG tablet Take 1 tablet (40 mg) by mouth at bedtime. 90 tablet 3 5 1:02 PM EST 07/03/19 25 Active budesonide-formot funmi (Symbicort) 160-4.5 MCG/ACT inhalerIndication s:COPD exacerbation (CMS/HCC) ([facility]) INHALE 1 PUFF BY MOUTH TWICE DAILY IN THE MORNING AND IN THE EVENING RINSE MOUTH AFTER USING. 18 g 3 07/26/19 25 Active Aspirin EC Adult Low Dose 81 MG EC tablet TAKE 1 TABLET BY MOUTH EVERY EVENING 90 tablet 3 07/26/19 25 Active montelukast (Singulair) 10 MG tablet TAKE 1 TABLET BY MOUTH EVERY EVENING 90 tablet 3 07/26/19 25 Active Umeclidinium [place] (Incruse Ellipta) 62.5 MCG/ACT aerosol powder Inhale 1 Act (62.5 mcg) Once per day. INHALE 1 PUFF BY MOUTH EVERY DAY AT THE SAME TIME RINSE MOUTH AFTER USING RINSE MOUTH AFTER USING. 1 each 5 1:02 PM EST 08/08/19 25 Active furosemide (Lasix) 20 MG tablet TAKE 1 TABLET BY MOUTH EVERYDAY AT NOON 30 tablet 5 1:02 PM EST 08/31/19 25 Active atorvastatin (Lipitor) 80 MG tabletIndications :Lipid screening TAKE 1 TABLET BY MOUTH AT BEDTIME 30 tablet 5 1:02 PM EST 09/14/19 25 Active levothyroxine (Synthroid, Levoxyl) 137 MCG tabletIndications :Acquired hypothyroidism TAKE 1 TABLET BY MOUTH EVERY MORNING BEFORE BREAKFAST 30 tablet 5 1:02 PM EST 09/14/19 25 Active Blood Pressure kitIndications:Pr imary hypertension 1 each Once per day. Use to check blood pressure 1x daily. *czech speaking, medbox pt* 1 kit 10/02/19 25 Active doxazosin (Cardura) 8 MG tablet Take 1 tablet (8 mg) by mouth at bedtime. 30 tablet 11 5 1:02 PM EST 11/17/19 25 Active metFORMIN XR (Glucophage-XR) 500 MG 24 hr tablet TAKE 1 TABLET BY MOUTH EVERY EVENING 90 tablet 3 5 1:02 PM EST 11/27/19 25 Active amLODIPine (Norvasc) 5 MG tablet TAKE 1 TABLET BY MOUTH EVERYDAY AT NOON 90 tablet 3 5 1:02 PM EST 01/04/20 25 Active Ventolin HFA 108 (90 Base) MCG/ACT inhalerIndication s:Chronic obstructive pulmonary disease, unspecified COPD type (CMS/HCC) (HCC) INHALE 2 PUFFS BY MOUTH EVERY 4 HOURS NEEDED FOR WHEEZING OR SHORTNESS OF BREATH. NO MORE THAN 4 PUFFS PER DAY 18 g 1 01/15/20 25 Active omeprazole (PriLOSEC) [address] capsule TAKE 1 CAPSULE BY MOUTH TWICE DAILY IN THE MORNING AND IN THE EVENING 180 capsule 1 02/12/20 25 Active loratadine (Claritin) 10 MG tablet TAKE 1 TABLET BY MOUTH EVERYDAY AT NOON 90 tablet 1 02/12/20 25 Active citalopram (CeleXA) 40 MG tablet TAKE 1 TABLET BY MOUTH EVERYDAY AT NOON 90 tablet 02/12/20 25 Active Ventolin HFA 108 (90 Base) MCG/ACT inhalerIndication s:Chronic obstructive pulmonary disease, unspecified COPD type (CMS/HCC) (HCC) INHALE 2 PUFFS BY MOUTH EVERY 4 HOURS NEEDED FOR WHEEZING OR SHORTNESS OF BREATH NO MORE THAN 4 PUFFS DAILY 18 g 1 01/02/20 24 2024 Discontinued citalopram (CeleXA) 40 MG tablet Take 1 tablet (40 mg) by mouth Once per day. 90 tablet 11/17/19 25 2024 Discontinued loratadine (Claritin) 10 MG tablet Take 1 tablet (10 mg) by mouth Once per day. 90 tablet 11/17/19 25 2024 Discontinued omeprazole (PriLOSEC) [address] capsule Take 1 capsule (20 mg) by mouth before breakfast and before evening meal. Do not crush or chew. 180 capsule 11/17/19 25 2024 Discontinued Active Problems Problem Noted Date Diagnosed Date [...] Plan (09/17/2024 1:13 PM EDT): Following with Legal Word Processor, last seen 05/03/22 -Legal Word Processor impression: pt has asthma only and not COPD. -Advised to continue Albuterol -no need for any other inhalers -recommended to contact pulmonology office for next appointment Assessment & Plan (08/30/2023 5:09 PM EDT): Following with Legal Word Processor, last seen 05/03/22 -Legal Word Processor impression: pt has asthma only and not COPD. -Advised to continue Albuterol -no need for any other inhalers -recommended to contact pulmonology office for next appointment Assessment & Plan (11/29/2022 6:10 PM EDT): Following with Legal Word Processor, last seen 05/03/22 -Legal Word Processor impression: pt has asthma only and not COPD. -Advised to continue Albuterol -no need for any other inhalers Assessment & Plan (08/16/2022 1:10 PM EDT): Following with Legal Word Processor, last seen 05/03/22 -Legal Word Processor impression: pt has asthma only and not COPD. -Advised to continue Albuterol -no need for any other inhalers Assessment & Plan (05/24/2022 2:10 PM EDT): Following with Legal Word Processor, last seen 05/03/22 -Legal Word Processor impression: pt has asthma only and not COPD. -Advised to continue Albuterol -no need for any other inhalers Macular drusen, left 05/06/2022 BPH (benign prostatic hyperplasia) 02/28/2022 Assessment & Plan (09/17/2024 1:12 PM EDT): - previously evaluated by urologist, last seen in 2018 - continue Flomax Assessment & Plan (08/30/2023 [...] for cataract removal. - Last foot exam: 1/12/23 - Last microalbumin test: 08/16/22 UACR 5 [...] importance of keeping appt. Will refer to [facility]. - Last foot exam: 02/25/22 [...] in other modalities. - Previously referred to [facility] clinic. Patient cannot commit to the program [...] in other modalities. - Upcoming appointment with [facility] - Follow up in 3-4 mo, [...] - pt was advised to contact his manager utilization management to complete stress test. - Upcoming appointment with [facility] clinic - Follow up in 3-4 mo, [...] - pt was advised to contact his manager utilization management to complete stress test. - Refer to [...] - pt was advised to contact his manager utilization management to complete stress test. - Refer to [...] (09/17/2024 1:13 PM EDT): - seen by theater manager, Dr. Miguel, last seen on 05/13/22. - Still not using CPAP and specialist suggested a nasal pillow so pt can use it at home. - His current CPAP mask may have been uncomfortable/suffocating him and he did not use it. - pt was recommended to discuss with theater manager and CPAP supplier in regards to mask - discussed about the importance of CPAP adherence for his cardiopumonary condition Assessment & Plan (08/30/2023 8:19 AM EDT): - seen by theater manager, Dr. Miguel, last seen on 05/13/22. - Still not using CPAP and specialist suggested a nasal pillow so pt can use it at home. - His current CPAP mask may have been uncomfortable/suffocating him and he did not use it. - pt was recommended to discuss with theater manager and CPAP supplier in regards to mask - discussed about the importance of CPAP adherence for his cardiopumonary condition Assessment & Plan (11/29/2022 5:23 PM EDT): - seen by theater manager, Dr. Miguel, last seen on 05/13/22. - Still not using CPAP and specialist suggested a nasal pillow so pt can use it at home. - His current CPAP mask may have been uncomfortable/suffocating him and he did not use it. - pt was recommended to discuss with theater manager and CPAP supplier in regards to mask - discussed about the importance of CPAP adherence for his cardiopumonary condition Assessment & Plan (08/16/2022 1:10 PM EDT): - seen by theater manager, Dr. Miguel, last seen on 05/13/22. Still not using CPAP and specialist suggested a nasal pillow so pt can use it at home. -His current CPAP mask may have been uncomfortable/suffocating him and he did not use it. -Legal Word Processor impression states not COPD but only asthma. -Advised to continue Albuterol and no need for any other inhalers. Assessment & Plan (05/24/2022 2:08 PM EDT): - seen by theater manager, Dr. Miguel, last seen on 05/13/22. Still not using CPAP and specialist suggested a nasal pillow so pt can use it at home. -His current CPAP mask may have been uncomfortable/suffocating him and he did not use it. -Legal Word Processor impression states not COPD but only asthma. -Advised to continue Albuterol and no need for any other inhalers. Assessment & Plan (02/28/2022 7:35 AM EST): - seen by theater manager, Dr. Miguel - pt was supposed to [...] Right upper quadrant pain 01/30/2018 COPD exacerbation ([facility]) 10/01/2011 08/30/2023 Assessment & Plan (06/24/2023 1:19 PM EDT): Now resolved C/w current medication regimen Assessment & Plan (07/10/2023 2:06 PM EDT): Resume symbicort, rinse mouth after usage, rtc in 2 weeks sooner prn Report any increased sob, sputum production or wheezing Assessment & Plan (02/28/2022 7:12 AM EST): - following with Dr. Miguel, theater manager, last seen on 12/30/21. - Last COPD [...] Encounters Date Type Department Care Team Description 02/12/2025 Telephone [facility] [address] [place] [address] Laura Cohen MD 02/12/2025 Telephone [facility] [address] [place] [address] Laura Cohen MD Nurse Triage 02/07/2025 Refill [facility] [address] [place] [address] Laura Cohen MD 02/04/2025 Travel 02/04/2025 Telephone [facility] [address] [place] [address] Laura Cohen MD Nurse Triage 01/11/2025 Refill [facility] [address] [place] [address] Karo Garibay ANP Chronic obstructive pulmonary disease, unspecified COPD type (CMS/HCC) (HCC) 01/03/2025 Refill [facility] [address] [place] [address] Laura Cohen MD 12/17/2024 Telephone [facility] [address] [place] [address] Marily Tripathi [place] 11/25/2024 Refill [facility] [address] [place] [address] Laura Cohen MD 11/16/2024 Refill [facility] [address] [place] [address] Laura Cohen MD from Last 3 Months [...] 09/17/2024 11:23 AM EDT Plan of Treatment Health Maintenance Due Date Last Done Comments CT Colonography 1949 FIT DNA/Cologuard 1949 FIT 1949 FOBT 1950 Sigmoidoscopy 1950 Zoster Vaccines (3 of 3) 12/29/2022 11/03/2022, 1209/2014 Eye Exam 04/22/2024 04/22/2022, 0310/2022, 04/22/2022, Additional history exists COVID-19 Vaccine ( season) 2024 01/26/2021, 07/09/2020, 06/11/2020 Influenza Vaccine (#1) 2024 8, 12/16/2015, 11/15/2014, Additional history exists RSV Patients and Patients Aged 60 years or older (1 - 1-dose 75+ series) 2024 Diabetes: Hemoglobin A1C 03/20/2025 025, 08/30/2023, 06/10/2023, [...] chronic kidney disease No Smita Coe RN Procedures Procedure Name Priority Date/Time Associated Diagnosis Comments ALBUMIN, RANDOM URINE W/CREATININE Routine 09/18/2024 10:24 [...] Relevant to Health Maintenance Results * (ABNORMAL) Lipid Panel with Reflex to Direct LDL (09/18/2024 10:24 AM EDT) Triglycerides 103 <150 mg/dL [facility] Comment:Desirable Triglyceri de: less than 150 mg/dLBorderline High Triglyceride 150-199 mg/dLHigh Triglyceride: 200-499 mg/dLVery High Triglyceride: greater than or equal to 5OO mg/dL Cholesterol 189 <200 mg/dL [facility] Comment:Desirable Cholestero l: less than 200 mg/dLBorderline High Cholesterol: 200-239 mg/dLHigh Cholesterol: greater than 239 mg/dL LDL Cholesterol Calculated 128(H) <100 mg/dL [facility] Comment:Desirable LDL: less than 100 mg/dLNear Optimal/Above Optimal LDL: 110- 129 mg/dLBorderline High LDL: 130-159 mg/dLHigh LDL: 160-189 mg/dLVery High LDL: greater than or equal to 190 mg/dL HDL Cholesterol 41 >40 mg/dL [facility] Comment:Desirable HDL: great er than 40 mg/dL Note: This HDL assay may give artificially low results in patients with liver disease. Blood 09/18/2024 10:2 4 AM EDT 09/18/2024 11:13 AM EDT us Laura Sakurai MD LAB BLOOD ORDERABLES Final Resul t Performing Organization Address [facility] Co de Phone Number [facility] [address] [place] [phone] * Albumin, Random Urine W/Creatinine (09/18/2024 10:24 AM EDT) Creatinine, Urine 128.34 mg/dL [facility] Microalbumin Urine 12.0 mg/L [facility] Microalbum Creatinine Ratio Ur 9.3 <30 ug/mg cr [facility] Comment:Albumin/Creatinine R atio Reference Ranges: Normal: < 30 ug/mg creatinine Microalbuminuria: 30 - 300 ug/mg creatinineClinical Albuminuria: > 300 ug/mg creatinine Urine 09/18/2024 10:2 4 AM EDT 09/18/2024 11:36 AM EDT Laura Cohen MD LAB URINE ORDERABLES Final Resul t Performing Organization Address [facility] Co de Phone Number [facility] [address] [place] [phone] * (ABNORMAL) POCT glycosylated hemoglobin (Hgb A1c) (09/17/2024 11:20 AM EDT) Hemoglobin A1C 6.2(A) 4.0 - 5.7 % QC Media Lot # [id number] Lot# Expiration Date Blood Capillary blood specimen / Unknown 09/17/2024 11:20 AM EDT Laura Cohen MD POINT OF CARE TEST ENTER/EDIT OR DERABLES Final Result * Hepatitis C Antibody (11/02/2018 5:19 AM EDT) Hepatitis C Antibody Nonreactive Blood 11/02/2018 5:19 AM EDT Dimple Dumont MD POINT OF CARE TEST ENTER/ EDIT ORDERABLES Final Result * Colonoscopy (09/29/2018) Colonoscopy Normal Normal 09/29/2018 us Historical Provider HEALTH MAINTENANCE Edited Result - Final from Last 3 Months or Most Recently Relevant to Health Maintenance Additional Health Concerns Active Problems Noted Date [...] 02/12/2025 Patient has chronic kidney disease 02/12/2025 Insurance [address] [place] [address] [facility] (HMO D-SNP) DIANE ARCE [id number] Care Teams Director Of Sales Relationship Specialty Start Date End Date Laura Cohen MD [address] [place] [address] PCP - General Family Medicine 02/14/18 Anthony Shen, ShelliD [address] [place] [address] Pharmacist Internal Medicine 11/08/22
--- OUTSIDE RECORDS SUMMARY | 2025-02-12 22:31 | XMS_ITS | Encounter Summary ---
Author Organization [employer] Address [address] [facility] 7t [place] [address] Care Team Providers Care Dental Resident Name Role Phone Laura Cohen MD Primary Care Provider [phone] Anthony Shen PharmD Unavailable [phone] Reason for Visit * Reason Comments Med Refill Encounter Details Date Type Department Care Team (Late st Contact Info) Description 11/09/2022 Refill [facility] [address] [place] [address] Lucien Moise MD [address] [place], [place] [phone] Social History Tobacco Use Types Packs/Day Years [...] on filedocumented in this encounter Care Teams Dental Resident Relationship Specialty Start Date End Date Laura Cohen MD [address] [place] [address] PCP - General Family Medicine 02/14/18 Anthony Shen, PharmD [address] [place] [address] Pharmacist Internal Medicine 11/08/22 documented as of this encounter
--- OUTSIDE RECORDS SUMMARY | 2025-02-12 22:31 | XMS_ITS | Encounter Summary ---
Author Organization [employer] Address [address] [facility] 7t [place] [address] Care Team Providers Care School Coordinator Name Role Phone Laura Cohen MD Primary Care Provider [phone] Anthony Shen PharmD Unavailable [phone] Encounter Details Date Type Department Care Team ([facility] st Contact Info) Description 04/09/2022 Telephone [facility] MEDICINE [address] [place], [place] [phone] Laura Cohen MD [address] [place] [address] Social History Tobacco Use Types Packs/Day Years [...] on filedocumented in this encounter Care Teams School Coordinator Relationship Specialty Start Date End Date Laura Cohen MD [address] [place] [address] PCP - General Family Medicine 02/14/18 Anthony Shen, PharmD [address] [place] [address] Pharmacist Internal Medicine 11/08/22 documented as of this encounter
--- OUTSIDE RECORDS SUMMARY | 2025-02-12 22:31 | XMS_ITS | Encounter Summary ---
Author Organization [employer] Address [address] 7t [place] [address] Care Team Providers Care Machine Setter And Repairer Name Role Phone Laura Cohen MD Primary Care Provider [phone] Anthony Shen PharmD Unavailable [phone] Encounter Details Date Type Department Care Team ([facility] st Contact Info) Description 04/26/2022 Telephone [facility] MEDICINE [address] [place] [address] Laura Cohen MD [address] [place] [address] Social History Tobacco Use Types Packs/Day Years [...] on filedocumented in this encounter Care Teams Machine Setter And Repairer Relationship Specialty Start Date End Date Laura Cohen MD [address] [place] [address] PCP - General Family Medicine 02/14/18 Anthony Shen, ShelliD [address] [place] [address] Pharmacist Internal Medicine 11/08/22 documented as of this encounter
--- OUTSIDE RECORDS SUMMARY | 2025-02-12 22:31 | XMS_ITS | Patient Health Record ---
Author Organization [facility] [facility] Address [address] [place] [address] Care Team Providers Care Engraving Press Operator Name Role Phone Tavo Pedroza Unavailable [phone] Reason For Referral No Information Plan Of Treatment No Information
--- OUTSIDE RECORDS SUMMARY | 2025-02-12 22:31 | XMS_ITS | Encounter Summary ---
Author Organization [employer] Address [address] 7[address] [place] [address] Care Team Providers Care Joy Loader Name Role Phone Laura Cohen MD Primary Care Provider [phone] Anthony Shen PharmD Unavailable [phone] Encounter Details Date Type Department Care Team ([facility] st Contact Info) Description 09/18/2024 Orders Only [facility] MEDICINE [address] [place], [place] [phone] Laura Cohen MD [address] [place], [place] [phone] Acquired hypothyroidism (Primary Dx); Dyslipidemia Social History [...] documented as of this encounter Care Teams Joy Loader Relationship Specialty Start Date End Date Laura Cohen MD [address] [place] [address] PCP - General Family Medicine 02/14/18 Anthony Shen, Gypsy [address] [place] [address] Pharmacist Internal Medicine 11/08/22 documented as of this encounter
--- OUTSIDE RECORDS SUMMARY | 2025-02-12 22:31 | XMS_ITS | Encounter Summary ---
Author Organization [employer] Address [address] [place] [address] Care Team Providers Care Party Plan Selling Distributor Name Role Phone Laura Cohen MD Primary Care Provider [phone] Anthony Shen PharmD Unavailable [phone] Encounter Details Date Type Department Care Team ([facility] st Contact Info) Description 09/01/2023 Orders Only [facility] MEDICINE [address] [place], [place] [phone] Laura Cohen MD [address] [place], [place] [phone] Acquired hypothyroidism (Primary Dx); Dyslipidemia Social History [...] the past 12 months, has t he [employer], gas, oil or water company threatened to [...] Bilirubin, Direct 0.2 0.0 - 0.5 mg/dL [facility] Blood Venous blood specimen / Unknown 09/18/2024 10:24 AM EDT 09/18/2024 11:13 AM EDT us Laura Cohen MD LAB BLOOD ORDERABLES Final Resul t [facility] [address] [place] [address] [phone] * (ABNORMAL) TSH with Reflex to Free T4 (09/18/2024 10:24 AM EDT) TSH reflex Free T4 7.54(H) 0.32 - 4.0 uIU/mL [facility] Blood 09/18/2024 10:2 4 AM EDT 09/18/2024 11:13 AM EDT Laura Cohen MD LAB BLOOD ORDERABLES Final Resul t Performing Organization Address [facility] de Phone Number [facility] [address] [place] [phone] * (ABNORMAL) Lipid Panel with Reflex to Direct LDL (09/18/2024 10:24 AM EDT) Triglycerides 103 <150 mg/dL [facility] Comment:Desirable Triglyceri de: less than 150 mg/dLBorderline High Triglyceride 150-199 mg/dLHigh Triglyceride: 200-499 mg/dLVery High Triglyceride: greater than or equal to 5OO mg/dL Cholesterol 189 <200 mg/dL [facility] Comment:Desirable Cholestero l: less than 200 mg/dLBorderline High Cholesterol: 200-239 mg/dLHigh Cholesterol: greater than 239 mg/dL LDL Cholesterol Calculated 128(H) <100 mg/dL [facility] Comment:Desirable LDL: less than 100 mg/dLNear Optimal/Above Optimal LDL: 110- 129 mg/dLBorderline High LDL: 130-159 mg/dLHigh LDL: 160-189 mg/dLVery High LDL: greater than or equal to 190 mg/dL HDL Cholesterol 41 >40 mg/dL [facility] Comment:Desirable HDL: great er than 40 mg/dL Note: This HDL assay may give artificially low results in patients with liver disease. Blood 09/18/2024 10:2 4 AM EDT 09/18/2024 11:13 AM EDT Laura Cohen MD LAB BLOOD ORDERABLES Final Resul t Performing Organization Address [facility] Co de Phone Number [facility] [address] [place] [phone] [phone] documented in this encounter Visit Diagnoses Diagnosis Acquired hypothyroidism- Primary Unspecified hypothyroidism Dyslipidemia Other and unspecified hyperlipidemia documented in this encounter Care Teams Party Plan Selling Distributor Relationship Specialty Start Date End Date Laura Cohen MD [address] [place] [address] PCP - General Family Medicine 02/14/18 Anthony Shen, ShelliD [address] [place] [address] Pharmacist Internal Medicine 11/08/22 documented as of this encounter
--- OUTSIDE RECORDS SUMMARY | 2025-02-12 22:31 | XMS_ITS | Data Portability ---
Author Organization [employer] Address [address] [place] [address] Care Team Providers Care Ship'S Master Name Role Phone Unavailable Referring Provider [phone] Assessment Encounter Date Assessment Date Assessment LastModified by Organization Details LastModified Time 08/11/2022 08/11/2022 I have reviewed and agree with the assessment and plan as documented by the cattle and wheat farmer. 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 Functional Status None recorded. Mental Status None recorded. Family History Nothing Reported. Medical History No medical history recorded. Past Encounters Encounter ID Performer Location Encounter Start Date Encounter Closed Date Diagnosis/Indication Diagnosis SNOMED-CT Code Diagnosis ICD10 Code Diagnosis IMO Codes Diagnosis Note [id number] Elle Ocampo MD Main - [address] [address] 08/11/2022 15:00:03 08/12/2022 11:25:04 Chest pain 15566852 R07.9 Health Concerns Section Related Observation LastModified by Organization Detai ls LastModified Time None Recorded Concern Status LastModified by Organization Details LastModified Time None Recorded Advance Directives Directive None Recorded Payers Insurance Date Sequence Insurance Name Policy Number Policy Rojas Covered Member ID Rojas Member ID Guarantor Name 06/04/2023 1 [facility] - DOS ON OR AFTER 2022 - DUAL ELIGIBLE - [facility] OPTIONS AND ONE CARE (MEDICARE REPLACEMENT/ADV ANTAGE - HMO) Jt Hernandez [id number] Jt Hernandez Notes Date Note Type Note [...] .................. .................. .................. .................. .................. .................. ............... Merchandise Flow Team Leader Note From Amado Ortiz: [facility] dispatched to location for PT with chest pain. U/A to location PT 71 y.o. male found ambulatory presents awake CAOx4 with pink/warm/dry skin speaking full sentences. PT is [place] speaking only son is on scene to [...] not sleep well and skipped the appointment. [facility] contacted and verbal report of PT present illness given. [facility] recommends PT be seen at ER for symptoms. PT agrees to go to [facility] ER via his Son driving him. [facility] clears scene. *All times are approximate* .................. .................. .................. .................. .................. .................. .................. ............... Disposition: Fulfilled Elle Ocampo MD [address] [place] [address],[address], [place], [address], JOHNNY GATES 08/18/2022 16:50:49
--- OUTSIDE RECORDS SUMMARY | 2025-02-12 22:31 | XMS_ITS | Encounter Summary ---
Author Organization [employer] Address [address] [facility] [address]t [place] [address] Care Team Providers Care Diversity Intern Name Role Phone Laura Cohen MD Primary Care Provider [phone] Anthony Shen PharmD Unavailable [phone] Reason for Referral * Imaging (Urgent) - Closed Specialty Diagnoses / Procedures Referred By Contac t Referred To Contact Radiology Diagnoses Dyspnea, unspecified type Abnormal CXR Procedures CT CHEST W CONTRAST Laura Cohen MD [address] [place] [address] Phone: tel: fax: [facility] [address] [place] [phone] Phone: tel: fax: Referral ID Status Reason Start Date Expiration Date Visits Re quested Visits Authorized [id number] Closed 02/17/2024 02/16/2025 1 1 Encounter Details Date Type Department Care Team (Late st Contact Info) Description 02/17/2024 Orders Only [facility] MEDICINE [address] [place] [address] Laura Cohen MD [address] [place], [place] [phone] Dyspnea, unspecified type (Primary Dx); Abnormal CXR [...] field documented in this encounter Care Teams Diversity Intern Relationship Specialty Start Date End Date Laura Cohen MD [address] [place] [address] PCP - General Family Medicine 02/14/18 Anthony Shen, PharmD [address] [place] [phone] Pharmacist Internal Medicine 11/08/22 documented as of this encounter
--- OUTSIDE RECORDS SUMMARY | 2025-02-12 22:31 | XMS_ITS | Encounter Summary ---
Author Organization [employer] Address [address] [place] [address] Care Team Providers Care Breakfast Cook Name Role Phone Laura Cohen MD Primary Care Provider [phone] Anthony Shen PharmD Unavailable [phone] Encounter Details Date Type Department Care Team ([facility] st Contact Info) Description 11/30/2022 Orders Only [facility] MEDICINE [address] [place], [place] [phone] Laura Cohen MD [address] [place], [place] [phone] Acquired hypothyroidism (Primary Dx) Social History Tobacco [...] the past 12 months, has t he [employer], gas, oil or water [employer] threatened to shut off services in your [...] hypothyroidism documented in this encounter Care Teams Breakfast Cook Relationship Specialty Start Date End Date Laura Cohen MD [address] [place] [address] PCP - General Family Medicine 02/14/18 Anthony Shen, PharmD [address] [place] [address] Pharmacist Internal Medicine 11/08/22 documented as of this encounter
--- OUTSIDE RECORDS SUMMARY | 2025-02-12 22:31 | XMS_ITS | Encounter Summary ---
Author Organization [employer] Address [address] [place] [address] Care Team Providers Care Turning Lathe Tender Name Role Phone Laura Cohen MD Primary Care Provider [phone] Anthony Shen PharmD Unavailable [phone] Reason for Visit * Reason Onset Date Comments Med Refill 08/20/2022 Encounter Details Date Type Department Care Team (Late st Contact Info) Description 08/20/2022 Telephone [facility] MEDICINE [address] [place] [address] Laura Cohen MD [address] [place], [place] [phone] Med Refill Social History Tobacco Use Types [...] on filedocumented in this encounter Care Teams Turning Lathe Tender Relationship Specialty Start Date End Date Laura Cohen MD [address] [place] [address] PCP - General Family Medicine 02/14/18 Anthony Shen PharmD [address] [place] [address] Pharmacist Internal Medicine 11/08/22 documented as of this encounter
[2025-02-12 22:40] VITALS: BP 178/85; PULSE 76; RESP 81; TEMP 36.7; O2SAT 97
[2025-02-12] MEDS: Albuterol/Iprat 2.5/0.5MG 3 ML AMPUL.NEB INHALE (22:49)
[2025-02-12 22:50] VITALS: PULSE 67; RESP 16; O2SAT 98
[2025-02-12 23:30] VITALS: BP 130/68; PULSE 67; RESP 16; TEMP 36.8; O2SAT 95
== END 2025-02-12 23:31 | disposition home or self-care (01) ==
PROVIDERS: Physician Assistant; Emergency Provider Emergency Medicine; PCP Family Medicine
DX: J45.901 Unspecified asthma with (acute) exacerbation (principal); R06.02 Shortness of breath; R05.9 Cough, unspecified; I10 Essential (primary) hypertension; Z03.818 Encounter for observation for suspected exposure to other biological agents ruled out; Z79.899 Other long term (current) drug therapy
CPT/HCPCS: 71046; 80048; 80076; 84484; 85025; 87637; 93005; 94640; 99284

== ENCOUNTER → 2025-02-12 18:14 | Outpatient (BNV) | payer OTHER, SELFPAY | PROVIDERS: Emergency Provider Emergency Medicine; PCP Family Medicine; Visit Provider Internal Medicine | DX: I45.10 Unspecified right bundle-branch block (principal); I49.8 Other specified cardiac arrhythmias | CPT/HCPCS: 93010 ==

== ENCOUNTER → 2025-02-12 18:50 | Outpatient (BNV) | payer OTHER, SELFPAY | PROVIDERS: Visit Provider Radiology Diagnostic Radiology | DX: R05.9 Cough, unspecified (principal); R09.89 Other specified symptoms and signs involving the circulatory and respiratory systems | CPT/HCPCS: 71046 ==